=== PATIENT | female | born 1960 | race Caucasian/White ===

== ENCOUNTER 2018-01-24 01:14 | Inpatient (IN) | payer BC, MEDICARE, SELFPAY ==
[2018-01-24] VITALS (16 sets, daily range): BP systolic 89–151; BP diastolic 45–87; PULSE 57–88; RESP 14–20; TEMP 36.4–37.1; O2SAT 88–100; BMI 22.6; BMI 22.7
--- NOTE | 2018-01-24 01:50 | RAD_ITS ---
STUDY: X-RAY CHEST REASON FOR EXAM: Female, 58 years old. Chest pain status post fall TECHNIQUE: Single AP portable view of the chest. COMPARISON: 11/29/2016 FINDINGS: Hyperexpansion of the lungs. Mild prominence of interstitial markings throughout both lungs, unchanged. No confluent airspace opacity. The lungs are clear and expanded. There is no demonstrated pleural abnormality. Normal size heart. Normal mediastinum and jenny. Normal visualized pulmonary arteries. There is atherosclerotic calcification of the aortic arch. Normal visualized thoracic spine. Normal visualized ribs, clavicles, and shoulders. There is no demonstrated abnormality of the visualized soft tissue structures of the upper abdomen. RAD/Chest 1 View (Portable) IMPRESSION: Chronic obstructive and interstitial change with no evidence of acute cardiopulmonary disease. Electronically Signed: Gualberto Rowan MD at 3:49 EDT Tel , Service support ,
--- NOTE | 2018-01-24 01:50 | EKG12_ITS ---
Test Reason : Blood Pressure : / mmHG Vent. Rate : 085 BPM Atrial Rate : 085 BPM P-R Int : 144 ms QRS Dur : 098 ms QT Int : 422 ms P-R-T Axes : 071 084 081 degrees QTc Int : 502 ms Normal sinus rhythm Prolonged QT Abnormal ECG Confirmed by ALBINA DIETRICH, SHARMAINE ([id number]), graphics editor CORINNE VIEIRA ([id number]) on 01/25/2018 2:45:27 PM Referred By: CATIE Confirmed By:SHARMAINE MONTEMAYOR MD
--- NOTE | 2018-01-24 01:52 | RAD_ITS ---
STUDY: X-RAY - PELVIS AND RIGHT HIP REASON FOR EXAM: Female, 58 years old. Posttraumatic right hip pain status post fall TECHNIQUE: Radiological exam, hip, unilateral, with pelvis when performed; 2 or 3 views. COMPARISON: None. FINDINGS: There is a non-specific bowel gas pattern. Normal visualized soft tissue structures. Normal bilateral iliac wings, sacroiliac joints and visualized sacrum. Normal bilateral superior and inferior pubic rami. Normal pubic symphysis. Normal bilateral ischial tuberosities. Bilateral femoral heads are normal alignment with the acetabulum. There is a fracture through the mid right femoral neck. Normal acetabulum. Normal hip joint. RAD/Hip 2-3 Views with Pelvis IMPRESSION: Transcervical right femoral neck fracture. Electronically Signed: Gualberto Rowan MD at 4:37 EDT Tel , Service support ,
[2018-01-24] MEDS: Morphine 4 MG/ML Syringe IV ×4 (01:58→13:56)
[2018-01-24 01:59] LABS: Absolute Lymphocyte Count 2.99 X10^3/ul (0.83-4.51); Absolute Neutrophil Count 12.7 X10^3/uL (2.0-7.7); Basophil# 0.04 X10^3/uL; Basophil% 0.2 % (0-1); Eosinophil# 0.26 X10^3/uL; Eosinophils% 1.5 % (0-5); Hematocrit 38.5 % (37-47); Hemoglobin 12.9 g/dl (12.0-15.0); Lymphocyte # 2.99 X10^3/ul (4.0); Lymphocyte % 17.1 % (19-41); Mean Corp Hgb Conc 33.5 g/gl (32-36); Mean Corpuscular Hgb 32.2 pg (27.0-32.0); Mean Platelet Vol. 9.9 fl (6.2-12.0); Monocyte% 8.6 % (0-10); Neutrophil # 12.68 X10^3/uL (2.7-7.7); Neutrophil % 72.3 % (47-70); POSITIVE COUNT NO; POSITIVE DIFFERENTIAL NO; POSITIVE MORPHOLOGY NO; Platelet Count 270 K/mm3 (150-450); RBC Distribution Width SD 45.3 fl (35.1-43.9); Red Blood Count 4.01 M/mm3 (4.2-5.4); White Blood Count 17.5 K/mm3 (4.4-11.0)
[2018-01-24 02:03] LABS: International Normalized Ratio 0.9; Prothrombin Time (Protime)PT. 12.5 SECONDS (11.7-14.9)
[2018-01-24 02:04] LABS: Partial Thromboplast Time 25.3 Seconds (24.1-36.2)
[2018-01-24 02:06] LABS: Anion Gap 14 (5-15); BUN 7 mg/dL (7-18); BUN/Creat Ratio 17.2 RATIO (10-20); Calcium,Total 8.4 mg/dL (8.5-10.1); Chloride 100 mmol/L (98-107); Creatinine, Serum 0.41 mg/dL (0.55-1.02); EST Glomerular Filtration Rate 171 mL/min (>60); Est Glom Filt Rate - Afr Amer 207 mL/min (>60); Estimated Creatinine Clearance 119.73 ml/min; Glucose 114 mg/dL (74-106); Potassium 3.5 mmol/L (3.5-5.1); Sodium Level 137 mmol/L (136-145)
--- NOTE | 2018-01-24 02:47 | ED.VISSUMM ---
- ER Visit Summary Date of Service: 01/24/18 Chief Complaint: Fall, right hip injury History of Present Illness: The patient is a 58 F mechanical fall at 6 PM this evening. No head injuries or loss of consciousness. Was unable to get up. Significant other came home at 10 PM called EMS. Status post fentanyl from EMS with no provement. She is on chronic prednisone therapy for the past 3 years. Had a right shoulder fracture 4 months [address] followed [address] Dr. Jono Clemente. Abrasions to right forearm, tetanus less than a year ago. No chest pains or shortness of breath. No neck or back pain. No nausea or vomiting. Physical Examination: General: Alert and oriented ?3, no acute distress HEENT: Normocephalic, atraumatic. Moist mucosa membranes Neck: supple, nontender. Cardiovascular: Regular rate and rhythm, no murmurs Respiratory: Normal breath sounds, symmetric, no distress Abdomen: Soft, nontender, nondistended Extremities: Right lower extremity: Shortened and externally rotated. Positive logroll. Right upper extremity: Abrasions distal forearm with no active bleeding. No deformities. Neuro: no focal neurological deficits. Test Results: Right hip and pelvis: Displaced right femoral neck fracture. Chest x-ray: No acute process. WBC 17.5. Hemoglobin 12.9. Creatinine 0.41. EKG sinus rate of [address] or T-wave changes. Emergency Department Course and Treatment: Patient clinically concerns for hip fracture. Clearance labs and images obtained. Hip x-ray confirms fracture. Rodriguez cath placed. Given morphine for pain control. Discussed with Dr. Peace, hospitalist for admission. Dr. Cavazos who was on-call for Dr. Clemente was contacted for update on admission and fracture. Patient declined x-ray of the forearm. Abrasion was cleansed and dressed by nursing. Treatment Plan: [] Disposition: Admission Impression: 1. Closed right hip fracture 2. Right forearm abrasion This note was generated with [employer] dictation software. It may contain incorrect words, spelling, and punctuation that were not noted in review of the chart prior to signing ED Disposition - Plan for ED Patient: Disposition: Acute Care Hospital [facility] Chief Complaint: Fall Diagnosis: Closed right hip fracture, Abrasion of right forearm, initial encounter Referrals: Magen Cavazos MD [Primary Care Provider] -
--- NOTE | 2018-01-24 02:51 | ED.DCSUM_ITS ---
- ER Visit Summary Date of Service: 01/24/18 Chief Complaint: Fall, right hip injury History of Present Illness: The patient is a 58 F mechanical fall at 6 PM this evening. No head injuries or loss of consciousness. Was unable to get up. Significant other came home at 10 PM called EMS. Status post fentanyl from EMS with no provement. She is on chronic prednisone therapy for the past 3 years. Had a right shoulder fracture 4 months [address] followed [address] Dr. Jono Clemente. Abrasions to right forearm, tetanus less than a year ago. No chest pains or shortness of breath. No neck or back pain. No nausea or vomiting. Physical Examination: General: Alert and oriented ?3, no acute distress HEENT: Normocephalic, atraumatic. Moist mucosa membranes Neck: supple, nontender. Cardiovascular: Regular rate and rhythm, no murmurs Respiratory: Normal breath sounds, symmetric, no distress Abdomen: Soft, nontender, nondistended Extremities: Right lower extremity: Shortened and externally rotated. Positive logroll. Right upper extremity: Abrasions distal forearm with no active bleeding. No deformities. Neuro: no focal neurological deficits. Test Results: Right hip and pelvis: Displaced right femoral neck fracture. Chest x-ray: No acute process. WBC 17.5. Hemoglobin 12.9. Creatinine 0.41. EKG sinus rate of [address] or T-wave changes. Emergency Department Course and Treatment: Patient clinically concerns for hip fracture. Clearance labs and images obtained. Hip x-ray confirms fracture. Rodriguez cath placed. Given morphine for pain control. Discussed with Dr. Peace , hospitalist for admission. Dr. Cavaozs who was on-call for Dr. Clemente was contacted for update on admission and fracture. Patient declined x-ray of the forearm. Abrasion was cleansed and dressed by nursing. Treatment Plan: [] Disposition: Admission Impression: 1. Closed right hip fracture 2. Right forearm abrasion This note was generated with [employer] dictation software. It may contain incorrect words, spelling, and punctuation that were not noted in review of the chart prior to signing ED Disposition - Plan for ED Patient: Disposition: Acute Care Hospital [facility] Chief Complaint: Fall Diagnosis: Closed right hip fracture, Abrasion of right forearm, initial encounter Referrals: Magen Cavazos MD [Primary Care Provider] -
--- NOTE | 2018-01-24 02:58 | PCM.HP.STD ---
Problem List (1) COPD (chronic obstructive pulmonary disease) Status: Chronic Qualifiers: COPD type: chronic bronchitis Chronic bronchitis type: unspecified Qualified Code(s): J42 - Unspecified chronic bronchitis (2) Abrasion of right forearm, initial encounter Status: Acute (3) Closed right hip fracture Status: Acute (4) Anxiety, generalized Status: Chronic (5) GERD (gastroesophageal reflux disease) Status: Chronic (6) Panic attacks Status: Chronic (7) Post traumatic stress disorder (PTSD) Status: Chronic History of Present Illness Date of Admission: 01/24/18 Chief Complaint: fall. right hip pain. The patient is a 58 year old F who tripped on a rug in her house and fell landing on her right hip. Patient had immediate hip pain. Patient presented to the emergency room and was found to have of a compacted right hip fracture. Dr. Cavazos, of orthopedics, was calmed by emergency room physician and will be seeing the patient in consultation. Patient did land on her shoulder was having pain x-ray was recommended by the emergency room physician, however the patient declined. Patient is on chronic steroids for her COPD. She is not on oxygen at home. Inquired why she is on chronic steroids patient states that her COPD and will be following up with her denture contour wire specialist in March. [] Past Medical History Past Medical History (Chronic Problems): Chronic Problems COPD (chronic obstructive pulmonary disease) (Chronic) Panic attacks (Chronic) Former heavy tobacco smoker (Chronic) Post traumatic stress disorder (PTSD) (Chronic) Anxiety, generalized (Chronic) Underweight (Chronic) Current smoker (Chronic) GERD (gastroesophageal reflux disease) (Chronic) Allergies No Known Allergies Allergy (Verified 01/24/18 01:14) Home Medications: Ambulatory Orders Medication Instructions Recorded Albuterol Aerosols [Ventolin 2.5 mg INHALATION BID 10/04/14 Aerosols] Fluticasone/Salmeterol [Advair 1 puff INHALATION BID 10/04/14 500/50 Mcg Diskus] Guaifenesin [Mucinex] 1,200 mg PO BID PRN PRN 01/24/15 Tiotropium Melber [Spiriva 18 MCG] 1 puff INHALATION DAILY 01/24/15 Prednisone 10 mg PO DAILY #10 tablet 04/11/16 Azithromycin [Azithromycin] 250 mg PO DAILY 11/29/16 Lisinopril [Zestril] 5 mg PO DAILY 09/16/17 Omeprazole [Prilosec] 20 mg PO DAILY 09/16/17 Oxycodone HCl/Acetaminophen 1 - 2 tablet PO Q4H PRN PRN #12 09/16/17 [Percocet 5/325] tablet Alprazolam [Xanax] 1 mg PO BID 01/24/18 Escitalopram Oxalate [Lexapro] 10 mg PO DAILY 01/24/18 Losartan Potassium [Cozaar] 50 mg PO DAILY 01/24/18 Surgical History: appendectomy, hysterectomy Psychiatric History: Anxiety - with panic attacks, Post traumatic stress Smoking Status: Light Smoker (<10/day) Tobacco Use: Cigarettes Alcohol: Occasional Drugs: None - *Family History Maternal History Items: Unknown, - - No COPD Paternal History Items: Stroke Sibling History Items: Unknown Review of Systems Constitutional: Denies: Anorexia, Chills, Fever Eyes: Denies: Blurred vision, Double vision HEENT: Denies: Head Aches, Sinus Congestion, Sinus Drainage Cardiovascular: Denies: Chest Pain, Palpitations Respiratory: Reports: Shortness of breath upon exertion. Denies: Cough Gastrointestinal: Denies: Abdominal Pain, Nausea, Vomiting Genitourinary: Denies: Dysuria Musculoskeletal: Denies: Joint Pain, Joint Tenderness Skin: Denies: Rash, Wounds Neurological: Denies: Numbness, Tingling, Focal weakness Psychiatric: Denies: Anxiety, Depression Hematologic/ Lymphatic: Denies: Easy Bruising, Easy Bleeding, Hx of blood clot VTE Information - Inpt Only VTE Present on Admission: No VTE Mechan Device Prophylaxis: SCD's Patient Problems: Active and Suspected Problems Closed right hip fracture (Acute) Abrasion of right forearm, initial encounter (Acute) - Physical Exam General: Alert, - - Uncomfortable. Afebrile. HEENT: Atraumatic, Normocephalic Neck: No Nodes, Thyroid Normal Size and Texture Lungs: Clear to auscultation, Normal air movement, No rhonchi, No wheeze Cardiovascular: Regular rate, Regular Rhythm, Normal S1, Normal S2, No murmurs Abdomen: Bowel Sounds Present, Soft, Non Tender, Non-Distended, No Hepato-splenomegaly Extremities: No edema, No Calf Tenderness Skin: - - Superficial abrasions on upper extremities which patient attributes to itching. Right hand and wrist were wrapped in gauze, did not remove. Musculoskeletal: Cachexia, Muscle Wasting Psych/Mental Status: Appropriate, Flat Affect Vital Signs Temp Pulse Resp BP Pulse Ox 37.0 C 62 18 123/75 H 92 01/24/18 01:15 01/24/18 01:15 01/24/18 01:15 01/24/18 01:15 01/24/18 01:18 Oxygen Delivery Method Room Air Weight: 56.3 kg Body Mass Index (BMI) 22.6 Laboratory Tests Past 24 Hrs 01/24/18 01/24/18 01/24/18 01:20 01:20 01:20 WBC 17.5 H RBC 4.01 L Hgb 12.9 Hct 38.5 MCV 96.0 MCH 32.2 H MCHC 33.5 RDW 13.0 RDW Differential 45.3 H Plt Count 270 MPV 9.9 Immature Gran % (Auto) 0.300 Neut % (Auto) 72.3 H Lymph % (Auto) 17.1 L Maverick % (Auto) 8.6 Eos % (Auto) 1.5 Baso % (Auto) 0.2 Absolute Neuts (auto) 12.7 H Absolute Lymphs (auto) 2.99 Total Counted Not Reportable PT 12.5 INR 0.9 APTT 25.3 Sodium 137 Potassium 3.5 Chloride 100 Carbon Dioxide 23.0 Anion Gap 14 BUN 7 Creatinine 0.41 L Estim Creat Clear Calc 119.73 Est GFR (MDRD) Af Amer 207 Est GFR (MDRD) Non-Af 171 BUN/Creatinine Ratio 17.2 Glucose 114 H Calcium 8.4 L Blood Type Antibody Screen 01/24/18 01/24/18 02:05 02:40 WBC RBC Hgb Hct MCV MCH MCHC RDW RDW Differential Plt Count MPV Immature Gran % (Auto) Neut % (Auto) Lymph % (Auto) Maverick % (Auto) Eos % (Auto) Baso % (Auto) Absolute Neuts (auto) Absolute Lymphs (auto) Total Counted PT INR APTT Sodium Potassium Chloride Carbon Dioxide Anion Gap BUN Creatinine Estim Creat Clear Calc Est GFR (MDRD) Af Amer Est GFR (MDRD) Non-Af BUN/Creatinine Ratio Glucose Calcium Blood Type Cancelled Pending Antibody Screen Cancelled Pending Hip x-ray was reviewed and showed an impacted right hip fracture. Chest x-ray was reviewed and showed large airways but no infiltrate nor edema. EKG was reviewed and showed normal sinus rhythm without any acute changes. Assessment/Plan Active and Suspected Problems Closed right hip fracture (Acute) Abrasion of right forearm, initial encounter (Acute) 1. Closed right hip fracture Status post mechanical fall but also complicated by patient's chronic steroid use. Patient has a good performance status prior to this able to engage in greater than 4 mets of activity. Patient is medically cleared to proceed with surgery. Dr. Cavazos has been contacted by the emergency room physician will be seeing patient in consultation today. Patient will be n.p.o. at 6 AM today in anticipation for potential surgery later on today. Pain control 2. COPD Currently stable Continue with her home medications Patient is on long-term prednisone use at 10 mg. I did discuss with the patient about long-term steroids in fact they can potentiate osteoporosis which may have led to her this fracture though not necessarily fall. Patient has an appointment with Dr. Aaron in March. Feeling very essential to discuss long-term steroids the patient is on at that time and seeing about weaning process if it is possible. 3. DVT prophylaxis SCDs for now After surgery, chemical prophylaxis will be directed by orthopedics. Code Visit Inpatient E&M: 96072 Init Hosp L2
--- NOTE | 2018-01-24 03:08 | HP.PCM_ITS ---
Problem List (1) COPD (chronic obstructive pulmonary disease) Status: Chronic Qualifiers: COPD type: chronic bronchitis Chronic bronchitis type: unspecified Qualified Code(s): J42 - Unspecified chronic bronchitis (2) Abrasion of right forearm, initial encounter Status: Acute (3) Closed right hip fracture Status: Acute (4) Anxiety, generalized Status: Chronic (5) GERD (gastroesophageal reflux disease) Status: Chronic (6) Panic attacks Status: Chronic (7) Post traumatic stress disorder (PTSD) Status: Chronic History of Present Illness Date of Admission: 01/24/18 Chief Complaint: fall. right hip pain. The patient is a 58 year old F who tripped on a rug in her house and fell landing on her right hip. Patient had immediate hip pain. Patient presented to the emergency room and was found to have of a compacted right hip fracture. Dr. Cavazos, of orthopedics, was calmed by emergency room physician and will be seeing the patient in consultation. Patient did land on her shoulder was having pain x-ray was recommended by the emergency room physician, however the patient declined. Patient is on chronic steroids for her COPD. She is not on oxygen at home. 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 [] Past Medical History Past Medical History (Chronic Problems): Chronic Problems COPD (chronic obstructive pulmonary disease) (Chronic) Panic attacks (Chronic) Former heavy tobacco smoker (Chronic) Post traumatic stress disorder (PTSD) (Chronic) Anxiety, generalized (Chronic) Underweight (Chronic) Current smoker (Chronic) GERD (gastroesophageal reflux disease) (Chronic) Allergies No Known Allergies Allergy (Verified 01/24/18 01:14) Home Medications: Ambulatory Orders Medication Instructions Recorded Albuterol Aerosols [Ventolin 2.5 mg INHALATION BID 10/04/14 Aerosols] Fluticasone/Salmeterol [Advair 1 puff INHALATION BID 10/04/14 500/50 Mcg Diskus] Guaifenesin [Mucinex] 1,200 mg PO BID PRN PRN 01/24/15 Tiotropium Julian [Spiriva 18 MCG] 1 puff INHALATION DAILY 01/24/15 Prednisone 10 mg PO DAILY #10 tablet 04/11/16 Azithromycin [Azithromycin] 250 mg PO DAILY 11/29/16 Lisinopril [Zestril] 5 mg PO DAILY 09/16/17 Omeprazole [Prilosec] 20 mg PO DAILY 09/16/17 Oxycodone HCl/Acetaminophen 1 - 2 tablet PO Q4H PRN PRN #12 09/16/17 [Percocet 5/325] tablet Alprazolam [Xanax] 1 mg PO BID 01/24/18 Escitalopram Oxalate [Lexapro] 10 mg PO DAILY 01/24/18 Losartan Potassium [Cozaar] 50 mg PO DAILY 01/24/18 Surgical History: appendectomy, hysterectomy Psychiatric History: Anxiety - with panic attacks, Post traumatic stress Smoking Status: Light Smoker (<10/day) Tobacco Use: Cigarettes Alcohol: Occasional Drugs: None - *Family History Maternal History Items: Unknown, - - No COPD Paternal History Items: Stroke Sibling History Items: Unknown Review of Systems Constitutional: Denies: Anorexia, Chills, Fever Eyes: Denies: Blurred vision, Double vision HEENT: Denies: Head Aches, Sinus Congestion, Sinus Drainage Cardiovascular: Denies: Chest Pain, Palpitations Respiratory: Reports: Shortness of breath upon exertion. Denies: Cough Gastrointestinal: Denies: Abdominal Pain, Nausea, Vomiting Genitourinary: Denies: Dysuria Musculoskeletal: Denies: Joint Pain, Joint Tenderness Skin: Denies: Rash, Wounds Neurological: Denies: Numbness, Tingling, Focal weakness Psychiatric: Denies: Anxiety, Depression Hematologic/ Lymphatic: Denies: Easy Bruising, Easy Bleeding, Hx of blood clot VTE Information - Inpt Only VTE Present on Admission: No VTE Mechan Device Prophylaxis: SCD's Patient Problems: Active and Suspected Problems Closed right hip fracture (Acute) Abrasion of right forearm, initial encounter (Acute) - Physical Exam General: Alert, - - Uncomfortable. Afebrile. HEENT: Atraumatic, Normocephalic Neck: No Nodes, Thyroid Normal Size and Texture Lungs: Clear to auscultation, Normal air movement, No rhonchi, No wheeze Cardiovascular: Regular rate, Regular Rhythm, Normal S1, Normal S2, No murmurs Abdomen: Bowel Sounds Present, Soft, Non Tender, Non-Distended, No Hepato- splenomegaly Extremities: No edema, No Calf Tenderness Skin: - - Superficial abrasions on upper extremities which patient attributes to itching. Right hand and wrist were wrapped in gauze, did not remove. Musculoskeletal: Cachexia, Muscle Wasting Psych/Mental Status: Appropriate, Flat Affect Vital Signs Temp Pulse Resp BP Pulse Ox 37.0 C 62 18 123/75 H 92 01/24/18 01:15 01/24/18 01:15 01/24/18 01:15 01/24/18 01:15 01/24/18 01:18 Oxygen Delivery Method Room Air Weight: 56.3 kg Body Mass Index (BMI) 22.6 Laboratory Tests Past 24 Hrs 01/24/18 01/24/18 01/24/18 01:20 01:20 01:20 WBC 17.5 H RBC 4.01 L Hgb 12.9 Hct 38.5 MCV 96.0 MCH 32.2 H MCHC 33.5 RDW 13.0 RDW Differential 45.3 H Plt Count 270 MPV 9.9 Immature Gran % (Auto) 0.300 Neut % (Auto) 72.3 H Lymph % (Auto) 17.1 L Gilmer % (Auto) 8.6 Eos % (Auto) 1.5 Baso % (Auto) 0.2 Absolute Neuts (auto) 12.7 H Absolute Lymphs (auto) 2.99 Total Counted Not Reportable PT 12.5 INR 0.9 APTT 25.3 Sodium 137 Potassium 3.5 Chloride 100 Carbon Dioxide 23.0 Anion Gap 14 BUN 7 Creatinine 0.41 L Estim Creat Clear Calc 119.73 Est GFR (MDRD) Af Amer 207 Est GFR (MDRD) Non-Af 171 BUN/Creatinine Ratio 17.2 Glucose 114 H Calcium 8.4 L Blood Type Antibody Screen 01/24/18 01/24/18 02:05 02:40 WBC RBC Hgb Hct MCV MCH MCHC RDW RDW Differential Plt Count MPV Immature Gran % (Auto) Neut % (Auto) Lymph % (Auto) Gilmer % (Auto) Eos % (Auto) Baso % (Auto) Absolute Neuts (auto) Absolute Lymphs (auto) Total Counted PT INR APTT Sodium Potassium Chloride Carbon Dioxide Anion Gap BUN Creatinine Estim Creat Clear Calc Est GFR (MDRD) Af Amer Est GFR (MDRD) Non-Af BUN/Creatinine Ratio Glucose Calcium Blood Type Cancelled Pending Antibody Screen Cancelled Pending Hip x-ray was reviewed and showed an impacted right hip fracture. Chest x-ray was reviewed and showed large airways but no infiltrate nor edema. EKG was reviewed and showed normal sinus rhythm without any acute changes. Assessment/Plan Active and Suspected Problems Closed right hip fracture (Acute) Abrasion of right forearm, initial encounter (Acute) 1. Closed right hip fracture * Status post mechanical fall but also complicated by patient's chronic steroid use. * Patient has a good performance status prior to this able to engage in greater than 4 mets of activity. * Patient is medically cleared to proceed with surgery. * Dr. Cavazos has been contacted by the emergency room physician will be seeing patient in consultation today. * Patient will be n.p.o. at 6 AM today in anticipation for potential surgery later on today. * Pain control 2. COPD * Currently stable * Continue with her home medications * Patient is on long-term prednisone use at 10 mg. I did discuss with the patient about long-term steroids in fact they can potentiate osteoporosis which may have led to her this fracture though not necessarily fall. * Patient has an appointment with Dr. Aaron in March. Feeling very essential to discuss long-term steroids the patient is on at that time and seeing about weaning process if it is possible. 3. DVT prophylaxis * SCDs for now * After surgery, chemical prophylaxis will be directed by orthopedics. Code Visit Inpatient E&M: 96946 Init Hosp L2
[2018-01-24] MEDS: Morphine 2 MG/ML Syringe IV (03:22)
[2018-01-24] MEDS: oxyCODONE 5 MG Tablet PO (04:30)
[2018-01-24] MEDS: ALPRAZolam 0.5 MG Tablet 1 MG PO (04:30)
[2018-01-24] MEDS: Pantoprazole Sodium 20 MG Tablet PO (08:54)
[2018-01-24] MEDS: Losartan Potassium 50 MG Tablet PO (08:54)
[2018-01-24] MEDS: Lisinopril 5 MG Tablet PO (08:55)
--- NOTE | 2018-01-24 09:15 | HIP_PTH ---
PATIENT: RACQUEL IRVIN LOC: [facility] U#:[id number] AGE/SX: 58/F ROOM: [facility]313 RE01/24/[address]: Dr. Romy Gomez MD : 1960 BED: 1 DIS: 01/27/2018 SPEC #: [id number] RECD: 01/25/18 08:11 STATUS: GEORGE MICHELLE #: [id number] KAUSHIK: 01/24/18 09:[address]: Mayito Ayers DEPT: SURGICAL PATHOLOGY RECD BY: Michelle Briggs ENTERED: 01/25/18 09:07 SP TYPE: TOTAL HIP OTHR DR: MD Dr. Arnie Pizarro DO Dr. Steven Widmer, MD Tissues: Hip, NOS Procedures: Decalcification bone/plaque Surgery Specimen Level IV HEADER OPERATION: Total hip replacement PRE-OP DIAGNOSIS: Fractured right hip TISSUE SUBMITTED: Right hip bone and tissue MICROSCOPIC DIAGNOSIS Bone and soft tissue of right hip, total hip resection: Consistent with organizing fracture callous. Trilineage hematopoiesis. AM:elaine 01/30/18 MICROSCOPIC DESCRIPTION Slides are reviewed. GROSS DESCRIPTION Received is one container labeled with the patient's name and designated right hip bone and tissue. The specimen consists of a femoral head measuring 4 x 4.5 x 4 cm. The articular surface is smooth. Resection margin is irregular and hemorrhagic. Also present in the specimen container are multiple detached pieces of bone including bone reamings measuring in aggregate 6 x 6 x 2 cm. Soft tissue is not identified. Food Service Representative sections are submitted in three cassettes after decalcification as follows: 1 & 2 - detached pieces of bone and bone reamings, 3 - femoral head after decalcification. / SJ:elaine 01/25/18 TC:5 CPT: 92545, 87135
[2018-01-24] MEDS: Ipratropium/Albuterol Sulfate 3 ML AMPUL.NEB INHALATION ×2 (09:17→13:08)
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
--- NOTE | 2018-01-24 14:05 | NURSING ---
Addendum entered by Chandni Wan 01/24/18 14:15: report called to Laura in [facility]. aware that consent has not been signed and that antibiotic is not on unit Original Note: Laurie here to transport pt down to surgery.
--- NOTE | 2018-01-24 15:50 | PCM.CONS.GEN ---
Reason for Consult Date of Consultation: 01/24/18 Reason for Consultation: Right hip pain. Rested by Dr. Neal History of Present Illness: The patient is a 58 year old F history of chronic COPD on prednisone chronically. Patient fell yesterday evening her home. She presented to the hospital with inability to bear weight and pain in her right groin. Patient currently has 10 out of 10 pain worse with motion better with immobilization and pain medications. Pain is constant achy. Patient lives at home with her and ambulates independently. She is a fairly active independent individual her chronic medical issues. She denies home oxygen to me. She does not report significant previous groin pain. She denies associated numbness and tingling. No other painful extremities. Past Medical History Past Medical History (Chronic Problems): Chronic Problems COPD (chronic obstructive pulmonary disease) (Chronic) Panic attacks (Chronic) Former heavy tobacco smoker (Chronic) Post traumatic stress disorder (PTSD) (Chronic) Anxiety, generalized (Chronic) Underweight (Chronic) Current smoker (Chronic) GERD (gastroesophageal reflux disease) (Chronic) Allergies No Known Allergies Allergy (Verified 01/24/18 01:14) Home Medications: Ambulatory Orders Medication Instructions Recorded Albuterol Aerosols [Ventolin 2.5 mg INHALATION BID 10/04/14 Aerosols] Fluticasone/Salmeterol [Advair 1 puff INHALATION BID 10/04/14 500/50 Mcg Diskus] Guaifenesin [Mucinex] 1,200 mg PO BID PRN PRN 01/24/15 Tiotropium [place] [Spiriva 18 MCG] 1 puff INHALATION DAILY 01/24/15 Prednisone 10 mg PO DAILY #10 tablet 04/11/16 Azithromycin [Azithromycin] 250 mg PO DAILY 11/29/16 Lisinopril [Zestril] 5 mg PO DAILY 09/16/17 Omeprazole [Prilosec] 20 mg PO DAILY 09/16/17 Alprazolam [Xanax] 1 mg PO BID 01/24/18 Escitalopram Oxalate [Lexapro] 10 mg PO DAILY 01/24/18 Losartan Potassium [Cozaar] 50 mg PO DAILY 01/24/18 Surgical History: appendectomy, hysterectomy Psychiatric History: Anxiety - with panic attacks, Post traumatic stress Lives: Spouse/ Significant Other Smoking Status: Light Smoker (<10/day) Tobacco Use: Cigarettes Alcohol: Occasional Drugs: None - *Family History Maternal History Items: Unknown, - - No COPD Paternal History Items: Stroke Sibling History Items: Unknown Review of Systems Constitutional: Denies: Chills, Fever, Weight Change HEENT: Denies: Head Aches, Sinus Congestion, Sinus Drainage Cardiovascular: Denies: Chest Pain, Palpitations Respiratory: Reports: Shortness of breath upon exertion - Chronic, on oxygen today. Denies: Cough, Shortness of breath at rest, Sputum production Gastrointestinal: Denies: Abdominal Pain, Nausea, Vomiting Genitourinary: Denies: Dysuria Musculoskeletal: Reports: - - See HPI Skin: Reports: - - Patient has superficial hematomas from her fall and thin skin from chronic steroid use.. Denies: Rash, Wounds Neurological: Denies: Numbness, Tingling, Focal weakness Psychiatric: Denies: Anxiety, Depression, Homicidal Ideations, Suicidal Ideations Hematologic/ Lymphatic: Denies: Easy Bruising, Easy Bleeding Patient Problems: Active and Suspected Problems Closed right hip fracture (Acute) Abrasion of right forearm, initial encounter (Acute) Objective: X-rays show completely displaced capital femoral neck fracture. Hip joint shows joint space narrowing and mild subchondral sclerosis - Physical Exam General: Alert, Oriented x3, Cooperative Extremities: - - Lower extremity: Skin clean, dry, and intact. Limb is shortened and externally rotated Motor is intact dorsiflexion, EHL and plantar flexion. Sensation is intact to light touch saphenous, dylan,l superficial peroneal, deep peroneal and tibial distributions. Calves are soft and supple. Vital Signs Temp Pulse Resp BP Pulse Ox 98.7 F 66 20 H 118/58 L 92 01/24/18 12:19 01/24/18 13:28 01/24/18 13:28 01/24/18 12:19 01/24/18 12:19 Oxygen Flow Rate (L/min) 2 Oxygen Delivery Method Nasal Cannula Weight: 124 lb 1.924 oz Body Mass Index (BMI) 22.6 Intake and Output for Last 24 Hours 01/22/18 01/23/18 01/24/18 23:59 23:59 23:59 Intake Total 1013 / 1013 Output Total 525 / 525 Balance 488 / 488 Assessment/Plan Active and Suspected Problems Closed right hip fracture (Acute) Abrasion of right forearm, initial encounter (Acute) Right hip osteoarthritis Right displaced femoral neck fracture 1. Treatment options for this disease process were discussed the patient including, hemiarthroplasty and total hip replacement. Considering patient's age, activity level and joint space narrowing we elected to proceed with total hip replacement for the patient's osteoarthritis and acute manner secondary to patient's fracture. Risks and benefits of the procedure were discussed the patient including but not limited to blood loss, DVTs, PEs, neurovascular damage, infection and general risk of anesthesia. She demonstrated understanding and medical clearance was obtained from the primary service. 2. Ancef on-call to the operating room 3. Patient is n.p.o. 4. We will proceed to surgery today. [facility] Office:
--- NOTE | 2018-01-24 17:35 | PCM.OPRPT ---
Report of Operation Date of Procedure: 01/24/18 Pre-Operative Diagnosis: 1. Right hip osteoarthritis. 2. Right displaced subcapital femoral neck fracture Post-Operative Diagnosis: 1. Right hip osteoarthritis. 2. Right displaced subcapital femoral neck fracture Surgery/Procedure Performed:: Right total hip replacement Description of Surgical Findings:: Stable hip with equal leg lengths leather products supervisor: Bernard Dalton Type of Anesthesia:: General Anesthesiologist: Ashley Vaughan Special Medications: 2 g Ancef, 2 g TXA in wound at completion of case for 1 minute lavage, 10 mg Decadron, joint cocktail (5 mg Duramorph, 30 mL of 0.5% Ropivicaine, 1000 units of epinephrine, 30 mg of Toradol) Specimen's removed: Femoral head Estimated Blood Loss (mL): 150 Fluids Replaced: 1500 ml crystalloid Description of Procedure: During the course of the procedure the physician workforce development assistant played a vital role. His intimate knowledge of my steps in the procedure aided in safe and expedient completion of the procedure. The PA played a vital rolls in positioning particularly in obtaining the appropriate positioning of the sacral bump. The PA was also vital in the retraction of soft tissues during the exposure and especially the femoral work as this is a vital part of the procedure to prevent complications and fractures. The PA was also vital and protecting soft tissues during times of bony cuts and reaming. He also played a vital role in closure with my direct supervision. The PA was also important during reduction and dislocation of the joint and trials intraoperatively. Findings: Adequate reduction with stability of the hip and equal leg lengths measured intraoperatively. Components used: 1. Violette Accolade C size 4 stem 2. Gunlock trident 50 mm acetabular shell 3. Violette X3 polyethylene liner, MDM 38 mm outer 4. Violette cobalt-chromium 22.2 mm +3 mm femoral neck 5. Gunlock MDM metal liner shell alpha code E Brief history operative indications: 58-year-old female presented to the emergency department with a subcapital femoral neck fracture. X-rays revealed joint space narrowing and patient is relatively active He lives independently. Based on the fracture pattern arthrosis on radiographs we elected to proceed with right total hip replacement. Risks and benefits were discussed with the patient which included but were not limited to blood loss, DVTs, PEs, infection, neurovascular damage, and dislocation. In light of all this patient did agree to proceed with a total hip arthroplasty. Procedure: On the date of procedure the patient's R hip was marked in the preoperative area. Patient was then taken back to the operating room where anesthesia assumed control of the C-spine and airway and administered anesthetic. Patient was transferred to the operating table and placed in the lateral decubitus position with the affected hip up. The patient was secured in the bed with the lateral positioners and leg lengths were checked. The R lower extremity was then prepped out in a sterile fashion using chlorhexidine while the surgeon scrubbed. Upon reentering the room the R lower extremity was draped in the standard orthopedic fashion and the incision was marked. A timeout was called and everyone agreed upon the side, the site, the procedure be performed, antibiotics given, and patient's identity. At this time incision was made through skin, subcutaneous tissue, and fat down to fascia. The fascia was then incised and a Charley retractor was placed. The soft tissue was then cleared from the posterior external rotators and the piriformis was identified. Piriformis was taken down and tagged. The remainder of the short external rotators were taken down. Capsulotomy was made and the posterior capsule was tagged. The retractors were then placed inside the capsule. The femoral neck was identified and a cleanup cut was made. At this time a power corkscrew was used to remove the femoral head. At this time all bony debris was removed from the acetabulum. Attention was then turned to the femur where the proximal femur was appropriately exposed using a lee retractor. The telephone coin box collector was used to remove the lateral bone. Canal finder was used to verify the canal. The proximal femoral femur was then sequentially broached to a size 4 broach which had an appropriate fit. The broach was left in place. Our attention was then directed to the acetabulum and the anterior retractor was placed and a posterior retractor was used to retract the posterior capsule superiorly. All soft tissue debris was removed from the pulvinar and labrum of the joint. The acetabulum was then sequentially reamed to 49 millimeters. At this time a and 50 mm Gunlock trident cup was opened and impacted into place. Once it was securely fastened our attention was again turned towards the femur and the high offset neck was chosen and a 22.2 mm head with 3 mm offset was trialed. The hip was properly reduced using traction and external rotation. Stability was checked with the appropriate amount of shuck, no impingement with external rotation, and stable at 90? flexion and 90? internal rotation. Leg lengths were checked and were found to be equal on the table. Once the hip was determined to be stable the trial components were dislocated and [] bone screws were placed in the safe zone of the acetabular component. Once it was securely fastened down the polyethylene liner was placed and security was verified. The proximal femur was again exposed and the components were removed from the wound. The final components were verified and opened. The wound was copiously irrigated out with normal saline. The acetabulum was checked for any residual debris. It was mixed in the canal was prepared. Canal was then pressurized with cement and final femoral component was put into place. Femoral component was held in place as a cement cured. Final femoral head was opened and impacted into place. Traction and external rotation were again used to reduce the hip. After adequate reduction the hip remained stable with appropriate leg lengths. Wound was then gated out with a 1 minute lavage of gram of TXA. The wound was then copiously irrigated with normal saline once more, and hemostasis was obtained. The posterior capsule and piriformis were repaired through drill holes to the greater trochanter . Closure was then done using #1 Vicryl to close the fascia. A 2-0 Vicryl interrupted sutures were used to close the subcutaneous skin. Skin katlin were used for final skin closure. A sterile dressing was placed. Patient was awakened by anesthesia and transferred to the [facility]. Patient was then transferred to the PACU for recovery. Postoperative plan: Patient will get 24 hours postop antibiotics. Patient will get in-house physical therapy and will be weight-bear as tolerated. Patient will follow up in office in 2 weeks for a wound check and x-rays. Dr. Dalton played a vital role in this case is my workforce development assistant. He was vital in positioning. He was vital during the exposure of the case. He was vital during implant positioning and placement. He was vital during closure all under supervision. He was also vital during reduction of the hip dislocation of the hip during the case. His expertise in this case needed in safe and expedient completion of the procedure. - Complications None - Admit VTE Documentation VTE Present on Admission: No VTE Mechan Device Prophylaxis: SCD's, Thigh High RM Hose VTE Pharm Prophylaxis ordered?: Yes
[2018-01-24] MEDS: Scopolamine 1mg/72hr Patch 1 PATCH TD (18:35)
--- NOTE | 2018-01-24 18:36 | RAD_ITS ---
STUDY: X-RAY - PELVIS AND RIGHT HIP REASON FOR EXAM: Female, 58 years old. Postop TECHNIQUE: Radiological exam, hip, unilateral, with pelvis when performed; 2 or 3 views. COMPARISON: 01/24/2018 FINDINGS: The patient is status post right total hip arthroplasty. The hardware is intact and alignment is satisfactory. The remainder the visualized osseous structures are within normal limits. RAD/Hip Min 2 Views (Portable) IMPRESSION: Status post right hip arthroplasty with intact hardware and satisfactory alignment. Electronically Signed: Taz Chang, at 21:32 EDT Tel , Service support ,
[2018-01-24] MEDS: Lactated Ringers 1,000 ML 125 ML IV (20:08)
[2018-01-25] VITALS (11 sets, daily range): BP systolic 87–117; BP diastolic 45–61; PULSE 73–96; RESP 14–20; TEMP 36.3–37.7; O2SAT 89–100
[2018-01-25] MEDS: Acetaminophen 500 MG Tablet 1000 MG PO ×4 (00:40→21:33)
[2018-01-25] MEDS: Senna/Docusate Sodium 1 Tablet 2 TABLET PO ×2 (00:40→09:37)
[2018-01-25] MEDS: Cefazolin 1 GM/50 ML BAG IV ×2 (00:41→07:34)
[2018-01-25] MEDS: predniSONE 10 MG Tablet PO ×2 (00:41→07:36)
[2018-01-25] MEDS: Escitalopram Oxalate 10 MG Tablet PO ×2 (00:42→09:38)
[2018-01-25] MEDS: Azithromycin 250 MG Tablet PO ×2 (00:42→09:37)
[2018-01-25] MEDS: Lactated Ringers 1,000 ML 125 ML IV (05:05)
[2018-01-25 06:33] LABS: Absolute Lymphocyte Count 0.96 X10^3/ul (0.83-4.51); Absolute Neutrophil Count 12.2 X10^3/uL (2.0-7.7); Basophil# 0.01 X10^3/uL; Basophil% 0.1 % (0-1); Eosinophil# 0.01 X10^3/uL; Eosinophils% 0.1 % (0-5); Hematocrit 32.3 % (37-47); Hemoglobin 10.7 g/dl (12.0-15.0); Lymphocyte # 0.96 X10^3/ul (4.0); Lymphocyte % 6.7 % (19-41); Mean Corp Hgb Conc 33.1 g/gl (32-36); Mean Corpuscular Hgb 32.6 pg (27.0-32.0); Mean Corpuscular Volume 98.5 fL (81-99); Mean Platelet Vol. 10.3 fl (6.2-12.0); Monocyte% 7.7 % (0-10); Neutrophil # 12.23 X10^3/uL (2.7-7.7); Neutrophil % 85.2 % (47-70); Platelet Count 232 K/mm3 (150-450); RBC Distribution Width CV 12.7 % (11.6-14.6); RBC Distribution Width SD 44.1 fl (35.1-43.9); Red Blood Count 3.28 M/mm3 (4.2-5.4); White Blood Count 14.3 K/mm3 (4.4-11.0)
[2018-01-25 06:36] LABS: POSITIVE COUNT NO; POSITIVE DIFFERENTIAL NO; POSITIVE MORPHOLOGY NO
[2018-01-25 06:50] LABS: Anion Gap 9 (5-15); BUN 6 mg/dL (7-18); BUN/Creat Ratio 15.5 RATIO (10-20); Calcium,Total 7.8 mg/dL (8.5-10.1); Chloride 101 mmol/L (98-107); Creatinine, Serum 0.39 mg/dL (0.55-1.02); EST Glomerular Filtration Rate 181 mL/min (>60); Est Glom Filt Rate - Afr Amer 219 mL/min (>60); Estimated Creatinine Clearance 125.87 ml/min; Glucose 111 mg/dL (74-106); Potassium 4.1 mmol/L (3.5-5.1); Sodium Level 134 mmol/L (136-145)
[2018-01-25] MEDS: Ipratropium/Albuterol Sulfate 3 ML AMPUL.NEB INHALATION ×3 (06:53→19:47)
[2018-01-25] MEDS: guaiFENesin 1,200 MG Tablet 1200 MG PO (07:07)
--- NOTE | 2018-01-25 07:27 | PN.ORTHO_ITS ---
Patient Problems: Active and Suspected Problems Closed right hip fracture (Acute) Abrasion of right forearm, initial encounter (Acute) Subjective: The patient was sitting in bed upon examination. Patient denies any chest pain , shortness of breath, dizziness, lightheadedness, nausea or vomiting, or calf pain. Pain is controlled on medications. No adverse overnight events. Patient states the pain is better from prior to surgery. She does however continue to have pain in the right hip region. She did have some nausea overnight. Objective: Vital signs stable and afebrile. Patient is able to plantarflex and dorsiflex actively. Sensation is intact to light touch to saphenous, sural, superficial and deep peroneal, and tibial distribution. Dressing is clean dry and intact. Negative Homans bilaterally, negative signs and symptoms of DVT. - Physical Exam General: Alert, Oriented x3, Cooperative, No apparent distress Vital Signs Temp Pulse Resp BP Pulse Ox 98.2 F 80 20 H 117/60 98 01/25/18 05:07 01/25/18 06:54 01/25/18 06:54 01/25/18 05:07 01/25/18 06:54 Oxygen Flow Rate (L/min) 2 Oxygen Delivery Method Nasal Cannula Weight: 56.3 kg Body Mass Index (BMI) 22.6 Intake and Output for Last 24 Hours 01/23/18 01/24/18 01/25/18 23:59 23:59 23:59 Intake Total 3213 / 3213 878 / 878 Output Total 900 / 900 Balance 2313 / 2313 878 / 878 Laboratory Tests Past 24 Hrs 01/25/18 01/25/18 01/25/18 05:44 05:44 05:44 WBC 14.3 H RBC 3.28 L Hgb 10.7 L Hct 32.3 L MCV 98.5 MCH 32.6 H MCHC 33.1 RDW 12.7 RDW Differential 44.1 H Plt Count 232 MPV 10.3 Immature Gran % (Auto) 0.200 Neut % (Auto) 85.2 H Lymph % (Auto) 6.7 L [place] % (Auto) 7.7 Eos % (Auto) 0.1 Baso % (Auto) 0.1 Absolute Neuts (auto) 12.2 H Absolute Lymphs (auto) 0.96 Total Counted Not Reportable Sodium 134 L Potassium 4.1 Chloride 101 Carbon Dioxide 24.0 Anion Gap 9 BUN 6 L Creatinine 0.39 L Estim Creat Clear Calc 125.87 Est GFR (MDRD) Af Amer 219 Est GFR (MDRD) Non-Af 181 BUN/Creatinine Ratio 15.5 Glucose 111 H Calcium 7.8 L Vitamin D 25-Hydroxy Pending Medical Necessity - Tobacco Use Smoking Status: Light Smoker (<10/day) Tobacco Use: Cigarettes Assessment/Plan Active and Suspected Problems Closed right hip fracture (Acute) Abrasion of right forearm, initial encounter (Acute) 1. S/P right total hip arthroplasty POD #1 2. Continue Pain Medications: Tylenol and OxyIR 3. DVT Prophylaxis: Aspirin 325 mg twice daily 4. PT/OT: Weightbearing as tolerated 5. H & H: 10.7/32.3, asymptomatic 6. Leukocytosis: Currently 14.3, afebrile. Patient did receive Decadron intraoperatively. Patient's white blood cell count was elevated prior to surgery. This has come down on postoperative day #1. Patient is on prednisone for home medication. 7. Encouraged Incentive Spirometry 8. Continue postoperative medical management per medicine 9. Disposition: Patient states she plans on going home when ready for discharge.
[2018-01-25] MEDS: Aspirin 325 MG Tablet PO ×2 (07:36→17:35)
[2018-01-25] MEDS: Famotidine 20 MG Tablet PO (09:38)
[2018-01-25] MEDS: Pantoprazole Sodium 20 MG Tablet PO (09:38)
[2018-01-25 09:45] LABS: Vitamin D,25 Hydroxy 16.1 ng/mL (29.95-100.01)
--- NOTE | 2018-01-25 11:00 | CASEMGMT ---
Social Work Note Face to face with the pt and her spouse to discuss discharge planning. Introduced self and role at [facility]. The pt reports that she intends on returning home. Educate to [facility] and outpatient therapy and she states that she would like [facility] for the entire time her spouse is at work. Inform that insurance does not cover that and they would be out minimally throughout the week and just to provide her therapy. Discuss [facility] as a placement option. Pt states that she is going home, but her spouse requests that she considers [facility]. Inform that an average stay is 3-5 days. Pt states she will consider. Inform that SW will get her placed on the [facility] list and let her think about it until lunch. Will check back in. Inform that we have a script for a walker if she needs it and decides to go home. Pt agreeable to weigh options and discuss with spouse. Placed call to Cathy in the [facility] who will review case and initiate pre-cert if appropriate. SW to continue to follow and assist with discharge planning. Plan: [facility] for rehabilitation vs. Home with [facility]. Radha Parrish, ENGINEERING AND SCIENTIFIC PROGRAMMER, MODELING AGENT
--- NOTE | 2018-01-25 13:14 | CASEMGMT ---
Social Work Note Face to face with the pt to confirm discharge plan. Pt insists on returning home and would like HHC setup. Would like to be established with [facility] for SN, PT/OT. Notified RN Dominic LUGO, to establish HHC and obtain DME. Placed call to Cathy on [facility] to cancel referral. Plan: Home with [facility] for SN, PT, and OT. Radha Parrish, AGRICULTURAL APPRAISER, LINSEED OIL REFINER
--- NOTE | 2018-01-25 15:01 | PCM.PROGNOTE ---
Patient Problems: Active and Suspected Problems Closed right hip fracture (Acute) Abrasion of right forearm, initial encounter (Acute) Subjective: Pt resting in chair this AM. She complains of severe back pain from sitting up in the chair but her hip actually has minimal pain and she ambulated today with much difficulty (with walker). No SOB, cough, fever, chill. Tolerating PO. She has had severe anxiety today and had a panic attack the first time she stood up. She is currently stable, just irritated that the chair is so painful. - Physical Exam General: Alert, Oriented x3, Cooperative HEENT: Atraumatic, PERRLA, EOMI, Normocephalic Neck: Supple, No JVD, Negative Carotid Bruits Lungs: Clear to auscultation, Normal air movement Cardiovascular: Regular rate, No murmurs Abdomen: Bowel Sounds Present, Soft, Non Tender Extremities: No edema, Capillary Refill Less than 3 Seconds Skin: No rashes, No breakdown Musculoskeletal: No Tenderness to Palpation of Joints or Extremities Neurological: Cranial nerves II-XII grossly intact Psych/Mental Status: Normal Affect, Appropriate, Alert and oriented to time, place, person, mood and affect Vital Signs Temp Pulse Resp BP Pulse Ox 99.3 F H 96 20 H 97/45 L 96 01/25/18 12:34 01/25/18 13:24 01/25/18 13:24 01/25/18 12:34 01/25/18 12:34 Oxygen Flow Rate (L/min) 2 Oxygen Delivery Method Room Air Weight: 56.3 kg Body Mass Index (BMI) 22.6 Intake and Output for Last 24 Hours 01/23/18 01/24/18 01/25/18 23:59 23:59 23:59 Intake Total 3213 / 3213 3775 / 3775 Output Total 900 / 900 875 / 875 Balance 2313 / 2313 2900 / 2900 Laboratory Tests Past 24 Hrs 01/25/18 01/25/18 01/25/18 05:44 05:44 05:44 WBC 14.3 H RBC 3.28 L Hgb 10.7 L Hct 32.3 L MCV 98.5 MCH 32.6 H MCHC 33.1 RDW 12.7 RDW Differential 44.1 H Plt Count 232 MPV 10.3 Immature Gran % (Auto) 0.200 Neut % (Auto) 85.2 H Lymph % (Auto) 6.7 L [place] % (Auto) 7.7 Eos % (Auto) 0.1 Baso % (Auto) 0.1 Absolute Neuts (auto) 12.2 H Absolute Lymphs (auto) 0.96 Total Counted Not Reportable Sodium 134 L Potassium 4.1 Chloride 101 Carbon Dioxide 24.0 Anion Gap 9 BUN 6 L Creatinine 0.39 L Estim Creat Clear Calc 125.87 Est GFR (MDRD) Af Amer 219 Est GFR (MDRD) Non-Af 181 BUN/Creatinine Ratio 15.5 Glucose 111 H Calcium 7.8 L Vitamin D 25-Hydroxy 16.1 L Medical Necessity - Tobacco Use Smoking Status: Light Smoker (<10/day) Tobacco Use: Cigarettes Assessment/Plan Active and Suspected Problems Closed right hip fracture (Acute) Abrasion of right forearm, initial encounter (Acute) 1. Acute closed right hip fracture s/p mechanical fall (tripped on rug) - s/p surgery with Dr. Cavazos post op day #1. Pt ambulating and hip pain controlled well 2. COPD - stable. on chronic prednisone - can contribute to osteoporosis 3. Leukocytosis likely 2/2 chronic steroids and acute fracture - improving 4. Normocytic anemia - trend 5. Low calcium and vit D deficiency - Vit D started 6. Anxiety, panic attacks, PTSD - home meds 7. GERD - protonix 8. HTN - home meds DVT ppx: ASA 325 BID , SCDs This patient was seen by Yaakov Garcia PA-C under the supervision of Doctor Ayers.
[2018-01-25] MEDS: Losartan Potassium 50 MG Tablet PO (17:35)
[2018-01-25] MEDS: Lisinopril 5 MG Tablet PO (17:40)
[2018-01-25] MEDS: ALPRAZolam 0.5 MG Tablet 1 MG PO (21:33)
[2018-01-26] VITALS (8 sets, daily range): BP systolic 92–118; BP diastolic 46–72; PULSE 82–92; RESP 16–24; TEMP 36.6–36.8; O2SAT 92–98
[2018-01-26] MEDS: oxyCODONE 5 MG Tablet PO ×3 (02:25→10:59)
[2018-01-26] MEDS: Acetaminophen 500 MG Tablet 1000 MG PO ×3 (06:25→21:39)
[2018-01-26] MEDS: Ipratropium/Albuterol Sulfate 3 ML AMPUL.NEB INHALATION ×3 (07:23→19:22)
[2018-01-26 07:46] LABS: Hematocrit 29.4 % (37-47); Hemoglobin 9.7 g/dl (12.0-15.0); Mean Corpuscular Hgb 32.6 pg (27.0-32.0); Mean Corpuscular Volume 98.7 fL (81-99); Mean Platelet Vol. 9.9 fl (6.2-12.0); Platelet Count 211 K/mm3 (150-450); Red Blood Count 2.98 M/mm3 (4.2-5.4); Scan Indicated on CBC? Y/N NO; White Blood Count 10.2 K/mm3 (4.4-11.0)
[2018-01-26] MEDS: predniSONE 10 MG Tablet PO (08:36)
[2018-01-26] MEDS: Aspirin 325 MG Tablet PO ×2 (08:36→17:26)
--- NOTE | 2018-01-26 09:21 | PCM.PN.ORT ---
Patient Problems: Active and Suspected Problems Closed right hip fracture (Acute) Abrasion of right forearm, initial encounter (Acute) Subjective: The patient was sitting in bed upon examination. Patient denies any chest pain, shortness of breath, dizziness, lightheadedness, nausea or vomiting, or calf pain. Pain is controlled on medications. No adverse overnight events. Patient currently does complain of pain in the right hip. She states she has overdone it yesterday. Plan per case management note is for discharge home with home health care. Objective: Vital signs stable and afebrile. Patient is able to plantarflex and dorsiflex actively. Sensation is intact to light touch to saphenous, sural, superficial and deep peroneal, and tibial distribution. Dressing is clean dry and intact. Negative Homans bilaterally, negative signs and symptoms of DVT. - Physical Exam General: Alert, Oriented x3, Cooperative, No apparent distress Vital Signs Temp Pulse Resp BP Pulse Ox 98.1 F 82 18 92/46 L 95 01/26/18 08:12 01/26/18 08:12 01/26/18 08:12 01/26/18 08:12 01/26/18 08:12 Oxygen Flow Rate (L/min) 2 Oxygen Delivery Method Nasal Cannula Weight: 56.3 kg Body Mass Index (BMI) 22.6 Intake and Output for Last 24 Hours 01/24/18 01/25/18 01/26/18 23:59 23:59 23:59 Intake Total 3213 / 3213 3775 / 3775 1300 / 1300 Output Total 900 / 900 875 / 875 1900 / 1900 Balance 2313 / 2313 2900 / 2900 -600 / -600 Laboratory Tests Past 24 Hrs 01/25/18 01/26/18 05:44 07:32 WBC 10.2 RBC 2.98 L Hgb 9.7 L Hct 29.4 L MCV 98.7 MCH 32.6 H MCHC 33.0 RDW 13.0 RDW Differential 45.0 H Plt Count 211 MPV 9.9 Vitamin D 25-Hydroxy 16.1 L Medical Necessity - Tobacco Use Smoking Status: Light Smoker (<10/day) Tobacco Use: Cigarettes Assessment/Plan Active and Suspected Problems Closed right hip fracture (Acute) Abrasion of right forearm, initial encounter (Acute) 1. S/P right total hip arthroplasty POD #2 2. Continue Pain Medications: Tylenol and OxyIR 3. DVT Prophylaxis: Aspirin 325 mg twice daily 4. PT/OT: Weightbearing as tolerated, posterior hip precautions 5. H & H: 9.7/29.4, asymptomatic 6. Leukocytosis: Resolved and currently 10.2, afebrile. Patient did receive Decadron intraoperatively. Patient's white blood cell count was elevated prior to surgery. This has come down on postoperative day #1. Patient is on prednisone for home medication. 7. Encouraged Incentive Spirometry 8. Continue postoperative medical management per medicine 9. Disposition: Orthopedically stable, plan will be for possible discharge home with home health care when medically stable. Okay for discharge per medicine when they feel appropriate. Patient will need to schedule two-week postoperative follow-up with [facility] for x-rays and incision check. Patient will need to continue with aspirin twice daily for DVT prophylaxis until seen postoperatively. Continue with Tylenol and OxyIR for pain control. Please contact [facility] Dr. Cavazos with any questions or concerns.
--- NOTE | 2018-01-26 09:25 | PCM.DC.THR ---
Discharge Diet: No Restrictions Discharge Activity: May Not Drive - while taking narcotic pain medications. May shower in (days): 1 - Turned dressing away from water Ice area for (Minutes): 20 Weight Bearing Status: Weight bearing as tolerated Additional Activity Instructions:: Wear elastic stockings for 2 weeks. DO NOT use alcohol with narcotic pain medication. DO NOT make important decisions while taking narcotic medication. If you have problems with taking your medication (rash, itching, nausea, etc.) call the office at once. Call your doctor if your incision/area has: Increased Pain/ Swelling, Increased Redness, Foul Smelling Discharge Call your doctor if you observe: Fever of 101 or Higher Additional Instructions: Okay to remove dressing on postoperative day #5: January 29, 2018 Ice right hip and thigh daily for 20 minutes every 1-2 hours. Continue posterior hip dislocation precautions: No flexion past 80?, no crossing the legs. Allergies/Adverse Reactions: Allergies No Known Allergies Allergy (Verified 01/24/18 01:14) Medications to take at Discharge Albuterol Aerosols [Ventolin Aerosols] 2.5 mg INHALATION BID 10/04/14 Fluticasone/Salmeterol [Advair 500/50 Mcg Diskus] 1 puff INHALATION BID 10/04/14 Guaifenesin [Mucinex] 1,200 mg PO BID PRN PRN 01/24/15 Tiotropium [place] [Spiriva 18 MCG] 1 puff INHALATION DAILY 01/24/15 Prednisone 10 mg PO DAILY #10 tablet 04/11/16 Azithromycin [Azithromycin] 250 mg PO DAILY 11/29/16 Lisinopril [Zestril] 5 mg PO DAILY 09/16/17 Omeprazole [Prilosec] 20 mg PO DAILY 09/16/17 Alprazolam [Xanax] 1 mg PO BID 01/24/18 Escitalopram Oxalate [Lexapro] 10 mg PO DAILY 01/24/18 Losartan Potassium [Cozaar] 50 mg PO DAILY 01/24/18 Primary Care Physician: Magen Cavazos MD [Primary Care Provider] - Please Follow Up With: Taz Cavazos MD When: Will need to schedule two-week postoperative follow-up for x-ray
[2018-01-26] MEDS: Azithromycin 250 MG Tablet PO (09:57)
[2018-01-26] MEDS: Pantoprazole Sodium 20 MG Tablet PO (09:57)
[2018-01-26] MEDS: Senna/Docusate Sodium 1 Tablet 2 TABLET PO ×2 (09:57→21:39)
[2018-01-26] MEDS: Famotidine 20 MG Tablet PO (09:58)
[2018-01-26] MEDS: Escitalopram Oxalate 10 MG Tablet PO (09:58)
[2018-01-26] MEDS: guaiFENesin 1,200 MG Tablet 1200 MG PO (09:59)
[2018-01-26] MEDS: Ketorolac 15 MG/ML Vial IV (10:05)
--- NOTE | 2018-01-26 12:12 | PN_ITS ---
<Yaakov Garcia - Last Filed: 01/26/18 12:06> Patient Problems: Active and Suspected Problems Closed right hip fracture (Acute) Abrasion of right forearm, initial encounter (Acute) Subjective: Pts hip pain has increased significantly since yesterday AM. She is also now on O2. She did not feel SOB but she had low O2 sats when respiratory came to check on her. Encouraged IS. She denies wheezing or cough. No fever or chills. Her BP was also running low so her antihypertensives were held. She is on chronic prednisone and azithromycin for her COPD. She does not normally wear O2. - Physical Exam General: Alert, Oriented x3, Cooperative HEENT: Atraumatic, PERRLA, EOMI, Normocephalic Neck: Supple, No JVD, Negative Carotid Bruits Lungs: Clear to auscultation, Normal air movement Cardiovascular: Regular rate, No murmurs Abdomen: Bowel Sounds Present, Soft, Non Tender Extremities: No edema, Capillary Refill Less than 3 Seconds Skin: No rashes, No breakdown Musculoskeletal: No Tenderness to Palpation of Joints or Extremities Neurological: Cranial nerves II-XII grossly intact Psych/Mental Status: Normal Affect, Appropriate Vital Signs Temp Pulse Resp BP Pulse Ox 97.8 F 90 18 108/51 L 94 01/26/18 10:56 01/26/18 10:56 01/26/18 10:56 01/26/18 10:56 01/26/18 10:56 Oxygen Flow Rate (L/min) 1 Oxygen Delivery Method Nasal Cannula Weight: 56.3 kg Body Mass Index (BMI) 22.6 Intake and Output for Last 24 Hours 01/24/18 01/25/18 01/26/18 23:59 23:59 23:59 Intake Total 3213 / 3213 3775 / 3775 1300 / 1300 Output Total 900 / 900 875 / 875 1900 / 1900 Balance 2313 / 2313 2900 / 2900 -600 / -600 Laboratory Tests Past 24 Hrs 01/26/18 07:32 WBC 10.2 RBC 2.98 L Hgb 9.7 L Hct 29.4 L MCV 98.7 MCH 32.6 H MCHC 33.0 RDW 13.0 RDW Differential 45.0 H Plt Count 211 MPV 9.9 Medical Necessity - Tobacco Use Smoking Status: Light Smoker (<10/day) Tobacco Use: Cigarettes Assessment/Plan Active and Suspected Problems Closed right hip fracture (Acute) Abrasion of right forearm, initial encounter (Acute) 1. Acute closed right hip fracture s/p mechanical fall (tripped on rug) - s/p surgery with Dr. Cavazos post op day #2. She has increased O2 demand today but lungs are clear and she does not feel SOB. Encouraged IS, continue duoneb therapy and will attempt to wean prior to DC. 2. COPD - stable. on chronic prednisone and Azithromycin as outpatient. She will need follow up with her Dairy Scientist at the clinic. At this time I do not feel there is an acute exacerbation 3. Leukocytosis likely 2/2 chronic steroids and acute fracture - resolved 4. Normocytic anemia - trend 5. Low calcium and vit D deficiency - Vit D started. She takes calcium as an outpatient. 6. Anxiety, panic attacks, PTSD - home meds 7. GERD - protonix 8. HTN - running on low side - her lisinopril and losartan have been discontinued. I am not sure why she is on both of these at the same time. The patient states her GP/PLANT QUALITY MANAGER did put her on both of these. DVT ppx: ASA 325 BID , SCDs DC planning: would like to see the patient come off O2, BP stabilize prior to DC. She is going home with home PT OT with her . This patient was seen by Yaakov Garcia PA-C under the supervision of Doctor Jason <Romy Gomez - Last Filed: 01/26/18 13:51> - Physical Exam Vital Signs Temp Pulse Resp BP Pulse Ox 97.8 F 85 18 108/51 L 95 01/26/18 10:56 01/26/18 13:21 01/26/18 13:21 01/26/18 10:56 01/26/18 13:21 Oxygen Flow Rate (L/min) 1 Oxygen Delivery Method Room Air Weight: 124 lb 1.924 oz Body Mass Index (BMI) 22.6 Intake and Output for Last 24 Hours 01/24/18 01/25/18 01/26/18 23:59 23:59 23:59 Intake Total 3213 / 3213 3775 / 3775 1880 / 1880 Output Total 900 / 900 875 / 875 1900 / 1900 Balance 2313 / 2313 2900 / 2900 -20 / -20 Laboratory Tests Past 24 Hrs 01/26/18 07:32 WBC 10.2 RBC 2.98 L Hgb 9.7 L Hct 29.4 L MCV 98.7 MCH 32.6 H MCHC 33.0 RDW 13.0 RDW Differential 45.0 H Plt Count 211 MPV 9.9 Assessment/Plan Hospitalist note: I am seeing this patient in conjunction with Yaakov Garcia. I independently seen and examined the patient. Progress note above and laboratory data and I agree with the above treatment plan. Patient was admitted because of fall and right hip pain, found to have acute traumatic transcervical right femoral neck fracture, status post right total hip replacement. This morning, patient complained of right hip pain, controlled. blood pressure and heart rate are stable, pulse ox is 94% on 2 L. - Physical Exam General: Alert, Oriented x3, Cooperative, shortness of breath. HEENT: Atraumatic, PERRLA, EOMI. Neck: Supple, No JVD, Negative Carotid Bruits, Trachea Midline, Thyroid Normal. Lungs: Decreased breath sounds bilateral, otherwise clear. Cardiovascular: Regular rate, Regular Rhythm, Normal S1, Normal S2, PMI Normal. Abdomen: Bowel Sounds Present, Soft, Non Tender, Non-Distended, No Hepato- splenomegaly. Extremities: No clubbing, No cyanosis, No edema Skin: No rashes, No breakdown Neurological: Neuro grossly intact Assessment and plan: #1 acute traumatic transcervical right femoral neck fracture, status post right total hip replacement, postoperative day 2. On pain medication as needed, blood pressure has been borderline. #2 postoperative anemia: Probably due to surgery and hemodilution. Baseline troponin is normal. Yesterday his Imdur was 10.7, came down to 9.7 today, no indication for transfusion. #2 COPD: Chronic, stable. She is on bronchodilators, prednisone and Zithromax currently. Pulse ox is improving, requiring less oxygen. #3 hypertension: Recently, she was started on lisinopril and Cozaar, not sure why. Plan to stop both and monitor blood pressure. #4 other chronic medical problems: Stable, continue current medications as above. This note was generated with [employer] dictation software. It may contain incorrect words, spelling, and punctuation that were not noted in checking the note before signing. Code Visit Inpatient E&M: 28139 Subs Hosp L2
[2018-01-26] MEDS: ALPRAZolam 0.5 MG Tablet 1 MG PO (12:21)
[2018-01-27] MEDS: guaiFENesin 1,200 MG Tablet 1200 MG PO (00:33)
[2018-01-27] MEDS: oxyCODONE 5 MG Tablet PO ×3 (00:36→14:50)
[2018-01-27 03:29] VITALS: BP 130/70; PULSE 90; RESP 16; TEMP 36.8; O2SAT 94
[2018-01-27] MEDS: Acetaminophen 500 MG Tablet 1000 MG PO ×2 (05:18→14:46)
[2018-01-27] MEDS: ALPRAZolam 0.5 MG Tablet 1 MG PO ×2 (05:20→11:30)
[2018-01-27 06:37] LABS: Hematocrit 30.1 % (37-47); Hemoglobin 9.7 g/dl (12.0-15.0); Mean Corp Hgb Conc 32.2 g/gl (32-36); Mean Corpuscular Hgb 32.1 pg (27.0-32.0); Mean Corpuscular Volume 99.7 fL (81-99); Mean Platelet Vol. 10.1 fl (6.2-12.0); Platelet Count 225 K/mm3 (150-450); RBC Distribution Width CV 13.5 % (11.6-14.6); RBC Distribution Width SD 49.1 fl (35.1-43.9); Red Blood Count 3.02 M/mm3 (4.2-5.4)
[2018-01-27 06:48] LABS: Scan Indicated on CBC? Y/N NO
[2018-01-27 07:29] VITALS: PULSE 100; RESP 18; O2SAT 91
[2018-01-27] MEDS: Ipratropium/Albuterol Sulfate 3 ML AMPUL.NEB INHALATION (07:29)
[2018-01-27 07:53] VITALS: BP 94/74; PULSE 92; RESP 18; TEMP 36.9; O2SAT 94
[2018-01-27] MEDS: Famotidine 20 MG Tablet PO (08:11)
[2018-01-27] MEDS: Pantoprazole Sodium 20 MG Tablet PO (08:11)
[2018-01-27] MEDS: Azithromycin 250 MG Tablet PO (08:11)
[2018-01-27] MEDS: predniSONE 10 MG Tablet PO ×2 (08:11)
[2018-01-27] MEDS: Aspirin 325 MG Tablet PO (08:11)
[2018-01-27] MEDS: Senna/Docusate Sodium 1 Tablet 2 TABLET PO (08:11)
[2018-01-27] MEDS: Escitalopram Oxalate 10 MG Tablet PO (08:16)
[2018-01-27 08:23] VITALS: RESP 18; O2SAT 94
--- NOTE | 2018-01-27 12:19 | PCM.DC ---
- Discharge Diagnoses Current Active Problems: Current Active and Chronic Problems Closed right hip fracture (Acute) Abrasion of right forearm, initial encounter (Acute) COPD (chronic obstructive pulmonary disease) (Chronic) You will use the following diet at home:: Cardiac Your food should be the consistency of: Regular Your liquids should be the consistency of: Regular/Thin Discharge Activity: Return to Normal Activity, May Not Drive - while taking narcotic pain medications. May shower in (days): 1 - Turned dressing away from water Ice area for (Minutes): 20 Weight Bearing Status: Weight bearing as tolerated Additional Activity Instructions:: Wear elastic stockings for 2 weeks. DO NOT use alcohol with narcotic pain medication. DO NOT make important decisions while taking narcotic medication. If you have problems with taking your medication (rash, itching, nausea, etc.) call the office at once. Call your doctor if your incision/area has: Increased Pain/ Swelling, Increased Redness, Foul Smelling Discharge Call your doctor if you observe: Fever of 101 or Higher Additional Instructions: Activity as directed by ortho and home PT OT Allergies/Adverse Reactions: Allergies No Known Allergies Allergy (Verified 01/24/18 01:14) Medications to take at Discharge Albuterol Aerosols [Ventolin Aerosols] 2.5 mg INHALATION BID 10/04/14 Fluticasone/Salmeterol [Advair 500/50 Mcg Diskus] 1 puff INHALATION BID 10/04/14 Guaifenesin [Mucinex] 1,200 mg PO BID PRN PRN 01/24/15 Tiotropium [place] [Spiriva 18 MCG] 1 puff INHALATION DAILY 01/24/15 Prednisone 10 mg PO DAILY #10 tablet 04/11/16 Azithromycin 250 mg PO DAILY 11/29/16 Omeprazole [Prilosec] 20 mg PO DAILY 09/16/17 Alprazolam [Xanax] 1 mg PO BID 01/24/18 Escitalopram Oxalate [Lexapro] 10 mg PO DAILY 01/24/18 Oxycodone [Oxyir] 5 mg PO Q6H PRN PRN 3 Days #12 tab 01/27/18 The following prescriptions were given: Oxycodone [Oxyir] 5 mg PO Q6H PRN PRN 3 Days #12 tab PRN Reason: Moderate Pain (pain scale 4-5) Primary Care Physician: Magen Cavazos MD [Primary Care Provider] - Please follow up with your Primary Care Physician in: 1-2 weeks Please Follow Up With: Taz Cavazos MD When: Will need to schedule two-week postoperative follow-up for x-ray Proposed Discharge Date: 01/27/18
--- NOTE | 2018-01-27 12:21 | PCM.DC.SUM ---
<Yaakov Garcia - Last Filed: 01/27/18 12:21> Discharge Date and Diagnosis - Problem List Patient Problems: Active and Suspected Problems Closed right hip fracture (Acute) Abrasion of right forearm, initial encounter (Acute) Date of Admission: 01/24/18 Date of Discharge: 01/27/18 - Primary Discharge Diagnosis Active and Suspected Problems Closed right hip fracture (Acute) s/p mechanical fall s/p surgical repair Abrasion of right forearm, initial encounter (Acute) COPD post op anemia Calcium and vitamin D deficiency Anxiety, panic attacks, PTSD HTN - Secondary Discharge Diagnosis Chronic Problems COPD (chronic obstructive pulmonary disease) (Chronic) Panic attacks (Chronic) Former heavy tobacco smoker (Chronic) Post traumatic stress disorder (PTSD) (Chronic) Anxiety, generalized (Chronic) Underweight (Chronic) Current smoker (Chronic) GERD (gastroesophageal reflux disease) (Chronic) Hospital Course and Treatment Imaging Results: RAD/Chest 1 View (Portable) IMPRESSION: Chronic obstructive and interstitial change with no evidence of acute cardiopulmonary disease. RAD/Hip 2-3 Views with Pelvis IMPRESSION: Transcervical right femoral neck fracture. RAD/Hip Min 2 Views (Portable) IMPRESSION: Status post right hip arthroplasty with intact hardware and satisfactory alignment. Macy - jonah Operations: total hip replacement Procedures: None Summary of Care Provided: Physical exam on day of discharge: General: Resting comfortably NAD Psych: A/Ox3 normal affect HEENT: PEARRLA AT NC Neck: Supple NT CV: RRR no m/t/r/g/h Resp: CTA Abd: [id number] Soft NT no guarding or rigidity Ext: DP2+= no edema Skin: W/D normal turgor Lymph/Heme: No active bleeding or adenopathy Neuro: CN2-12 intact Hospital Course: The patient is a 58 year old F with a hx of COPD with chronic steroid and azithromycin use, who presented to the ER with right hip pain after tripping and falling on a rug at home. She was found to have a right hip fracture. Ortho, Dr. Cavazos, was consulted and she underwent surgical repair of the right hip. She did well. Initially post op she had some low oxygen sats and required supplemental oxygen but this was successfully weaned off. She did well with PTOT and determined to be appropriate for home with home health care. She was found to have low vitamin D and was started on supplementation. Her BP was low post op and her antihypertensives were stopped, after which her BP became stable. Recommend not restarting these at this time. As she has had multiple fractures and low Vit D and chronic prednisone therapy we recommended follow up with her lumite injector (she has an appointment in March already) as she may be having demineralization from the chronic steroids and probably has underlying osteoporosis. She is in stable condition and discharged home with home health. This patient was seen by Yaakov Garcia PA-C under the supervisions of Dr. Gomez [] Discharge Diet: Low fat/ Low Cholesterol, 2000 mg Sodium Diet Discharge Activity: Return to Normal Activity, May Not Drive - while taking narcotic pain medications. May shower in (days): 1 - Turned dressing away from water Ice area for (Minutes): 20 Weight Bearing Status: Weight bearing as tolerated Additional Activity Instructions:: Wear elastic stockings for 2 weeks. DO NOT use alcohol with narcotic pain medication. DO NOT make important decisions while taking narcotic medication. If you have problems with taking your medication (rash, itching, nausea, etc.) call the office at once. Call your doctor if your incision/area has: Increased Pain/ Swelling, Increased Redness, Foul Smelling Discharge Call your doctor if you observe: Fever of 101 or Higher Home Medications: Medications to take at Discharge Albuterol Aerosols [Ventolin Aerosols] 2.5 mg INHALATION BID 10/04/14 Fluticasone/Salmeterol [Advair 500/50 Mcg Diskus] 1 puff INHALATION BID 10/04/14 Guaifenesin [Mucinex] 1,200 mg PO BID PRN PRN 01/24/15 Tiotropium [place] [Spiriva 18 MCG] 1 puff INHALATION DAILY 01/24/15 Prednisone 10 mg PO DAILY #10 tablet 04/11/16 Azithromycin 250 mg PO DAILY 11/29/16 Omeprazole [Prilosec] 20 mg PO DAILY 09/16/17 Alprazolam [Xanax] 1 mg PO BID 01/24/18 Escitalopram Oxalate [Lexapro] 10 mg PO DAILY 01/24/18 Cholecalciferol (VIT D3) [Vitamin D3] 2,000 unit PO DAILY #30 tab 01/27/18 Oxycodone [Oxyir] 5 mg PO Q6H PRN PRN 3 Days #12 tab 01/27/18 Following Prescrptions Were Given to Patient: Oxycodone [Oxyir] 5 mg PO Q6H PRN PRN 3 Days #12 tab PRN Reason: Moderate Pain (pain scale 4-5) Cholecalciferol (VIT D3) [Vitamin D3] 2,000 unit PO DAILY #30 tab Primary Care Physician: Magen Cavazos MD [Primary Care Provider] - Please follow up with your Primary Care Physician in: 1-2 weeks Please Follow Up With: Taz Cavazos MD When: Will need to schedule two-week postoperative follow-up for x-ray Please Follow Up With: Pulmonology When: Keep your current appointment Additional Instructions: Okay to remove dressing on postoperative day #5: January 29, 2018 Ice right hip and thigh daily for 20 minutes every 1-2 hours. Continue posterior hip dislocation precautions: No flexion past 80?, no crossing the legs. Disposition: Home with Home Health Minutes spent on discharge:: 35 Patient Condition:: Stable Medical Necessity - Tobacco Use Smoking Status: Light Smoker (<10/day) Tobacco Use: Cigarettes Meaningful Use Info Meaningful Use Diagnoses (Choose all that apply): None applicable <[email or web address] - Last Filed: 01/27/18 14:04> Discharge Date and Diagnosis - Primary Discharge Diagnosis Active and Suspected Problems Closed right hip fracture (Acute) Abrasion of right forearm, initial encounter (Acute) - Secondary Discharge Diagnosis Chronic Problems COPD (chronic obstructive pulmonary disease) (Chronic) Panic attacks (Chronic) Former heavy tobacco smoker (Chronic) Post traumatic stress disorder (PTSD) (Chronic) Anxiety, generalized (Chronic) Underweight (Chronic) Current smoker (Chronic) GERD (gastroesophageal reflux disease) (Chronic) Hospital Course and Treatment Summary of Care Provided: Hospitalist note: Discharge summary above reviewed as physical examination and I agree with above treatment plan. Patient was admitted for acute traumatic transcervical right femoral neck fracture, underwent right total hip replacement. After surgery, patient required oxygen to maintain her pulse oximeter due to chronic COPD. Recently, she was started on lisinopril and Cozaar for hypertension but during this hospital stay, her blood pressure has been borderline and sometimes low. Both Cozaar and lisinopril discontinued upon discharge. Currently on prednisone for COPD. Patient discharged home in a stable medical condition, discharged and her fixed dose of prednisone, OxyIR as needed for pain as well as her home dose of Zithromax, continued on albuterol and Advair, recommended follow-up with orthopedic surgery according to the recommendation, follow-up with PCP in 1-2 weeks. . Code Visit Inpatient E&M: 70105 Disch Hosp
--- NOTE | 2018-01-27 12:29 | PCA ---
Fax placed to [facility] regarding pt discharge instructions, [id number]; call placed to [facility] nurse stating pt will be discharged. Allie stated she will let office know so they can start scheduling pt.
--- NOTE | 2018-01-27 12:30 | DS.PCM_ITS ---
<Yaakov Garcia - Last Filed: 01/27/18 12:21> Discharge Date and Diagnosis - Problem List Patient Problems: Active and Suspected Problems Closed right hip fracture (Acute) Abrasion of right forearm, initial encounter (Acute) Date of Admission: 01/24/18 Date of Discharge: 01/27/18 - Primary Discharge Diagnosis Active and Suspected Problems Closed right hip fracture (Acute) s/p mechanical fall s/p surgical repair Abrasion of right forearm, initial encounter (Acute) COPD post op anemia Calcium and vitamin D deficiency Anxiety, panic attacks, PTSD HTN - Secondary Discharge Diagnosis Chronic Problems COPD (chronic obstructive pulmonary disease) (Chronic) Panic attacks (Chronic) Former heavy tobacco smoker (Chronic) Post traumatic stress disorder (PTSD) (Chronic) Anxiety, generalized (Chronic) Underweight (Chronic) Current smoker (Chronic) GERD (gastroesophageal reflux disease) (Chronic) Hospital Course and Treatment Imaging Results: RAD/Chest 1 View (Portable) IMPRESSION: Chronic obstructive and interstitial change with no evidence of acute cardiopulmonary disease. RAD/Hip 2-3 Views with Pelvis IMPRESSION: Transcervical right femoral neck fracture. RAD/Hip Min 2 Views (Portable) IMPRESSION: Status post right hip arthroplasty with intact hardware and satisfactory alignment. Macy - jonah Operations: total hip replacement Procedures: None Summary of Care Provided: Physical exam on day of discharge: General: Resting comfortably NAD Psych: A/Ox3 normal affect HEENT: PEARRLA AT NC Neck: Supple NT CV: RRR no m/t/r/g/h Resp: CTA Abd: [id number] Soft NT no guarding or rigidity Ext: DP2+= no edema Skin: W/D normal turgor Lymph/Heme: No active bleeding or adenopathy Neuro: CN2-12 intact Hospital Course: The patient is a 58 year old F with a hx of COPD with chronic steroid and azithromycin use, who presented to the ER with right hip pain after tripping and falling on a rug at home. She was found to have a right hip fracture. Ortho , Dr. Cavazos, was consulted and she underwent surgical repair of the right hip. She did well. Initially post op she had some low oxygen sats and required supplemental oxygen but this was successfully weaned off. She did well with PTOT and determined to be appropriate for home with home health care. She was found to have low vitamin D and was started on supplementation. Her BP was low post op and her antihypertensives were stopped, after which her BP became stable. Recommend not restarting these at this time. 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 She is in stable condition and discharged home with home health. This patient was seen by Yaakov Garcia PA-C under the supervisions of Dr. Gomez [] Discharge Diet: Low fat/ Low Cholesterol, 2000 mg Sodium Diet Discharge Activity: Return to Normal Activity, May Not Drive - while taking narcotic pain medications. May shower in (days): 1 - Turned dressing away from water Ice area for (Minutes): 20 Weight Bearing Status: Weight bearing as tolerated Additional Activity Instructions:: Wear elastic stockings for 2 weeks. DO NOT use alcohol with narcotic pain medication. DO NOT make important decisions while taking narcotic medication. If you have problems with taking your medication (rash, itching, nausea, etc.) call the office at once. Call your doctor if your incision/area has: Increased Pain/ Swelling, Increased Redness, Foul Smelling Discharge Call your doctor if you observe: Fever of 101 or Higher Home Medications: Medications to take at Discharge Albuterol Aerosols [Ventolin Aerosols] 2.5 mg INHALATION BID 10/04/14 Fluticasone/Salmeterol [Advair 500/50 Mcg Diskus] 1 puff INHALATION BID Guaifenesin [Mucinex] 1,200 mg PO BID PRN PRN 01/24/15 Tiotropium [place] [Spiriva 18 MCG] 1 puff INHALATION DAILY 01/24/15 Prednisone 10 mg PO DAILY #10 tablet 04/11/16 Azithromycin 250 mg PO DAILY 11/29/16 Omeprazole [Prilosec] 20 mg PO DAILY 09/16/17 Alprazolam [Xanax] 1 mg PO BID 01/24/18 Escitalopram Oxalate [Lexapro] 10 mg PO DAILY 01/24/18 Cholecalciferol (VIT D3) [Vitamin D3] 2,000 unit PO DAILY #30 tab 01/27/18 Oxycodone [Oxyir] 5 mg PO Q6H PRN PRN 3 Days #12 tab 01/27/18 Following Prescrptions Were Given to Patient: Oxycodone [Oxyir] 5 mg PO Q6H PRN PRN 3 Days #12 tab PRN Reason: Moderate Pain (pain scale 4-5) Cholecalciferol (VIT D3) [Vitamin D3] 2,000 unit PO DAILY #30 tab Primary Care Physician: Magen Cavazos MD [Primary Care Provider] - Please follow up with your Primary Care Physician in: 1-2 weeks Please Follow Up With: Taz Cavazos MD When: Will need to schedule two-week postoperative follow-up for x-ray Please Follow Up With: Pulmonology When: Keep your current appointment Additional Instructions: Okay to remove dressing on postoperative day #5: January 29, 2018 Ice right hip and thigh daily for 20 minutes every 1-2 hours. Continue posterior hip dislocation precautions: No flexion past 80?, no crossing the legs. Disposition: Home with Home Health Minutes spent on discharge:: 35 Patient Condition:: Stable Medical Necessity - Tobacco Use Smoking Status: Light Smoker (<10/day) Tobacco Use: Cigarettes Meaningful Use Info Meaningful Use Diagnoses (Choose all that apply): None applicable <[email or web address] E - Last Filed: 01/27/18 14:04> Discharge Date and Diagnosis - Primary Discharge Diagnosis Active and Suspected Problems Closed right hip fracture (Acute) Abrasion of right forearm, initial encounter (Acute) - Secondary Discharge Diagnosis Chronic Problems COPD (chronic obstructive pulmonary disease) (Chronic) Panic attacks (Chronic) Former heavy tobacco smoker (Chronic) Post traumatic stress disorder (PTSD) (Chronic) Anxiety, generalized (Chronic) Underweight (Chronic) Current smoker (Chronic) GERD (gastroesophageal reflux disease) (Chronic) Hospital Course and Treatment Summary of Care Provided: Hospitalist note: Discharge summary above reviewed as physical examination and I agree with above treatment plan. Patient was admitted for acute traumatic transcervical right femoral neck fracture, underwent right total hip replacement. After surgery, patient required oxygen to maintain her pulse oximeter due to chronic COPD. Recently, she was started on lisinopril and Cozaar for hypertension but during this hospital stay, her blood pressure has been borderline and sometimes low. Both Cozaar and lisinopril discontinued upon discharge. Currently on prednisone for COPD. Patient discharged home in a stable medical condition, discharged and her fixed dose of prednisone, OxyIR as needed for pain as well as her home dose of Zithromax, continued on albuterol and Advair, recommended follow-up with orthopedic surgery according to the recommendation, follow-up with PCP in 1-2 weeks. . Code Visit Inpatient E&M: 44806 Disch Hosp
[2018-01-27 14:41] VITALS: BP 129/61; PULSE 85; RESP 18; TEMP 37; O2SAT 97
== END 2018-01-27 14:55 | disposition home health service (06) | DRG 470 ==
LOC: ED 02:51 → MS3 03:05
PROVIDERS: Specialist; Emergency Provider Emergency Medicine; Family Provider Family Medicine; PCP Family Medicine; Visit Provider Hospitalist
PROC: 0SR90JZ Replacement of Right Hip Joint with Synthetic Substitute, Open Approach (ICD-10-PCS; CPT 27130; principal; 2018-01-24 08:50)
DX: S72.031A Displaced midcervical fracture of right femur, initial encounter for closed fracture (principal); R64 Cachexia; S50.811A Abrasion of right forearm, initial encounter; D64.9 Anemia, unspecified; E55.9 Vitamin D deficiency, unspecified; E58 Dietary calcium deficiency; F17.210 Nicotine dependence, cigarettes, uncomplicated; M16.11 Unilateral primary osteoarthritis, right hip; Y92.019 Unspecified place in single-family (private) house as the place of occurrence of the external cause; Z68.22 Body mass index [BMI] 22.0-22.9, adult; Z79.52 Long term (current) use of systemic steroids; W01.0XXA Fall on same level from slipping, tripping and stumbling without subsequent striking against object, initial encounter; I10 Essential (primary) hypertension; F41.1 Generalized anxiety disorder; K21.9 Gastro-esophageal reflux disease without esophagitis; R63.6 Underweight; F43.10 Post-traumatic stress disorder, unspecified; F41.0 Panic disorder [episodic paroxysmal anxiety]; J44.9 Chronic obstructive pulmonary disease, unspecified; Z79.899 Other long term (current) drug therapy
CPT/HCPCS: 36415; 51702; 71045; 73502; 80048; 82306; 85025; 85027; 85610; 85730; 86850; 86900; 88305; 88311; 93005; 94640; 97116; 97162; 97166; 97535; 99285; 99406; J7120; A4216; J2405

== ENCOUNTER → 2018-05-06 11:50 | Outpatient (CLI) | payer BC, MEDICARE, SELFPAY ==
--- NOTE | 2018-05-06 11:54 | BI_ITS ---
MAMMOGRAPHY - BILATERAL SCREENING REASON FOR EXAM: Female, 58 years old. Routine annual screening examination. PERTINENT HISTORY: Non-contributory. TECHNIQUE: Digital bilateral breast saran (3D mammographic acquisition) in the CC and MLO projections. 2-D mediolateral oblique (MLO) and craniocaudad (CC) views of both breasts were obtained. CAD: Full Field Digital Mammography with Computer Added Detection was performed. COMPARISON: No comparison mammograms available at this time. If any prior films become available, an addendum to this report can be generated. FINDINGS: Breast Composition: The breasts are heterogeneously dense, which may obscure small masses. There are no dominant masses or suspicious calcifications. No other significant abnormalities are identified. BI/SCREENING MAMM (CAD), BILAT IMPRESSION: Negative screening mammogram. Yearly followup mammogram recommended. (A) ASSESSMENT CATEGORY: BIRADS Category 1: Negative. A letter regarding these results will be sent to the patient by the facility within 30 days. Approximately 10% of breast cancers are not detected by mammography. A normal mammogram should not delay biopsy of a clinically suspicious abnormality. [id number] Electronically Signed: Kevin Turpin MD at 7:59 EDT Tel [phone], Service support ,
== END ==
PROVIDERS: Family Provider Family Medicine; PCP Family Medicine
DX: Z12.31 Encounter for screening mammogram for malignant neoplasm of breast (principal)
CPT/HCPCS: 77063; 77067

== ENCOUNTER 2018-11-04 13:03 | Emergency (ER) | payer BC, MEDICARE, SELFPAY ==
[2018-11-04 13:04] VITALS: BP 142/70; PULSE 103; RESP 22; TEMP 36.9; O2SAT 94; BMI 21.7
--- NOTE | 2018-11-04 13:21 | EKG12_ITS ---
Test Reason : Blood Pressure : / mmHG Vent. Rate : 093 BPM Atrial Rate : 093 BPM P-R Int : 164 ms QRS Dur : 086 ms QT Int : 376 ms P-R-T Axes : 079 085 082 degrees QTc Int : 467 ms Normal sinus rhythm Right atrial enlargement Nonspecific ST abnormality Abnormal ECG Confirmed by ROMAN DIETRICH, FRANKLIN ([id number]), editorial manager CORINNE VIEIRA ([id number]) on 11/07/2018 1:31:58 PM Referred By: CAROLINA Confirmed By:FRANKLIN OWENS MD
[2018-11-04 14:03] LABS: Absolute Lymphocyte Count 1.21 X10^3/ul (0.83-4.51); Absolute Neutrophil Count 8.7 X10^3/uL (2.0-7.7); Basophil# 0.05 X10^3/uL; Basophil% 0.5 % (0-1); Eosinophil# 0.08 X10^3/uL; Eosinophils% 0.8 % (0-5); Hematocrit 45.3 % (37-47); Hemoglobin 15.3 g/dl (12.0-15.0); Lymphocyte # 1.21 X10^3/ul (4.0); Lymphocyte % 11.7 % (19-41); Mean Corp Hgb Conc 33.8 g/gl (32-36); Mean Corpuscular Hgb 32.3 pg (27.0-32.0); Mean Corpuscular Volume 95.6 fL (81-99); Mean Platelet Vol. 9.9 fl (6.2-12.0); Monocyte# 0.34 X10^3/uL; Monocyte% 3.3 % (0-10); Neutrophil # 8.68 X10^3/uL (2.7-7.7); Neutrophil % 83.5 % (47-70); Platelet Count 273 K/mm3 (150-450); RBC Distribution Width CV 13.3 % (11.6-14.6); RBC Distribution Width SD 46.5 fl (35.1-43.9); Red Blood Count 4.74 M/mm3 (4.2-5.4); White Blood Count 10.4 K/mm3 (4.4-11.0)
[2018-11-04 14:04] LABS: POSITIVE COUNT NO; POSITIVE DIFFERENTIAL NO; POSITIVE MORPHOLOGY NO
[2018-11-04 14:11] VITALS: PULSE 112; RESP 20
[2018-11-04] MEDS: Ipratropium/Albuterol Sulfate 3 ML AMPUL.NEB INHALATION (14:11)
[2018-11-04] MEDS: Albuterol 2.5 MG/3 ML VIAL.NEB. INHALATION ×3 (14:11)
[2018-11-04] MEDS: 0.9% Normal Saline 1,000 ML 1000 ML IV (14:16)
[2018-11-04] MEDS: MethylPREDNISolone 125 MG/2 ML Vial IV (14:17)
[2018-11-04 14:18] VITALS: BP 104/68; BP 142/70; PULSE 103; PULSE 89; RESP 22; TEMP 36.9; O2SAT 94; O2SAT 97; BMI 21.7
[2018-11-04 14:19] LABS: Anion Gap 10 (5-15); BUN 5 mg/dL (7-18); BUN/Creat Ratio 9.1 RATIO (10-20); Chloride 104 mmol/L (98-107); Creatinine, Serum 0.55 mg/dL (0.55-1.02); EST Glomerular Filtration Rate 120 mL/min (>60); Est Glom Filt Rate - Afr Amer 146 mL/min (>60); Estimated Creatinine Clearance 89.26 ml/min; Glucose 144 mg/dL (74-106); Sodium Level 141 mmol/L (136-145)
--- NOTE | 2018-11-04 15:01 | RAD_ITS ---
STUDY: X-RAY CHEST REASON FOR EXAM: Female, 58 years old. Cough and shortness of breath TECHNIQUE: PA and lateral views of the chest. COMPARISON: 01/24/2018 FINDINGS: EKG leads overlie the chest The lungs are clear and expanded. There is no demonstrated pleural abnormality. Normal size heart. Normal mediastinum and jenny. Normal visualized pulmonary arteries. Normal visualized aortic arch and descending thoracic aorta. Normal visualized thoracic spine. Normal visualized ribs, clavicles, and shoulders. There is no demonstrated abnormality of the visualized soft tissue structures of the upper abdomen. RAD/Chest PA and Lateral IMPRESSION: No acute pulmonary process Electronically Signed: Ras Marrufo MD at 15:49 EST , Service support ,
--- NOTE | 2018-11-04 15:23 | ED.VISSUMM ---
- ER Visit Summary Date of Service: 11/04/18 Chief Complaint: [wheezing] History of Present Illness: The patient is a 58 F [that with 3-4 days of worsening of her COPD symptoms with wheezing. She takes daily chronic steroids and antibiotics at home. She follows with her primary provider and community facilitator. She denies any chest pain. She overall appears well and in no distress. No change in sputum. She does not use oxygen at home. She has no other complaints.] Physical Examination: [General: The patient appears well and in no apparent distress. Patient is resting comfortably on cart. Skin: Warm, dry, no pallor noted. No rash. Head: Normocephalic, atraumatic Neck: Supple, nontender. Eye: PERRLA, EOMI ENT: Moist mucus membranes, pharynx within normal limits. Cardiovascular: Regular Rate and Rhythm, no gallups or rubs Respiratory: Patient is in no distress, no accessory muscle use, wheezing and diminished sounds bilaterally Musculoskeletal: normal ROM, no deformity, no tenderness, no swelling. 2+ radial and DP pulses symmetric. GI: No tenderness to palpation, no masses appreciated. No rebound, guarding, or rigidity noted. Neurological: A&O, normal strength and sensation. Psychiatric: Cooperative] Test Results: [] Emergency Department Course and Treatment: [EKG shows sinus rhythm with a rate of 93, no acute ischemic changes or arrhythmia. Blood work overall unremarkable. Patient given IV steroids and breathing treatments. On reevaluation at 1520 he is resting comfortably and feels improved. Two-view chest x-ray shows findings consistent with COPD but no other acute process on my evaluation. Pulse oximetry remains 95% on room air. She is currently taking daily Zithromax at home per her community facilitator. We will place her on a steroid burst and have her follow-up with her primary provider and community facilitator as soon as possible. She was instructed to return with any new or worsening symptoms. Patient and family understand and are agreeable with this plan of care. Patient was discharged home in stable and improved condition.] Treatment Plan: [see above] Disposition: [discharge home] Impression: [COPD Exacerbation] This note was generated with [employer] software. It may contain incorrect words, spelling, and punctuation that were not noted in review of the chart prior to signing ED Disposition - Plan for ED Patient: Disposition: Home or Assisted Living Chief Complaint: Shortness of Breath Instructions: ED COPD Flare Prescriptions: Prednisone 40 mg PO DAILY 5 Days #10 tab Referrals: Magen Cavazos MD [Primary Care Provider] -
--- NOTE | 2018-11-04 15:26 | ED.DCSUM_ITS ---
- ER Visit Summary Date of Service: 11/04/18 Chief Complaint: [wheezing] History of Present Illness: The patient is a 58 F [that with 3-4 days of worsening of her COPD symptoms with wheezing. She takes daily chronic steroids and antibiotics at home. She follows with her primary provider and selector packer. She denies any chest pain. She overall appears well and in no distress. No change in sputum. She does not use oxygen at home. She has no other complaints.] Physical Examination: [General: The patient appears well and in no apparent distress. Patient is resting comfortably on cart. Skin: Warm, dry, no pallor noted. No rash. Head: Normocephalic, atraumatic Neck: Supple, nontender. Eye: PERRLA, EOMI ENT: Moist mucus membranes, pharynx within normal limits. Cardiovascular: Regular Rate and Rhythm, no gallups or rubs Respiratory: Patient is in no distress, no accessory muscle use, wheezing and diminished sounds bilaterally Musculoskeletal: normal ROM, no deformity, no tenderness, no swelling. 2+ radial and DP pulses symmetric. GI: No tenderness to palpation, no masses appreciated. No rebound, guarding, or rigidity noted. Neurological: A&O, normal strength and sensation. Psychiatric: Cooperative] Test Results: [] Emergency Department Course and Treatment: [EKG shows sinus rhythm with a rate of 93, no acute ischemic changes or arrhythmia. Blood work overall unremarkable. Patient given IV steroids and breathing treatments. On reevaluation at 1520 he is resting comfortably and feels improved. Two-view chest x-ray shows findings consistent with COPD but no other acute process on my evaluation. Pulse oximetry remains 95% on room air. She is currently taking daily Zithromax at home per her selector packer. We will place her on a steroid burst and have her follow-up with her primary provider and selector packer as soon as possible. She was instructed to return with any new or worsening symptoms. Patient and family understand and are agreeable with this plan of care. Patient was discharged home in stable and improved condition.] Treatment Plan: [see above] Disposition: [discharge home] Impression: [COPD Exacerbation] This note was generated with [employer] software. It may contain incorrect words, spelling, and punctuation that were not noted in review of the chart prior to signing ED Disposition - Plan for ED Patient: Disposition: Home or Assisted Living Chief Complaint: Shortness of Breath Instructions: ED COPD Flare Prescriptions: Prednisone 40 mg PO DAILY 5 Days #10 tab Referrals: Magen Cavazos MD [Primary Care Provider] -
[2018-11-04 15:32] VITALS: BP 106/78; PULSE 75; RESP 18; TEMP 36.6; O2SAT 96
== END 2018-11-04 15:32 | disposition home or self-care (01) ==
PROVIDERS: Emergency Provider Emergency Medicine; Family Provider Family Medicine; PCP Family Medicine
DX: J44.1 Chronic obstructive pulmonary disease with (acute) exacerbation (principal); Z79.51 Long term (current) use of inhaled steroids; Z79.52 Long term (current) use of systemic steroids; Z79.2 Long term (current) use of antibiotics; Z72.0 Tobacco use
CPT/HCPCS: 71046; 80048; 84484; 85025; 93005; 94640; 96361; 96374; 99284; J7030; A4216

== ENCOUNTER → 2021-08-03 08:50 | Outpatient (CLI) | payer BC, MEDICARE, SELFPAY ==
--- NOTE | 2021-08-03 08:53 | BI_ITS ---
MAMMOGRAPHY - UNILATERAL DIAGNOSTIC: RIGHT BREAST REASON FOR EXAM: Female, 61 years old. Abnormal screening mammogram. PERTINENT HISTORY: Non-contributory. TECHNIQUE: Digital unilateral breast saran (3D mammographic acquisition) in the CC and MLO projections. 2-D mediolateral oblique (MLO) and craniocaudad (CC) views of the right breast were obtained. 90 degree lateral view of the right breast was obtained as well. CAD: Full Field Digital Mammography with Computer Added Detection was performed. COMPARISON: Comparison is made with prior examination of 05/06/2018. FINDINGS: Breast Composition: The breasts are heterogeneously dense, which may obscure small masses. There are no dominant masses or suspicious calcifications. No other significant abnormalities are identified. There has been no significant change since the prior study. BI/DIAG MAMM W/CAD, UNILAT IMPRESSION: Stable unilateral diagnostic mammogram. One year follow-up mammogram recommended. (A) ASSESSMENT CATEGORY: BIRADS Category 1: Negative. A letter regarding these results will be sent to the patient by the facility within 30 days. Approximately 10% of breast cancers are not detected by mammography. A normal mammogram should not delay biopsy of a clinically suspicious abnormality. Electronically Signed: Kevin Turpin MD at 10:25 EDT , Service support ,
== END ==
PROVIDERS: PCP Family Medicine; Referring Provider Family Medicine; Visit Provider Family Medicine
DX: R92.8 Other abnormal and inconclusive findings on diagnostic imaging of breast (principal)
CPT/HCPCS: 77061; 77065; G0279

== ENCOUNTER 2021-10-24 10:23 | Emergency (ER) | payer BC, MEDICARE, SELFPAY ==
[2021-10-24 10:23] VITALS: BP 145/62; PULSE 92; RESP 18; TEMP 36.6; O2SAT 96; BMI 24.7
--- NOTE | 2021-10-24 10:52 | ED.VIS.BACK ---
HPI History of Present Illness Chief Complaint: Back Narrative Narrative: Patient resenting for evaluation secondary to back pain. Patient reports that she was descending some stairs on Sunday, had a sudden onset of lower thoracic back pain that is bilaterally. There is no radiation. No numbness or weakness. No bowel or bladder incontinence. No fevers chills night sweats unintended weight loss. Patient states the pain has been refractory to home [place] and muscle relaxers. Patient states that she is never really had to back injuries like this in the past. Is causing her some difficulty with ambulating. Review of systems otherwise negative. [facility] Medical History COPD (chronic obstructive pulmonary disease) Hypertension Home Medications albuterol sulfate 2.5 mg INHALATION BID 10/04/14 [History Last Taken 01/23/18 12:30 1 tx] fluticasone propion-salmeterol [Advair Diskus] 1 puff INHALATION BID 10/04/14 [History Last Taken 01/23/18 17:00 1 puff] guaifenesin [Mucus Relief ER] 1,200 mg PO BID PRN PRN 01/24/15 [History Last Taken 01/23/18 08:00 1200 mg] tiotropium bromide [Spiriva with HandiHaler] 1 puff INHALATION DAILY 01/24/15 [History Last Taken 01/23/18 17:00 1 puff] prednisone 10 mg PO DAILY #10 tab 04/11/16 [Rx Last Taken 01/23/18 08:00 10 mg] azithromycin 250 mg PO DAILY 11/29/16 [History Last Taken 01/23/18 06:30 250 mg] omeprazole 20 mg PO DAILY 09/16/17 [History Last Taken 01/22/18 17:00 20 mg] alprazolam [Xanax] 1 mg PO BID 01/24/18 [History Last Taken 01/23/18 09:00 1 mg] albuterol sulfate [Proair Hfa (SP)Vent Pts] 1 - 2 puff INHALATION Q4H PRN PRN 11/04/18 [History Last Taken Unknown] fluticasone propionate 1 spray NASAL DAILY 11/04/18 [History Last Taken Unknown] cyclobenzaprine 10 mg PO TID PRN #20 tablet 10/24/21 [Rx Last Taken Unknown] naproxen 500 mg PO BID PRN #20 tab 10/24/21 [Rx Last Taken Unknown] Allergy/AdvReac Type Severity Reaction Status Date / Time No Known Allergies Allergy Verified 10/24/21 10:26 Social History Smoking Status: Current some day smoker tobacco type: cigarettes ROS ROS ED Constitutional Constitutional ED: Reports other Details: Denies recent surgeries, or injections ; Denies chills, fever(s), sweats or weight loss Cardiovascular Cardiovascular: Denies chest pain Respiratory/Chest Respiratory/Chest: Denies dyspnea Gastrointestinal Gastrointestinal: Reports other Details: Denies Bowel Incontinence ; Denies abdominal pain Genitourinary Genitourinary ED: Reports other Details: Denies Bladder Incontinence Musculoskeletal Musculoskeletal: Reports back pain Integumentary Reports other Details: No Petechiae ; Denies rash Neurologic Neurologic: Reports other Details: Denies Numbness, or Weakness Psychiatric Psychiatric: Reports other Details: Denies history of IV Drug abuse Hematologic/Lymphatic Hematologic/Lymphatic: Denies lymphadenopathy EXAM Physical Exam Const Vital Signs: 10/24/21 10:23 Temperature 98 F Temperature Source Temporal Pulse Rate 92 Respiratory Rate 18 Blood Pressure 145/62 H Blood Pressure Mean 89 Pulse Ox 96 Oxygen Delivery Method Room Air Positive well nourished and well developed General Appearance ED: well developed and NAD HEENT Reports normocephalic and head/scalp atraumatic Eyes EOMs intact bilaterally Neck supple Resp normal respiratory effort and clear to auscultation bilaterally Cardio regular rate, regular rhythm and no murmurs Bruits: other Other Details: 2+ Radial Pulses 2+ DP Pulses 2+ PT Pulses Peripheral Pulses: radial pulses present, posterior tibial pulses present and dorsalis pedis pulses present GI normal to inspection, nondistended, normoactive bowel sounds, soft to palpation and non-tender Palpation: Negative for pulsatile mass Back/Spine normal to inspection Back/Spine Narrative: Patient complains of paraspinal tenderness in the leg lower thoracic spine Thoracic Spine / Upper Back: Negative for thoracic spinal tenderness Lumbar Spine / Lower Back: straight leg raise negative bilaterally; Negative for lumbar spinal tenderness Extremity normal to inspection Neuro oriented x3 and no sensory deficits noted Neuro Narrative: Motor: Hip flexion Knee flexion Knee extension Dorsiflexion Plantar Flexion Extensor Hallicus longus Sensorium / Orientation: alert Sensory Exam: other Motor Exam: strength 5/5 throughout Deep Tendon Reflexes: Rt Patellar (L4): 2+, Lt Patellar (L4): 2+, Rt Ankle (S1): 2+ and Lt Ankle (S1): 2+ Deep Tendon Reflexes Back: Rt Patellar (L4): 2+, Lt Patellar (L4): 2+, Rt Ankle (S1): 2+ and Lt Ankle (S1): 2+ Plantar Reflex: Other: bilateral (No pathologic clonus) Psych mental status grossly normal Skin no rashes or lesions noted Trauma: other No petechiae MDM MDM MDM Narrative Medical decision making narrative: Patient presented for evaluation secondary to back pain. No red flag signs or symptoms, pain seems all paraspinal and is associated with some muscle spasm. Patient was given Toradol and Norflex in the emergency department. Repeat evaluation at 1200 shows the patient to have significant symptomatic improvement, she still does have some pain she was given a dose of oxycodone in the emergency department. Patient be discharged with a course of Naprosyn and Flexeril and instructions for stretching exercises. Patient was discharged improved condition. Discharge Plan Triage Chief Complaint: Back ED Provider: Bernard Bran Dx/Rx/DC Orders Clinical Impression: Acute thoracic myofascial strain Instructions: ED Thoracic Spine Strain Prescriptions: New naproxen 500 mg tablet 500 mg PO BID PRN Qty: 20 RF: 0 cyclobenzaprine 10 mg tablet 10 mg PO TID PRN (Reason: Muscle Spasm) Qty: 20 RF: 0 No Action albuterol sulfate 2.5 MG/3 ML solution for nebulization 2.5 mg inhalation BID RF: 0 fluticasone propion-salmeterol [Advair Diskus] 1 PUFF inhaler 1 puff inhalation BID RF: 0 tiotropium bromide [Spiriva with HandiHaler] 1 PUFF inhaler 1 puff inhalation DAILY RF: 0 guaifenesin [Mucus Relief ER] 1,200 MG tablet 1,200 mg PO BID PRN PRN (Reason: Congestion) RF: 0 prednisone 10 MG tablet 10 mg PO DAILY Qty: 10 RF: 0 azithromycin 250 MG tablet 250 mg PO DAILY RF: 0 omeprazole 20 MG capsule 20 mg PO DAILY RF: 0 alprazolam [Xanax] 1 MG tablet 1 mg PO BID RF: 0 albuterol sulfate [ProAir HFA] 1 PUFF inhaler 1 - 2 puff inhalation Q4H PRN PRN (Reason: Sob &/Or Wheezing) RF: 0 fluticasone propionate 1 SPRAY spray,suspension 1 spray NASAL DAILY RF: 0 Primary Care Provider: Magen Cavazos Referrals: Magen Cavazos MD [Primary Care Provider] - 3-5 Days if not improving Disposition Disposition: Home, Self Care
[2021-10-24] MEDS: Orphenadrine 60 MG/2 ML Ampul IM (11:24)
[2021-10-24] MEDS: Ketorolac 30 MG/ML Syringe IM (11:25)
[2021-10-24] MEDS: oxyCODONE 5 MG Tablet PO (12:42)
[2021-10-24 12:44] VITALS: BP 139/74; PULSE 84; RESP 20; O2SAT 97
--- NOTE | 2021-10-24 12:44 | ED.RN ---
THIS NURSE REVIEWED D/C INSTRUCTIONS WITH PT AND VISITOR. BOTH VERBALIZED UNDERSTANDING OF INSTRUCTIONS. PT DENIES FURTHER NEEDS OR QUESTIONS AT THIS TIME. THIS NURSE OFFERED PT A W/C AT D/C. PT DECLINED
== END 2021-10-24 12:46 | disposition home or self-care (01) ==
PROVIDERS: Emergency Provider Emergency Medicine; PCP Family Medicine
DX: S29.012A Strain of muscle and tendon of back wall of thorax, initial encounter (principal); X58.XXXA Exposure to other specified factors, initial encounter; Y93.9 Activity, unspecified; Y92.9 Unspecified place or not applicable; I10 Essential (primary) hypertension; J44.9 Chronic obstructive pulmonary disease, unspecified; Z79.899 Other long term (current) drug therapy; F17.210 Nicotine dependence, cigarettes, uncomplicated
CPT/HCPCS: 96372; 99283

== ENCOUNTER 2021-11-11 12:12 | Emergency (ER) | payer BC, MEDICARE, SELFPAY ==
[2021-11-11 12:13] VITALS: BP 157/69; PULSE 97; RESP 19; TEMP 36.9; O2SAT 99; BMI 28.0
--- NOTE | 2021-11-11 12:34 | EDS_ITS ---
HPI History of Present Illness Chief Complaint: Back Informant: patient Onset/Context/Timing Onset: Weeks Current Severity: Moderate Maximum Severity: Severe Narrative Narrative: Patient presents secondary to back pain. She was seen here on October 24. At that time after walking down some steps she noted tightening sensation across her lower ribs posteriorly. She was treated with anti- inflammatories and muscle relaxer in the emergency room along with a single dose of oxycodone. She was discharged on Naprosyn and Flexeril. Patient states that in spite of this treatment she is not not improved. She has not followed up with her doctor. There is been no new injury. She states she has COPD and the pain makes it hard for her to breathe. She states she also has a hard time getting up and walking because of the pain. [facility] Medical History (Updated 11/11/21 @ 15:[address] Ruthie Anna MD) Anxiety, generalized COPD (chronic obstructive pulmonary disease) GERD (gastroesophageal reflux disease) Hypertension Panic attacks Post traumatic stress disorder (PTSD) Home Medications albuterol sulfate 2.5 mg INHALATION BID 10/04/14 [History Last Taken 01/23/18 12:30 1 tx] fluticasone propion-salmeterol [Advair Diskus] 1 puff INHALATION BID 10/04/14 [History Last Taken 01/23/18 17:00 1 puff] Mucus Relief ER 1,200 mg PO BID PRN PRN 01/24/15 [History Last Taken 01/23/18 08:00 1200 mg] Spiriva with HandiHaler 1 puff INHALATION DAILY 01/24/15 [History Last Taken 01/23/18 17:00 1 puff] prednisone 10 mg PO DAILY #10 tab 04/11/16 [Rx Last Taken 01/23/18 08:00 10 mg] azithromycin 250 mg PO DAILY 11/29/16 [History Last Taken 01/23/18 06:30 250 mg] omeprazole 20 mg PO DAILY 09/16/17 [History Last Taken 01/22/18 17:00 20 mg] alprazolam [Xanax] 1 mg PO BID 01/24/18 [History Last Taken 01/23/18 09:00 1 mg] albuterol sulfate [Proair Hfa (SP)Vent Pts] 1 - 2 puff INHALATION Q4H PRN PRN 11/04/18 [History Last Taken Unknown] fluticasone propionate 1 spray NASAL DAILY 11/04/18 [History Last Taken Unknown] cyclobenzaprine 10 mg PO TID PRN #20 tablet 10/24/21 [Rx Last Taken Unknown] naproxen 500 mg PO BID PRN #20 tab 10/24/21 [Rx Last Taken Unknown] doxycycline monohydrate 100 mg PO BID #20 cap 11/11/21 [Rx Last Taken Unknown] orphenadrine citrate 100 mg PO BID PRN #10 tab 11/11/21 [Rx Last Taken Unknown] oxycodone-acetaminophen [Percocet] 1 tab PO Q6H PRN 3 Days #10 tab 11/11/21 [Rx Last Taken Unknown] Allergy/AdvReac Type Severity Reaction Status Date / Time No Known Allergies Allergy Verified 11/11/21 12:18 Social History Smoking Status: Current some day smoker tobacco type: cigarettes ROS ROS ED Constitutional Constitutional ED: Denies chills or fever(s) Eyes Eyes: Denies change in vision ENT ENT ED: Denies sore throat Cardiovascular Cardiovascular: Denies chest pain Respiratory/Chest Respiratory/Chest: Reports dyspnea; Denies cough Gastrointestinal Gastrointestinal: Denies abdominal pain, diarrhea, nausea or vomiting Genitourinary Genitourinary ED: Denies dysuria Musculoskeletal Musculoskeletal: Reports back pain Integumentary Denies rash Neurologic Neurologic: Denies headache(s), paresthesias or weakness Allergic/Immunologic Allergic/Immunologic ED: Denies urticaria EXAM Physical Exam Const Vital Signs: 11/11/21 12:13 11/11/21 14:47 Temperature 98.5 F Temperature Source Oral Pulse Rate 97 86 Respiratory Rate 19 H 17 Blood Pressure 157/69 H 134/69 H Blood Pressure Mean 98 90 Pulse Ox 99 97 Oxygen Delivery Method Room Air Nasal Cannula Oxygen Flow Rate (L/min) 2 Positive well nourished and well developed General Appearance ED: well developed HEENT Reports moist mucous membranes Eyes PERRL and EOMs intact bilaterally Neck supple Chest Wall inspection of chest normal and palpation of chest normal Resp normal respiratory effort and clear to auscultation bilaterally Cardio regular rate GI non-tender Palpation: soft Back/Spine Back/Spine Narrative: Reproducible tenderness in the right low thoracic paraspinal muscles. No midline tenderness Neuro oriented x3 Neuro Narrative: No focal neurologic deficits. Sensorium / Orientation: alert Psych Mood & Affect: anxious Skin no rashes or lesions noted MDM MDM MDM Narrative Medical decision making narrative: Patient was initially given morphine and Zofran for pain. Chest x-ray obtained. Radiography Chest X-Ray - ED: 1 View, Read by ED Physician and Chronic Changes Diagnostic Testing: Clinical Impression(s) from Imaging Studies Chest X-Ray 11/11/21 12:45 IMPRESSION: Findings suggestive of right infrahilar infiltrate. Electronically Signed: Kevin Turpin MD at 13:03 EST , Service support , Treatment and Re-Evaluation Comments:: Repeat evaluation patient states the pain medicine helped initially but now is worsening again. She is given a dose of Norflex and p.o. oxycodone. On repeat evaluation she is resting more comfortably. We did discuss the x-ray reading which suggested a right infrahilar infiltrate. Patient does have history of COPD and has chronic cough. She states it might be slightly worsened. She states she actually did tell her earlier this week that she thought she may have pneumonia. She has not had fever. She will be treated with doxycycline as well as oxycodone and Norflex at home. Return instructions provided. Discharge Plan Triage Chief Complaint: Back ED Provider: Ruthie Anna Dx/Rx/DC Orders Clinical Impression: Strain of thoracic paraspinal muscles excluding T1 and T2 levels, Pneumonia Instructions: ED Back Pain (Acute or Chronic), ED Back Spasm, No Trauma, ED Pneumonia (Adult) Prescriptions: New oxycodone-acetaminophen [Percocet] 5-325 mg tablet 1 tab PO Q6H PRN (Reason: pain) 3 Days Qty: 10 RF: 0 orphenadrine citrate 100 mg tablet extended release 100 mg PO BID PRN (Reason: back spasm) Qty: 10 RF: 0 doxycycline monohydrate 100 MG capsule 100 mg PO BID Qty: 20 RF: 0 No Action albuterol sulfate 2.5 MG/3 ML solution for nebulization 2.5 mg inhalation BID RF: 0 fluticasone propion-salmeterol [Advair Diskus] 1 PUFF inhaler 1 puff inhalation BID RF: 0 Spiriva with HandiHaler 1 PUFF inhaler 1 puff inhalation DAILY RF: 0 Mucus Relief ER 1,200 MG tablet 1,200 mg PO BID PRN PRN (Reason: Congestion) RF: 0 prednisone 10 MG tablet 10 mg PO DAILY Qty: 10 RF: 0 azithromycin 250 MG tablet 250 mg PO DAILY RF: 0 omeprazole 20 MG capsule 20 mg PO DAILY RF: 0 alprazolam [Xanax] 1 MG tablet 1 mg PO BID RF: 0 albuterol sulfate [ProAir HFA] 1 PUFF inhaler 1 - 2 puff inhalation Q4H PRN PRN (Reason: Sob &/Or Wheezing) RF: 0 fluticasone propionate 1 SPRAY spray,suspension 1 spray NASAL DAILY RF: 0 naproxen 500 mg tablet 500 mg PO BID PRN Qty: 20 RF: 0 cyclobenzaprine 10 mg tablet 10 mg PO TID PRN (Reason: Muscle Spasm) Qty: 20 RF: 0 Primary Care Provider: Magen Cavazos Referrals: Magen Cavazos MD [Primary Care Provider] - 1 Week Disposition Disposition: Home, Self Care
[2021-11-11] MEDS: Ondansetron 4 MG/2 ML Vial IV (12:39)
[2021-11-11] MEDS: Morphine 4 MG/ML Syringe IV (12:39)
[2021-11-11] MEDS: Lidocaine 5% Patch 1 PATCH TOPICAL (12:44)
--- NOTE | 2021-11-11 12:45 | RAD_ITS ---
STUDY: X-RAY CHEST REASON FOR EXAM: Female, 61 years old. 2 week history of flank pain and back pain. TECHNIQUE: Single AP portable view of the chest. COMPARISON: Comparison is made with prior study dated 11/04/2018. FINDINGS: EKG electrodes are seen. Hyperinflation. Findings suggestive of right infrahilar infiltrate. There is no demonstrated pleural abnormality. Normal size heart. Normal mediastinum and jenny. Normal visualized pulmonary arteries. Normal visualized aortic arch and descending thoracic aorta. There are degenerative changes of the visualized thoracic spine. Normal visualized ribs, clavicles, and shoulders. There is no demonstrated abnormality of the visualized soft tissue structures of the upper abdomen. RAD/Chest 1 View (Portable) IMPRESSION: Findings suggestive of right infrahilar infiltrate. Electronically Signed: Kevin Turpin MD at 13:03 EST , Service support ,
[2021-11-11] MEDS: Orphenadrine 60 MG/2 ML Ampul IM (14:10)
[2021-11-11] MEDS: oxyCODONE 5 MG Tablet PO (14:11)
[2021-11-11 14:47] VITALS: BP 134/69; PULSE 86; RESP 17; O2SAT 97
== END 2021-11-11 15:56 | disposition home or self-care (01) ==
PROVIDERS: Emergency Provider Emergency Medicine; PCP Family Medicine; Visit Provider Emergency Medicine
DX: S29.019A Strain of muscle and tendon of unspecified wall of thorax, initial encounter (principal); J44.9 Chronic obstructive pulmonary disease, unspecified; F17.210 Nicotine dependence, cigarettes, uncomplicated; F41.9 Anxiety disorder, unspecified; F43.10 Post-traumatic stress disorder, unspecified; Z79.899 Other long term (current) drug therapy; X58.XXXA Exposure to other specified factors, initial encounter
CPT/HCPCS: 71045; 96372; 96374; 96375; 99285; J7050; J2405

== ENCOUNTER 2021-12-30 15:26 | Outpatient (CLI) | payer BC, MEDICARE, SELFPAY ==
--- NOTE | 2021-12-30 | BON_PTH ---
PATIENT: RACQUEL IRVIN LOC: [facility]#:[id number] AGE/SX: 61/F ROOM: RE12/30/[address]: Dr. Wallace Barber DO : 1960 BED: DIS: 12/30/2021 SPEC #: [id number] RECD: 12/30/21 14:59 STATUS: GEORGE REQ #: [id number] KAUSHIK: 12/30/21 00:[address]: Wallace Barber DEPT: SURGICAL PATHOLOGY RECD BY: Gualberto López ENTERED: 01/02/22 08:38 SP TYPE: Bone OTHR DR: Dr. Magen Cavazos MD [facility] Tissues: A - Vertebra, NOS B - Vertebra, NOS Procedures: Decalcification bone/plaque Surgery Specimen Level IV HEADER OPERATION: Thoracic 8 & 11 kyphoplasty PRE-OP DIAGNOSIS: Compression fracture TISSUE SUBMITTED: A ? T8 vertebral body, B ? T11 vertebral body MICROSCOPIC DIAGNOSIS A. T8 vertebral body, kyphoplasty: A piece of bone with callus formation and reactive changes, clinically compression fracture. Negative for malignancy. B. T11 vertebral body, biopsy: Fragments of bone with reactive changes and blood clots, clinically compression fracture. Negative for malignancy. DELL:elaine 01/03/2022 COMMENT Clinical correlation and appropriate follow up are necessary. MICROSCOPIC DESCRIPTION Slides are reviewed. GROSS DESCRIPTION A - Received in fixative is one container labeled with the patient's name and designated T8 vertebral body. The specimen consists of an elongated piece of bone measuring 1.5 cm in length and 0.1 cm in diameter. The specimen is totally submitted in one cassette after decalcification. B - Received in fixative is one container labeled with the patient's name and designated T11 vertebral body. The specimen consists of multiple fragments of blood clot mixed with fragments of bone measuring in aggregate 2 x 1 x 0.1 cm. The specimen is totally submitted in one cassette after decalcification. / DELL:elaine 01/02/2022 TC:5 CPT: 63912 x2, 38129 x2
== END 2021-12-30 23:59 | disposition home or self-care (01) ==
LOC: LABSPEC 15:28
PROVIDERS: PCP Family Medicine; Visit Provider Orthopaedic Surgery
DX: S22.089A Unspecified fracture of T11-T12 vertebra, initial encounter for closed fracture (principal); S22.069A Unspecified fracture of T7-T8 vertebra, initial encounter for closed fracture
CPT/HCPCS: 88305; 88311

== ENCOUNTER → 2022-04-11 | Outpatient (CLI) | payer BC, MEDICARE, SELFPAY ==
--- NOTE | 2022-04-11 11:06 | BONBX_PTH ---
PATIENT: RACQUEL IRVIN LOC: [facility] U#:[id number] AGE/SX: 62/F ROOM: RE04/11/[address]: Dr. Wallace Barber DO : 1960 BED: DIS: 04/11/2022 SPEC #: [id number] RECD: 04/11/22 14:51 STATUS: GEORGE REArtemio #: [id number] KAUSHIK: 04/11/22 11:[address]: Wallace Barber DEPT: SURGICAL PATHOLOGY RECD BY: Arabella Gresham ENTERED: 04/12/22 08:27 SP TYPE: Bone OTHR DR: Dr. Magen Cavazos MD [facility] Tissues: Vertebra, NOS Procedures: Decalcification bone/plaque Surgery Specimen Level V HEADER OPERATION: Lumbar 5 kyphoplasty PRE-OP DIAGNOSIS: Wedge compression fracture of fifth lumbar vertebra TISSUE SUBMITTED: Fifth lumbar vertebra MICROSCOPIC DIAGNOSIS Fifth lumbar vertebra, core biopsy: A piece of bone with reactive changes and callous formation, clinically wedge compression fracture. Negative for malignancy. DELL:elaine 04/13/2022 MICROSCOPIC DESCRIPTION Slides are reviewed. GROSS DESCRIPTION Received in fixative is one container labeled with the patient's name and designated fifth lumbar vertebra. The specimen consists of an elongated piece of ambriz bone measuring 0.8 cm in length and 0.1 cm in diameter. The entire specimen is submitted in one cassette after decalcification. / DELL:elaine 04/12/2022 TC:5 CPT: 29307, 32864
== END | disposition home or self-care (01) ==
LOC: LABSPEC 15:21
PROVIDERS: PCP Family Medicine; Referring Provider Orthopaedic Surgery; Visit Provider Orthopaedic Surgery
DX: S32.050A Wedge compression fracture of fifth lumbar vertebra, initial encounter for closed fracture (principal)
CPT/HCPCS: 88307; 88311

== ENCOUNTER 2022-08-31 06:37 | Inpatient (IN) | payer BC, MEDICARE, SELFPAY ==
[2022-08-31] VITALS (11 sets, daily range): BP systolic 100–134; BP diastolic 59–76; PULSE 86–102; RESP 15–24; TEMP 36.4–37.1; O2SAT 94–99; BMI 22.5; BMI 22.0
--- NOTE | 2022-08-31 07:05 | RAD_ITS ---
EXAM: XR CHEST, 1 VIEW CLINICAL INDICATION: shortness of breath TECHNIQUE: Frontal view of the chest. This report was created using [employer] report generation technology. COMPARISON: XR Chest dated 11/11/2021 FINDINGS: LUNGS AND PLEURAL SPACES: Mild thickening of the pulmonary interstitium which may represent acute or chronic inflammatory change. No pneumothorax. No effusion. HEART: Normal heart size. MEDIASTINUM: No mediastinal or hilar mass. BONES/JOINTS: Interval vertebroplasty changes at the T8 and T11 levels. SOFT TISSUES: Normal. RAD/Chest 1 View (Portable) IMPRESSION: Mild interstitial lung disease. Electronically Signed: Raghu Hardin MD at 8:03 EDT ,
--- NOTE | 2022-08-31 07:05 | EKG12_ITS ---
Test Reason : SOB Blood Pressure : / mmHG Vent. Rate : 099 BPM Atrial Rate : 099 BPM P-R Int : 142 ms QRS Dur : 078 ms QT Int : 364 ms P-R-T Axes : 075 081 083 degrees QTc Int : 467 ms Normal sinus rhythm Septal infarct , age undetermined Abnormal ECG Confirmed by NAVI DIETRICH, LILY ([id number]), purchase request editor YUE MAE ([id number]) on 09/01/2022 2:31:19 P M Referred By: QUITA Confirmed By:ROSELINE MCELROY MD
--- NOTE | 2022-08-31 07:07 | EDS_ITS ---
HPI History of Present Illness Chief Complaint: Shortness of Breath Narrative Narrative: 62-year-old female past medical history of COPD, continues to smoke cigarettes presents with increased shortness of breath. She states over the last 2 to 3 days she had upper respiratory infection type symptoms. Yesterday she felt that she could not breathe and thought that she was actually going to stop breathing. She does not wear oxygen at home because she states that while she used to have oxygen when she was initially diagnosed with COPD, her oxygen level stayed up so they took it away from me a few years ago. Additionally, she is supposed to be taking prednisone 10 mg daily, but takes it intermittently because she has osteoporosis and sees pain management for fractures of her back secondary to chronic steroid use and osteopenia. Her main concern is that she has had increasing shortness of breath over the last day. She felt better when she was placed on oxygen by EMS. Additionally, she states that she was administered steroids by EMS which has also helped her breathing. She has had increased cough with occasional sputum production. She also states that she feels feverish at times over the last week. [facility] Medical History Anxiety, generalized COPD (chronic obstructive pulmonary disease) GERD (gastroesophageal reflux disease) Hypertension Panic attacks Post traumatic stress disorder (PTSD) Home Medications albuterol sulfate 2.5 mg/3 mL (0.083 %) solution for nebulization 2.5 mg i nhalation BID breathing 10/04/14 [History Last Taken 01/23/18 12:30 1 tx] guaifenesin 1,200 mg tablet, extended release 12 hr (Mucus Relief ER) 1,200 mg PO BID PRN PRN Congestion 01/24/15 [History Last Taken 01/23/18 08:00 1200 mg] tiotropium bromide 18 mcg capsule with inhalation device (Spiriva with HandiHaler) 1 puff inhalation DAILY breathing 01/24/15 [History Last Taken 01/23/18 17:00 1 puff] prednisone 10 mg tablet 10 mg PO DAILY #10 tabs 04/11/16 [Rx Last Taken 01/23/18 08:00 10 mg] azithromycin 250 mg tablet 250 mg PO DAILY lungs 11/29/16 [History Last Taken 01/23/18 06:30 250 mg] alprazolam 1 mg tablet (Xanax) 1 mg PO BID anxiety 01/24/18 [History Last Taken 01/23/18 09:00 1 mg] albuterol sulfate 90 mcg/actuation aerosol inhaler (ProAir HFA) 1 - 2 puff inhalation Q4H PRN PRN Sob &/Or Wheezing 11/04/18 [History Last Taken Unknown] oxycodone-acetaminophen 5 mg-325 mg tablet (Percocet) 1 tab PO Q6H PRN pain 3 days #10 tabs 11/11/21 [Rx Last Taken Unknown] Allergy/AdvReac Type Severity Reaction Status Date / Time No Known Allergies Allergy Verified 08/31/22 06:45 Social History Smoking Status: Current some day smoker tobacco type: cigarettes ROS ROS ED ROS Narrative Constitutional: Occasional subjective fever, no chills. HEENT: No sore throat. No neck pain. No loss of vision. No rhinorrhea. Cardiovascular: Positive chest tightness/chest pain. No palpitations. No pedal edema. Respiratory: Positive occasionally productive cough, increasing shortness of breath. Abdominal: No abdominal pain. No nausea. No vomiting. Genitourinary: No dysuria. No hematuria. Musculoskeletal: No myalgias. No arthralgias. Neurologic: No headaches. No dizziness. No lightheadedness. Skin: No rash. No change in color. Psychiatric: No depression. No anxiety. EXAM Physical Exam Narrative Exam Narrative: Afebrile. Vital signs noted. HEENT: Normocephalic. Atraumatic. PERRL, EOMI. Neck soft and supple. No point tenderness or step off. Cardiovascular: Regular rate and rhythm. No murmurs, rubs, or gallops appreciated. Respiratory: No tachypnea. Lungs clear to auscultation bilaterally. Diminished breath sounds bilateral bases. No overt stridor or wheezing. Gastrointestinal: Abdomen soft, nontender, with normoactive bowel sounds. No rebound or guarding. Neurological: Awake. Alert. Nonfocal, nonlateralizing. Skin: No rash. Normal color. No pallor. Musculoskeletal: No pedal edema. Full range of motion extremities. Const Vital Signs: 08/31/22 06:37 08/31/22 07:22 08/31/22 07:22 Temperature 98.8 F Temperature Source Oral Pulse Rate 92 95 Respiratory Rate 18 24 H Respiratory Effort Blood Pressure 134/76 H Blood Pressure Mean 95 Pulse Ox 94 97 Oxygen Delivery Method Room Air Nasal Cannula Oxygen Flow Rate (L/min) 4 08/31/22 07:22 08/31/22 07:32 Temperature Temperature Source Pulse Rate Respiratory Rate 24 H Respiratory Effort Short of Breath Labored Accessory Muscle Use Blood Pressure Blood Pressure Mean Pulse Ox 97 Oxygen Delivery Method Nasal Cannula Nasal Cannula Oxygen Flow Rate (L/min) 4 2 MDM MDM MDM Narrative Medical decision making narrative: Comprehensive work-up was pursued. Pulse ox is currently 94% on room air without evidence of hypoxia. She is not tachypneic or hypoxic currently. No tachycardia. I will obtain a chest x-ray, EKG, and laboratory work including CBC, BMP, BNP, and high-sensitivity troponin as she states that she was having chest pain but it was described more as chest tightness. I will also obtain respiratory swabs including COVID, influenza, and RSV. Smoking cessation was discussed. CBC shows slightly elevated white count of 16.8, hemoglobin hemoconcentrated at 15.9 with hematocrit 47.4. Platelet count normal at 315. Electrolyte panel shows chloride elevated at 110 with a glucose of 150, normal anion gap of 8. Initial high-sensitivity troponin 53 which is below the cutoff of 54 for females. She does take chronic pain medication in the form of Percocet. She was given oxycodone 5 mg orally here in the emergency department. Her repeat troponin is pending. Additionally so as her chest x-ray. EKG was obtained and interpreted by myself which demonstrates normal sinus rhythm at 99 bpm without ectopy or acute ST changes, no significant change from an EKG dated November 04, 2018. No STEMI. At this point in time, patient will be signed out to the oncoming physician, Dr. Lozoya, to check the chest x-ray and treat her as a COPD exacerbation. She will most likely require ambulation on room air to look for desaturation. He will make final disposition on this patient. Disposition is pending. Patient is in stable condition. Lab Data Attestation: I reviewed the patient's lab results. Labs: Laboratory Results - last 24 hr 08/31/22 08/31/22 06:55 06:55 WBC 16.8 H RBC 5.19 Hgb 15.9 H Hct 47.4 H MCV 91.3 MCH 30.6 MCHC 33.5 RDW Std Deviation 44.2 H RDW Coeff of Mehul 13.2 Plt Count 315 MPV 10.5 Immature Gran % (Auto) 0.400 Neut % (Auto) 84.1 H Lymph % (Auto) 12.5 L [place] % (Auto) 1.3 Eos % (Auto) 1.0 Baso % (Auto) 0.7 Absolute Neuts (auto) 14.1 H Absolute Lymphs (auto) 2.09 Nucleated RBC % 0 Sodium 142 Potassium 4.0 Chloride 110 H Carbon Dioxide 24.0 Anion Gap 8 BUN 14 Creatinine 0.66 Estim Creat Clear Calc 70.80 Est GFR (MDRD) Af Amer 116 Est GFR (MDRD) Non-Af 96 BUN/Creatinine Ratio 21.1 H Glucose 150 H Calcium 9.3 Troponin I High Sens 53 Discharge Plan Triage Chief Complaint: Shortness of Breath ED Provider: Gene Shelton Dx/Rx/DC Orders Prescriptions: No Action albuterol sulfate 2.5 MG/3 ML solution for nebulization 2.5 mg inhalation BID Label Comments: for shortness of breath Spiriva with HandiHaler 1 PUFF inhaler 1 puff inhalation DAILY Label Comments: SHORTNESS OF BREATH Mucus Relief ER 1,200 MG tablet 1,200 mg PO BID PRN PRN (Reason: Congestion) Label Comments: helps break up mucous prednisone 10 MG tablet 10 mg PO DAILY Qty: 10 0RF Label Comments: steroid to decrease inflammation azithromycin 250 MG tablet 250 mg PO DAILY Label Comments: alprazolam [Xanax] 1 MG tablet 1 mg PO BID albuterol sulfate [ProAir HFA] 1 PUFF inhaler 1 - 2 puff inhalation Q4H PRN PRN (Reason: Sob &/Or Wheezing) oxycodone-acetaminophen [Percocet] 5-325 mg tablet 1 tab PO Q6H PRN (Reason: pain) 3 Days Qty: 10 0RF Primary Care Provider: Magen Cavazos Referrals: Magen Cavazos MD [Primary Care Provider] -
[2022-08-31] MEDS: Ipratropium/Albuterol Sulfate 3 ML AMPUL.NEB INHALATION ×2 (07:22→19:21)
[2022-08-31 07:28] LABS: Absolute Lymphocyte Count 2.09 X10^3/uL (0.83-4.51); Absolute Neutrophil Count 14.1 X10^3/uL (2.0-7.7); Basophil# 0.11 X10^3/uL; Basophil% 0.7 % (0-1); Eosinophil# 0.17 X10^3/uL; Hematocrit 47.4 % (37-47); Hemoglobin 15.9 g/dL (12.0-15.0); Lymphocyte # 2.09 X10^3/ul (0.83-4.51); Lymphocyte % 12.5 % (19-41); Mean Corp Hgb Conc 33.5 g/dL (32-36); Mean Corpuscular Hgb 30.6 pg (27.0-32.0); Mean Corpuscular Volume 91.3 fL (81-99); Mean Platelet Vol. 10.5 fl (6.2-12.0); Monocyte# 0.22 X10^3/uL; Monocyte% 1.3 % (0-10); NRBC Flagged by Analyzer 0 % (0-5); Neutrophil % 84.1 % (47-70); Platelet Count 315 K/mm3 (150-450); RBC Distribution Width CV 13.2 % (11.6-14.6); RBC Distribution Width SD 44.2 fl (35.1-43.9); Red Blood Count 5.19 M/mm3 (4.2-5.4); White Blood Count 16.8 K/mm3 (4.4-11.0)
[2022-08-31 07:33] LABS: Anion Gap 8 (5-15); BUN 14 mg/dL (7-18); BUN/Creat Ratio 21.1 RATIO (10-20); Calcium,Total 9.3 mg/dL (8.5-10.1); Chloride 110 mmol/L (98-107); Creatinine, Serum 0.66 mg/dL (0.55-1.02); EST Glomerular Filtration Rate 96 mL/min (>60); Est Glom Filt Rate - Afr Amer 116 mL/min (>60); Glucose 150 mg/dL (74-106); Sodium Level 142 mmol/L (136-145); Troponin-I HS 53 pg/mL (3.0-54.0)
[2022-08-31 08:15] LABS: BNP,B-Type NATRIURETIC PEPTIDE 19.1 pg/mL (0-100)
[2022-08-31] MEDS: oxyCODONE 5 MG Tablet PO ×2 (08:46→19:58)
[2022-08-31 09:43] LABS: Troponin-I HS 123 pg/mL (3.0-54.0)
[2022-08-31] MEDS: Aspirin 325 MG Tablet PO (10:07)
--- NOTE | 2022-08-31 10:18 | NURSING ---
[address] DR MAGAÑA
--- NOTE | 2022-08-31 10:19 | NURSING ---
PCU TERELETSKY ELEVATED TROP, CHEST PAIN, HYPOXIC RESP FAILURE
[2022-08-31] MEDS: 0.9% Saline Lock 10 ML Syringe IV ×2 (14:12→21:40)
[2022-08-31 14:23] LABS: Troponin-I HS 186 pg/mL (3.0-54.0)
[2022-08-31] MEDS: Albuterol 2.5 MG/3 ML VIAL.NEB. INHALATION (14:23)
[2022-08-31] MEDS: ALPRAZolam 0.5 MG Tablet 1 MG PO (16:53)
--- NOTE | 2022-08-31 17:24 | ECHOD_ITS ---
Reason For Study: CHEST PAIN Procedure This was a 2D Doppler, Color Flow transthoracic echocardiogram. Technically difficult study due to uncooperative patient. Patient scanned in supine position. The study was technically difficult. Exam performed portable in patient room. Left Ventricle Normal LV size. Left ventricular systolic function is hyperdynamic. The estimated ejection fraction is 75 %. No evidence for diastolic dysfunction. No regional wall motion abnormalities noted. Right Ventricle Normal RV size. Normal systolic function. Atria Normal left atrium. Normal right atrium. No doppler evidence for ASD. Mitral Valve There is no mitral annular calcification. Normal mitral valve. Trivial mitral valve insufficiency. Tricuspid Valve Normal tricuspid valve. Trivial tricuspid valve insufficiency. Aortic Valve The aortic valve is not well visualized. Pulmonic Valve The pulmonic valve is not well visualized. Great Vessels The aortic root is not well visualized. Pericardium/Pleural No pericardial effusion. MMode/2D Measurements & Calculations LAV(MOD-bp): 49.0 ml LVAd ap4: 21.0 cm2 SV(MOD-sp4): 35.1 ml LAV(MOD-bp) Indexed: 31.9 ml/m2 LVLd ap4: 7.6 cm LAV(MOD-sp2): 45.7 ml EDV(MOD-sp4): 48.3 ml LAV(MOD-sp4): 47.5 ml EDV(sp4-el): 49.2 ml LVAs ap4: 9.2 cm2 LVLs ap4: 5.9 cm ESV(MOD-sp4): 13.2 ml ESV(sp4-el): 12.2 ml EF(MOD-sp4): 72.7 % EF(sp4-el): 75.3 % SV(sp4-el): 37.1 ml LA A4 area: 18.0 cm2 RA A4 area: 17.9 cm2 Time Measurements MV dec time: 0.14 sec Doppler Measurements & Calculations MV E max saul: 71.3 cm/sec Lat Peak E' Saul: 9.1 cm/sec Med Peak E' Saul: 6.9 cm/sec MV A max saul: 97.1 cm/sec E/E' lat: 7.8 E/E' med: 10.4 MV E/A: 0.73 MV V2 max: 89.0 cm/sec Ao V2 max: 127.5 cm/sec MV max P.2 mmHg MV dec slope: 528.2 cm/sec2 Ao max P.5 mmHg MV V2 mean: 67.4 cm/sec MV mean P.9 mmHg MV V2 VTI: 17.4 cm LV V1 max: 110.6 cm/sec LV V1 max P.9 mmHg ECHO/Echo Complete Interpretation Summary The study was technically difficult. Left ventricular systolic function is hyperdynamic. The estimated ejection fraction is 75 %. Trivial mitral valve insufficiency. Trivial tricuspid valve insufficiency. No evidence for diastolic dysfunction. Ordering Physician: Mayito Ayers Performed By: Jessica Hair RCS
--- NOTE | 2022-08-31 17:26 | PCM.HP.STD ---
HPI - General General Date of Admission: 08/31/22 Date of Service: 08/31/22 Chief Complaint: Shortness of breath, chest pain HPI Narrative RACQUEL IRVIN, is a 62 F who presents to the emergency room at [facility] with a chief complaint of shortness of breath since last night along with some precordial upper chest pain without radiation into her neck or her arms which occurred today and lasted about 2 hours. She described the chest discomfort as pressure-like in nature, she denied any nausea or diaphoresis. Patient has a history of COPD, she is not on any oxygen at home, she still smokes approximately 5 cigarettes/day. Work-up in the emergency room revealed an elevated white blood cell count at 16.8, patient's chest x-ray showed no active infiltrates, patient's first troponin was not elevated, repeat troponin was elevated at 123. Patient has no history of any coronary artery disease. Patient requires supplemental oxygen at 2 L/min, she was given IV corticosteroids in the emergency room and aerosol treatments with improvement of her respiratory status. Patient's EKG showed normal sinus rhythm with poor R wave progression in leads V1 and V2, no acute ischemic changes are noted. Patient was admitted to PCU for hypoxia, exacerbation of COPD, and elevated troponin. Troponins will be cycled, if they continue to elevate, patient will have an echocardiogram performed and may need to see cardiology in consultation. At the time of my examination, patient is not having any chest pain. [facility] Medical History (Updated 08/31/22 @ 11:30 by Dora Chance) Anxiety, generalized COPD (chronic obstructive pulmonary disease) GERD (gastroesophageal reflux disease) Hip replacement planned Hypertension Panic attacks Post traumatic stress disorder (PTSD) Home Medications albuterol sulfate 2.5 mg/3 mL (0.083 %) solution for nebulization 2.5 mg inhalation BID breathing 10/04/14 [History Last Taken 08/30/22] guaifenesin 1,200 mg tablet, extended release 12 hr (Mucus Relief ER) 1,200 mg PO BID PRN PRN Congestion 01/24/15 [History Last Taken 01/23/18 08:00 1200 mg] tiotropium bromide 18 mcg capsule with inhalation device (Spiriva with HandiHaler) 1 puff inhalation DAILY SHORTNESS OF BREATH 01/24/15 [History Last Taken 08/30/22] azithromycin 250 mg tablet 250 mg PO DAILY lungs 11/29/16 [History Last Taken 2 Days Ago ~08/29/22] alprazolam 1 mg tablet (Xanax) 1 mg PO BID anxiety 01/24/18 [History Last Taken 08/30/22] albuterol sulfate 90 mcg/actuation aerosol inhaler (ProAir HFA) 2 puff inhalation Q4H PRN PRN Sob &/Or Wheezing 11/04/18 [History Last Taken 08/30/22] fluticasone 500 mcg-salmeterol 50 mcg/dose blistr powdr for inhalation (Advair Diskus) 1 inh inhalation BID COPD 08/31/22 [History Last Taken 08/30/22] ibandronate 150 mg tablet 150 mg PO Q90D OSTEOPOROSIS 08/31/22 [History Last Taken 08/14/22] losartan 50 mg tablet 50 mg PO DAILY BLOOD PRESSURE 08/31/22 [History Last Taken 2 Days Ago ~08/29/22] montelukast 10 mg tablet 10 mg PO DAILY PRN SEASONAL ALLERGIES 08/31/22 [History Last Taken Unknown] oxycodone-acetaminophen 5 mg-325 mg tablet (Percocet) 1 tab PO TID PRN Pain 08/31/22 [History Last Taken 08/30/22] prednisone 10 mg tablet 10 mg PO DAILY STEROID 08/31/22 [History Last Taken 08/31/22] Allergy/AdvReac Type Severity Reaction Status Date / Time No Known Allergies Allergy Verified 08/31/22 06:45 Social History Smoking Status: Light Smoker (<10/day) ROS Constitutional Constitutional: Denies anorexia, change in weight, chills, fatigue, fever(s), malaise, night sweats or weakness Eyes Eyes: Denies blurry vision, change in vision, discharge from eye(s) or eye pain Cardiovascular Cardiovascular: Reports chest pain and dyspnea on exertion; Denies claudication, edema or palpitations Respiratory/Chest Respiratory/Chest: Reports cough, dyspnea, shortness of breath at rest, shortness of breath with exertion and wheezing; Denies hemoptysis Gastrointestinal Gastrointestinal: Denies abdominal pain, coffee ground emesis, constipation, diarrhea, hematemesis, hematochezia, melena, nausea or vomiting Genitourinary Genitourinary: Denies dysuria, hematuria, urinary frequency, urinary hesitancy, urinary incontinence or urinary urgency Musculoskeletal Musculoskeletal: Denies back pain, joint pain, joint stiffness, joint swelling, myalgias or neck pain Neurologic Neurologic: Denies abnormal gait, abnormal speech, confusion, disequilibrium, dizziness, focal weakness, headache(s), loss of vision, numbness, other visual disturbances, paresthesias, syncope or tingling Psychiatric Psychiatric: Denies anxiety, cognitive impairment, depression, irritability, mood swings or suicidal ideation Endocrine Endocrinology: Denies change in body appearance, cold intolerance, excessive sweating, heat intolerance, polydipsia or polyuria Hematologic/Lymphatic Hematologic/Lymphatic: Denies none, anemia, easy bleeding, easy bruising or lymphadenopathy Allergic/Immunologic Allergic/Immunologic: Denies rhinitis, urticaria, eczemia or asthma Vital Signs Vital Signs Vital Signs: 08/31/22 06:37 08/31/22 07:22 08/31/22 07:22 Temperature 98.8 F Temperature Source Oral Pulse Rate 92 95 Respiratory Rate 18 24 H Respiratory Effort Respiratory Depth Respiratory Pattern Blood Pressure 134/76 H Blood Pressure Mean 95 Blood Pressure Source Blood Pressure Position Blood Pressure Location Pulse Ox 94 97 Oxygen Delivery Method Room Air Nasal Cannula Oxygen Flow Rate (L/min) 4 08/31/22 07:22 08/31/22 07:32 08/31/22 08:48 Temperature Temperature Source Pulse Rate 95 Respiratory Rate 24 H 15 Respiratory Effort Short of Breath Labored Accessory Muscle Use Respiratory Depth Respiratory Pattern Blood Pressure Blood Pressure Mean Blood Pressure Source Blood Pressure Position Blood Pressure Location Pulse Ox 97 95 Oxygen Delivery Method Nasal Cannula Nasal Cannula Nasal Cannula Oxygen Flow Rate (L/min) 4 2 2 08/31/22 10:27 08/31/22 11:20 08/31/22 12:20 Temperature 97.6 F L 98.0 F Temperature Source Temporal Oral Pulse Rate 89 86 Respiratory Rate 22 H 18 Respiratory Effort Short of Breath Respiratory Depth Shallow Respiratory Pattern Normal Blood Pressure 103/65 106/59 L Blood Pressure Mean 77 74 Blood Pressure Source Monitor Blood Pressure Position Semi-Fowlers Blood Pressure Location Right Arm Pulse Ox 96 97 Oxygen Delivery Method Nasal Cannula Nasal Cannula Nasal Cannula Oxygen Flow Rate (L/min) 2 2 2 08/31/22 11:20 08/31/22 13:14 08/31/22 15:00 Temperature 98.0 F Temperature Source Oral Pulse Rate 86 97 102 H Respiratory Rate 18 Respiratory Effort Respiratory Depth Respiratory Pattern Blood Pressure 106/59 L Blood Pressure Mean 74 Blood Pressure Source Blood Pressure Position Blood Pressure Location Pulse Ox 97 Oxygen Delivery Method Nasal Cannula Oxygen Flow Rate (L/min) 2 08/31/22 16:15 Temperature 97.7 F L Temperature Source Temporal Pulse Rate 99 Respiratory Rate 18 Respiratory Effort Respiratory Depth Respiratory Pattern Blood Pressure 124/61 H Blood Pressure Mean 82 Blood Pressure Source Monitor Blood Pressure Position Semi-Fowlers Blood Pressure Location Right Arm Pulse Ox 96 Oxygen Delivery Method Nasal Cannula Oxygen Flow Rate (L/min) 2 Weight Weight: 54.7 kg Body Mass Index (BMI) 22.0 Physical Exam Const alert, oriented x3 and no apparent distress Constitutional Narrative: Patient appears older than her stated age General Appearance: cooperative, well kempt and well developed Orientation / Consciousness: awake, oriented to person, oriented to place and oriented to time HEENT normocephalic, head/scalp atraumatic and moist oral mucous membranes Eyes PERRL, EOMs intact bilaterally and conjunctivae normal Neck supple, no JVD, thyroid normal and no carotid bruits General: trachea midline Resp normal respiratory effort, no retractions, no use of accessory muscles and clear to auscultation bilaterally Auscultation: Negative for rales, rhonchi or wheezes Cardio regular rate, regular rhythm, S1 normal heart sound, S2 normal heart sound, no murmurs, no rub and no gallops GI normal to inspection, nondistended, normoactive bowel sounds, soft to palpation, non-tender and non-distended Extremity no clubbing, cyanosis or edema Skin no rashes or lesions noted General Skin Exam: no breakdown Neuro oriented x3, CN's II-XII intact bilaterally, moves all extremities, no focal motor deficits and no sensory deficits noted Sensorium / Orientation: awake, alert, oriented to person, oriented to place and oriented to time Speech: speech normal Psych affect normal Results Lab / Micro Data Result Diagrams: 08/31/22 06:55 08/31/22 06:55 Labs: Laboratory Results - last 24 hr 08/31/22 06:55: WBC 16.8 H, RBC 5.19, Hgb 15.9 H, Hct 47.4 H, MCV 91.3, MCH 30.6, MCHC 33.5, RDW Std Deviation 44.2 H, RDW Coeff of Mehul 13.2, Plt Count 315, MPV 10.5, Immature Gran % (Auto) 0.400, Neut % (Auto) 84.1 H, Lymph % (Auto) 12.5 L, [place] % (Auto) 1.3, Eos % (Auto) 1.0, Baso % (Auto) 0.7, Absolute Neuts (auto) 14.1 H, Absolute Lymphs (auto) 2.09, Nucleated RBC % 0 08/31/22 06:55: Sodium 142, Potassium 4.0, Chloride 110 H, Carbon Dioxide 24.0, Anion Gap 8, BUN 14, Creatinine 0.66, Estim Creat Clear Calc 70.80, Est GFR (MDRD) Af Amer 116, Est GFR (MDRD) Non-Af 96, BUN/Creatinine Ratio 21.1 H, Glucose 150 H, Calcium 9.3, Troponin I High Sens 53 08/31/22 06:55: B-Natriuretic Peptide 19.1 08/31/22 08:58: Troponin I High Sens 123 H* 08/31/22 13:25: Troponin I High Sens 186 H* Micro: Microbiology 08/31/22 07:27 Interface Orders Rapid RSV (DFA) - Final 08/31/22 07:13 Nasal Secretion SARS-CoV-2 & FLU Antigen (Rapid) - Final Radiology Impression Chest X-Ray 08/31/22 07:05 IMPRESSION: Mild interstitial lung disease. Electronically Signed: Raghu Hardin MD at 8:03 EDT Reading Location ID and State: [facility] / [place] Tel , Service support , Assessment & Plan Assessment/Plan (1) Acute exacerbation of chronic obstructive pulmonary disease: PLAN: Plan 1. Acute exacerbation of COPD-patient will be admitted to PCU, she will be given IV corticosteroids, aerosol treatments, pulse ox will be monitored. #2 hypoxia secondary to #1-patient's pulse ox will be monitored, she is currently on low-flow oxygen #3 elevated troponin-etiology unclear, troponins will be cycled, patient may need further work-up including an echocardiogram or cardiology consultation. #4 osteoporosis with chronic pain-complicates care, management, recovery, and prognosis, patient is on Percocet for pain #5 anxiety-patient is currently on Xanax, this will be continued #6 essential hypertension-patient is on losartan #7 chronic COPD-patient is seen at the [facility] in [place] by pulmonary medicine. Charges/Coding Visit Charges Inpatient E&M: 64008 Init Hosp L3
[2022-08-31 18:36] LABS: Troponin-I HS 170 pg/mL (3.0-54.0)
[2022-08-31] MEDS: guaiFENesin 1,200 MG Tablet 1200 MG PO (21:40)
[2022-08-31] MEDS: Zolpidem Tartrate 5 MG Tablet 2.5 MG PO (21:41)
[2022-09-01] VITALS (10 sets, daily range): BP systolic 98–119; BP diastolic 47–71; PULSE 82–104; RESP 18–20; TEMP 36.4–37.3; O2SAT 92–98
[2022-09-01] MEDS: Ipratropium/Albuterol Sulfate 3 ML AMPUL.NEB INHALATION ×3 (01:03→13:03)
[2022-09-01] MEDS: oxyCODONE 5 MG Tablet PO (03:59)
[2022-09-01] MEDS: 0.9% Saline Lock 10 ML Syringe IV ×2 (05:11→12:58)
[2022-09-01] MEDS: Losartan Potassium 50 MG Tablet PO (09:34)
[2022-09-01] MEDS: guaiFENesin 1,200 MG Tablet 1200 MG PO (09:34)
[2022-09-01] MEDS: ALPRAZolam 0.5 MG Tablet 1 MG PO (09:34)
--- NOTE | 2022-09-01 10:33 | CASEMGMT ---
FOSTER LUGO assessment: Face to Face with patient for initial transition planning/care coordination assessment. FOSTER LUGO introduced self and role at [facility], pt voices understanding and consents to assessment. Pt is sitting up in bed in no distress on room air. Pt is A/Ox4 and answers all questions appropriately. Pt's , Jose Carlos Pond, is at bedside during assessment.? Care providers, pharmacy,?and demographics verified/updated. ? Presentation: Pt c/o increased SOB, 85% on RA Admitting dx: CP PCP: Macy Specialists: GIANCARLO Anthony pulm; Elisabeth, ortho spine; MOUSTAPHA Reddy Preferred Pharmacy: [facility] [place] Insurance: [place]/MCR A/B Prescription Benefit:? [place] Living Will/HPOA: Pt has LW but not HPOA and is aware that they are not on file at [facility]. LNOK: Jose Carlos Pond; Mary Yoon, aunt; Aixa Armstrong, [id number] Living Arrangements: Pt lives with on main level of triplex and states no concerns at home. Pt states assists with ADL's at times. Transportation: Pt states family drives and states no transportation concerns. DME/HHC: Pt has a cane, grab bars, and shower chair. Pt states no need for any further DME. Pt states no hx of SNF but has had HHC in the past. Pt states no concerns with going home at time of discharge. Pt is on disability. Pt states smokes about 4 cigarettes daily and does not drink ETOH. Pt voices no further concerns/needs. CM to follow for any further discharge planning/needs. Advised pt to ask for CM if any further questions/concerns/needs arise, voices understanding. Pt Goal:?Home Plan[place] FOSTER LUGO
--- NOTE | 2022-09-01 13:03 | CASEMGMT ---
Per Dora RN, pt does not qualify for home oxygen. Brody HUTCHISON CM
--- NOTE | 2022-09-01 15:25 | DCINST_ITS ---
Discharge Instructions Diet Discharge Diet: No restrictions Activity Discharge Activity: Return to Normal Activity Weight Bearing Status: Full weight bearing Follow Up Care Test Results: Test results from this visit will be discussed in further detail at your follow- up appointment, if applicable. Discharge Plan Admission Admit Date/Time: 08/31/22 10:53 Primary Reason for Your Visit: exacerbation of COPD Attending Provider: Mayito Ayers Primary Care Provider: Magen Cavazos Instructions Additional Instructions / Restrictions: do not smoke Discharge Orders/Prescriptions Prescriptions: New zolpidem 5 mg Tablet 2.5 mg PO QHS PRN PRN (Reason: sleep) Qty: 15 0RF prednisone 10 mg tablet 10 mg PO UD Qty: 20 0RF Rx Instructions: Four once a day for two days, then three once a day for two days, then two daily for two days, then one daily for two days, then stop Continued albuterol sulfate 2.5 MG/3 ML solution for nebulization 2.5 mg inhalation BID Spiriva with HandiHaler 1 PUFF inhaler 1 puff inhalation DAILY Mucus Relief ER 1,200 MG tablet 1,200 mg PO BID PRN PRN (Reason: Congestion) alprazolam [Xanax] 1 MG tablet 1 mg PO BID albuterol sulfate [ProAir HFA] 1 PUFF inhaler 2 puff inhalation Q4H PRN PRN (Reason: Sob &/Or Wheezing) losartan 50 mg tablet 50 mg PO DAILY fluticasone propion-salmeterol [Advair Diskus] 500-50 mcg/dose blister with device 1 inh INHALATION BID montelukast 10 mg tablet 10 mg PO DAILY PRN (Reason: SEASONAL ALLERGIES) ibandronate 150 mg tablet 150 mg PO Q90D oxycodone-acetaminophen [Percocet] 5-325 mg tablet 1 tab PO TID PRN (Reason: Pain) Discontinued azithromycin 250 MG tablet 250 mg PO DAILY Label Comments: prednisone 10 MG tablet 10 mg PO DAILY Referrals / Follow Up: Magen Cavazos MD [Primary Care Provider] - Within 2 Weeks Disposition Disposition (needs filled in before D/C Order can be placed): Home, Self Care
--- NOTE | 2022-09-01 15:38 | PCM.DC.SUM ---
Providers Date of Admission: 08/31/22 Date of Discharge: 09/01/22 Primary Care Physician: Dr. Magen Cavazos MD Reason For Visit: EXAC OF COPD / HYPOXIA / ELEVATED TROPONIN Diagnosis Discharge Diagnosis (1) Acute exacerbation of chronic obstructive pulmonary disease: Status: Acute Code(s): J44.1 - Chronic obstructive pulmonary disease with (acute) exacerbation Plan 1. Acute exacerbation of COPD-patient will be admitted to PCU, she will be given IV corticosteroids, aerosol treatments, pulse ox will be monitored. #2 hypoxia secondary to #1-patient's pulse ox will be monitored, she is currently on low-flow oxygen #3 elevated troponin-etiology unclear, troponins will be cycled, patient may need further work-up including an echocardiogram or cardiology consultation. #4 osteoporosis with chronic pain-complicates care, management, recovery, and prognosis, patient is on Percocet for pain #5 anxiety-patient is currently on Xanax, this will be continued #6 essential hypertension-patient is on losartan #7 chronic COPD-patient is seen at the [facility] in [place] by pulmonary medicine. Medications at Discharge Home Medications albuterol sulfate 2.5 mg/3 mL (0.083 %) solution for nebulization 2.5 mg inhalation BID breathing 10/04/14 guaifenesin 1,200 mg tablet, extended release 12 hr (Mucus Relief ER) 1,200 mg PO BID PRN PRN Congestion 01/24/15 tiotropium bromide 18 mcg capsule with inhalation device (Spiriva with HandiHaler) 1 puff inhalation DAILY SHORTNESS OF BREATH 01/24/15 alprazolam 1 mg tablet (Xanax) 1 mg PO BID anxiety 01/24/18 albuterol sulfate 90 mcg/actuation aerosol inhaler (ProAir HFA) 2 puff inhalation Q4H PRN PRN Sob &/Or Wheezing 11/04/18 fluticasone 500 mcg-salmeterol 50 mcg/dose blistr powdr for inhalation (Advair Diskus) 1 inh inhalation BID COPD 08/31/22 ibandronate 150 mg tablet 150 mg PO Q90D OSTEOPOROSIS 08/31/22 losartan 50 mg tablet 50 mg PO DAILY BLOOD PRESSURE 08/31/22 montelukast 10 mg tablet 10 mg PO DAILY PRN SEASONAL ALLERGIES 08/31/22 oxycodone-acetaminophen 5 mg-325 mg tablet (Percocet) 1 tab PO TID PRN Pain 08/31/22 prednisone 10 mg tablet 10 mg PO UD #20 tabs 09/01/22 zolpidem 5 mg tablet 2.5 mg PO QHS PRN PRN sleep #15 tabs 09/01/22 Hospital Course Operations None Procedures 2-D Echocardiogram Summary of Care Provided Minutes Spent on Discharge: 31 Hospital Course: This 62-year-old white female was seen in the emergency room at [facility] with a 2-day history of shortness of breath, patient has known COPD. She requires supplemental oxygen in the emergency room via nasal cannula to maintain her pulse ox, on examination she had expiratory wheezes, her troponin was initially normal but a second troponin was elevated at 123. Patient had complained at home of some precordial upper chest pain but it was associated with shortness of breath and she felt it was secondary to her breathing difficulties. Patient is EKG showed no evidence of ischemic changes. Chest x-ray showed no evidence of infiltrate. Patient was admitted to PCU, cardiac enzymes were cycled and they trended upwards [place] was 186, his third 1 was 170. Patient had no complaints of any chest pain-her chest pain that she had experienced had gone away in the emergency room she received aerosol treatments. Patient underwent an echocardiogram which showed a normal EF, this examiner did not think her cardiac enzyme elevations were indicative of a non-STEMI. Patient was treated with IV corticosteroids and aerosol treatments she improved during her hospital stay was able to be weaned off oxygen. On 09/01/2022, patient was seen and examined: On examination she appeared in good health and spirits-she appeared older than her stated age, she does not appear to be in any distress. Vital signs as documented. Skin warm and dry and without overt rashes. Neck without JVD, thyroid appears normal, trachea is midline, neck is supple. Lungs clear, normal air movement was noted. Heart exam notable for regular rhythm, normal sounds and absence of murmurs, rubs or gallops. Abdomen unremarkable and without evidence of organomegaly, masses, or abdominal aortic enlargement, bowel sounds are present in all 4 quadrants, no abdominal tenderness was noted. Extremities nonedematous, no cyanosis was noted, no clubbing was noted. Neuro: Cranial nerves II through XII are grossly intact, no focal motor deficits were noted, sensation to light touch and pinprick is intact, motor exam 5/5 throughout. Psych: Patient is alert and oriented x3, she does not appear anxious or depressed, she does not appear agitated. Patient was discharged home in stable condition on 09/01/2022. Weight / BMI Weight Weight: 54.7 kg Body Mass Index (BMI) 22.0 ABG / Lab / Microbiology Data Result Diagrams: 08/31/22 06:55 08/31/22 06:55 Laboratory: Laboratory Results - last 24 hr 08/31/22 17:48: Troponin I High Sens 170 H* Microbiology: Microbiology 08/31/22 07:27 Interface Orders Rapid RSV (DFA) - Final 08/31/22 07:13 Nasal Secretion SARS-CoV-2 & FLU Antigen (Rapid) - Final Radiography Diagnostic Testing: Radiology Impression Echocardiogram 08/31/22 17:24 Interpretation Summary The study was technically difficult. Left ventricular systolic function is hyperdynamic. The estimated ejection fraction is 75 %. Trivial mitral valve insufficiency. Trivial tricuspid valve insufficiency. No evidence for diastolic dysfunction. Ordering Physician: Mayito Ayers Performed By: Jessica Hair RCS D/C Instructions Discharge Diet: No restrictions Weight Bearing Status: Full weight bearing Meaningful Use Info Meaningful Use Diagnoses (Choose all that apply): None applicable Discharge Plan Admission Admit Date/Time: 08/31/22 10:53 Primary Reason for Your Visit: exacerbation of COPD Attending Provider: Mayito Ayers Primary Care Provider: Magen Cavazos Instructions Additional Instructions / Restrictions: do not smoke Discharge Orders/Prescriptions Prescriptions: New zolpidem 5 mg Tablet 2.5 mg PO QHS PRN PRN (Reason: sleep) Qty: 15 0RF prednisone 10 mg tablet 10 mg PO UD Qty: 20 0RF Rx Instructions: Four once a day for two days, then three once a day for two days, then two daily for two days, then one daily for two days, then stop Continued albuterol sulfate 2.5 MG/3 ML solution for nebulization 2.5 mg inhalation BID Spiriva with HandiHaler 1 PUFF inhaler 1 puff inhalation DAILY Mucus Relief ER 1,200 MG tablet 1,200 mg PO BID PRN PRN (Reason: Congestion) alprazolam [Xanax] 1 MG tablet 1 mg PO BID albuterol sulfate [ProAir HFA] 1 PUFF inhaler 2 puff inhalation Q4H PRN PRN (Reason: Sob &/Or Wheezing) losartan 50 mg tablet 50 mg PO DAILY fluticasone propion-salmeterol [Advair Diskus] 500-50 mcg/dose blister with device 1 inh INHALATION BID montelukast 10 mg tablet 10 mg PO DAILY PRN (Reason: SEASONAL ALLERGIES) ibandronate 150 mg tablet 150 mg PO Q90D oxycodone-acetaminophen [Percocet] 5-325 mg tablet 1 tab PO TID PRN (Reason: Pain) Discontinued azithromycin 250 MG tablet 250 mg PO DAILY Label Comments: prednisone 10 MG tablet 10 mg PO DAILY Referrals / Follow Up: Magen Cavazos MD [Primary Care Provider] - Within 2 Weeks Disposition Disposition (needs filled in before D/C Order can be placed): Home, Self Care Charges/Coding Visit Charges Inpatient E&M: 02358 Disch Hosp
== END 2022-09-01 16:26 | disposition home or self-care (01) | DRG 192 ==
LOC: ED 08:18 → PCU 10:40
PROVIDERS: Emergency Medicine; Admitting Provider Internal Medicine; Emergency Provider Student in an Organized Health Care Education/Training Program; PCP Family Medicine; Visit Provider Internal Medicine
DX: J44.1 Chronic obstructive pulmonary disease with (acute) exacerbation (principal); F17.210 Nicotine dependence, cigarettes, uncomplicated; I10 Essential (primary) hypertension; F41.1 Generalized anxiety disorder; M81.0 Age-related osteoporosis without current pathological fracture; G89.29 Other chronic pain; R09.02 Hypoxemia; R74.8 Abnormal levels of other serum enzymes; Z79.891 Long term (current) use of opiate analgesic; Z79.899 Other long term (current) drug therapy
CPT/HCPCS: 36415; 71045; 80048; 83880; 84484; 85025; 87428; 87633; 87807; 93005; 93306; 94640; 99251; 99285; 99406; A4216; G0463

== ENCOUNTER 2022-12-14 11:03 | Inpatient (IN) | payer BC, MEDICARE, SELFPAY ==
[2022-12-14] VITALS (12 sets, daily range): BP systolic 100–142; BP diastolic 54–91; PULSE 98–131; RESP 8–45; TEMP 36–37.2; O2SAT 93–100; BMI 22.3; BMI 21.7
--- NOTE | 2022-12-14 11:09 | EKG12_ITS ---
Test Reason : SOB Blood Pressure : / mmHG Vent. Rate : 127 BPM Atrial Rate : 127 BPM P-R Int : 140 ms QRS Dur : 076 ms QT Int : 306 ms P-R-T Axes : 069 086 083 degrees QTc Int : 444 ms Sinus tachycardia Possible Left atrial enlargement Septal infarct , age undetermined Abnormal ECG Confirmed by ALBINA DIETRICH, SHARMAINE ([id number]), assignment editor YUE MAE ([id number]) on 12/15/2022 9:50:41 AM Referred By: Confirmed By:SHARMAINE MONTEMAYOR MD
--- NOTE | 2022-12-14 11:15 | EDS_ITS ---
HPI History of Present Illness Chief Complaint: Shortness of Breath Informant: patient Narrative Narrative: Brought in by EMS for home. Worsening dyspnea productive cough of phlegm since yesterday. History of COPD and tobacco. She states currently not on home o xygen or nighttime oxygen. She does not wear a sleep mask at night. She denies fevers or headache or muscle aches. Nonvaccinated for COVID. Status post aerosol treatment by EMS. Also given Solu-Medrol. She has not been intubated in the past. She is brought in on oxygen. [facility] Medical History Anxiety, generalized COPD (chronic obstructive pulmonary disease) Emphysema lung GERD (gastroesophageal reflux disease) Hip replacement planned Hypertension Panic attacks Post traumatic stress disorder (PTSD) Home Medications albuterol sulfate 2.5 mg/3 mL (0.083 %) solution for nebulization 2.5 mg inhalation BID breathing 10/04/14 [History Last Taken 12/13/22] guaifenesin 1,200 mg tablet, extended release 12 hr (Mucus Relief ER) 1,200 mg PO BID PRN PRN Congestion 01/24/15 [History Last Taken 12/13/22] tiotropium bromide 18 mcg capsule with inhalation device (Spiriva with HandiHaler) 1 puff inhalation DAILY SHORTNESS OF BREATH 01/24/15 [History Last Taken 12/13/22] alprazolam 1 mg tablet (Xanax) 1 mg PO BID anxiety 01/24/18 [History Last Taken 12/14/22] albuterol sulfate 90 mcg/actuation aerosol inhaler (ProAir HFA) 2 puff inhalation Q4H PRN PRN Sob &/Or Wheezing 11/04/18 [History Last Taken 12/14/22] fluticasone 500 mcg-salmeterol 50 mcg/dose blistr powdr for inhalation (Advair Diskus) 1 inh inhalation BID COPD 08/31/22 [History Last Taken 12/13/22] ibandronate 150 mg tablet 150 mg PO Q90D OSTEOPOROSIS 08/31/22 [History Last Taken 11/14/22] losartan 50 mg tablet 50 mg PO DAILY BLOOD PRESSURE 08/31/22 [History Last Taken 12/13/22] montelukast 10 mg tablet 10 mg PO DAILY PRN SEASONAL ALLERGIES 08/31/22 [History Last Taken 12/13/22] prednisone 10 mg tablet 10 mg PO DAILY BREATHING' 12/14/22 [History Last Taken 12/14/22] Allergy/AdvReac Type Severity Reaction Status Date / Time No Known Allergies Allergy Verified 12/14/22 11:09 Social History Smoking Status: Light Smoker (<10/day) ROS ROS ED Constitutional Constitutional ED: Denies chills, fever(s) or sweats Eyes Eyes: Denies change in vision ENT ENT ED: Denies dysphagia or sore throat Cardiovascular Cardiovascular: Denies chest pain, leg edema, palpitations or racing heartbeat Respiratory/Chest Respiratory/Chest: Reports cough, dyspnea and dyspnea on exertion Gastrointestinal Gastrointestinal: Denies abdominal pain, diarrhea, nausea or vomiting Genitourinary Genitourinary ED: Denies dysuria, hematuria or urinary frequency Musculoskeletal Musculoskeletal: Denies back pain, extremity pain or neck pain Integumentary Denies rash or wounds Neurologic Neurologic: Denies headache(s), paresthesias or weakness EXAM Physical Exam Const Vital Signs: 12/14/22 11:04 12/14/22 11:09 12/14/22 11:12 Temperature 96.8 F L 96.8 F L Temperature Source Temporal Temporal Pulse Rate 131 H 129 H Respiratory Rate 37 H 37 H Respiratory Effort Short of Breath Labored Respiratory Pattern Tachypnea Blood Pressure 142/68 H 142/68 H Blood Pressure Mean 92 92 Pulse Ox 100 97 Oxygen Delivery Method Nasal Cannula Nasal Cannula Oxygen Flow Rate (L/min) 2 2 Fraction of Inspired Oxygen (FIO2) 12/14/22 11:13 12/14/22 11:15 12/14/22 11:15 Temperature Temperature Source Pulse Rate 126 H 122 H Respiratory Rate 44 H 45 H Respiratory Effort Respiratory Pattern Tachypnea Blood Pressure Blood Pressure Mean Pulse Ox 96 Oxygen Delivery Method Bi-pap Oxygen Flow Rate (L/min) Fraction of Inspired Oxygen (FIO2) 30 12/14/22 12:18 Temperature 97.4 F L Temperature Source Temporal Pulse Rate 117 H Respiratory Rate 22 H Respiratory Effort Respiratory Pattern Blood Pressure 114/91 H Blood Pressure Mean 98 Pulse Ox 93 Oxygen Delivery Method Bi-pap Oxygen Flow Rate (L/min) Fraction of Inspired Oxygen (FIO2) Positive cachectic Constitutional Narrative: On nasal cannula tachypneic using accessory muscles General Appearance ED: cachectic Nutritional Appearance: cachectic HEENT Reports moist mucous membranes normocephalic and atraumatic Eyes PERRL, EOMs intact bilaterally and conjunctivae normal General Eye ED: Yes normal appearance of both eyes Neck no lymphadenopathy and supple General: Negative for tenderness Chest Wall Chest: Negative for tenderness Resp Resp Narrative: [employer]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, there was right lower lobe external wheeze Effort and Inspection: Negative for respiratory distress Cardio regular rhythm and no murmurs Rate: tachycardic Peripheral Pulses: pulses 2+ throughout GI normal to inspection, nondistended, normoactive bowel sounds and non-tender Palpation: Negative for guarding or rebound tenderness present Back/Spine no CVA tenderness and no thoracic nor lumbar tenderness Extremity normal to inspection General Extremety ED: Negative for edema or tenderness General Extremity: Negative for edema Neuro oriented x3, CN's II-XII intact bilaterally and no sensory deficits noted Sensorium / Orientation: awake and alert Skin no rashes or lesions noted and no wounds MDM MDM MDM Narrative Medical decision making narrative: Interventions / MDM: Differential diagnosis: COPD exacerbation, pneumonia Diagnosis considered but do not suspect: Pulmonary embolism, not hypoxic My EKG interpretation: Sinus rate of 127, no ST or T wave changes Imaging independently reviewed and interpreted by myself: 1 view chest x-ray: Left lower lobe infiltrate External documents reviewed: N/A Test considered but not ordered:N/A ED course: Patient using accessory muscles on arrival status posttreatment. She is tachycardic and tachypneic. Sepsis labs were ordered she is placed on a BiPAP for comfort improvement of symptoms. Work-up initiated 1 view chest x-ray concerning for left lower lobe infiltrate. Labs White count returned at 18 edition she reports she is on prednisone 10 mg daily for her COPD. She is followed by [facility] pulmonology. Creatinine 0.48 lactic acid 0.6. Blood cultures are pending. She is on Rocephin and doxycycline for commune acquired pneumonia. She has no urinary symptoms. 1 clinically more stable on the BiPAP at 30% oxygenation. I spoke with hospitalist, Dr. Hernandez for admission to PCU. Re-evaluation: stable and improved Disposition discussed with patient/family/significant other: Patient Case discussed with consulting clinician: Hospitalist Lab Data Attestation: I reviewed the patient's lab results. Labs: Laboratory Results - last 24 hr 12/14/22 12/14/22 12/14/22 11:40 11:40 11:40 WBC 18.6 H RBC 5.45 H Hgb 16.3 H Hct 50.0 H MCV 91.7 MCH 29.9 MCHC 32.6 RDW Std Deviation 44.2 H RDW Coeff of Mehul 13.2 Plt Count 326 MPV 10.2 Immature Gran % (Auto) 0.500 Neut % (Auto) 70.0 Lymph % (Auto) 18.8 L [place] % (Auto) 6.7 Eos % (Auto) 3.2 Baso % (Auto) 0.8 Absolute Neuts (auto) 13.0 H Absolute Lymphs (auto) 3.50 Nucleated RBC % 0 PT 12.9 INR 1.0 APTT 27.4 Sodium 142 Potassium 4.9 Chloride 109 H Carbon Dioxide 24.0 Anion Gap 9 BUN 15 Creatinine 0.48 L Estim Creat Clear Calc 97.34 Est GFR (MDRD) Af Amer 170 Est GFR (MDRD) Non-Af 140 BUN/Creatinine Ratio 31.4 H Glucose 152 H Lactic Acid Calcium 9.2 Total Bilirubin 0.50 AST 24 ALT 23 Alkaline Phosphatase 115 Total Protein 7.1 Albumin 3.5 Globulin 3.6 Albumin/Globulin Ratio 1.0 12/14/22 11:40 WBC RBC Hgb Hct MCV MCH MCHC RDW Std Deviation RDW Coeff of Mehul Plt Count MPV Immature Gran % (Auto) Neut % (Auto) Lymph % (Auto) [place] % (Auto) Eos % (Auto) Baso % (Auto) Absolute Neuts (auto) Absolute Lymphs (auto) Nucleated RBC % PT INR APTT Sodium Potassium Chloride Carbon Dioxide Anion Gap BUN Creatinine Estim Creat Clear Calc Est GFR (MDRD) Af Amer Est GFR (MDRD) Non-Af BUN/Creatinine Ratio Glucose Lactic Acid 0.6 Calcium Total Bilirubin AST ALT Alkaline Phosphatase Total Protein Albumin Globulin Albumin/Globulin Ratio Radiography Diagnostic Testing: Clinical Impression(s) from Imaging Studies Chest X-Ray 12/14/22 11:37 IMPRESSION: Increased markings at the left lung base with blunting of the left costophrenic angle suggestive of early left lower lobe infiltrate. Follow-up is recommended. Electronically Signed: Kevin Turpin MD at 12:12 EST , EKG Initial EKG: Attestation: I personally reviewed and interpreted this EKG as follows: Comments: Sinus rate of 127, no ST changes, T wave inversion in aVL, nonspecific. Similar changes from August 2022. 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
[2022-12-14] MEDS: Ipratropium/Albuterol Sulfate 3 ML AMPUL.NEB INHALATION ×2 (11:22→19:01)
--- NOTE | 2022-12-14 11:37 | RAD_ITS ---
STUDY: X-RAY CHEST REASON FOR EXAM: Female, 62 years old. Cough. TECHNIQUE: Single AP portable view of the chest. COMPARISON: Comparison is made with prior study dated 08/31/2022. FINDINGS: EKG electrodes are seen. Increased markings at the left lung base with blunting of the left costophrenic angle. Early left lower lobe infiltrate should be ruled out. There is no demonstrated pleural abnormality. Normal size heart. Normal mediastinum and jenny. Normal visualized pulmonary arteries. There is atherosclerotic calcification of the aortic arch with tortuosity. Prior vertebroplasty of a mid and lower dorsal vertebrae. Normal visualized ribs, clavicles, and shoulders. There is no demonstrated abnormality of the visualized soft tissue structures of the upper abdomen. RAD/Chest 1 View (Portable) IMPRESSION: Increased markings at the left lung base with blunting of the left costophrenic angle suggestive of early left lower lobe infiltrate. Follow-up is recommended. Electronically Signed: Kevin Turpin MD at 12:12 EST ,
[2022-12-14 11:52] LABS: Basophil# 0.15 X10^3/uL; Basophil% 0.8 % (0-1); Eosinophils% 3.2 % (0-5); Hemoglobin 16.3 g/dL (12.0-15.0); Lymphocyte % 18.8 % (19-41); Mean Corp Hgb Conc 32.6 g/dL (32-36); Mean Corpuscular Hgb 29.9 pg (27.0-32.0); Mean Corpuscular Volume 91.7 fL (81-99); Mean Platelet Vol. 10.2 fl (6.2-12.0); Monocyte# 1.24 X10^3/uL; Monocyte% 6.7 % (0-10); NRBC Flagged by Analyzer 0 % (0-5); Neutrophil # 12.98 X10^3/uL (2.7-7.7); Platelet Count 326 K/mm3 (150-450); RBC Distribution Width CV 13.2 % (11.6-14.6); RBC Distribution Width SD 44.2 fl (35.1-43.9); Red Blood Count 5.45 M/mm3 (4.2-5.4); White Blood Count 18.6 K/mm3 (4.4-11.0)
[2022-12-14 12:06] LABS: Prothrombin Time (Protime)PT. 12.9 SECONDS (11.7-14.9)
[2022-12-14 12:07] LABS: Partial Thromboplast Time 27.4 Seconds (24.1-36.2)
[2022-12-14 12:14] LABS: AST(SGOT) 24 U/L (15-37); Alanine Aminotransfer ALT/SGPT 23 U/L (13-56); Albumin, Serum 3.5 g/dL (3.2-5.0); Alkaline Phosphatase 115 U/L (45-117); Anion Gap 9 (5-15); BUN 15 mg/dL (7-18); BUN/Creat Ratio 31.4 RATIO (10-20); Calcium,Total 9.2 mg/dL (8.5-10.1); Chloride 109 mmol/L (98-107); Creatinine, Serum 0.48 mg/dL (0.55-1.02); EST Glomerular Filtration Rate 140 mL/min (>60); Est Glom Filt Rate - Afr Amer 170 mL/min (>60); Estimated Creatinine Clearance 97.34 ml/min; Globulin 3.6 g/dL (2.2-4.2); Glucose 152 mg/dL (74-106); Potassium 4.9 mmol/L (3.5-5.1); Protein, Total 7.1 g/dL (6.4-8.2); Sodium Level 142 mmol/L (136-145)
[2022-12-14 12:26] LABS: Lactic Acid 0.6 mmol/L (0.4-1.9)
--- NOTE | 2022-12-14 12:31 | HP.PCM.HOS_ITS ---
HPI - General General Date of Admission: 12/14/22 Date of Service: 12/14/22 Chief Complaint: shortness of breath HPI Narrative RACQUEL IRVIN, is a 62 F with a PMH as outlined who presents via the ED on 12/14/2022 with a complaint of worsening shortness of breath. She said her symptoms had been going on for ~ 1 day, and cough was productive of sputum. She is not on home oxygen now. She denied any fever, chest pain, palpitations, dizziness, nausea, vomiting or diarrhea. She was started on BIPAP in the ED due to her tachypnea. Vitals were BP of 114/91, WI of 117, RR of 22 and temp of 97.4F. She was saturating at 93% on BIPAP. CBC showed wbc of 18.6 with Hb of 16.3 and platelets of 326. Chemistry was unremarkable. CXR showed increased markings at the left lung base with blunting of the left costophrenic angle suggestive of early left lower lobe infiltrate. She is being admitted to be managed for acute hypoxic respiratory failure due to community acquired pneumonia. [facility] Medical History Anxiety, generalized COPD (chronic obstructive pulmonary disease) Emphysema lung GERD (gastroesophageal reflux disease) Hip replacement planned Hypertension Panic attacks Post traumatic stress disorder (PTSD) Home Medications albuterol sulfate 2.5 mg/3 mL (0.083 %) solution for nebulization 2.5 mg inhalation BID breathing 10/04/14 [History Last Taken 12/13/22] guaifenesin 1,200 mg tablet, extended release 12 hr (Mucus Relief ER) 1,200 mg PO BID PRN PRN Congestion 01/24/15 [History Last Taken 12/13/22] tiotropium bromide 18 mcg capsule with inhalation device (Spiriva with HandiHaler) 1 puff inhalation DAILY SHORTNESS OF BREATH 01/24/15 [History Last Taken 12/13/22] alprazolam 1 mg tablet (Xanax) 1 mg PO BID anxiety 01/24/18 [History Last Taken 12/14/22] albuterol sulfate 90 mcg/actuation aerosol inhaler (ProAir HFA) 2 puff inhalation Q4H PRN PRN Sob &/Or Wheezing 11/04/18 [History Last Taken 12/14/22] fluticasone 500 mcg-salmeterol 50 mcg/dose blistr powdr for inhalation (Advair Diskus) 1 inh inhalation BID COPD 08/31/22 [History Last Taken 12/13/22] ibandronate 150 mg tablet 150 mg PO Q90D OSTEOPOROSIS 08/31/22 [History Last Taken 11/14/22] losartan 50 mg tablet 50 mg PO DAILY BLOOD PRESSURE 08/31/22 [History Last Taken 12/13/22] montelukast 10 mg tablet 10 mg PO DAILY PRN SEASONAL ALLERGIES 08/31/22 [History Last Taken 12/13/22] prednisone 10 mg tablet 10 mg PO DAILY BREATHING' 12/14/22 [History Last Taken 12/14/22] Allergy/AdvReac Type Severity Reaction Status Date / Time No Known Allergies Allergy Verified 12/14/22 11:09 Social History Smoking Status: Light Smoker (<10/day) ROS Constitutional Constitutional: Reports fatigue, malaise and weakness; Denies anorexia, chills or fever(s) Eyes Eyes: Denies change in vision ENT HEENT: Denies dysphagia, headache(s) or sore throat Cardiovascular Cardiovascular: Reports dyspnea on exertion, palpitations and rapid heart rate; Denies chest pain, edema, lightheadedness, orthopnea, paroxysmal nocturnal dyspnea or syncope Respiratory/Chest Respiratory/Chest: Reports cough, dyspnea, excessive phlegm production, productive cough, shortness of breath at rest and shortness of breath with exertion; Denies hemoptysis or wheezing Gastrointestinal Gastrointestinal: Denies abdominal pain, constipation, diarrhea, dyspepsia, nausea or vomiting Genitourinary Genitourinary: Denies burning urination Neurologic Neurologic: Denies confusion, dizziness, focal weakness, headache(s) or numbness Psychiatric Psychiatric: Denies anxiety or depression Endocrine Endocrinology: Denies change in body appearance Vital Signs Vital Signs Vital Signs: 12/14/22 11:04 12/14/22 11:09 12/14/22 11:12 Temperature 96.8 F L 96.8 F L Temperature Source Temporal Temporal Pulse Rate 131 H 129 H Respiratory Rate 37 H 37 H Respiratory Effort Short of Breath Labored Respiratory Pattern Tachypnea Blood Pressure 142/68 H 142/68 H Blood Pressure Mean 92 92 Pulse Ox 100 97 Oxygen Delivery Method Nasal Cannula Nasal Cannula Oxygen Flow Rate (L/min) 2 2 Fraction of Inspired Oxygen (FIO2) 12/14/22 11:13 12/14/22 11:15 12/14/22 11:15 Temperature Temperature Source Pulse Rate 126 H 122 H Respiratory Rate 44 H 45 H Respiratory Effort Respiratory Pattern Tachypnea Blood Pressure Blood Pressure Mean Pulse Ox 96 Oxygen Delivery Method Bi-pap Oxygen Flow Rate (L/min) Fraction of Inspired Oxygen (FIO2) 30 12/14/22 12:18 Temperature 97.4 F L Temperature Source Temporal Pulse Rate 117 H Respiratory Rate 22 H Respiratory Effort Respiratory Pattern Blood Pressure 114/91 H Blood Pressure Mean 98 Pulse Ox 93 Oxygen Delivery Method Bi-pap Oxygen Flow Rate (L/min) Fraction of Inspired Oxygen (FIO2) Weight Weight: 122 lb Body Mass Index (BMI) 22.3 Physical Exam Const alert and oriented x3 Constitutional Narrative: on BIPAP HEENT normocephalic, head/scalp atraumatic, hearing grossly normal bilaterally and moist oral mucous membranes Mouth: oral and palatal mucosa normal Eyes PERRL and EOMs intact bilaterally Neck no lymphadenopathy and supple Resp Resp Narrative: tachypneic, diminished breath sounds bibasally, few crackles. on BIPAP Cardio regular rhythm, S1 normal heart sound, S2 normal heart sound and no murmurs Cardio Narrative: tachycardic GI normal to inspection, nondistended, normoactive bowel sounds, soft to palpation, non-tender and non-distended Extremity normal to inspection, full ROM and no clubbing, cyanosis or edema Neuro oriented x3, CN's II-XII intact bilaterally and moves all extremities Sensorium / Orientation: awake and alert Motor Exam: strength 5/5 throughout Psych affect normal Results Lab / Micro Data Result Diagrams: 12/15/22 05:35 12/15/22 05:35 Labs: Laboratory Results - last 24 hr 12/14/22 11:40: WBC 18.6 H, RBC 5.45 H, Hgb 16.3 H, Hct 50.0 H, MCV 91.7, MCH 29.9, MCHC 32.6, RDW Std Deviation 44.2 H, RDW Coeff of Mehul 13.2, Plt Count 326, MPV 10.2, Immature Gran % (Auto) 0.500, Neut % (Auto) 70.0, Lymph % (Auto) 18.8 L, [place] % (Auto) 6.7, Eos % (Auto) 3.2, Baso % (Auto) 0.8, Absolute Neuts (auto) 13.0 H, Absolute Lymphs (auto) 3.50, Nucleated RBC % 0 12/14/22 11:40: PT 12.9, INR 1.0, APTT 27.4 12/14/22 11:40: Sodium 142, Potassium 4.9, Chloride 109 H, Carbon Dioxide 24.0, Anion Gap 9, BUN 15, Creatinine 0.48 L, Estim Creat Clear Calc 97.34, Est GFR (MDRD) Af Amer 170, Est GFR (MDRD) Non-Af 140, BUN/Creatinine Ratio 31.4 H, Glucose 152 H, Calcium 9.2, Total Bilirubin 0.50, AST 24, ALT 23, Alkaline Phosphatase 115, Total Protein 7.1, Albumin 3.5, Globulin 3.6, Albumin/Globulin Ratio 1.0 12/14/22 11:40: Lactic Acid 0.6 Micro: Microbiology 12/14/22 11:26 Nasal Secretion SARS-CoV-2 & FLU Antigen (Rapid) - Final Radiology Impression Chest X-Ray 12/14/22 11:37 IMPRESSION: Increased markings at the left lung base with blunting of the left costophrenic angle suggestive of early left lower lobe infiltrate. Follow-up is recommended. Electronically Signed: Kevin Turpin MD at 12:12 EST Reading Location ID and State: [address] [place] [address] , Service support , Assessment & Plan Assessment/Plan (1) Acute respiratory failure with hypoxia: (2) Pneumonia: PLAN: Plan #Acute hypoxic respiratory failure due to community acquired pneumonia and acute COPD exacerbatioin * admit to PCU * patient currently on BIPAP * get urine for strep and legionella. * sputum cultures * IV ceftriaxone and doxycycline * breathing treatment with bronchodilators * titrate oxygen to maintain sats >90% * start on IV solumedrol * #COmmunity acquired pneumonia: as above #Nonstemi * initial troponin was elevated. * will cycle troponin * EKG showed no acute ST changes * PO aspirin 81mg daily. Given a dose of therapeutic lovenox * cardiology consulted * will order 2D echo * #COPD: appears she is on steroids chronically. Will place on IV solumedrol as COPD exacerbation may also be contributing #Hypertension; on losartan. DVT prophylaxis: lovenox Code status: full code * Patient counseled extensively about different types of CODE STATUS including full code, DNR CCA and DNR CCA. Patient elects to be full code. Total [id number] time 17 minutes. Charges/Coding Visit Charges Inpatient E&M: 08900 Init Hosp L3 Procedures Hospitalists Procedures: 00727 Advncd Care Plan 30 Min
--- NOTE | 2022-12-14 12:56 | ED.RN ---
Patient refusing to get into a gown at this time. called and message left per patient request to notify him that the patient is here in the ER.
--- NOTE | 2022-12-14 12:58 | NURSING ---
103 koram pneumonia, acute resp failure
[2022-12-14 15:17] LABS: Troponin-I HS 787 pg/mL (3.0-54.0)
[2022-12-14] MEDS: 0.9% Normal Saline 1,000 ML 125 ML IV ×2 (15:17→22:03)
--- NOTE | 2022-12-14 15:57 | EKG12_ITS ---
Test Reason : POST PCI Blood Pressure : / mmHG Vent. Rate : 089 BPM Atrial Rate : 089 BPM P-R Int : 136 ms QRS Dur : 090 ms QT Int : 444 ms P-R-T Axes : 068 081 086 degrees QTc Int : 540 ms Normal sinus rhythm Nonspecific T wave abnormality Prolonged QT Abnormal ECG When compared with ECG of 18-DEC-2022 05:23, MANUAL COMPARISON REQUIRED, DATA IS UNCONFIRMED Confirmed by ALBINA DIETRICH, SHARMAINE ([id number]), editor greeting card YUE MAE ([id number]) on 12/19/2022 9:32:35 AM Referred By: DEMETRIUS Confirmed By:SHARMAINE MONTEMAYOR MD
[2022-12-14] MEDS: Enoxaparin 60 MG/0.6 ML Syringe 50 MG SC (16:39)
[2022-12-14] MEDS: Aspirin 325 MG Tablet PO (16:39)
[2022-12-14 18:05] LABS: Troponin-I HS 672 pg/mL (3.0-54.0)
[2022-12-14] MEDS: Budesonide Respules 0.5 MG/2 ML AMPUL.NEB. INHALATION (19:01)
[2022-12-14 21:28] LABS: Troponin-I HS 468 pg/mL (3.0-54.0)
[2022-12-14] MEDS: oxyCODONE 5 MG Tablet PO (21:57)
[2022-12-14] MEDS: ALPRAZolam 0.5 MG Tablet 1 MG PO (21:57)
[2022-12-14] MEDS: Senna/Docusate Sodium 1 Tablet 2 TABLET PO (22:11)
--- NOTE | 2022-12-14 22:35 | CPS ---
pt did not want to wear bipap
[2022-12-15] VITALS (15 sets, daily range): BP systolic 93–112; BP diastolic 35–61; PULSE 72–102; RESP 8–18; TEMP 36.4–36.9; O2SAT 94–100
[2022-12-15] MEDS: guaiFENesin 1,200 MG Tablet 1200 MG PO (02:06)
[2022-12-15] MEDS: Ipratropium/Albuterol Sulfate 3 ML AMPUL.NEB INHALATION ×5 (02:21→19:12)
[2022-12-15] MEDS: Acetaminophen 325 MG Tablet 650 MG PO (06:00)
[2022-12-15 06:28] LABS: Absolute Lymphocyte Count 1.98 X10^3/uL (0.83-4.51); Absolute Neutrophil Count 9.2 X10^3/uL (2.0-7.7); Basophil# 0.03 X10^3/uL; Basophil% 0.2 % (0-1); Eosinophil# 0.02 X10^3/uL; Eosinophils% 0.2 % (0-5); Hematocrit 42.9 % (37-47); Hemoglobin 13.6 g/dL (12.0-15.0); Lymphocyte # 1.98 X10^3/ul (0.83-4.51); Lymphocyte % 16.2 % (19-41); Mean Corp Hgb Conc 31.7 g/dL (32-36); Mean Corpuscular Hgb 30.4 pg (27.0-32.0); Mean Corpuscular Volume 95.8 fL (81-99); Mean Platelet Vol. 10.8 fl (6.2-12.0); Monocyte# 0.96 X10^3/uL; Monocyte% 7.8 % (0-10); NRBC Flagged by Analyzer 0 % (0-5); Neutrophil # 9.19 X10^3/uL (2.7-7.7); Neutrophil % 75.1 % (47-70); Platelet Count 271 K/mm3 (150-450); RBC Distribution Width CV 13.1 % (11.6-14.6); RBC Distribution Width SD 46.6 fl (35.1-43.9); Red Blood Count 4.48 M/mm3 (4.2-5.4); White Blood Count 12.2 K/mm3 (4.4-11.0)
[2022-12-15 06:52] LABS: Anion Gap 4 (5-15); BUN 12 mg/dL (7-18); BUN/Creat Ratio 21.5 RATIO (10-20); Calcium,Total 8.1 mg/dL (8.5-10.1); Chloride 108 mmol/L (98-107); Creatinine, Serum 0.56 mg/dL (0.55-1.02); EST Glomerular Filtration Rate 117 mL/min (>60); Est Glom Filt Rate - Afr Amer 142 mL/min (>60); Estimated Creatinine Clearance 83.44 ml/min; Glucose 144 mg/dL (74-106); Potassium 4.2 mmol/L (3.5-5.1); Sodium Level 140 mmol/L (136-145)
[2022-12-15] MEDS: Budesonide Respules 0.5 MG/2 ML AMPUL.NEB. INHALATION ×2 (06:52→19:12)
--- NOTE | 2022-12-15 07:13 | ECHOD_ITS ---
Reason For Study: CHEST PAIN Procedure This was a 2D Doppler, Color Flow transthoracic echocardiogram. Patient scanned supine due to broken back. Exam performed portable in patient room. Left Ventricle Normal LV size. The estimated ejection fraction is 65 %. No evidence for diastolic dysfunction. Possible mild anteroseptal hypokinesis. Right Ventricle Normal RV size. Normal systolic function. Atria Normal left atrium. Normal right atrium. No doppler evidence for ASD. Mitral Valve There is no mitral valve stenosis. No mitral valve insufficiency. Tricuspid Valve There is no tricuspid stenosis. No tricuspid valve insufficiency. Unable to estimate RV systolic pressure due to inadequate jet, pulmonary artery pressure probably normal. Aortic Valve There is no aortic stenosis. No aortic valve insufficiency. Pulmonic Valve There is no pulmonic valvular stenosis. No pulmonic valve insufficiency. Great Vessels Normal aortic root. Pericardium/Pleural No pericardial effusion. MMode/2D Measurements & Calculations LAV(MOD-bp): 38.3 ml LVAd ap4: 21.6 cm2 SV(MOD-sp4): 25.2 ml LAV(MOD-bp) Indexed: 25.2 ml/m2 LVLd ap4: 7.5 cm LAV(MOD-sp2): 42.9 ml EDV(MOD-sp4): 50.9 ml LAV(MOD-sp4): 33.2 ml EDV(sp4-el): 52.6 ml LVAs ap4: 13.6 cm2 LVLs ap4: 6.2 cm ESV(MOD-sp4): 25.7 ml ESV(sp4-el): 25.3 ml EF(MOD-sp4): 49.5 % EF(sp4-el): 51.9 % SV(sp4-el): 27.3 ml LA A4 area: 13.9 cm2 RA A4 area: 9.0 cm2 Time Measurements MV dec time: 0.15 sec Doppler Measurements & Calculations MV E max saul: 56.2 cm/sec Lat Peak E' Saul: 6.8 cm/sec Med Peak E' Saul: 5.1 cm/sec MV A max saul: 79.7 cm/sec E/E' lat: 8.3 E/E' med: 11.0 MV E/A: 0.70 MV V2 max: 82.6 cm/sec Ao V2 max: 103.2 cm/sec MV max P.7 mmHg MV dec slope: 367.5 cm/sec2 Ao max P.3 mmHg MV V2 mean: 55.9 cm/sec Ao V2 mean: 77.5 cm/sec MV mean P.4 mmHg Ao mean P.7 mmHg MV V2 VTI: 18.0 cm Ao V2 VTI: 20.6 cm AV (velocity ratio): 0.97 LV V1 max: 97.0 cm/sec PA V2 max: 82.9 cm/sec LV V1 max P.8 mmHg PA V2 mean: 56.9 cm/sec LV V1 mean P.9 mmHg LV V1 mean: 64.7 cm/sec LV V1 VTI: 20.1 cm ECHO/Echo Complete Interpretation Summary The estimated ejection fraction is 65 %. No evidence for diastolic dysfunction. Ordering Physician: Nataliia Hernandez Referring Physician: CELENA IZQUIERDO Performed By: Jessica Hair RCS
[2022-12-15] MEDS: Ceftriaxone 1 GM/50 ML BAG IV (09:44)
[2022-12-15] MEDS: ALPRAZolam 0.5 MG Tablet 1 MG PO ×2 (09:47→22:08)
[2022-12-15] MEDS: oxyCODONE 5 MG Tablet PO ×2 (09:48→23:41)
--- NOTE | 2022-12-15 11:12 | CON.PCM.CA_ITS ---
Assessment & Plan Assessment/Plan (1) Elevated troponin: PLAN: This appears to be secondary to type II non-STEMI related to her COPD exac erbation. Patient continues to have wheezing. Her 2D echo and telemetry were reviewed. Patient could have underlying CAD as she certainly has risk factors for it including active smoking. However at this time I would recommend managing her COPD exacerbation and pneumonia and coronary angiography could be considered as an outpatient unless her clinical situation changes. I agree with starting the patient on aspirin as has been done by Dr. Hernandez. If patient continues to do well she can be discharged home from a cardiac standpoint and can follow-up with cardiology service as an outpatient. (2) Acute respiratory failure with hypoxia: HPI Consult Data Date of Consult: 12/15/22 HPI Narrative Reason for Consultation: Elevated troponin HPI Narrative: RACQUEL IRVIN, is a 62 F who presents with shortness of breath and cough with expectoration. About 1 week back patient apparently had retrosternal chest pain radiating to her neck. She has not had similar chest pain since then. This time when she coughed she had some chest discomfort but no chest discomfort when she was not coughing. Patient was also found to have elevated white count, left-sided infiltrate suspicious for pneumonia. She is being treated for COPD exacerbation due to her pneumonia. Her troponin at presentation was 787, which was the peak troponin value and has come down to 468. [facility] Medical History Anxiety, generalized COPD (chronic obstructive pulmonary disease) Emphysema lung GERD (gastroesophageal reflux disease) Hip replacement planned Hypertension Panic attacks Post traumatic stress disorder (PTSD) Home Medications albuterol sulfate 2.5 mg/3 mL (0.083 %) solution for nebulization 2.5 mg inhalation BID breathing 10/04/14 [History Last Taken 12/13/22] guaifenesin 1,200 mg tablet, extended release 12 hr (Mucus Relief ER) 1,200 mg PO BID PRN PRN Congestion 01/24/15 [History Last Taken 12/13/22] tiotropium bromide 18 mcg capsule with inhalation device (Spiriva with HandiHal er) 1 puff inhalation DAILY SHORTNESS OF BREATH 01/24/15 [History Last Taken 12/13/22] alprazolam 1 mg tablet (Xanax) 1 mg PO BID anxiety 01/24/18 [History Last Taken 12/14/22] albuterol sulfate 90 mcg/actuation aerosol inhaler (ProAir HFA) 2 puff inhalation Q4H PRN PRN Sob &/Or Wheezing 11/04/18 [History Last Taken 12/14/22] fluticasone 500 mcg-salmeterol 50 mcg/dose blistr powdr for inhalation (Advair Diskus) 1 inh inhalation BID COPD 08/31/22 [History Last Taken 12/13/22] ibandronate 150 mg tablet 150 mg PO Q90D OSTEOPOROSIS 08/31/22 [History Last Taken 11/14/22] losartan 50 mg tablet 50 mg PO DAILY BLOOD PRESSURE 08/31/22 [History Last Taken 12/13/22] montelukast 10 mg tablet 10 mg PO DAILY PRN SEASONAL ALLERGIES 08/31/22 [History Last Taken 12/13/22] prednisone 10 mg tablet 10 mg PO DAILY BREATHING' 12/14/22 [History Last Taken 12/14/22] Allergy/AdvReac Type Severity Reaction Status Date / Time No Known Allergies Allergy Verified 12/14/22 11:09 Social History Smoking Status: Light Smoker (<10/day) Physical Exam Const alert and oriented x3 HEENT normocephalic Eyes no scleral icterus Resp normal respiratory effort Resp Narrative: Bilateral wheeze Cardio regular rate Extremity no pedal edema Psych mental status grossly normal Risk Stratification Risk Stratification Applicable: No Charges/Coding Visit Charges Inpatient E&M: 02623 Init Hosp L2 Objective Data Vital Signs: Vital Signs Temp Pulse Resp BP Pulse Ox O2 Del Method O2 Flow Rate 97.6 F L 72 15 93/51 L 98 Nasal Cannula 3 12/15/22 07:54 12/15/22 07:54 12/15/22 07:54 12/15/22 07:54 12/15/22 07:54 12/15/22 07:54 12/15/22 07:54 FiO2 30 12/14/22 15:50 Oxygen Flow Rate (L/min) 3 Oxygen Delivery Method Nasal Cannula Weight: 119 lb 0.794 oz Body Mass Index (BMI) 21.7 Intake & Output: Intake and Output for Last 24 Hours 12/13/22 12/14/22 12/15/22 23:59 23:59 23:59 Intake Total 1635.83 / 1635.83 1310 / 1310 Output Total 300 / 300 Balance 1635.83 / 1335.83 1010 / 1010 Lab / Micro Data Result Diagrams: 12/15/22 05:35 12/15/22 05:35 Labs: Laboratory Results - last 24 hr 12/14/22 11:40: WBC 18.6 H, RBC 5.45 H, Hgb 16.3 H, Hct 50.0 H, MCV 91.7, MCH 29.9, MCHC 32.6, RDW Std Deviation 44.2 H, RDW Coeff of Mehul 13.2, Plt Count 326, MPV 10.2, Immature Gran % (Auto) 0.500, Neut % (Auto) 70.0, Lymph % (Auto) 18.8 L, [place] % (Auto) 6.7, Eos % (Auto) 3.2, Baso % (Auto) 0.8, Absolute Neuts (auto) 13.0 H, Absolute Lymphs (auto) 3.50, Nucleated RBC % 0 12/14/22 11:40: PT 12.9, INR 1.0, APTT 27.4 12/14/22 11:40: Sodium 142, Potassium 4.9, Chloride 109 H, Carbon Dioxide 24.0, Anion Gap 9, BUN 15, Creatinine 0.48 L, Estim Creat Clear Calc 97.34, Est GFR (MDRD) Af Amer 170, Est GFR (MDRD) Non-Af 140, BUN/Creatinine Ratio 31.4 H, Glucose 152 H, Calcium 9.2, Total Bilirubin 0.50, AST 24, ALT 23, Alkaline Phosphatase 115, Total Protein 7.1, Albumin 3.5, Globulin 3.6, Albumin/Globulin Ratio 1.0 12/14/22 11:40: Lactic Acid 0.6 12/14/22 14:45: Troponin I High Sens 787 H* 12/14/22 16:45: Troponin I High Sens 672 H* 12/14/22 20:30: Troponin I High Sens 468 H* 12/15/22 05:35: WBC 12.2 H, RBC 4.48, Hgb 13.6, Hct 42.9, MCV 95.8, MCH 30.4, MCHC 31.7 L, RDW Std Deviation 46.6 H, RDW Coeff of Mehul 13.1, Plt Count 271, MPV 10.8, Immature Gran % (Auto) 0.500, Neut % (Auto) 75.1 H, Lymph % (Auto) 16.2 L, Evans % (Auto) 7.8, Eos % (Auto) 0.2, Baso % (Auto) 0.2, Absolute Neuts (auto) 9.2 H, Absolute Lymphs (auto) 1.98, Nucleated RBC % 0 12/15/22 05:35: Sodium 140, Potassium 4.2, Chloride 108 H, Carbon Dioxide 28.0, Anion Gap 4 L, BUN 12, Creatinine 0.56, Estim Creat Clear Calc 83.44, Est GFR (MDRD) Af Amer 142, Est GFR (MDRD) Non-Af 117, BUN/Creatinine Ratio 21.5 H, Glucose 144 H, Calcium 8.1 L Micro: Microbiology 12/14/22 21:58 Urine, Clean Catch Legionella Antigen - Final 12/14/22 21:58 Urine, Clean Catch Streptococcus pneumoniae Antigen (M - Final 12/14/22 11:26 Nasal Secretion SARS-CoV-2 & FLU Antigen (Rapid) - Final Cardiology Labs/Tests 12/14/22 11:40: WBC 18.6 H, RBC 5.45 H, Hgb 16.3 H, Hct 50.0 H, MCV 91.7, MCH 29.9, MCHC 32.6, Plt Count 326, MPV 10.2, Immature Gran % (Auto) 0.500, Neut % (Auto) 70.0, Lymph % (Auto) 18.8 L, Evans % (Auto) 6.7, Eos % (Auto) 3.2, Baso % (Auto) 0.8, Absolute Neuts (auto) 13.0 H, Nucleated RBC % 0 12/14/22 11:40: PT 12.9, INR 1.0, APTT 27.4 12/14/22 11:40: Sodium 142, Potassium 4.9, Chloride 109 H, Carbon Dioxide 24.0, Anion Gap 9, BUN 15, Creatinine 0.48 L, Est GFR (MDRD) Af Amer 170, Est GFR (MDRD) Non-Af 140, BUN/Creatinine Ratio 31.4 H, Glucose 152 H, Calcium 9.2, Total Bilirubin 0.50 12/14/22 11:40: Lactic Acid 0.6 12/15/22 05:35: WBC 12.2 H, RBC 4.48, Hgb 13.6, Hct 42.9, MCV 95.8, MCH 30.4, MCHC 31.7 L, Plt Count 271, MPV 10.8, Immature Gran % (Auto) 0.500, Neut % (Auto) 75.1 H, Lymph % (Auto) 16.2 L, Evans % (Auto) 7.8, Eos % (Auto) 0.2, Baso % (Auto) 0.2, Absolute Neuts (auto) 9.2 H, Nucleated RBC % 0 12/15/22 05:35: Sodium 140, Potassium 4.2, Chloride 108 H, Carbon Dioxide 28.0, Anion Gap 4 L, BUN 12, Creatinine 0.56, Est GFR (MDRD) Af Amer 142, Est GFR (MDRD) Non-Af 117, BUN/Creatinine Ratio 21.5 H, Glucose 144 H, Calcium 8.1 L Rhythm: EKG: ECHO: Stress Test: Cardiac Cath: PCI: CT Surgery: Holter monitor: EPS: PPM: CXR: Chest CT Scan: Radiography Diagnostic Testing: Radiology Impression Chest X-Ray 12/14/22 11:37 IMPRESSION: Increased markings at the left lung base with blunting of the left costophrenic angle suggestive of early left lower lobe infiltrate. Follow-up is recommended. Electronically Signed: Kevin Turpin MD at 12:12 EST ,
[2022-12-15] MEDS: 0.9% Saline Lock 10 ML Syringe IV (11:18)
--- NOTE | 2022-12-15 11:40 | CASEMGMT ---
FOSTER LUGO Face to Face with patient for initial transition planning/care coordination assessment. FOSTER LUGO introduced self and role at [facility]. Patient lying in bed, alert and oriented, at bedside. Patient willing to participate in assessment and is able to answer all questions appropriately. Care providers, pharmacy, and demographics verified. Patient wishes to discharge home, denies need for home health at this time. Patient states she has no further needs or concerns at this time. CM to follow for discharge planning needs that may arise. PCP: Macy Specialists: Ruthie Anthony, press manager; jonah Barber; Jeovanny Newell Preferred Pharmacy: [facility], [place] Insurance: [employer] Prescription Benefit: yes Living Will/HPOA: Living will only LNOK: Living Arrangements: Patient lives with in a 2 story home. Patient is independent and able to ambulate stairs. Transportation: self, DME/HHC: Patient states she has shower chair, cane, walker, and nebulizer at home. Patient is currently on oxygen will monitor for home oxygen. Patient states she prefers [employer] for DME. FOSTER LUGO discussed Patient Link program with patient and is interested. Referral made to Patient Link Disposition Plan: Patient to discharge home with family support and follow-up plans in place. Mckenzie ISIDRO, RN, CM
--- NOTE | 2022-12-15 11:43 | PN.HOSP_ITS ---
Reason for Visit Reason for Visit: Diagnoses Acute respiratory failure with hypoxia (12/14/22) Other specified abnormalities of plasma proteins (12/14/22) Subjective Subjective Patient seen and examined. She complained of coughing today. Her shortness of breath had improved markedly. She was noted to have elevated troponins yesterday. EKG showed no evidence of acute ST changes. She was given a dose of therapeutic lovenox, and also placed on aspirin and statin. She is now off BIPAP and on 2L of oxygen. Review of systems is otherwise negative. Objective Data Objective Data Vital Signs: Vital Signs Temp Pulse Resp BP Pulse Ox O2 Del Method O2 Flow Rate 97.6 F L 85 18 93/51 L 98 Nasal Cannula 2 12/15/22 07:54 12/15/22 10:55 12/15/22 10:55 12/15/22 07:54 12/15/22 11:05 12/15/22 11:05 12/15/22 11:05 FiO2 30 12/14/22 15:50 Oxygen Flow Rate (L/min) 2 Oxygen Delivery Method Nasal Cannula Weight: 119 lb 0.794 oz Body Mass Index (BMI) 21.7 Intake & Output: Intake and Output for Last 24 Hours 12/13/22 12/14/22 12/15/22 23:59 23:59 23:59 Intake Total 1635.83 / 1635.83 1422.5 / 1422.5 Output Total 300 / 300 Balance 1635.83 / 1335.83 1122.5 / 1122.5 Lab / Micro Data Result Diagrams: 12/15/22 05:35 12/15/22 05:35 Labs: Laboratory Results - last 24 hr 12/14/22 11:40: WBC 18.6 H, RBC 5.45 H, Hgb 16.3 H, Hct 50.0 H, MCV 91.7, MCH 29.9, MCHC 32.6, RDW Std Deviation 44.2 H, RDW Coeff of Mehul 13.2, Plt Count 326, MPV 10.2, Immature Gran % (Auto) 0.500, Neut % (Auto) 70.0, Lymph % (Auto) 18.8 L, [place] % (Auto) 6.7, Eos % (Auto) 3.2, Baso % (Auto) 0.8, Absolute Neuts (auto) 13.0 H, Absolute Lymphs (auto) 3.50, Nucleated RBC % 0 12/14/22 11:40: PT 12.9, INR 1.0, APTT 27.4 12/14/22 11:40: Sodium 142, Potassium 4.9, Chloride 109 H, Carbon Dioxide 24.0, Anion Gap 9, BUN 15, Creatinine 0.48 L, Estim Creat Clear Calc 97.34, Est GFR (MDRD) Af Amer 170, Est GFR (MDRD) Non-Af 140, BUN/Creatinine Ratio 31.4 H, Glucose 152 H, Calcium 9.2, Total Bilirubin 0.50, AST 24, ALT 23, Alkaline Phosphatase 115, Total Protein 7.1, Albumin 3.5, Globulin 3.6, Albumin/Globulin Ratio 1.0 12/14/22 11:40: Lactic Acid 0.6 12/14/22 14:45: Troponin I High Sens 787 H* 12/14/22 16:45: Troponin I High Sens 672 H* 12/14/22 20:30: Troponin I High Sens 468 H* 12/15/22 05:35: WBC 12.2 H, RBC 4.48, Hgb 13.6, Hct 42.9, MCV 95.8, MCH 30.4, MCHC 31.7 L, RDW Std Deviation 46.6 H, RDW Coeff of Mehul 13.1, Plt Count 271, MPV 10.8, Immature Gran % (Auto) 0.500, Neut % (Auto) 75.1 H, Lymph % (Auto) 16.2 L, [place] % (Auto) 7.8, Eos % (Auto) 0.2, Baso % (Auto) 0.2, Absolute Neuts (auto) 9.2 H, Absolute Lymphs (auto) 1.98, Nucleated RBC % 0 12/15/22 05:35: Sodium 140, Potassium 4.2, Chloride 108 H, Carbon Dioxide 28.0, Anion Gap 4 L, BUN 12, Creatinine 0.56, Estim Creat Clear Calc 83.44, Est GFR (MDRD) Af Amer 142, Est GFR (MDRD) Non-Af 117, BUN/Creatinine Ratio 21.5 H, Glucose 144 H, Calcium 8.1 L Micro: Microbiology 12/14/22 21:58 Urine, Clean Catch Legionella Antigen - Final 12/14/22 21:58 Urine, Clean Catch Streptococcus pneumoniae Antigen (M - Final 12/14/22 11:26 Nasal Secretion SARS-CoV-2 & FLU Antigen (Rapid) - Final Radiography Diagnostic Testing: Radiology Impression Chest X-Ray 12/14/22 11:37 IMPRESSION: Increased markings at the left lung base with blunting of the left costophrenic angle suggestive of early left lower lobe infiltrate. Follow-up is recommended. Electronically Signed: Kevin Turpin MD at 12:12 EST , Echocardiogram 12/15/22 07:13 Interpretation Summary The estimated ejection fraction is 65 %. No evidence for diastolic dysfunction. Ordering Physician: Nataliia Hernandez Referring Physician: CELENA IZQUIERDO Performed By: Jessica Hair RCS Physical Exam Const alert, oriented x3 and no apparent distress Constitutional Narrative: looks much better HEENT normocephalic, head/scalp atraumatic, hearing grossly normal bilaterally and moist oral mucous membranes Head and Scalp: normocephalic Mouth: oral and palatal mucosa normal Eyes PERRL and EOMs intact bilaterally Neck no lymphadenopathy and supple Resp Resp Narrative: mildly diminished breath sounds bibasally. Few crackles. On 4L of oxygen by nasal canula. Cardio regular rate, regular rhythm, S1 normal heart sound, S2 normal heart sound and no murmurs GI normal to inspection, nondistended, normoactive bowel sounds, soft to palpation, non-tender and non-distended Extremity normal to inspection, full ROM and no clubbing, cyanosis or edema Neuro oriented x3, CN's II-XII intact bilaterally and moves all extremities Sensorium / Orientation: awake and alert Motor Exam: strength 5/5 throughout Psych affect normal Assessment & Plan Assessment/Plan (1) Acute respiratory failure with hypoxia: (2) Pneumonia: PLAN: Plan #Acute hypoxic respiratory failure due to community acquired pneumonia and cOPD exacerbation * breathing has improved. * on 4L of oxygen. * urine for strep and legionella negative * continue IV ceftriaxone and doxycycline. * breathing treatment with bronchodilators * titrate oxygen to maintain sats >90% #Nonstemi * troponins were elevaed at >700 * trended downwards * given a dose of therapeutic lovenox, as well as aspirin and statin * cardiology consulted and evaluated patient today; per cardio, patient can follow up on outpatient basis to be scheduled for cardiac cath. * continue aspirina nd statin * 2D echo: EF of 65%, with no evidence of diastolic dysfunction and possible mild anteroseptal hypokinesis. * #COmmunity acquired pneumonia: as above #Acute COPD exacerbation: as above. #Hypertension; on losartan. DVT prophylaxis: lovenox Code status: full code * Charges/Coding Visit Charges Inpatient E&M: 02180 Subs Hosp L2
[2022-12-15] MEDS: 0.9% Normal Saline 1,000 ML 125 ML IV (15:17)
--- NOTE | 2022-12-15 15:43 | EKG12_ITS ---
Test Reason : AM EKG Blood Pressure : / mmHG Vent. Rate : 092 BPM Atrial Rate : 092 BPM P-R Int : 142 ms QRS Dur : 088 ms QT Int : 376 ms P-R-T Axes : 060 078 089 degrees QTc Int : 464 ms Normal sinus rhythm Nonspecific ST abnormality Abnormal ECG When compared with ECG of 17-DEC-2022 14:29, MANUAL COMPARISON REQUIRED, DATA IS UNCONFIRMED Confirmed by ALBINA DIETRICH, SHARMAINE ([id number]), editor index YUE MAE ([id number]) on 12/19/2022 9:34:13 AM Referred By: Confirmed By:SHARMAINE MONTEMAYOR MD
--- NOTE | 2022-12-15 15:44 | CPS ---
Patient complained of epigastric/chest pain, RN aware. EKG done, changes noted and handed to nurse discharge.
[2022-12-15] MEDS: Senna/Docusate Sodium 1 Tablet 2 TABLET PO (22:09)
[2022-12-16] VITALS (9 sets, daily range): BP systolic 118–136; BP diastolic 55–77; PULSE 91–97; RESP 16–20; TEMP 36.4–36.6; O2SAT 88–98
[2022-12-16 01:10] LABS: Troponin-I HS 111 pg/mL (3.0-54.0)
[2022-12-16 03:16] LABS: Troponin-I HS 93 pg/mL (3.0-54.0)
[2022-12-16] MEDS: Ipratropium/Albuterol Sulfate 3 ML AMPUL.NEB INHALATION ×4 (04:16→18:48)
[2022-12-16 05:52] LABS: Absolute Lymphocyte Count 3.42 X10^3/uL (0.83-4.51); Absolute Neutrophil Count 6.7 X10^3/uL (2.0-7.7); Basophil# 0.08 X10^3/uL; Basophil% 0.7 % (0-1); Eosinophil# 0.44 X10^3/uL; Eosinophils% 3.8 % (0-5); Hematocrit 40.1 % (37-47); Hemoglobin 12.4 g/dL (12.0-15.0); Lymphocyte # 3.42 X10^3/ul (0.83-4.51); Lymphocyte % 29.6 % (19-41); Mean Corp Hgb Conc 30.9 g/dL (32-36); Mean Corpuscular Hgb 29.7 pg (27.0-32.0); Mean Corpuscular Volume 96.2 fL (81-99); Mean Platelet Vol. 10.1 fl (6.2-12.0); Monocyte# 0.88 X10^3/uL; Monocyte% 7.6 % (0-10); NRBC Flagged by Analyzer 0 % (0-5); Neutrophil # 6.69 X10^3/uL (2.7-7.7); Platelet Count 263 K/mm3 (150-450); RBC Distribution Width CV 13.2 % (11.6-14.6); RBC Distribution Width SD 47.4 fl (35.1-43.9); Red Blood Count 4.17 M/mm3 (4.2-5.4); White Blood Count 11.5 K/mm3 (4.4-11.0)
[2022-12-16 06:14] LABS: Anion Gap 3 (5-15); BUN 8 mg/dL (7-18); BUN/Creat Ratio 15.7 RATIO (10-20); Calcium,Total 8.1 mg/dL (8.5-10.1); Chloride 113 mmol/L (98-107); Creatinine, Serum 0.51 mg/dL (0.55-1.02); EST Glomerular Filtration Rate 130 mL/min (>60); Est Glom Filt Rate - Afr Amer 158 mL/min (>60); Estimated Creatinine Clearance 91.62 ml/min; Glucose 105 mg/dL (74-106); Potassium 3.8 mmol/L (3.5-5.1); Sodium Level 143 mmol/L (136-145); Troponin-I HS 88 pg/mL (3.0-54.0)
[2022-12-16] MEDS: Budesonide Respules 0.5 MG/2 ML AMPUL.NEB. INHALATION ×2 (07:44→18:48)
[2022-12-16] MEDS: guaiFENesin 1,200 MG Tablet 1200 MG PO (07:52)
[2022-12-16] MEDS: oxyCODONE 5 MG Tablet PO ×2 (07:52→15:24)
[2022-12-16] MEDS: Aspirin 81 MG TAB.CHEW PO (07:54)
[2022-12-16] MEDS: Polyethylene Glycol 3350 17 GM PACKET PO (09:57)
[2022-12-16] MEDS: Ceftriaxone 1 GM/50 ML BAG IV (09:57)
[2022-12-16] MEDS: ALPRAZolam 0.5 MG Tablet 1 MG PO ×2 (09:58→20:59)
[2022-12-16] MEDS: Senna/Docusate Sodium 1 Tablet 2 TABLET PO ×2 (09:58→20:59)
--- NOTE | 2022-12-16 11:09 | PN.CARD_ITS ---
Subjective Subjective Patient seen and evaluated. Appears to be stable at this time. Did develop some chest pain overnight. Objective Data Vital Signs: Vital Signs Temp Pulse Resp BP Pulse Ox O2 Del Method O2 Flow Rate 98 F 97 16 118/55 L 96 Nasal Cannula 2 12/16/22 09:52 12/16/22 09:52 12/16/22 09:52 12/16/22 09:52 12/16/22 09:52 12/16/22 09:52 12/16/22 09:52 FiO2 30 12/15/22 15:38 Oxygen Flow Rate (L/min) 2 Oxygen Delivery Method Nasal Cannula Weight: 119 lb 0.794 oz Body Mass Index (BMI) 21.7 Intake & Output: Intake and Output for Last 24 Hours 12/14/22 12/15/22 12/16/22 23:59 23:59 23:59 Intake Total 1635.83 / 1635.83 3466.25 / 3466.25 313.75 / 313.75 Output Total 300 / 300 Balance 1635.83 / 1335.83 3166.25 / 3166.25 313.75 / 313.75 Lab / Micro Data Result Diagrams: 12/16/22 05:35 12/16/22 05:35 Labs: Laboratory Results - last 24 hr 12/16/22 00:35: Troponin I High Sens 111 H 12/16/22 02:24: Troponin I High Sens 93 H 12/16/22 05:35: WBC 11.5 H, RBC 4.17 L, Hgb 12.4, Hct 40.1, MCV 96.2, MCH 29.7, MCHC 30.9 L, RDW Std Deviation 47.4 H, RDW Coeff of Mehul 13.2, Plt Count 263, MPV 10.1, Immature Gran % (Auto) 0.300, Neut % (Auto) 58.0, Lymph % (Auto) 29.6, Will % (Auto) 7.6, Eos % (Auto) 3.8, Baso % (Auto) 0.7, Absolute Neuts (auto) 6.7, Absolute Lymphs (auto) 3.42, Nucleated RBC % 0 12/16/22 05:35: Sodium 143, Potassium 3.8, Chloride 113 H, Carbon Dioxide 27.0, Anion Gap 3 L, BUN 8, Creatinine 0.51 L, Estim Creat Clear Calc 91.62, Est GFR (MDRD) Af Amer 158, Est GFR (MDRD) Non-Af 130, BUN/Creatinine Ratio 15.7, Glucose 105, Calcium 8.1 L, Troponin I High Sens 88 H Micro: Microbiology 12/14/22 22:05 Sputum, Expectorated/Coughed Gram Stain - Final 12/14/22 22:05 Sputum, Expectorated/Coughed Respiratory Culture - 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 12/14/22 11:40 Blood Culture (Wb) - Right Hand Blood Culture - Preliminary No growth in 48 hours. Cardiology Labs/Tests 12/16/22 05:35: WBC 11.5 H, RBC 4.17 L, Hgb 12.4, Hct 40.1, MCV 96.2, MCH 29.7, MCHC 30.9 L, Plt Count 263, MPV 10.1, Immature Gran % (Auto) 0.300, Neut % (Auto) 58.0, Lymph % (Auto) 29.6, Will % (Auto) 7.6, Eos % (Auto) 3.8, Baso % (Auto) 0.7, Absolute Neuts (auto) 6.7, Nucleated RBC % 0 12/16/22 05:35: Sodium 143, Potassium 3.8, Chloride 113 H, Carbon Dioxide 27.0, Anion Gap 3 L, BUN 8, Creatinine 0.51 L, Est GFR (MDRD) Af Amer 158, Est GFR (MDRD) Non-Af 130, BUN/Creatinine Ratio 15.7, Glucose 105, Calcium 8.1 L Rhythm: EKG: ECHO: Stress Test: Cardiac Cath: PCI: CT Surgery: Holter monitor: EPS: PPM: CXR: Chest CT Scan: Radiography Diagnostic Testing: Radiology Impression Echocardiogram 12/15/22 07:13 Interpretation Summary The estimated ejection fraction is 65 %. No evidence for diastolic dysfunction. Ordering Physician: Nataliia Hernandez Referring Physician: CELENA IZQUIERDO Performed By: Jessica Hair RCS Physical Exam Const alert, oriented x3 and no apparent distress General Appearance: cooperative HEENT hearing grossly normal bilaterally Head and Scalp: atraumatic Eyes EOMs intact bilaterally Neck General: normal visual inspection Chest inspection of chest normal and palpation of chest normal Resp normal respiratory effort Auscultation: clear to auscultation bilaterally Cardio regular rate, regular rhythm, S1 normal heart sound and S2 normal heart sound Jugular Venous Distention: JVD GI normal to inspection, nondistended, normoactive bowel sounds Extremity normal capillary refill and no pedal edema Peripheral Pulses: Yes pulses 2+ throughout and femoral pulses present Skin no rashes or lesions noted Neuro oriented x3 and CN's II-XII intact bilaterally Psych Appearance: grossly normal and appropriate Assessment & Plan Assessment/Plan (1) NSTEMI (non-ST elevated myocardial infarction): PLAN: Her troponins were elevated at >700 * trended downwards * given a dose of therapeutic lovenox, as well as aspirin and statin * cardiology evaluation had initially demonstrated stability for outpatient cardiac catheterization however due to her recurrent chest discomfort as well as the anteroseptal hypokinesis and the T wave inversions noted on her EKG I will recommend that the patient stay for an inpatient cardiac catheterization on Sunday. This has been discussed with the patient and her and they understand and agree to proceed. Depending on the findings further recommendations will be made. * Will recommend isosorbide 30 mg a day * High intensity statin * Above also discussed with hospitalist
--- NOTE | 2022-12-16 14:05 | PN.HOSP_ITS ---
Reason for Visit Reason for Visit: Diagnoses Non-ST elevation (NSTEMI) myocardial infarction (12/14/22) Pneumonia, unspecified organism (12/14/22) Acute respiratory failure with hypoxia (12/14/22) Other specified abnormalities of plasma proteins (12/14/22) Subjective Subjective Patient seen and examined. She complained of episodic chest pain. She also complained of constipation. She denied any fever, chills, cough, chest pain, palpitations, dizziness, nausea, vomiting or diarrhea. Review of systems otherwise negative. Objective Data Objective Data Vital Signs: Vital Signs Temp Pulse Resp BP Pulse Ox O2 Del Method O2 Flow Rate 98 F 95 20 H 118/55 L 96 Room Air 2 12/16/22 09:52 12/16/22 11:32 12/16/22 11:32 12/16/22 09:52 12/16/22 09:52 12/16/22 13:22 12/16/22 09:52 FiO2 30 12/15/22 15:38 Oxygen Flow Rate (L/min) 2 Oxygen Delivery Method Room Air Weight: 119 lb 0.794 oz Body Mass Index (BMI) 21.7 Intake & Output: Intake and Output for Last 24 Hours 12/14/22 12/15/22 12/16/22 23:59 23:59 23:59 Intake Total 1635.83 / 1635.83 3466.25 / 3466.25 973.75 / 973.75 Output Total 300 / 300 Balance 1635.83 / 1335.83 3166.25 / 3166.25 973.75 / 973.75 Lab / Micro Data Result Diagrams: 12/16/22 05:35 12/16/22 05:35 Labs: Laboratory Results - last 24 hr 12/16/22 00:35: Troponin I High Sens 111 H 12/16/22 02:24: Troponin I High Sens 93 H 12/16/22 05:35: WBC 11.5 H, RBC 4.17 L, Hgb 12.4, Hct 40.1, MCV 96.2, MCH 29.7, MCHC 30.9 L, RDW Std Deviation 47.4 H, RDW Coeff of Mehul 13.2, Plt Count 263, MPV 10.1, Immature Gran % (Auto) 0.300, Neut % (Auto) 58.0, Lymph % (Auto) 29.6, [place] % (Auto) 7.6, Eos % (Auto) 3.8, Baso % (Auto) 0.7, Absolute Neuts (auto) 6.7, Absolute Lymphs (auto) 3.42, Nucleated RBC % 0 12/16/22 05:35: Sodium 143, Potassium 3.8, Chloride 113 H, Carbon Dioxide 27.0, Anion Gap 3 L, BUN 8, Creatinine 0.51 L, Estim Creat Clear Calc 91.62, Est GFR (MDRD) Af Amer 158, Est GFR (MDRD) Non-Af 130, BUN/Creatinine Ratio 15.7, Glucose 105, Calcium 8.1 L, Troponin I High Sens 88 H Micro: Microbiology 12/14/22 22:05 Sputum, Expectorated/Coughed Gram Stain - Final 12/14/22 22:05 Sputum, Expectorated/Coughed Respiratory Culture - Preliminary GNR lactose tip inserter 12/14/22 12:12 Blood Culture (Wb) - Anticubital Left Blood Culture - Preliminary No growth in 48 hours. 12/14/22 11:40 Blood Culture (Wb) - Right Hand Blood Culture - Preliminary No growth in 48 hours. 12/14/22 21:58 Urine, Clean Catch Legionella Antigen - Final 12/14/22 21:58 Urine, Clean Catch Streptococcus pneumoniae Antigen (M - Final 12/14/22 11:26 Nasal Secretion SARS-CoV-2 & FLU Antigen (Rapid) - Final Physical Exam Const alert, oriented x3 and no apparent distress HEENT normocephalic, head/scalp atraumatic, hearing grossly normal bilaterally and moist oral mucous membranes Head and Scalp: normocephalic Mouth: oral and palatal mucosa normal Eyes PERRL and EOMs intact bilaterally Neck no lymphadenopathy and supple Resp Resp Narrative: mildly diminished breath sounds bibasally. Few crackles. On room air. Cardio regular rate, regular rhythm, S1 normal heart sound, S2 normal heart sound and no murmurs GI normal to inspection, nondistended, normoactive bowel sounds, soft to palpation, non-tender and non-distended Extremity normal to inspection, full ROM and no clubbing, cyanosis or edema Neuro oriented x3, CN's II-XII intact bilaterally and moves all extremities Sensorium / Orientation: awake and alert Motor Exam: strength 5/5 throughout Psych affect normal Assessment & Plan Assessment/Plan (1) Acute respiratory failure with hypoxia: (2) Pneumonia: PLAN: Plan #Acute hypoxic respiratory failure due to community acquired pneumonia and acute COPD exacerbatioin * resolved. NOw on room air * urine for strep and legionella negative. * on IV ceftriaxone and doxycyclein. * breathing treatment with bronchodilators * Switch to PO prednisone * * #COmmunity acquired pneumonia: as above #Nonstemi * initial troponin was elevated. * troponins did trend downwards * cardiology reviewed patient and determined she could have cardiac cath on outpatient basis * patient still however having chest pain. * 2D echo showed anteroseptal hypokinesis and normal EF * discussed with cardiology today; to have cardiac cath Sunday * PO aspirin 81mg daily, high intensity statin. * #Acute COPD exacerbation: resolved. Will switch to PO prednisone. On room air now. #Hypertension; on losartan. DVT prophylaxis: lovenox Code status: full code * Charges/Coding Visit Charges Inpatient E&M: 77636 Subs Hosp L2
[2022-12-16] MEDS: Atorvastatin Calcium 20 MG Tablet PO (20:59)
[2022-12-17] VITALS (17 sets, daily range): BP systolic 105–147; BP diastolic 60–84; PULSE 86–103; RESP 16–22; TEMP 36.1–36.7; O2SAT 92–97
[2022-12-17] MEDS: oxyCODONE 5 MG Tablet PO ×3 (01:04→13:04)
[2022-12-17] MEDS: Acetaminophen 325 MG Tablet 650 MG PO (05:07)
[2022-12-17 06:26] LABS: Absolute Lymphocyte Count 3.84 X10^3/uL (0.83-4.51); Absolute Neutrophil Count 6.1 X10^3/uL (2.0-7.7); Basophil% 0.8 % (0-1); Eosinophil# 0.67 X10^3/uL; Eosinophils% 5.7 % (0-5); Hemoglobin 14.8 g/dL (12.0-15.0); Lymphocyte # 3.84 X10^3/ul (0.83-4.51); Lymphocyte % 32.4 % (19-41); Mean Corp Hgb Conc 31.5 g/dL (32-36); Mean Corpuscular Hgb 29.8 pg (27.0-32.0); Mean Corpuscular Volume 94.6 fL (81-99); Mean Platelet Vol. 10.8 fl (6.2-12.0); Monocyte# 1.05 X10^3/uL; Monocyte% 8.9 % (0-10); NRBC Flagged by Analyzer 0 % (0-5); Neutrophil # 6.13 X10^3/uL (2.7-7.7); Neutrophil % 51.7 % (47-70); Platelet Count 306 K/mm3 (150-450); RBC Distribution Width CV 13.2 % (11.6-14.6); RBC Distribution Width SD 46.4 fl (35.1-43.9); Red Blood Count 4.97 M/mm3 (4.2-5.4); White Blood Count 11.9 K/mm3 (4.4-11.0)
[2022-12-17 06:44] LABS: Anion Gap 5 (5-15); BUN 4 mg/dL (7-18); BUN/Creat Ratio 8.2 RATIO (10-20); Chloride 107 mmol/L (98-107); Creatinine, Serum 0.49 mg/dL (0.55-1.02); EST Glomerular Filtration Rate 137 mL/min (>60); Est Glom Filt Rate - Afr Amer 166 mL/min (>60); Estimated Creatinine Clearance 95.36 ml/min; Glucose 105 mg/dL (74-106); Potassium 3.8 mmol/L (3.5-5.1); Sodium Level 142 mmol/L (136-145)
[2022-12-17] MEDS: Ipratropium/Albuterol Sulfate 3 ML AMPUL.NEB INHALATION ×4 (06:56→19:24)
[2022-12-17] MEDS: Budesonide Respules 0.5 MG/2 ML AMPUL.NEB. INHALATION ×2 (06:56→19:24)
[2022-12-17] MEDS: Ondansetron 4 MG/2 ML Vial IV (07:02)
[2022-12-17] MEDS: Aspirin 81 MG TAB.CHEW PO (09:20)
[2022-12-17] MEDS: ALPRAZolam 0.5 MG Tablet 1 MG PO ×2 (09:20→20:59)
[2022-12-17] MEDS: Isosorbide Mononitrate 30 MG Tablet PO (09:20)
[2022-12-17] MEDS: Ceftriaxone 1 GM/50 ML BAG IV (09:21)
[2022-12-17] MEDS: Senna/Docusate Sodium 1 Tablet 2 TABLET PO ×2 (09:22→20:59)
--- NOTE | 2022-12-17 09:24 | PN.CARD_ITS ---
Subjective Subjective Patient seen and evaluated. Appears to be doing well. Objective Data Vital Signs: Vital Signs Temp Pulse Resp BP Pulse Ox O2 Del Method O2 Flow Rate 97.5 F L 96 18 117/60 94 Nasal Cannula 2 12/17/22 09:14 12/17/22 09:14 12/17/22 09:14 12/17/22 09:14 12/17/22 09:14 12/17/22 09:14 12/17/22 09:14 FiO2 30 12/15/22 15:38 Oxygen Flow Rate (L/min) 2 Oxygen Delivery Method Nasal Cannula Weight: 119 lb 0.794 oz Body Mass Index (BMI) 21.7 Intake & Output: Intake and Output for Last 24 Hours 12/15/22 12/16/22 12/17/22 23:59 23:59 23:59 Intake Total 3466.25 / 3466.25 1633.75 / 1873.75 440 / 440 Output Total 300 / 300 Balance 3166.25 / 3166.25 1633.75 / 1873.75 440 / 440 Lab / Micro Data Result Diagrams: 12/17/22 05:17 12/17/22 05:17 Labs: Laboratory Results - last 24 hr 12/17/22 05:17: WBC 11.9 H, RBC 4.97, Hgb 14.8, Hct 47.0, MCV 94.6, MCH 29.8, MCHC 31.5 L, RDW Std Deviation 46.4 H, RDW Coeff of Mehul 13.2, Plt Count 306, MPV 10.8, Immature Gran % (Auto) 0.500, Neut % (Auto) 51.7, Lymph % (Auto) 32.4, [place] % (Auto) 8.9, Eos % (Auto) 5.7 H, Baso % (Auto) 0.8, Absolute Neuts (auto) 6.1, Absolute Lymphs (auto) 3.84, Nucleated RBC % 0 12/17/22 05:17: Sodium 142, Potassium 3.8, Chloride 107, Carbon Dioxide 30.0, Anion Gap 5, BUN 4 L, Creatinine 0.49 L, Estim Creat Clear Calc 95.36, Est GFR (MDRD) Af Amer 166, Est GFR (MDRD) Non-Af 137, BUN/Creatinine Ratio 8.2 L, Glucose 105, Calcium 9.0 Micro: Microbiology 02/09/23 22:05 Sputum, Expectorated/Coughed Gram Stain - Final 12/14/22 22:05 Sputum, Expectorated/Coughed Respiratory Culture - Preliminary Klebsiella pneumoniae sp pneum Streptococcus pneumoniae 12/14/22 12:12 Blood Culture (Wb) - Anticubital Left Blood Culture - Preliminary No growth in 48 hours. 12/14/22 11:40 Blood Culture (Wb) - Right Hand Blood Culture - Preliminary No growth in 48 hours. Cardiology Labs/Tests 12/17/22 05:17: WBC 11.9 H, RBC 4.97, Hgb 14.8, Hct 47.0, MCV 94.6, MCH 29.8, MCHC 31.5 L, Plt Count 306, MPV 10.8, Immature Gran % (Auto) 0.500, Neut % ( Auto) 51.7, Lymph % (Auto) 32.4, [place] % (Auto) 8.9, Eos % (Auto) 5.7 H, Baso % (Auto) 0.8, Absolute Neuts (auto) 6.1, Nucleated RBC % 0 12/17/22 05:17: Sodium 142, Potassium 3.8, Chloride 107, Carbon Dioxide 30.0, Anion Gap 5, BUN 4 L, Creatinine 0.49 L, Est GFR (MDRD) Af Amer 166, Est GFR (MDRD) Non-Af 137, BUN/Creatinine Ratio 8.2 L, Glucose 105, Calcium 9.0 Rhythm: EKG: ECHO: Stress Test: Cardiac Cath: PCI: CT Surgery: Holter monitor: EPS: PPM: CXR: Chest CT Scan: Physical Exam Const alert, oriented x3 and no apparent distress HEENT normocephalic, head/scalp atraumatic, hearing grossly normal bilaterally and moist oral mucous membranes Head and Scalp: normocephalic Mouth: oral and palatal mucosa normal Eyes PERRL and EOMs intact bilaterally Neck no lymphadenopathy and supple Resp Resp Narrative: mildly diminished breath sounds bibasally. Few crackles. On room air. Cardio regular rate, regular rhythm, S1 normal heart sound, S2 normal heart sound and no murmurs GI normal to inspection, nondistended, normoactive bowel sounds, soft to palpation, non-tender and non-distended Extremity normal to inspection, full ROM and no clubbing, cyanosis or edema Neuro oriented x3, CN's II-XII intact bilaterally and moves all extremities Sensorium / Orientation: awake and alert Motor Exam: strength 5/5 throughout Psych affect normal Assessment & Plan Assessment/Plan (1) NSTEMI (non-ST elevated myocardial infarction): PLAN: Her troponins were elevated at >700 * No chest pain noted * given a dose of therapeutic lovenox, as well as aspirin and statin * cardiology evaluation had initially demonstrated stability for outpatient cardiac catheterization however due to her recurrent chest discomfort as well as the anteroseptal hypokinesis and the T wave inversions noted on her EKG I will recommend that the patient stay for an inpatient cardiac catheterization on Sunday. This has been discussed with the patient and her and they understand and agree to proceed. Depending on the findings further recommendations will be made. * Will recommend isosorbide 30 mg a day * High intensity statin * Above also discussed with hospitalist
--- NOTE | 2022-12-17 11:57 | EKG12_ITS ---
Test Reason : cp Blood Pressure : / mmHG Vent. Rate : 106 BPM Atrial Rate : 106 BPM P-R Int : 130 ms QRS Dur : 090 ms QT Int : 386 ms P-R-T Axes : 071 084 086 degrees QTc Int : 512 ms Sinus tachycardia Possible Left atrial enlargement Borderline ECG When compared with ECG of 14-DEC-2022 11:15, MANUAL COMPARISON REQUIRED, DATA IS UNCONFIRMED Confirmed by ALBINA DIETRICH, SHARMAINE ([id number]), map editor YUE MAE ([id number]) on 12/18/2022 12:46:08 PM Referred By: Confirmed By:SHARMAINE MONTEMAYOR MD
[2022-12-17] MEDS: Nitroglycerin (INPATIENT USE) 0.4 MG TAB.SUBL SL ×3 (12:03→12:14)
[2022-12-17] MEDS: Nitroglycerin Oint 1 INCH PACKET TD ×2 (12:44→17:30)
--- NOTE | 2022-12-17 13:26 | PN.HOSP_ITS ---
Reason for Visit Reason for Visit: Diagnoses Non-ST elevation (NSTEMI) myocardial infarction (12/14/22) Pneumonia, unspecified organism (12/14/22) Acute respiratory failure with hypoxia (12/14/22) Other specified abnormalities of plasma proteins (12/14/22) Subjective Subjective Patient seen and examined. She complained of headache. She denied any fever, chills, chest pain, palpitations, dizziness, nausea, vomiting or diarrhea. Review of systems is otherewise negative. Objective Data Objective Data Vital Signs: Vital Signs Temp Pulse Resp BP Pulse Ox O2 Del Method O2 Flow Rate 97.2 F L 96 18 105/61 97 Nasal Cannula 2 12/17/22 13:01 12/17/22 13:01 12/17/22 13:01 12/17/22 13:01 12/17/22 13:01 12/17/22 13:01 12/17/22 13:01 FiO2 30 12/15/22 15:38 Oxygen Flow Rate (L/min) 2 Oxygen Delivery Method Nasal Cannula Weight: 119 lb 0.794 oz Body Mass Index (BMI) 21.7 Intake & Output: Intake and Output for Last 24 Hours 12/15/22 12/16/22 12/17/22 23:59 23:59 23:59 Intake Total 3466.25 / 3466.25 1633.75 / 1873.75 1150 / 1150 Output Total 300 / 300 Balance 3166.25 / 3166.25 1633.75 / 1873.75 1150 / 1150 Lab / Micro Data Result Diagrams: 12/17/22 05:17 12/17/22 05:17 Labs: Laboratory Results - last 24 hr 12/17/22 05:17: WBC 11.9 H, RBC 4.97, Hgb 14.8, Hct 47.0, MCV 94.6, MCH 29.8, MCHC 31.5 L, RDW Std Deviation 46.4 H, RDW Coeff of Mehul 13.2, Plt Count 306, MPV 10.8, Immature Gran % (Auto) 0.500, Neut % (Auto) 51.7, Lymph % (Auto) 32.4, [place] % (Auto) 8.9, Eos % (Auto) 5.7 H, Baso % (Auto) 0.8, Absolute Neuts (auto) 6.1, Absolute Lymphs (auto) 3.84, Nucleated RBC % 0 12/17/22 05:17: Sodium 142, Potassium 3.8, Chloride 107, Carbon Dioxide 30.0, Anion Gap 5, BUN 4 L, Creatinine 0.49 L, Estim Creat Clear Calc 95.36, Est GFR (MDRD) Af Amer 166, Est GFR (MDRD) Non-Af 137, BUN/Creatinine Ratio 8.2 L, Gluco se 105, Calcium 9.0 Micro: Microbiology 12/14/22 22:05 Sputum, Expectorated/Coughed Gram Stain - Final 12/14/22 22:05 Sputum, Expectorated/Coughed Respiratory Culture - Preliminary Klebsiella pneumoniae sp pneum Streptococcus pneumoniae 12/14/22 12:12 Blood Culture (Wb) - Anticubital Left Blood Culture - Preliminary No growth in 48 hours. 12/14/22 11:40 Blood Culture (Wb) - Right Hand Blood Culture - Preliminary No growth in 48 hours. 12/14/22 21:58 Urine, Clean Catch Legionella Antigen - Final 12/14/22 21:58 Urine, Clean Catch Streptococcus pneumoniae Antigen (M - Final 12/14/22 11:26 Nasal Secretion SARS-CoV-2 & FLU Antigen (Rapid) - Final Physical Exam Const alert, oriented x3 and no apparent distress HEENT normocephalic, head/scalp atraumatic, hearing grossly normal bilaterally and moist oral mucous membranes Head and Scalp: normocephalic Mouth: oral and palatal mucosa normal Eyes PERRL and EOMs intact bilaterally Neck no lymphadenopathy and supple Resp Resp Narrative: mildly diminished breath sounds bibasally. Few crackles. On room air. Cardio regular rate, regular rhythm, S1 normal heart sound, S2 normal heart sound and no murmurs Cardio Narrative: tachycardic GI normal to inspection, nondistended, normoactive bowel sounds, soft to palpation, non-tender and non-distended Extremity normal to inspection, full ROM and no clubbing, cyanosis or edema Neuro oriented x3, CN's II-XII intact bilaterally and moves all extremities Sensorium / Orientation: awake and alert Motor Exam: strength 5/5 throughout Psych affect normal Assessment & Plan Assessment/Plan (1) Acute respiratory failure with hypoxia: (2) Pneumonia: PLAN: Plan #Acute hypoxic respiratory failure due to community acquired pneumonia and acute COPD exacerbation * resolved. Now on room air * urine for strep and legionella negative. * on IV ceftriaxone and doxycycline; will dc antibiotics tomorrow after day 5. * breathing treatment with bronchodilators * Switch to PO prednisone * * #COmmunity acquired pneumonia: as above #Acute COPD exacerbation: as above. #Nonstemi * initial troponin was elevated. * troponins did trend downwards * cardiology reviewed patient and determined she could have cardiac cath on outpatient basis * patient still however having chest pain. * 2D echo showed anteroseptal hypokinesis and normal EF * PO aspirin 81mg daily, high intensity statin. * for cardiac cath tomorrow. Keep NPO past midnight * #Hypertension; on losartan. DVT prophylaxis: lovenox Code status: full code * Charges/Coding Visit Charges Inpatient E&M: 78055 Subs Hosp L2
--- NOTE | 2022-12-17 14:21 | EKG12_ITS ---
Test Reason : CP Blood Pressure : / mmHG Vent. Rate : 101 BPM Atrial Rate : 101 BPM P-R Int : 130 ms QRS Dur : 086 ms QT Int : 418 ms P-R-T Axes : 064 082 089 degrees QTc Int : [address] & T wave abnormality, consider anterior ischemia Prolonged QT Abnormal ECG When compared with ECG of 15-DEC-2022 23:26, MANUAL COMPARISON REQUIRED, DATA IS UNCONFIRMED Confirmed by ALBINA DIETRICH, SHARMAINE ([id number]), health editor YUE AME ([id number]) on 12/19/2022 9:36:30 AM Referred By: DEMETRIUS Confirmed By:SHARMAINE MONTEMAYOR MD
[2022-12-17] MEDS: Morphine 2 MG/ML Syringe IV ×2 (14:25→18:57)
[2022-12-17] MEDS: 0.9% Saline Lock 10 ML Syringe IV ×3 (14:26→20:59)
[2022-12-17] MEDS: Atorvastatin Calcium 20 MG Tablet PO (20:59)
[2022-12-18] VITALS (21 sets, daily range): BP systolic 106–144; BP diastolic 62–84; PULSE 82–98; RESP 15–30; TEMP 36.2–36.7; O2SAT 93–100
[2022-12-18] MEDS: Acetaminophen 325 MG Tablet 650 MG PO ×2 (00:56→13:19)
[2022-12-18] MEDS: Nitroglycerin Oint 1 INCH PACKET TD ×4 (00:56→18:30)
[2022-12-18] MEDS: oxyCODONE 5 MG Tablet PO ×3 (00:56→16:02)
[2022-12-18 04:50] LABS: Absolute Lymphocyte Count 2.82 X10^3/uL (0.83-4.51); Absolute Neutrophil Count 7.6 X10^3/uL (2.0-7.7); Basophil# 0.08 X10^3/uL; Basophil% 0.7 % (0-1); Eosinophil# 0.59 X10^3/uL; Eosinophils% 4.8 % (0-5); Hematocrit 42.3 % (37-47); Hemoglobin 13.6 g/dL (12.0-15.0); Lymphocyte # 2.82 X10^3/ul (0.83-4.51); Lymphocyte % 22.9 % (19-41); Mean Corp Hgb Conc 32.2 g/dL (32-36); Mean Corpuscular Hgb 29.9 pg (27.0-32.0); Mean Platelet Vol. 10.7 fl (6.2-12.0); Monocyte% 9.8 % (0-10); NRBC Flagged by Analyzer 0 % (0-5); Neutrophil # 7.57 X10^3/uL (2.7-7.7); Neutrophil % 61.5 % (47-70); Platelet Count 291 K/mm3 (150-450); RBC Distribution Width CV 12.7 % (11.6-14.6); Red Blood Count 4.55 M/mm3 (4.2-5.4); White Blood Count 12.3 K/mm3 (4.4-11.0)
[2022-12-18 05:11] LABS: Anion Gap 6 (5-15); BUN 8 mg/dL (7-18); BUN/Creat Ratio 19.4 RATIO (10-20); Calcium,Total 8.9 mg/dL (8.5-10.1); Chloride 104 mmol/L (98-107); Creatinine, Serum 0.41 mg/dL (0.55-1.02); EST Glomerular Filtration Rate 166 mL/min (>60); Est Glom Filt Rate - Afr Amer 201 mL/min (>60); Estimated Creatinine Clearance 113.96 ml/min; Glucose 112 mg/dL (74-106); Potassium 3.8 mmol/L (3.5-5.1); Sodium Level 140 mmol/L (136-145)
--- NOTE | 2022-12-18 05:55 | EKG12_ITS ---
Test Reason : CP Blood Pressure : / mmHG Vent. Rate : 095 BPM Atrial Rate : 095 BPM P-R Int : 132 ms QRS Dur : 090 ms QT Int : 424 ms P-R-T Axes : 061 080 090 degrees QTc Int : 532 ms Normal sinus rhythm Nonspecific ST and T wave abnormality Prolonged QT Abnormal ECG When compared with ECG of 17-DEC-2022 12:05, MANUAL COMPARISON REQUIRED, DATA IS UNCONFIRMED Confirmed by ALBINA DIETRICH, SHARMAINE ([id number]), story editor YUE MAE ([id number]) on 12/19/2022 9:36:18 AM Referred By: DEMETRIUS Confirmed By:SHARMAINE MONTEMAYOR MD
[2022-12-18] MEDS: Aspirin 81 MG TAB.CHEW PO (05:58)
[2022-12-18] MEDS: Isosorbide Mononitrate 30 MG Tablet PO (05:58)
[2022-12-18] MEDS: 0.9% Normal Saline 1,000 ML 15 ML IV (06:06)
[2022-12-18] MEDS: Budesonide Respules 0.5 MG/2 ML AMPUL.NEB. INHALATION ×2 (06:55→19:10)
[2022-12-18] MEDS: Ipratropium/Albuterol Sulfate 3 ML AMPUL.NEB INHALATION ×4 (06:55→19:10)
--- NOTE | 2022-12-18 08:04 | PCM.PN.CARD ---
Subjective Subjective Patient seen and evaluated. Underwent cardiac catheterization today Objective Data Vital Signs: Vital Signs Temp Pulse Resp BP Pulse Ox O2 Del Method O2 Flow Rate 97.2 F L 87 18 132/70 H 97 Nasal Cannula 2 12/18/22 05:40 12/18/22 05:40 12/18/22 05:40 12/18/22 05:40 12/18/22 05:40 12/18/22 05:56 12/18/22 05:56 FiO2 30 12/15/22 15:38 Oxygen Flow Rate (L/min) 2 Oxygen Delivery Method Nasal Cannula Weight: 119 lb 0.794 oz Body Mass Index (BMI) 21.7 Intake & Output: Intake and Output for Last 24 Hours 12/16/22 12/17/22 12/18/22 23:59 23:59 23:59 Intake Total 1633.75 / 1873.75 1909 200 / 200 Output Total 450 / 450 Balance 1633.75 / 1873.75 1909 -250 / -250 Lab / Micro Data Result Diagrams: 12/18/22 04:04 12/18/22 04:04 Labs: Laboratory Results - last 24 hr 12/18/22 04:04: WBC 12.3 H, RBC 4.55, Hgb 13.6, Hct 42.3, MCV 93.0, MCH 29.9, MCHC 32.2, RDW Std Deviation 44.0 H, RDW Coeff of Mehul 12.7, Plt Count 291, MPV 10.7, Immature Gran % (Auto) 0.300, Neut % (Auto) 61.5, Lymph % (Auto) 22.9, [place] % (Auto) 9.8, Eos % (Auto) 4.8, Baso % (Auto) 0.7, Absolute Neuts (auto) 7.6, Absolute Lymphs (auto) 2.82, Nucleated RBC % 0 12/18/22 04:04: Sodium 140, Potassium 3.8, Chloride 104, Carbon Dioxide 30.0, Anion Gap 6, BUN 8, Creatinine 0.41 L, Estim Creat Clear Calc 113.96, Est GFR (MDRD) Af Amer 201, Est GFR (MDRD) Non-Af 166, BUN/Creatinine Ratio 19.4, Glucose 112 H, Calcium 8.9 Micro: Microbiology 12/14/22 22:05 Sputum, Expectorated/Coughed Gram Stain - Final 12/14/22 22:05 Sputum, Expectorated/Coughed Respiratory Culture - Preliminary Klebsiella pneumoniae sp pneum Streptococcus pneumoniae Cardiology Labs/Tests 12/18/22 04:04: WBC 12.3 H, RBC 4.55, Hgb 13.6, Hct 42.3, MCV 93.0, MCH 29.9, MCHC 32.2, Plt Count 291, MPV 10.7, Immature Gran % (Auto) 0.300, Neut % (Auto) 61.5, Lymph % (Auto) 22.9, [place] % (Auto) 9.8, Eos % (Auto) 4.8, Baso % (Auto) 0.7, Absolute Neuts (auto) 7.6, Nucleated RBC % 0 12/18/22 04:04: Sodium 140, Potassium 3.8, Chloride 104, Carbon Dioxide 30.0, Anion Gap 6, BUN 8, Creatinine 0.41 L, Est GFR (MDRD) Af Amer 201, Est GFR (MDRD) Non-Af 166, BUN/Creatinine Ratio 19.4, Glucose 112 H, Calcium 8.9 Rhythm: EKG: ECHO: Stress Test: Cardiac Cath: PCI: CT Surgery: Holter monitor: EPS: PPM: CXR: Chest CT Scan: Physical Exam Const alert, oriented x3 and no apparent distress HEENT normocephalic, head/scalp atraumatic, hearing grossly normal bilaterally and moist oral mucous membranes Head and Scalp: normocephalic Mouth: oral and palatal mucosa normal Eyes PERRL and EOMs intact bilaterally Neck no lymphadenopathy and supple Resp Resp Narrative: mildly diminished breath sounds bibasally. Few crackles. On room air. Cardio regular rate, regular rhythm, S1 normal heart sound, S2 normal heart sound and no murmurs Cardio Narrative: tachycardic GI normal to inspection, nondistended, normoactive bowel sounds, soft to palpation, non-tender and non-distended Extremity normal to inspection, full ROM and no clubbing, cyanosis or edema Neuro oriented x3, CN's II-XII intact bilaterally and moves all extremities Sensorium / Orientation: awake and alert Motor Exam: strength 5/5 throughout Psych affect normal Assessment & Plan Assessment/Plan (1) NSTEMI (non-ST elevated myocardial infarction): PLAN: Her troponins were elevated at >700 She underwent cardiac catheterization which demonstrated the following: Normal left main coronary artery. Left anterior descending artery with mid segment mildly calcified 75% stenotic lesion. Left circumflex artery with mild disease. Dominant right coronary artery with no significant disease. Preserved left ventricular systolic function. Based on the above angiographic findings I would recommend PCI to the LAD. Plan #2 continue with the current medical therapy.
--- NOTE | 2022-12-18 08:19 | CL.D_ITS ---
Patient Name: RACQUEL IRVIN Study Date: 12/18/2022 Performing: Denilson Bethea MD Ht: 62 inches 157.48 cm : 1960 Wt: 119.05 lbs 54 kg Age: 62 Gender: female BSA: 1.53 PROCEDURE(S) PERFORMED [id number])LHC/COR/LV CLINICAL PROFILE AND INDICATIONS Indications: Suspected CAD Heart Failure: None Stress/Imaging Stress/Image Study Performed: No CONCLUSIONS Single-vessel disease involving a calcified mid left anterior descending artery RECOMMENDATIONS Referred for immediate PCI DESCRIPTION OF PROCEDURE The patient arrived to the procedure lab. The risks and benefits of the procedure as well as a full description of our services here and current unavailability of surgical backup were fully explained to the patient and/or their significant other prior to the catheterization. The Timeout was completed, verifying the correct patient and procedure. The patient's procedural site was prepped and draped in the usual fashion. Local anesthetic was given subcutaneously to right radial region with Lidocaine 2%. Using a modified Seldinger technique, arterial access was obtained via the right radial artery, a 6Fr sheath was inserted. Left Coronary Artery selective angiography was performed in multiple views using a 5 Fr. 4.0 [place] catheter. Right Coronary Artery selective angiography was then performed in multiple views using a 5 Fr. 4.0 [place] catheter. Left Ventriculography was performed in RIVERS projection using a 5 Fr. Pigtail catheter. LV to AO pullback pressures were then recorded. CORONARY ANGIOGRAPHY DOMINANCE: Right Dominant LEFT HEART ASSESSMENT Left Ventricular Ejection Fraction: by LV Gram 65 % Normal LV wall motion Normal Left Ventricular systolic function LEFT MAIN: Angiographically normal LEFT ANTERIOR DESCENDING ARTERY: MID LAD: Mild calcification, 75 % Stenosis CIRCUMFLEX ARTERY: Mild luminal irregularities RIGHT CORONARY ARTERY: Mild luminal irregularities COMPLICATIONS PROCEDURE MEDICATIONS Versed 0.5 mg IV Fentanyl 25 mcg IV Versed 0.5 mg IV Fentanyl 25 mcg IV Oxygen: 2 L/min via nasal cannula Brilinta 180 mg PO @ 12/18/2022 08:01:44 Heparin given IA 12/18/2022 07:52:44 Heparin 5000 unit(s) IV 12/18/2022 08:16:29 Verapamil 2.5mg, Ntg 100mcgs, 3000 units of Heparin given IA 12/18/2022 07:52:44 SUMMARY OF HEMODYNAMIC DATA Time AIR REST ECG 07:40:24 AO 129/78 (103) SA 07:53:54 LV 116/6, 16 08:00:22 LV 127/10, 17 08:00:30 LV 115/6, 18 08:00:56 LV 112/8, 18 08:01:05 LVp 118/8, 20 08:01:12 AOp 124/65 (91) 08:01:19 Signed By Denilson Bethea MD On 12/18/2022 08:18:14 Denilson Bethea MD
--- NOTE | 2022-12-18 08:58 | CL.I_ITS ---
Patient Name: RACQUEL IRVIN Study Date: 12/18/2022 Performing: Valentino Sarkar MD Ht: 62 inches 157.48 cm : 1960 Wt: 119.2 lbs 54 kg Age: 62 Gender: female BSA: 1.53 PROCEDURE(S) PERFORMED IC12-(62101/C9600)LLOYD W/WO PTCA, SINGLE CORONARY ARTERY CLINICAL PROFILE AND CO-MORBIDITIES Indications: Suspected CAD Heart Failure: None Stress/Imaging Stress/Image Study Performed: No CONCLUSIONS Successful LLOYD Mid LAD using Resolute [place] 3.0x12 mm, optimized proximally using 3.5 mm balloon RECOMMENDATIONS ASA Indefinitley Plavix for at least 12 months DESCRIPTION OF PROCEDURE The patient arrived to the procedure lab. The risks and benefits of the procedure as well as a full description of our services here and current unavailability of surgical backup were fully explained to the patient and/or their significant other prior to the catheterization. The Timeout was completed, verifying the correct patient and procedure. The patient's procedural site was prepped and draped in the usual fashion. Local anesthetic was given subcutaneously to right radial region with Lidocaine 2% Using a modified Seldinger technique,arterial access was obtained via the right radial artery, a 6Fr sheath was inserted. Left Coronary Artery selective angiography was performed in multiple views using a 5 Fr. 4.0 [place] catheter. Right Coronary Artery selective angiography was then performed in multiple views using a 5 Fr. 4.0 [place] catheter. Left Ventriculography was performed in RIVERS projection using a 5 Fr. Pigtail catheter. LV to AO pullback pressures were then recorded.The images were reviewed and options discussed. A decision was then made to proceed with an Intervention, IVUS or other adjunct procedure. XB 3.0 Guide catheter was inserted and engaged into the LCA. Runthrough Guide wire was advanced to the LAD. Resolute [place] 3.0x12 Drug Eluting stent was inserted. Angiogram performed post stent deployment. NC Euphora 3.0x8 Balloon catheter was inserted. Angiogram performed post balloon dilatation. NC Euphora 3.5x6 Balloon catheter was inserted. Angiogram performed post balloon dilatation. The arterial sheath was pulled and a TR Band was applied for hemostasis w/ 10ml air INTERVENTION INFORMATION LESION SITE: LAD (Mid) Lesion Complexity: Non-High/Non-C, lesion length: 11 mm, culprit lesion: Yes Pre Stenosis: 75 % Pre intervention DONNELL flow: 3 PROCEDURE: Drug Eluting Stent with post dilatation Post Stenosis: 5 % Post intervention DONNELL flow: 3 Lesion Devices: Terumo .014 180cm Runthrough Extra Floppy straight Medtronic Resolute [place] RX LLOYD 3.0x12 Medtronic NC EUPHORA RX 3.0x08 BALLOON Medtronic NC EUPHORA RX 3.5x06 BALLOON COMPLICATIONS No Complications PROCEDURE MEDICATIONS Versed 0.5 mg IV Fentanyl 25 mcg IV Versed 0.5 mg IV Fentanyl 25 mcg IV Fentanyl 25 mcg IV Oxygen: 2 L/min via nasal cannula Brilinta 180 mg PO @ 12/18/2022 08:01:44 Heparin given IA 12/18/2022 07:52:44 Heparin 5000 unit(s) IV 12/18/2022 08:16:29 Verapamil 2.5mg, Ntg 100mcgs, 3000 units of Heparin given IA 12/18/2022 07:52:44 SUMMARY OF HEMODYNAMIC DATA Time AIR REST ECG 07:40:24 AO 129/78 (103) SA 07:53:54 LV 116/6, 16 08:00:22 LV 127/10, 17 08:00:30 LV 115/6, 18 08:00:56 LV 112/8, 18 08:01:05 LVp 118/8, 20 08:01:12 AOp 124/65 (91) 08:01:19 AO 138/76 (93) 08:24:44 Signed By Valentino Sarkar MD On 12/18/2022 08:56:48 Valentino Sarkar MD
--- NOTE | 2022-12-18 09:00 | EKG12_ITS ---
Test Reason : LEFT ARM RADIATING TO BACK PAIN Blood Pressure : / mmHG Vent. Rate : 097 BPM Atrial Rate : 097 BPM P-R Int : 138 ms QRS Dur : 102 ms QT Int : 416 ms P-R-T Axes : 069 085 104 degrees QTc Int : 528 ms Normal sinus rhythm ST & T wave abnormality, consider anterior ischemia Prolonged QT Abnormal ECG When compared with ECG of 15-DEC-2022 15:44, MANUAL COMPARISON REQUIRED, DATA IS UNCONFIRMED Confirmed by ALBINA DIETRICH, SHARMAINE ([id number]), acquisition editor YUE MAE ([id number]) on 12/19/2022 9:37:39 AM Referred By: DENIZ Confirmed By:SHARMAINE MONTEMAYOR MD
[2022-12-18] MEDS: 0.9% Normal Saline 1,000 ML 150 ML IV (09:22)
[2022-12-18] MEDS: Ceftriaxone 1 GM/50 ML BAG IV (09:26)
[2022-12-18] MEDS: Senna/Docusate Sodium 1 Tablet 2 TABLET PO ×2 (09:27→21:01)
[2022-12-18] MEDS: ALPRAZolam 0.5 MG Tablet 1 MG PO ×2 (09:30→21:01)
[2022-12-18] MEDS: Metoprolol(XL)Succ 25 MG Tablet PO (09:30)
--- NOTE | 2022-12-18 10:57 | PN.HOSP_ITS ---
Reason for Visit Reason for Visit: Diagnoses Non-ST elevation (NSTEMI) myocardial infarction (12/14/22) Pneumonia, unspecified organism (12/14/22) Acute respiratory failure with hypoxia (12/14/22) Other specified abnormalities of plasma proteins (12/14/22) Subjective Subjective Doing well, no issues overnight. Continues to have some left-sided chest discomfort Objective Data Objective Data Vital Signs: Vital Signs Temp Pulse Resp BP Pulse Ox O2 Del Method O2 Flow Rate 97.2 F L 91 15 128/74 H 94 Nasal Cannula 2 12/18/22 05:40 12/18/22 09:30 12/18/22 09:05 12/18/22 09:30 12/18/22 09:05 12/18/22 09:05 12/18/22 09:05 FiO2 30 12/15/22 15:38 Oxygen Flow Rate (L/min) 2 Oxygen Delivery Method Nasal Cannula Weight: 119 lb 0.794 oz Body Mass Index (BMI) 21.7 Intake & Output: Intake and Output for Last 24 Hours 12/17/22 12/18/22 12/19/22 03:59 03:59 03:59 Intake Total 1730 / 1730 1870 / 1870 99.25 / 99.25 Output Total 250 / 250 200 / 200 Balance 1730 / 1730 1620 / 1620 -100.75 / -100.75 Lab / Micro Data Result Diagrams: 12/18/22 04:04 12/18/22 04:04 Labs: Laboratory Results - last 24 hr 12/18/22 04:04: WBC 12.3 H, RBC 4.55, Hgb 13.6, Hct 42.3, MCV 93.0, MCH 29.9, MCHC 32.2, RDW Std Deviation 44.0 H, RDW Coeff of Mehul 12.7, Plt Count 291, MPV 10.7, Immature Gran % (Auto) 0.300, Neut % (Auto) 61.5, Lymph % (Auto) 22.9, [place] % (Auto) 9.8, Eos % (Auto) 4.8, Baso % (Auto) 0.7, Absolute Neuts (auto) 7.6, Absolute Lymphs (auto) 2.82, Nucleated RBC % 0 12/18/22 04:04: Sodium 140, Potassium 3.8, Chloride 104, Carbon Dioxide 30.0, Anion Gap 6, BUN 8, Creatinine 0.41 L, Estim Creat Clear Calc 113.96, Est GFR (MDRD) Af Amer 201, Est GFR (MDRD) Non-Af 166, BUN/Creatinine Ratio 19.4, Glucose 112 H, Calcium 8.9 Micro: Microbiology 12/14/22 22:05 Sputum, Expectorated/Coughed Gram Stain - Final 12/14/22 22:05 Sputum, Expectorated/Coughed Respiratory Culture - Preliminary Klebsiella pneumoniae sp pneum Streptococcus pneumoniae 12/14/22 12:12 Blood Culture (Wb) - Anticubital Left Blood Culture - Preliminary No growth in 48 hours. 12/14/22 11:40 Blood Culture (Wb) - Right Hand Blood Culture - Preliminary No growth in 48 hours. 12/14/22 21:58 Urine, Clean Catch Legionella Antigen - Final 12/14/22 21:58 Urine, Clean Catch Streptococcus pneumoniae Antigen (M - Final 12/14/22 11:26 Nasal Secretion SARS-CoV-2 & FLU Antigen (Rapid) - Final Physical Exam Narrative General: Alert, Oriented x3, Cooperative, No apparent distress HEENT: Atraumatic, PERRLA, EOMI, Normocephalic Oral: Moist Mucosa Neck: Supple, No JVD Lungs: Diminished, Normal air movement, No rhonchi, No wheeze, No rales Cardiovascular: Regular rate, Regular Rhythm, Normal S1, Normal S2, No murmurs Abdomen: Soft, Non Tender, Non-Distended, No Hepato-splenomegaly Extremities: No edema, Capillary Refill Less than 3 Seconds Skin: No rashes, No breakdown, areas of ecchymosis on her upper extremities Musculoskeletal: No Tenderness to Palpation of Joints or Extremities Neurological: Cranial nerves II-XII grossly intact, Motor Exam 5/5 strength throughout, Sensory exam intact to light touch and pain Psych/Mental Status: Flat affect, Appropriate Assessment & Plan Assessment/Plan (1) Acute respiratory failure with hypoxia: (2) Pneumonia: PLAN: Plan #Acute hypoxic respiratory failure due to community acquired pneumonia due to strep pneumonia and Klebsiella and acute COPD exacerbation * She is currently on oxygen after her cardiac cath this morning * urine for strep and legionella negative. * She has received 5 days of Rocephin which covers both her strep pneumonia as well as her Klebsiella which was sensitive * breathing treatment with bronchodilators * Switch to PO prednisone #Nonstemi/HTN * initial troponin was elevated. * 2D echo showed anteroseptal hypokinesis and normal EF * PO aspirin 81mg daily, high intensity statin. * Had placed to the mid LAD for 75% stenosis continue with Plavix as well as her aspirin * Continue with losartan as well as metoprolol and isosorbide mononitrate DVT: Lovenox Charges/Coding Visit Charges Inpatient E&M: 49641 Subs Hosp L2
[2022-12-18 13:51] LABS: ACT Activated Clotting Time 287 sec (74-137)
[2022-12-18 13:54] LABS: ACT Activated Clotting Time 257 sec (74-137)
--- NOTE | 2022-12-18 14:00 | CRPHASE1_ITS ---
Patient Communication PHII Cardiac Rehab Discussed with Patient:: Yes Guide to Cardiac Rehab Given to Patient:: Yes Cardiac Rehab Facility Choice List Given to Patient:: Yes Choice Program [facility] PHII:: Communication Given to CR, Refer to [facility] Refer Phase II Cardiac Rehab:: Yes Sessions:: 36 sessions - 3 days/wk, 12 weeks Cardiac Rehabilitation Info Cardiac Rehabilitation Program Information: Cardiac Rehab The cardiac rehab team at [facility] consists of highly skilled exercise physiologists, nurses, respiratory therapists and physicians working together with you. Our purpose is to help you have a full recovery and achieve the goals you set for yourself. Over the years many of our patients have returned to activities they assumed they would never do again! We can help restore your confidence and motivation to make lifestyle changes that can have a significant impact on your health and quality of life! We can help answer questions and concerns you may have about exercise, lifestyle, medications, diet, stress and anxiety which are common following a hospitalization. WE monitor ECG and vital signs during exercise and discuss your progress with you and report to your physician(s). Cardiac Rehab is proven to help reduce readmissions, improve functional capacity and lower recurrence of problems with your heart. Our Cardiac Rehab program is Certified by the [place] [employer] Pulmonary [employer] (AACVPR) and Accredited by the [place] [employer] through our [facility]. You can contact us at . We invite you to call us with your questions or to get started in our program. If you have other questions or concerns be sure to ask your physician/provider during your follow-up visit. WE look forward to seeing you!
--- NOTE | 2022-12-18 14:00 | CRPH1.INSTRU ---
General Education CAD and cardiac anatomy and function:: Patient communicates acknowledgment Explanation of diagnoses and procedures:: Patient communicates acknowledgment Sign/Symptoms of MA:: Patient communicates acknowledgment Antiplatelet therapy: Patient communicates acknowledgment Proper use of NTG-SL: Patient communicates acknowledgment Emergency procedures and activation of EMS: Patient communicates acknowledgment Compliance of all prescribed medications: Patient communicates acknowledgment
[2022-12-18] MEDS: Clopidogrel Bisulfate 300 MG Tablet PO (16:02)
[2022-12-18] MEDS: Atorvastatin Calcium 20 MG Tablet 40 MG PO (21:01)
[2022-12-19] VITALS (12 sets, daily range): BP systolic 103–139; BP diastolic 56–85; PULSE 89–105; RESP 15–24; TEMP 36.5–36.9; O2SAT 91–96
[2022-12-19] MEDS: Nitroglycerin Oint 1 INCH PACKET TD ×2 (00:29→05:30)
[2022-12-19] MEDS: Ipratropium/Albuterol Sulfate 3 ML AMPUL.NEB INHALATION ×4 (03:13→14:31)
--- NOTE | 2022-12-19 05:16 | EKG12_ITS ---
Test Reason : AM EKG Blood Pressure : / mmHG Vent. Rate : 099 BPM Atrial Rate : 099 BPM P-R Int : 136 ms QRS Dur : 092 ms QT Int : 388 ms P-R-T Axes : 071 081 090 degrees QTc Int : 497 ms Normal sinus rhythm ST & T wave abnormality, consider anterior ischemia Prolonged QT Abnormal ECG Confirmed by ROMAN DIETRICH, FRANKLIN ([id number]), scientific editor YUE MAE ([id number]) on 12/20/2022 8:55:55 AM Referred By: Confirmed By:FRANKLIN OWENS MD
[2022-12-19 05:56] LABS: Absolute Lymphocyte Count 2.27 X10^3/uL (0.83-4.51); Absolute Neutrophil Count 8.3 X10^3/uL (2.0-7.7); Basophil# 0.08 X10^3/uL; Basophil% 0.7 % (0-1); Eosinophil# 0.56 X10^3/uL; Eosinophils% 4.6 % (0-5); Hematocrit 45.4 % (37-47); Hemoglobin 14.9 g/dL (12.0-15.0); Lymphocyte # 2.27 X10^3/ul (0.83-4.51); Lymphocyte % 18.5 % (19-41); Mean Corp Hgb Conc 32.8 g/dL (32-36); Mean Corpuscular Hgb 29.8 pg (27.0-32.0); Mean Corpuscular Volume 90.8 fL (81-99); Mean Platelet Vol. 10.4 fl (6.2-12.0); Monocyte# 1.07 X10^3/uL; Monocyte% 8.7 % (0-10); NRBC Flagged by Analyzer 0 % (0-5); Neutrophil # 8.26 X10^3/uL (2.7-7.7); Neutrophil % 67.1 % (47-70); Platelet Count 293 K/mm3 (150-450); RBC Distribution Width CV 12.9 % (11.6-14.6); RBC Distribution Width SD 42.4 fl (35.1-43.9); White Blood Count 12.3 K/mm3 (4.4-11.0)
[2022-12-19 06:38] LABS: ALB/GLOB Ratio 0.9 RATIO (0.9-2.4); AST(SGOT) 21 U/L (15-37); Alanine Aminotransfer ALT/SGPT 21 U/L (13-56); Albumin, Serum 3.1 g/dL (3.2-5.0); Alkaline Phosphatase 105 U/L (45-117); Anion Gap 10 (5-15); BUN 6 mg/dL (7-18); BUN/Creat Ratio 15.2 RATIO (10-20); Calcium,Total 8.9 mg/dL (8.5-10.1); Chloride 108 mmol/L (98-107); EST Glomerular Filtration Rate 174 mL/min (>60); Est Glom Filt Rate - Afr Amer 211 mL/min (>60); Estimated Creatinine Clearance 116.81 ml/min; Globulin 3.4 g/dL (2.2-4.2); Glucose 105 mg/dL (74-106); Potassium 3.7 mmol/L (3.5-5.1); Protein, Total 6.5 g/dL (6.4-8.2); Sodium Level 143 mmol/L (136-145)
--- NOTE | 2022-12-19 07:30 | PN.CARD_ITS ---
Subjective Subjective The patient was seen and evaluated and is doing well other than breathing issues. No further chest pain. Objective Data Vital Signs: Vital Signs Temp Pulse Resp BP Pulse Ox O2 Del Method O2 Flow Rate 97.7 F L 99 18 139/85 H 94 Nasal Cannula 3 12/19/22 05:26 12/19/22 05:26 12/19/22 05:26 12/19/22 05:26 12/19/22 05:26 12/19/22 06:48 12/19/22 06:48 FiO2 30 12/15/22 15:38 Oxygen Flow Rate (L/min) 3 Oxygen Delivery Method Nasal Cannula Weight: 119 lb 0.794 oz Body Mass Index (BMI) 21.7 Intake & Output: Intake and Output for Last 24 Hours 12/17/22 12/18/22 12/19/22 23:59 23:59 23:59 Intake Total 1909 1779.25 / 1899.25 320 / 320 Output Total 1250 / 1450 800 / 800 Balance 1909 529.25 / 449.25 -480 / -480 Lab / Micro Data Result Diagrams: 12/19/22 05:38 12/19/22 05:38 Labs: Laboratory Results - last 24 hr 12/18/22 08:25: Activated Clotting Time 287 H 12/18/22 08:43: Activated Clotting Time 257 H 12/19/22 05:38: Sodium 143, Potassium 3.7, Chloride 108 H, Carbon Dioxide 25.0, Anion Gap 10, BUN 6 L, Creatinine 0.40 L, Estim Creat Clear Calc 116.81, Est GFR (MDRD) Af Amer 211, Est GFR (MDRD) Non-Af 174, BUN/Creatinine Ratio 15.2, Glucose 105, Calcium 8.9, Total Bilirubin 0.90, AST 21, ALT 21, Alkaline Phosphatase 105, Total Protein 6.5, Albumin 3.1 L, Globulin 3.4, Albumin/Globulin Ratio 0.9 12/19/22 05:38: WBC 12.3 H, RBC 5.00, Hgb 14.9, Hct 45.4, MCV 90.8, MCH 29.8, MCHC 32.8, RDW Std Deviation 42.4, RDW Coeff of Mehul 12.9, Plt Count 293, MPV 10.4, Immature Gran % (Auto) 0.400, Neut % (Auto) 67.1, Lymph % (Auto) 18.5 L, [place] % (Auto) 8.7, Eos % (Auto) 4.6, Baso % (Auto) 0.7, Absolute Neuts (auto) 8 .3 H, Absolute Lymphs (auto) 2.27, Nucleated RBC % 0 Cardiology Labs/Tests 12/19/22 05:38: Sodium 143, Potassium 3.7, Chloride 108 H, Carbon Dioxide 25.0, Anion Gap 10, BUN 6 L, Creatinine 0.40 L, Est GFR (MDRD) Af Amer 211, Est GFR (MDRD) Non-Af 174, BUN/Creatinine Ratio 15.2, Glucose 105, Calcium 8.9, Total Bilirubin 0.90 12/19/22 05:38: WBC 12.3 H, RBC 5.00, Hgb 14.9, Hct 45.4, MCV 90.8, MCH 29.8, MCHC 32.8, Plt Count 293, MPV 10.4, Immature Gran % (Auto) 0.400, Neut % (Auto) 67.1, Lymph % (Auto) 18.5 L, [place] % (Auto) 8.7, Eos % (Auto) 4.6, Baso % (Auto) 0.7, Absolute Neuts (auto) 8.3 H, Nucleated RBC % 0 Rhythm: EKG: ECHO: Stress Test: Cardiac Cath: PCI: CT Surgery: Holter monitor: EPS: PPM: CXR: Chest CT Scan: Physical Exam Const alert, oriented x3 and no apparent distress HEENT normocephalic, head/scalp atraumatic, hearing grossly normal bilaterally and moist oral mucous membranes Head and Scalp: normocephalic Mouth: oral and palatal mucosa normal Eyes PERRL and EOMs intact bilaterally Neck no lymphadenopathy and supple Resp Resp Narrative: mildly diminished breath sounds bibasally. Few crackles. On room air. Cardio regular rate, regular rhythm, S1 normal heart sound, S2 normal heart sound and no murmurs Cardio Narrative: tachycardic GI normal to inspection, nondistended, normoactive bowel sounds, soft to palpation, non-tender and non-distended Extremity normal to inspection, full ROM and no clubbing, cyanosis or edema Neuro oriented x3, CN's II-XII intact bilaterally and moves all extremities Sensorium / Orientation: awake and alert Motor Exam: strength 5/5 throughout Psych affect normal Assessment & Plan Assessment/Plan (1) NSTEMI (non-ST elevated myocardial infarction): PLAN: She underwent cardiac catheterization which demonstrated the following: Normal left main coronary artery. Left anterior descending artery with mid segment mildly calcified 75% stenotic lesion. Left circumflex artery with mild disease. Dominant right coronary artery with no significant disease. Preserved left ventricular systolic function. Based on the above angiographic findings she underwent successful PCI to the LAD. No further chest pain is noted. We will recommend continuing aspirin and clopidogrel Continue beta-juan francisco Continue high intensity statin. (2) Hypertension: PLAN: She does have a history of hypertension her blood pressure is under better control at this time. She is mildly short of breath. We will give 1 dose of Lasix and continue beta-juan francisco and losartan. We will sign off for now and follow-up as outpatient.
[2022-12-19] MEDS: Budesonide Respules 0.5 MG/2 ML AMPUL.NEB. INHALATION (07:55)
[2022-12-19] MEDS: predniSONE 20 MG Tablet 40 MG PO (08:15)
[2022-12-19] MEDS: Acetaminophen 325 MG Tablet 650 MG PO ×2 (08:15→14:25)
[2022-12-19] MEDS: Furosemide 40 MG/4 ML Vial IV (08:15)
[2022-12-19] MEDS: 0.9% Saline Lock 10 ML Syringe IV (08:15)
[2022-12-19] MEDS: ALPRAZolam 0.5 MG Tablet 1 MG PO (08:17)
[2022-12-19] MEDS: Senna/Docusate Sodium 1 Tablet 2 TABLET PO (08:18)
[2022-12-19] MEDS: Clopidogrel Bisulfate 75 MG Tablet PO (08:18)
[2022-12-19] MEDS: Aspirin 81 MG TAB.CHEW PO (08:18)
[2022-12-19] MEDS: Metoprolol(XL)Succ 25 MG Tablet PO (08:19)
--- NOTE | 2022-12-19 10:00 | EKG12_ITS ---
Test Reason : CP Blood Pressure : / mmHG Vent. Rate : 096 BPM Atrial Rate : 096 BPM P-R Int : 120 ms QRS Dur : 096 ms QT Int : 440 ms P-R-T Axes : 057 082 103 degrees QTc Int : 555 ms Normal sinus rhythm T wave abnormality, consider anterior ischemia Prolonged QT Abnormal ECG When compared with ECG of 14-DEC-2022 16:03, MANUAL COMPARISON REQUIRED, DATA IS UNCONFIRMED Confirmed by ALBINA DIETRICH, SHARMAINE ([id number]), videotape editor YUE MAE ([id number]) on 12/19/2022 9:37:59 AM Referred By: David Confirmed By:SHARMAINE MONTEMAYOR MD
--- NOTE | 2022-12-19 11:11 | PCM.DC ---
Discharge Instructions Diet Discharge Diet: Low fat / Low cholesterol Activity Discharge Activity: Return to Normal Activity Dressing / Incision Call your doctor if you observe: Fever of 101 or Higher, Shortness of breath, Dizziness, Fainting spells, Swelling in the ankles, Chest pain and Increased palpitations (irregular heartbeat) Follow Up Care Test Results: Test results from this visit will be discussed in further detail at your follow-up appointment, if applicable. Discharge Plan Admission Admit Date/Time: 12/14/22 12:46 Attending Provider: Nick Fontanez Primary Care Provider: Magen Cavazos Consulting Providers: Latasha Kincaid ; Nataliia Hernandez Discharge Orders/Prescriptions Prescriptions: New aspirin 81 mg Tablet,Chewable 81 mg PO BREAKFAST Qty: 30 0RF atorvastatin 20 mg Tablet 40 mg PO QHS Qty: 30 0RF clopidogrel 75 mg Tablet 75 mg PO DAILY Qty: 30 0RF metoprolol succinate 25 mg Tablet Extended Release 24 Hr 25 mg PO DAILY Qty: 30 0RF Continued albuterol sulfate 2.5 MG/3 ML solution for nebulization 2.5 mg inhalation BID Spiriva with HandiHaler 1 PUFF inhaler 1 puff inhalation DAILY Mucus Relief ER 1,200 MG tablet 1,200 mg PO BID PRN PRN (Reason: Congestion) alprazolam [Xanax] 1 MG tablet 1 mg PO BID albuterol sulfate [ProAir HFA] 1 PUFF inhaler 2 puff inhalation Q4H PRN PRN (Reason: Sob &/Or Wheezing) losartan 50 mg tablet 50 mg PO DAILY fluticasone propion-salmeterol [Advair Diskus] 500-50 mcg/dose blister with device 1 inh INHALATION BID montelukast 10 mg tablet 10 mg PO DAILY PRN (Reason: SEASONAL ALLERGIES) ibandronate 150 mg tablet 150 mg PO Q90D prednisone 10 mg tablet 10 mg PO DAILY Rx Instructions: Four once a day for two days, then three once a day for two days, then two daily for two days, then one daily for two days, then stop Referrals / Follow Up: Magen Cavazos MD [Primary Care Provider] - Within 1 Week Ramona Tinajero PA [Med Staff - [facility]] - 01/23/23 9:30 am Disposition Disposition (needs filled in before D/C Order can be placed): Home, Self Care
--- NOTE | 2022-12-19 12:07 | PHA.DC.MR ---
Pharmacy Service has performed discharge medication reconciliation for this patient. The patient's discharge medication list was reviewed for discrepancies and discrepancies were resolved. Home Medications albuterol sulfate 2.5 mg/3 mL (0.083 %) solution for nebulization 2.5 mg inhalation BID breathing 10/04/14 guaifenesin 1,200 mg tablet, extended release 12 hr (Mucus Relief ER) 1,200 mg PO BID PRN PRN Congestion 01/24/15 tiotropium bromide 18 mcg capsule with inhalation device (Spiriva with HandiHaler) 1 puff inhalation DAILY SHORTNESS OF BREATH 01/24/15 alprazolam 1 mg tablet (Xanax) 1 mg PO BID anxiety 01/24/18 albuterol sulfate 90 mcg/actuation aerosol inhaler (ProAir HFA) 2 puff inhalation Q4H PRN PRN Sob &/Or Wheezing 11/04/18 fluticasone 500 mcg-salmeterol 50 mcg/dose blistr powdr for inhalation (Advair Diskus) 1 inh inhalation BID COPD 08/31/22 ibandronate 150 mg tablet 150 mg PO Q90D OSTEOPOROSIS 08/31/22 losartan 50 mg tablet 50 mg PO DAILY BLOOD PRESSURE 08/31/22 montelukast 10 mg tablet 10 mg PO DAILY PRN SEASONAL ALLERGIES 08/31/22 prednisone 10 mg tablet 10 mg PO DAILY BREATHING' 12/14/22 aspirin 81 mg chewable tablet 81 mg PO BREAKFAST #30 tabs 12/19/22 atorvastatin 20 mg tablet 40 mg PO QHS #30 tabs 12/19/22 clopidogrel 75 mg tablet 75 mg PO DAILY #30 tabs 12/19/22 metoprolol succinate 25 mg tablet,extended release 24 hr 25 mg PO DAILY #30 tabs 12/19/22
--- NOTE | 2022-12-19 14:46 | DS.PCM_ITS ---
Providers Date of Admission: 12/14/22 Primary Care Physician: Dr. Magen Cavazos MD Consultations 12/14/22 15:57 Consult: Cardiology Routine Consulting Provider: Latasha Kincaid Reason for Consult: elevated troponin EMERGENT Consult: No MD Notified: Yes Date Notified: 12/14/22 Time Notified: 15:58 Method of Notification: Verbal Comments:: Dr. Hernandez states she called him Reason For Visit: ACUTE RESPIRATORY FAILURE / PNEUMONIA Diagnosis Discharge Diagnosis (1) NSTEMI (non-ST elevated myocardial infarction): Status: Acute Code(s): I21.4 - Non-ST elevation (NSTEMI) myocardial infarction (2) Hypertension: Status: Chronic Code(s): I10 - Essential (primary) hypertension Plan #Acute hypoxic respiratory failure due to community acquired pneumonia due to strep pneumonia and Klebsiella and acute COPD exacerbation * She is currently on oxygen after her cardiac cath this morning * urine for strep and legionella negative. * She has received 5 days of Rocephin which covers both her strep pneumonia as well as her Klebsiella which was sensitive * breathing treatment with bronchodilators * Switch to PO prednisone #Nonstemi/HTN * initial troponin was elevated. * 2D echo showed anteroseptal hypokinesis and normal EF * PO aspirin 81mg daily, high intensity statin. * Had placed to the mid LAD for 75% stenosis continue with Plavix as well as her aspirin * Continue with losartan as well as metoprolol and isosorbide mononitrate DVT: Lovenox Medications at Discharge Home Medications albuterol sulfate 2.5 mg/3 mL (0.083 %) solution for nebulization 2.5 mg inhalation BID breathing 10/04/14 guaifenesin 1,200 mg tablet, extended release 12 hr (Mucus Relief ER) 1,200 mg PO BID PRN PRN Congestion 01/24/15 tiotropium bromide 18 mcg capsule with inhalation device (Spiriva with HandiHaler) 1 puff inhalation DAILY SHORTNESS OF BREATH 01/24/15 alprazolam 1 mg tablet (Xanax) 1 mg PO BID anxiety 01/24/18 albuterol sulfate 90 mcg/actuation aerosol inhaler (ProAir HFA) 2 puff inhalation Q4H PRN PRN Sob &/Or Wheezing 11/04/18 fluticasone 500 mcg-salmeterol 50 mcg/dose blistr powdr for inhalation (Advair Diskus) 1 inh inhalation BID COPD 08/31/22 ibandronate 150 mg tablet 150 mg PO Q90D OSTEOPOROSIS 08/31/22 losartan 50 mg tablet 50 mg PO DAILY BLOOD PRESSURE 08/31/22 montelukast 10 mg tablet 10 mg PO DAILY PRN SEASONAL ALLERGIES 08/31/22 prednisone 10 mg tablet 10 mg PO DAILY BREATHING' 12/14/22 aspirin 81 mg chewable tablet 81 mg PO BREAKFAST #30 tabs 12/19/22 atorvastatin 20 mg tablet 40 mg PO QHS #30 tabs 12/19/22 clopidogrel 75 mg tablet 75 mg PO DAILY #30 tabs 12/19/22 metoprolol succinate 25 mg tablet,extended release 24 hr 25 mg PO DAILY #30 tabs 12/19/22 Hospital Course Operations None Procedures 2-D Echocardiogram and Cardiac catheterization Summary of Care Provided Minutes Spent on Discharge: 45 Hospital Course: Per HPI: RACQUEL IRVIN, is a 62 F with a PMH as outlined who presents via the ED on 12/14/2022 with a complaint of worsening shortness of breath. She said her symptoms had been going on for ~ 1 day, and cough was productive of sputum. She is not on home oxygen now. She denied any fever, chest pain, palpitations, dizziness, nausea, vomiting or diarrhea. She was started on BIPAP in the ED due to her tachypnea. Vitals were BP of 114/91, MS of 117, RR of 22 and temp of 97.4F. She was saturating at 93% on BIPAP. CBC showed wbc of 18.6 with Hb of 16.3 and platelets of 326. Chemistry was unremarkable. CXR showed increased markings at the left lung base with blunting of the left costophrenic angle suggestive of early left lower lobe infiltrate. She is being admitted to be managed for acute hypoxic respiratory failure due to community acquired pneumonia. Hospital Course: 1. Acute hypoxic respiratory failure due to community acquired pneumonia due to strep pneumonia and Klebsiella and acute COPD exacerbation?62-year-old female presented to the hospital with shortness of breath consistent with pneumonia and possible COPD exacerbation. She was started on IV steroids and states that she takes chronic IV steroids at home at 10 mg every day. She was also found to have a strep and Klebsiella pneumonia so she was transitioned to Rocephin and she completed 5 days of IV Rocephin. This morning she had an ambulatory pulse ox which did not demonstrate a need for any oxygen on discharge. I discussed with her and her the possibility of going home today and they both expressed understanding of the risk benefits of going home and are okay with going home today. She was given a dose of Lasix this morning by cardiology. I do recommend that she follow-up with her PCP in 3 to 5 days and I discussed with them specific reasons why to come back to the hospital. 2. Nonstemi/HTN?during her hospitalization she did develop non-STEMI with an elevated troponin. She did have a heart cath which demonstrated 75% stenosis of her LAD and she was stented. Echo demonstrated anterior septal hypokinesis and a normal EF. She will need to follow-up with cardiology as an outpatient, will continue with her losartan as well as her metoprolol on discharge and she will be on dual antiplatelets with aspirin and Plavix. Physical Exam Narrative General: Alert, Oriented x3, Cooperative, No apparent distress HEENT: Atraumatic, PERRLA, EOMI, Normocephalic Oral: Moist Mucosa Neck: Supple, No JVD Lungs: Diminished, Normal air movement, No rhonchi, No wheeze, No rales Cardiovascular: Regular rate, Regular Rhythm, Normal S1, Normal S2, No murmurs Abdomen: Soft, Non Tender, Non-Distended, No Hepato-splenomegaly Extremities: No edema, Capillary Refill Less than 3 Seconds Skin: No rashes, No breakdown, areas of ecchymosis on her upper extremities Musculoskeletal: No Tenderness to Palpation of Joints or Extremities Neurological: Cranial nerves II-XII grossly intact, Motor Exam 5/5 strength throughout, Sensory exam intact to light touch and pain Psych/Mental Status: Flat affect, Appropriate Weight / BMI Weight Weight: 119 lb 0.794 oz Body Mass Index (BMI) 21.7 ABG / Lab / Microbiology Data Result Diagrams: 12/19/22 05:38 12/19/22 05:38 Laboratory: Laboratory Results - last 24 hr 12/19/22 05:38: Sodium 143, Potassium 3.7, Chloride 108 H, Carbon Dioxide 25.0, Anion Gap 10, BUN 6 L, Creatinine 0.40 L, Estim Creat Clear Calc 116.81, Est GFR (MDRD) Af Amer 211, Est GFR (MDRD) Non-Af 174, BUN/Creatinine Ratio 15.2, Glucose 105, Calcium 8.9, Total Bilirubin 0.90, AST 21, ALT 21, Alkaline Phosphatase 105, Total Protein 6.5, Albumin 3.1 L, Globulin 3.4, Albumin/G lobulin Ratio 0.9 12/19/22 05:38: WBC 12.3 H, RBC 5.00, Hgb 14.9, Hct 45.4, MCV 90.8, MCH 29.8, MCHC 32.8, RDW Std Deviation 42.4, RDW Coeff of Mehul 12.9, Plt Count 293, MPV 10.4, Immature Gran % (Auto) 0.400, Neut % (Auto) 67.1, Lymph % (Auto) 18.5 L, [place] % (Auto) 8.7, Eos % (Auto) 4.6, Baso % (Auto) 0.7, Absolute Neuts (auto) 8.3 H, Absolute Lymphs (auto) 2.27, Nucleated RBC % 0 Microbiology: Microbiology 12/14/22 22:05 Sputum, Expectorated/Coughed Gram Stain - Final 12/14/22 22:05 Sputum, Expectorated/Coughed Respiratory Culture - Final Klebsiella pneumoniae sp pneum Streptococcus pneumoniae 12/14/22 12:12 Blood Culture (Wb) - Anticubital Left Blood Culture - Final No growth in 5 days. 12/14/22 11:40 Blood Culture (Wb) - Right Hand Blood Culture - Final No growth in 5 days. 12/14/22 21:58 Urine, Clean Catch Legionella Antigen - Final 12/14/22 21:58 Urine, Clean Catch Streptococcus pneumoniae Antigen (M - Final 12/14/22 11:26 Nasal Secretion SARS-CoV-2 & FLU Antigen (Rapid) - Final D/C Instructions Discharge Diet: Low fat / Low cholesterol Call your doctor if you observe: Fever of 101 or Higher, Shortness of breath, Dizziness, Fainting spells, Swelling in the ankles, Chest pain and Increased p alpitations (irregular heartbeat) Meaningful Use Info Meaningful Use Diagnoses (Choose all that apply): None applicable Discharge Plan Admission Admit Date/Time: 12/14/22 12:46 Attending Provider: Nick Fontanez Primary Care Provider: Magen Cavazos Consulting Providers: Latasha iKncaid ; Nataliia Hernandez Discharge Orders/Prescriptions Prescriptions: New aspirin 81 mg Tablet,Chewable 81 mg PO BREAKFAST Qty: 30 0RF atorvastatin 20 mg Tablet 40 mg PO QHS Qty: 30 0RF clopidogrel 75 mg Tablet 75 mg PO DAILY Qty: 30 0RF metoprolol succinate 25 mg Tablet Extended Release 24 Hr 25 mg PO DAILY Qty: 30 0RF Continued albuterol sulfate 2.5 MG/3 ML solution for nebulization 2.5 mg inhalation BID Spiriva with HandiHaler 1 PUFF inhaler 1 puff inhalation DAILY Mucus Relief ER 1,200 MG tablet 1,200 mg PO BID PRN PRN (Reason: Congestion) alprazolam [Xanax] 1 MG tablet 1 mg PO BID albuterol sulfate [ProAir HFA] 1 PUFF inhaler 2 puff inhalation Q4H PRN PRN (Reason: Sob &/Or Wheezing) losartan 50 mg tablet 50 mg PO DAILY fluticasone propion-salmeterol [Advair Diskus] 500-50 mcg/dose blister with device 1 inh INHALATION BID montelukast 10 mg tablet 10 mg PO DAILY PRN (Reason: SEASONAL ALLERGIES) ibandronate 150 mg tablet 150 mg PO Q90D prednisone 10 mg tablet 10 mg PO DAILY Rx Instructions: Four once a day for two days, then three once a day for two days, then two daily for two days, then one daily for two days, then stop Referrals / Follow Up: Magen Cavazos MD [Primary Care Provider] - 12/21/22 10:00 am Ramona Tinajero PA [Med Staff - [facility]] - 01/23/23 9:30 am Disposition Disposition (needs filled in before D/C Order can be placed): Home, Self Care Charges/Coding Visit Charges Inpatient E&M: 10338 Disch Hosp >30min
== END 2022-12-19 15:51 | disposition home or self-care (01) | DRG 981 ==
LOC: ED 12:11 → PCU 13:24
PROVIDERS: Hospitalist; Admitting Provider Student in an Organized Health Care Education/Training Program; Emergency Provider Emergency Medicine; PCP Family Medicine; Visit Provider Family Medicine
DX: J15.4 Pneumonia due to other streptococci (principal); J96.01 Acute respiratory failure with hypoxia; I21.4 Non-ST elevation (NSTEMI) myocardial infarction; J44.0 Chronic obstructive pulmonary disease with (acute) lower respiratory infection; J44.1 Chronic obstructive pulmonary disease with (acute) exacerbation; F17.200 Nicotine dependence, unspecified, uncomplicated; I10 Essential (primary) hypertension; I25.10 Atherosclerotic heart disease of native coronary artery without angina pectoris; K21.9 Gastro-esophageal reflux disease without esophagitis; F43.10 Post-traumatic stress disorder, unspecified; F41.1 Generalized anxiety disorder; F41.0 Panic disorder [episodic paroxysmal anxiety]; Z79.899 Other long term (current) drug therapy; Z79.52 Long term (current) use of systemic steroids
CPT/HCPCS: 36415; 71045; 80048; 80053; 83605; 84484; 85025; 85347; 85610; 85730; 87040; 87070; 87077; 87186; 87205; 87428; 87449; 92928; 93005; 93306; 93458; 94002; 94003; 94640; 94668; 94762; 97110; 97116; 97162; 97166; 97530; 97535; 99152; 99153; 99252; 99285; 99406; C1725; J7030; Q9967; A4216; C1769; C1874; C1887; C1894; C9600; G0463; J0696; J1940; J2405

== ENCOUNTER → 2023-01-23 | Outpatient (CLI) | payer BC, MEDICARE, SELFPAY ==
[2023-01-23 11:10] LABS: AST(SGOT) 18 U/L (15-37); Alanine Aminotransfer ALT/SGPT 31 U/L (13-56); Albumin, Serum 3.7 g/dL (3.2-5.0); Alkaline Phosphatase 146 U/L (45-117); Bilirubin, Direct 0.09 mg/dL (0.00-0.30); Cholesterol 147 mg/dL (200); Globulin 3.5 g/dL (2.2-4.2); High Density Lipoprotein 70 mg/dL; Protein, Total 7.2 g/dL (6.4-8.2); Triglycerides 98 mg/dL; Very Low Density Lipoprotein 20 mg/dL (5-40)
== END | disposition home or self-care (01) ==
LOC: LAB 10:12
PROVIDERS: PCP Family Medicine; Referring Provider Physician Assistant Medical; Visit Provider Physician Assistant Medical
DX: I25.10 Atherosclerotic heart disease of native coronary artery without angina pectoris (principal); Z95.5 Presence of coronary angioplasty implant and graft
CPT/HCPCS: 36415; 80061; 80076

== ENCOUNTER 2023-03-29 05:18 | Inpatient (IN) | payer BC, MEDICARE, SELFPAY ==
[2023-03-29] VITALS (13 sets, daily range): BP systolic 77–153; BP diastolic 39–83; PULSE 64–108; RESP 16–32; TEMP 36.6–36.8; O2SAT 91–99; BMI 22.6
--- NOTE | 2023-03-29 05:24 | EKG12_ITS ---
Test Reason : DYSRHYTHMIA Blood Pressure : / mmHG Vent. Rate : 105 BPM Atrial Rate : 105 BPM P-R Int : 134 ms QRS Dur : 086 ms QT Int : 342 ms P-R-T Axes : 073 083 064 degrees QTc Int : 452 ms Sinus tachycardia Nonspecific ST abnormality Abnormal ECG Confirmed by ALBINA DIETRICH, SHARMAINE ([id number]), editor dictionary YUE MAE ([id number]) on 03/30/2023 1:23:30 PM Referred By: DEXTER Confirmed By:SHARMAINE MONTEMAYOR MD
--- NOTE | 2023-03-29 05:27 | ED.VIS.DYS ---
HPI History of Present Illness Chief Complaint: Shortness of Breath Informant: patient and EMS Narrative Narrative: Presents by EMS from home worsening dyspnea this evening. Symptoms started last 3 days. States pesticides were sprayed in the field next to her house. History of COPD states currently will occasionally smoke. She was previously on home oxygen years ago was able to get off. She states she had an TN this past December on aspirin and Plavix and states she is taking her medications. Denies chest pains. She is status post DuoNeb treatment by EMS. She denies diabetes history. History of similar flares in the past, denies any emergent intubations. Prior similar symptoms: Yes PFSH PFSH Medical History Anxiety Anxiety, generalized Asthma Atherosclerosis of coronary artery of [place] heart without angina pectoris Broken back COPD (chronic obstructive pulmonary disease) Current smoker Emphysema lung GERD (gastroesophageal reflux disease) Hip replacement planned Hypertension Osteoporosis Panic attacks Post traumatic stress disorder (PTSD) Smoker Home Medications albuterol sulfate 2.5 mg/3 mL (0.083 %) solution for nebulization 2.5 mg inhalation BID breathing 10/04/14 [History Last Taken 12/13/22] guaifenesin 1,200 mg tablet, extended release 12 hr (Mucus Relief ER) 1,200 mg PO BID PRN PRN Congestion 01/24/15 [History Last Taken 12/13/22] tiotropium bromide 18 mcg capsule with inhalation device (Spiriva with HandiHaler) 1 puff inhalation DAILY SHORTNESS OF BREATH 01/24/15 [History Last Taken 12/13/22] alprazolam 1 mg tablet (Xanax) 1 mg PO BID anxiety 01/24/18 [History Last Taken 12/14/22] albuterol sulfate 90 mcg/actuation aerosol inhaler (ProAir HFA) 2 puff inhalation Q4H PRN PRN Sob &/Or Wheezing 11/04/18 [History Last Taken 12/14/22] fluticasone 500 mcg-salmeterol 50 mcg/dose blistr powdr for inhalation (Advair Diskus) 1 inh inhalation BID COPD 08/31/22 [History Last Taken 12/13/22] ibandronate 150 mg tablet 150 mg PO Q90D OSTEOPOROSIS 08/31/22 [History Last Taken 11/14/22] losartan 50 mg tablet 50 mg PO DAILY BLOOD PRESSURE 08/31/22 [History Last Taken 12/13/22] aspirin 81 mg chewable tablet 81 mg PO BREAKFAST #90 tabs 01/18/23 [Rx Last Taken Unknown] atorvastatin 40 mg tablet (Lipitor) 40 mg PO QHS #90 tabs 01/18/23 [Rx Last Taken Unknown] clopidogrel 75 mg tablet 75 mg PO DAILY #90 tabs 01/18/23 [Rx Last Taken Unknown] metoprolol succinate 25 mg tablet,extended release 24 hr 25 mg PO DAILY #90 tabs 01/18/23 [Rx Last Taken Unknown] omeprazole magnesium 20 mg tablet,delayed release (Prilosec OTC) 20 mg PO DAILY 01/23/23 [History Last Taken Unknown] Allergy/AdvReac Type Severity Reaction Status Date / Time No Known Allergies Allergy Verified 01/23/23 09:17 Surgical History (Updated 03/29/23 @ 05:35 by Brittney Levine) History of appendectomy History of coronary artery stent placement (~12/18/22) History of partial hysterectomy Social History Smoking Status: Light Smoker (<10/day) ROS ROS ED Constitutional Constitutional ED: Denies chills, fever(s) or sweats Eyes Eyes: Denies change in vision ENT ENT ED: Denies dysphagia or sore throat Cardiovascular Cardiovascular: Denies chest pain, leg edema, palpitations or racing heartbeat Respiratory/Chest Respiratory/Chest: Reports cough and dyspnea; Denies dyspnea on exertion Gastrointestinal Gastrointestinal: Denies abdominal pain, diarrhea, nausea or vomiting Genitourinary Genitourinary ED: Denies dysuria, hematuria or urinary frequency Musculoskeletal Musculoskeletal: Denies back pain, extremity pain or neck pain Integumentary Denies rash or wounds Neurologic Neurologic: Denies headache(s), paresthesias or weakness EXAM Physical Exam Const Vital Signs: 03/29/23 05:19 03/29/23 05:29 03/29/23 05:39 Temperature 97.9 F Temperature Source Temporal Pulse Rate 105 H 106 H Respiratory Rate 24 H 27 H Respiratory Effort Respiratory Pattern Blood Pressure 153/77 H 140/83 H Blood Pressure Mean 102 102 Pulse Ox 98 97 Oxygen Delivery Method Nasal Cannula Room Air Nasal Cannula Oxygen Flow Rate (L/min) 3 3 2 03/29/23 06:54 03/29/23 05:45 03/29/23 07:24 Temperature 98.2 F Temperature Source Temporal Pulse Rate 108 H 93 Respiratory Rate 32 H 20 H Respiratory Effort Short of Breath Labored Respiratory Pattern Tachypnea Tachypnea Blood Pressure 102/55 L Blood Pressure Mean 70 Pulse Ox 94 Oxygen Delivery Method Nasal Cannula Oxygen Flow Rate (L/min) 2 Positive well nourished and well developed Constitutional Narrative: 3 L nasal cannula speaking in short sentences. General Appearance ED: well developed and NAD HEENT Reports moist mucous membranes normocephalic and atraumatic Eyes PERRL, EOMs intact bilaterally and conjunctivae normal General Eye ED: Yes normal appearance of both eyes Neck no lymphadenopathy and supple General: Negative for tenderness Chest Wall Chest: Negative for tenderness Resp normal respiratory effort and normal air movement Resp Narrative: Lower lobe expiratory wheezing, slight tachypnea. Cardio regular rate, regular rhythm and no murmurs Peripheral Pulses: pulses 2+ throughout GI normal to inspection, nondistended, normoactive bowel sounds and non-tender Palpation: Negative for guarding or rebound tenderness present Back/Spine no CVA tenderness and no thoracic nor lumbar tenderness Extremity normal to inspection General Extremety ED: Negative for edema or tenderness General Extremity: Negative for edema Neuro oriented x3 and no sensory deficits noted Sensorium / Orientation: awake and alert Skin no rashes or lesions noted and no wounds MDM MDM MDM Narrative Medical decision making narrative: Interventions / MDM: Differential diagnosis: Diagnosis considered but do not suspect: N/A My EKG interpretation: Sinus rate of 105, no ST or T wave changes. Imaging independently reviewed and interpreted by myself: 1 view chest x-ray: COPD lungs no infiltrates. External documents reviewed: N/A Test considered but not ordered:N/A ED course: Patient wheezing speaking short sentences currently on 3 L of oxygen. Aerosol treatments provided Solu-Medrol for wheezing and COPD history. Chest x-ray labs were ordered. COVID testing ordered. Re-evaluation: 0630: We examined her clinically looks much better. Chest x-ray negative for pneumonia. COVID-negative. She had a white count of 16. Creatinine 0.54. Oxygen turned off from 2 L. We will ambulate with a pulse ox for disposition plans. 0700: Patient ambulated off oxygen she dropped down to 86%. She was brought back to the room, was placed back on nasal cannula. States started coughing with phlegm, she has a white count of 16. She is ordered for IV doxycycline. I discussed with hospitalist service for admission. Spoke with Dr. Hilliard for admission. Disposition discussed with patient/family/significant other: Patient and significant other Case discussed with consulting clinician: Hospitalist Lab Data Attestation: I reviewed the patient's lab results. Labs: Laboratory Results - last 24 hr 03/29/23 03/29/23 03/29/23 05:26 05:26 05:35 WBC 16.6 H RBC 4.46 Hgb 13.4 Hct 40.4 MCV 90.6 MCH 30.0 MCHC 33.2 RDW Std Deviation 43.2 RDW Coeff of Mehul 13.1 Plt Count 332 MPV 10.2 Immature Gran % (Auto) 0.300 Neut % (Auto) 65.6 Lymph % (Auto) 21.6 [place] % (Auto) 7.4 Eos % (Auto) 4.4 Baso % (Auto) 0.7 Absolute Neuts (auto) 10.9 H Absolute Lymphs (auto) 3.59 Nucleated RBC % 0 Sodium Cancelled 140 Potassium Cancelled 3.9 Chloride Cancelled 111 H Carbon Dioxide Cancelled 24.0 Anion Gap Cancelled 5 BUN Cancelled 10 Creatinine Cancelled 0.54 L Estim Creat Clear Calc Cancelled 85.43 Est GFR (MDRD) Af Amer Cancelled 148 Est GFR (MDRD) Non-Af Cancelled 123 BUN/Creatinine Ratio Cancelled 18.7 Glucose Cancelled 120 H Calcium Cancelled 9.1 Radiography Diagnostic Testing: Clinical Impression(s) from Imaging Studies Chest X-Ray 03/29/23 05:50 IMPRESSION: COPD and atherosclerotic disease Electronically Signed: Mayito Cervantes MD at 6:28 EDT , Discharge Plan Dx/Rx/DC Orders Clinical Impression: Acute exacerbation of chronic obstructive pulmonary disease, Hypoxia, Dyspnea Disposition Disposition: Acute Care [facility]
[2023-03-29 05:36] LABS: Absolute Lymphocyte Count 3.59 X10^3/uL (0.83-4.51); Absolute Neutrophil Count 10.9 X10^3/uL (2.0-7.7); Basophil# 0.11 X10^3/uL; Basophil% 0.7 % (0-1); Eosinophil# 0.74 X10^3/uL; Eosinophils% 4.4 % (0-5); Hematocrit 40.4 % (37-47); Hemoglobin 13.4 g/dL (12.0-15.0); Lymphocyte # 3.59 X10^3/ul (0.83-4.51); Lymphocyte % 21.6 % (19-41); Mean Corp Hgb Conc 33.2 g/dL (32-36); Mean Corpuscular Volume 90.6 fL (81-99); Mean Platelet Vol. 10.2 fl (6.2-12.0); Monocyte# 1.23 X10^3/uL; Monocyte% 7.4 % (0-10); NRBC Flagged by Analyzer 0 % (0-5); Neutrophil # 10.92 X10^3/uL (2.7-7.7); Neutrophil % 65.6 % (47-70); Platelet Count 332 K/mm3 (150-450); RBC Distribution Width CV 13.1 % (11.6-14.6); RBC Distribution Width SD 43.2 fl (35.1-43.9); Red Blood Count 4.46 M/mm3 (4.2-5.4); White Blood Count 16.6 K/mm3 (4.4-11.0)
[2023-03-29] MEDS: Ipratropium/Albuterol Sulfate 3 ML AMPUL.NEB INHALATION ×3 (05:45→23:36)
[2023-03-29] MEDS: MethylPREDNISolone 125 MG/2 ML Vial IV (05:45)
--- NOTE | 2023-03-29 05:50 | RAD_ITS ---
INDICATION: Shortness of breath EXAMINATION/TECHNIQUE: X-RAY - AP view of chest COMPARISON: Chest x-ray from 12/14/2022 FINDINGS: LINES/DEVICES: None. LUNGS: Hyperexpanded lungs and mild biapical scarring again noted. No pulmonary edema or focal airspace consolidation. No sizable pleural effusion. No detectable pneumothorax. MEDIASTINUM AND CARDIOVASCULAR STRUCTURES: Heart normal size. Atherosclerotic calcifications along aorta. BONES AND SOFT TISSUES: Skeletal degenerative changes. Vertebroplasty cement within thoracic spine. RAD/Chest 1 View (Portable) IMPRESSION: COPD and atherosclerotic disease Electronically Signed: Mayito Cervantes MD at 6:28 EDT ,
[2023-03-29 06:19] LABS: Anion Gap 5 (5-15); BUN 10 mg/dL (7-18); BUN/Creat Ratio 18.7 RATIO (10-20); Calcium,Total 9.1 mg/dL (8.5-10.1); Chloride 111 mmol/L (98-107); Creatinine, Serum 0.54 mg/dL (0.55-1.02); EST Glomerular Filtration Rate 123 mL/min (>60); Est Glom Filt Rate - Afr Amer 148 mL/min (>60); Estimated Creatinine Clearance 85.43 ml/min; Glucose 120 mg/dL (74-106); Potassium 3.9 mmol/L (3.5-5.1); Sodium Level 140 mmol/L (136-145)
[2023-03-29] MEDS: Acetaminophen 500 MG Tablet 1000 MG PO (06:59)
--- NOTE | 2023-03-29 07:22 | NURSING ---
DR IZZY HADDAD
--- NOTE | 2023-03-29 07:32 | NURSING ---
MED SURG TERELETSKY COPD EXAC, HYPOXIA
--- NOTE | 2023-03-29 09:41 | PCM.HP.STD ---
HPI - General General Date of Admission: 03/29/23 Date of Service: 03/29/23 Chief Complaint: Shortness of breath HPI Narrative RACQUEL IRVIN, is a 63 F who presents to the emergency room at [facility] with complaints of increasing shortness of breath over the last 48 hours. Patient has a history of chronic obstructive pulmonary disease, she is not on any oxygen at home. Patient denies any recent sick contacts, she has a cough but she is bringing up clear phlegm. Patient denies any chills or fever. Patient still smokes intermittently, she states she does not use very many cigarettes daily. Work-up in the emergency room included a white blood cell count which is elevated at 16.6, patient's CHEM panel was remarkable for chloride of of 111, glucose was 120. Chest x-ray was performed which showed COPD and atherosclerotic disease. Patient required oxygen at 2 L/min to maintain a pulse ox above 90%. Patient was given aerosol treatments in the emergency room, she remained hypoxic however and she will be admitted to PCU for exacerbation of COPD. PFSH Medical History Anxiety Anxiety, generalized Asthma Atherosclerosis of coronary artery of robinson heart without angina pectoris Broken back COPD (chronic obstructive pulmonary disease) Current smoker Emphysema lung GERD (gastroesophageal reflux disease) Hip replacement planned Hypertension Osteoporosis Panic attacks Post traumatic stress disorder (PTSD) Smoker Home Medications albuterol sulfate 2.5 mg/3 mL (0.083 %) solution for nebulization 2.5 mg inhalation BID breathing 10/04/14 [History Last Taken 12/13/22] guaifenesin 1,200 mg tablet, extended release 12 hr (Mucus Relief ER) 1,200 mg PO BID PRN PRN Congestion 01/24/15 [History Last Taken 12/13/22] tiotropium bromide 18 mcg capsule with inhalation device (Spiriva with HandiHaler) 1 puff inhalation DAILY SHORTNESS OF BREATH 01/24/15 [History Last Taken 12/13/22] alprazolam 1 mg tablet (Xanax) 1 mg PO BID anxiety 01/24/18 [History Last Taken 12/14/22] albuterol sulfate 90 mcg/actuation aerosol inhaler (ProAir HFA) 2 puff inhalation Q4H PRN PRN Sob &/Or Wheezing 11/04/18 [History Last Taken 12/14/22] fluticasone 500 mcg-salmeterol 50 mcg/dose blistr powdr for inhalation (Advair Diskus) 1 inh inhalation BID COPD 08/31/22 [History Last Taken 12/13/22] ibandronate 150 mg tablet 150 mg PO Q90D OSTEOPOROSIS 08/31/22 [History Last Taken 11/14/22] losartan 50 mg tablet 50 mg PO DAILY BLOOD PRESSURE 08/31/22 [History Last Taken 12/13/22] aspirin 81 mg chewable tablet 81 mg PO BREAKFAST #90 tabs 01/18/23 [Rx Last Taken Unknown] atorvastatin 40 mg tablet (Lipitor) 40 mg PO QHS #90 tabs 01/18/23 [Rx Last Taken Unknown] clopidogrel 75 mg tablet 75 mg PO DAILY #90 tabs 01/18/23 [Rx Last Taken Unknown] metoprolol succinate 25 mg tablet,extended release 24 hr 25 mg PO DAILY #90 tabs 01/18/23 [Rx Last Taken Unknown] omeprazole magnesium 20 mg tablet,delayed release (Prilosec OTC) 20 mg PO DAILY 01/23/23 [History Last Taken Unknown] Allergy/AdvReac Type Severity Reaction Status Date / Time No Known Allergies Allergy Verified 01/23/23 09:17 Surgical History (Updated 03/29/23 @ 05:35 by Brittney Levine) History of appendectomy History of coronary artery stent placement (~12/18/22) History of partial hysterectomy Social History Smoking Status: Light Smoker (<10/day) ROS Constitutional Constitutional: Denies anorexia, change in weight, chills, fatigue, fever(s), night sweats or weakness Eyes Eyes: Denies blurry vision, change in eye color, change in vision, discharge from eye(s) or eye pain ENT HEENT: Denies dysphagia Cardiovascular Cardiovascular: Reports dyspnea on exertion; Denies chest pain, claudication, edema or palpitations Respiratory/Chest Respiratory/Chest: Reports cough, dyspnea, shortness of breath at rest, shortness of breath with exertion and wheezing; Denies hemoptysis Gastrointestinal Gastrointestinal: Denies abdominal pain, constipation, diarrhea, hematemesis, hematochezia, melena, nausea or vomiting Genitourinary Genitourinary: Denies dysuria, hematuria, urinary frequency, urinary hesitancy, urinary incontinence or urinary urgency Musculoskeletal Musculoskeletal: Denies back pain, joint pain, joint stiffness, joint swelling, myalgias or neck pain Neurologic Neurologic: Denies abnormal gait, abnormal speech, confusion, dizziness, focal weakness, headache(s), loss of vision, numbness, other visual disturbances, paresthesias, syncope or tingling Psychiatric Psychiatric: Denies anxiety, cognitive impairment, depression, irritability, mood swings or suicidal ideation Endocrine Endocrinology: Denies change in body appearance, cold intolerance, excessive sweating, heat intolerance, polydipsia or polyuria Hematologic/Lymphatic Hematologic/Lymphatic: Denies none, anemia, easy bleeding, easy bruising or lymphadenopathy Allergic/Immunologic Allergic/Immunologic: Denies rhinitis, urticaria, eczemia or asthma Vital Signs Vital Signs Vital Signs: 03/29/23 05:19 03/29/23 05:29 03/29/23 05:39 Temperature 97.9 F Temperature Source Temporal Pulse Rate 105 H 106 H Respiratory Rate 24 H 27 H Respiratory Effort Respiratory Pattern Blood Pressure 153/77 H 140/83 H Blood Pressure [BP] Blood Pressure Mean 102 102 Blood Pressure Mean [BP] Blood Pressure Source [BP] Blood Pressure Position [BP] Blood Pressure Location [BP] Pulse Ox 98 97 Oxygen Delivery Method Nasal Cannula Room Air Nasal Cannula Oxygen Flow Rate (L/min) 3 3 2 03/29/23 06:54 03/29/23 05:45 03/29/23 07:24 Temperature 98.2 F Temperature Source Temporal Pulse Rate 108 H 93 Respiratory Rate 32 H 20 H Respiratory Effort Short of Breath Labored Respiratory Pattern Tachypnea Tachypnea Blood Pressure 102/55 L Blood Pressure [BP] Blood Pressure Mean 70 Blood Pressure Mean [BP] Blood Pressure Source [BP] Blood Pressure Position [BP] Blood Pressure Location [BP] Pulse Ox 94 Oxygen Delivery Method Nasal Cannula Oxygen Flow Rate (L/min) 2 03/29/23 08:11 Temperature Temperature Source Pulse Rate 93 Respiratory Rate 18 Respiratory Effort Respiratory Pattern Blood Pressure Blood Pressure [BP] 107/75 Blood Pressure Mean Blood Pressure Mean [BP] 85 Blood Pressure Source [BP] Monitor Blood Pressure Position [BP] Semi-Fowlers Blood Pressure Location [BP] Right Arm Pulse Ox 99 Oxygen Delivery Method Nasal Cannula Oxygen Flow Rate (L/min) 2 Weight Weight: 56 kg Body Mass Index (BMI) 22.6 Physical Exam Const alert, oriented x3, no apparent distress and average body habitus General Appearance: cooperative, well kempt and well developed Orientation / Consciousness: awake, oriented to person, oriented to place and oriented to time HEENT normocephalic, head/scalp atraumatic, hearing grossly normal bilaterally and moist oral mucous membranes Eyes PERRL, EOMs intact bilaterally and conjunctivae normal Neck supple, no JVD, thyroid normal and no carotid bruits General: trachea midline Resp normal respiratory effort, no retractions and no use of accessory muscles Resp Narrative: There are inspiratory rales noted at the left lung base, breath sounds are diminished bilaterally Auscultation: rales left base; Negative for rhonchi or wheezes Cardio regular rate, regular rhythm, S1 normal heart sound, S2 normal heart sound, no murmurs, no rub and no gallops GI normal to inspection, nondistended, normoactive bowel sounds, soft to palpation, non-tender and non-distended Extremity no clubbing, cyanosis or edema Skin no rashes or lesions noted General Skin Exam: no breakdown Neuro oriented x3, CN's II-XII intact bilaterally, moves all extremities, no focal motor deficits and no sensory deficits noted Sensorium / Orientation: awake, alert, oriented to person, oriented to place and oriented to time Speech: speech normal Psych affect normal Results Lab / Micro Data Result Diagrams: 03/29/23 05:26 03/29/23 05:35 Labs: Laboratory Results - last 24 hr 03/29/23 05:26: WBC 16.6 H, RBC 4.46, Hgb 13.4, Hct 40.4, MCV 90.6, MCH 30.0, MCHC 33.2, RDW Std Deviation 43.2, RDW Coeff of Mehul 13.1, Plt Count 332, MPV 10.2, Immature Gran % (Auto) 0.300, Neut % (Auto) 65.6, Lymph % (Auto) 21.6, [place] % (Auto) 7.4, Eos % (Auto) 4.4, Baso % (Auto) 0.7, Absolute Neuts (auto) 10.9 H, Absolute Lymphs (auto) 3.59, Nucleated RBC % 0 03/29/23 05:26: Sodium Cancelled, Potassium Cancelled, Chloride Cancelled, Carbon Dioxide Cancelled, Anion Gap Cancelled, BUN Cancelled, Creatinine Cancelled, Estim Creat Clear Calc Cancelled, Est GFR (MDRD) Af Amer Cancelled, Est GFR (MDRD) Non-Af Cancelled, BUN/Creatinine Ratio Cancelled, Glucose Cancelled, Calcium Cancelled 03/29/23 05:35: Sodium 140, Potassium 3.9, Chloride 111 H, Carbon Dioxide 24.0, Anion Gap 5, BUN 10, Creatinine 0.54 L, Estim Creat Clear Calc 85.43, Est GFR (MDRD) Af Amer 148, Est GFR (MDRD) Non-Af 123, BUN/Creatinine Ratio 18.7, Glucose 120 H, Calcium 9.1 Micro: Microbiology 03/29/23 05:30 Nasal Secretion SARS-CoV-2 Antigen (Rapid) - Final Radiology Impression Chest X-Ray 03/29/23 05:50 IMPRESSION: COPD and atherosclerotic disease Electronically Signed: Mayito Cervantes MD at 6:28 EDT , Assessment & Plan Assessment/Plan (1) COPD (chronic obstructive pulmonary disease): QUALIFIERS: COPD type: chronic bronchitis Chronic bronchitis type: unspecified Qualified Code(s): J42 - Unspecified chronic bronchitis PLAN: Plan 1. Exacerbation of COPD-patient will be admitted to PCU, she will receive aerosol treatments and IV corticosteroids, I have decided to place her on IV Zithromax, she got 1 IV dose of doxycycline in the emergency room today. #2 hypoxia secondary to #1-pulse ox will be monitored, oxygen will be weaned if possible #3 coronary artery disease-this appears to be stable at this time, she will remain on her present medications #4 essential hypertension-patient will remain on her present medications #5 chronic anxiety-patient is currently taking Xanax, this will be continued #6 hyperlipidemia-patient is on atorvastatin Total clinical time spent by myself addressing the patient's medical issues, reviewing all of her data, and collaborating with patient's care team: 55 minutes Charges/Coding Visit Charges Inpatient E&M: 79657 Init Hosp L2
[2023-03-29] MEDS: Metoprolol(XL)Succ 25 MG Tablet PO (11:57)
[2023-03-29] MEDS: ALPRAZolam 0.5 MG Tablet 1 MG PO ×2 (11:57→21:00)
[2023-03-29] MEDS: Pantoprazole Sodium 20 MG Tablet PO (11:57)
[2023-03-29] MEDS: Losartan Potassium 50 MG Tablet PO (12:00)
[2023-03-29] MEDS: Clopidogrel Bisulfate 75 MG Tablet PO (12:00)
[2023-03-29] MEDS: Heparin Injection (Vial) 5,000 UNIT/ML VIAL 5000 UNIT SC ×2 (12:06→20:55)
[2023-03-29] MEDS: Acetaminophen 325 MG Tablet 650 MG PO (13:57)
[2023-03-29] MEDS: Methylprednisolone Sod Succ 40 MG/ML VIAL IV ×2 (13:59→20:55)
[2023-03-29] MEDS: 0.9% Saline Lock 10 ML Syringe IV ×2 (14:00→21:15)
[2023-03-29] MEDS: Atorvastatin Calcium 40 MG Tablet PO (20:55)
[2023-03-29] MEDS: guaiFENesin 1,200 MG Tablet 1200 MG PO (22:05)
[2023-03-30] VITALS (7 sets, daily range): BP systolic 98–136; BP diastolic 66–81; PULSE 86–97; RESP 16–20; TEMP 36.3–36.6; O2SAT 95–98
[2023-03-30] MEDS: Methylprednisolone Sod Succ 40 MG/ML VIAL IV ×2 (05:04→14:11)
[2023-03-30] MEDS: 0.9% Saline Lock 10 ML Syringe IV ×2 (05:04→22:32)
[2023-03-30 05:55] LABS: Basophil# 0.01 X10^3/uL; Basophil% 0.1 % (0-1); Eosinophil# 0.01 X10^3/uL; Eosinophils% 0.1 % (0-5); Hematocrit 40.9 % (37-47); Hemoglobin 12.7 g/dL (12.0-15.0); Lymphocyte % 15.2 % (19-41); Mean Corp Hgb Conc 31.1 g/dL (32-36); Mean Corpuscular Hgb 28.9 pg (27.0-32.0); Mean Corpuscular Volume 93.2 fL (81-99); Mean Platelet Vol. 10.7 fl (6.2-12.0); Monocyte# 0.57 X10^3/uL; Monocyte% 4.6 % (0-10); NRBC Flagged by Analyzer 0 % (0-5); Neutrophil # 9.96 X10^3/uL (2.7-7.7); Neutrophil % 79.5 % (47-70); Platelet Count 288 K/mm3 (150-450); RBC Distribution Width SD 44.8 fl (35.1-43.9); Red Blood Count 4.39 M/mm3 (4.2-5.4); White Blood Count 12.5 K/mm3 (4.4-11.0)
[2023-03-30] MEDS: Clopidogrel Bisulfate 75 MG Tablet PO (09:33)
[2023-03-30] MEDS: Pantoprazole Sodium 20 MG Tablet PO (09:33)
[2023-03-30] MEDS: Aspirin 81 MG TAB.CHEW PO (09:34)
[2023-03-30] MEDS: guaiFENesin 1,200 MG Tablet 1200 MG PO ×2 (09:34→22:31)
[2023-03-30] MEDS: Heparin Injection (Vial) 5,000 UNIT/ML VIAL 5000 UNIT SC ×2 (09:34→22:34)
[2023-03-30] MEDS: ALPRAZolam 0.5 MG Tablet 1 MG PO ×2 (09:41→22:36)
[2023-03-30] MEDS: Acetaminophen/Butalbital/Caffe 1 Tablet 2 TABLET PO (09:52)
--- NOTE | 2023-03-30 09:54 | CASEMGMT ---
Sw met with patient at bedside, introduced self and explained sw role during admission. Sw completed PHQ-9 with patient. Patient received score of 9, which is indicative of mild depression. Sw reviewed score with patient and assessed for need of additional resources. Patient reports she has a lot of family supports, her granddaughter is a nurse and lives next door to patient. Patient reports that she was connected to counseling services in the past, but has not been for several years. Patient states that she is open to getting reconnected. Sw encouraged patient to utilize family supports and get re-connected to mental health resources to help with appropriate coping skills with new diagnoses. Myah Ayala, RESOURCE TEACHER, SHOOK MACHINE OPERATOR
[2023-03-30] MEDS: Lactulose 20 GM/30 ML UDC 30 GM PO ×2 (10:31→12:40)
--- NOTE | 2023-03-30 11:10 | CASEMGMT ---
RN?CM?IDENTITY MANAGEMENT CONSULTANT?CM?to room to meet with patient for initial transition planning/care coordination?assessment.?RN?CM?introduced self and role at [facility].? Pt voices understanding and consents to?assessment?at this time.? Pt resting in bed in no distress at this time.? Pt is A/O at this time and answers all questions appropriately.?? Care providers, pharmacy, and demographics verified/updated at this time. PCP: Dr Magen Cavazos Specialists: Ruthie Anthony and Dr Socorro Muller--mill set up. [facility]erred [facility]acy: [facility] Insurance: BENY Angel Prescription Benefit: yes Living Will/HPOA: Has Living will only. Pt would like to complete HCPOA. NANDO, Ana M, made aware. LNOK: Living Arrangements: Patient lives with in a triplex home. She states they are moving this weekend to the following address: [address] [place] [address]. Patient states she is independent @ home and able to ambulate the stairs. Transportation: self, DME: Patient states she has shower chair and nebulizer at home. She also has a cane and walker available, but does not use. Patient is currently on oxygen will monitor for home oxygen. Patient states she prefers [employer] for DME. She does not have a pulse ox and states it is affordable to purchase one. HHC/SNF: No hx of SNF. Has had HHC in the past and has had [facility] in the past. She declines wanting HHC or [facility] at this time. Pt wishes to return home and states has no concerns with going home at time of discharge.? ?CM?to follow for home oxygen needs and any further discharge planning/needs.? Pt voices no further concerns/needs at this time.? Advised pt to ask for?CM?if any further questions/concerns/needs arise.? Voices understanding. PLAN:??Home. Follow for possible need of Home O2 @ d/c. Gabriela HOWELLN?RN?CM
--- NOTE | 2023-03-30 11:23 | PN.HOSP_ITS ---
Reason for Visit Reason for Visit: Diagnoses Unspecified chronic bronchitis (03/29/23) Subjective Subjective Patient was seen and examined today, she still requires supplemental oxygen at this time at 2 L. She is complaining of some abdominal bloating, her abdomen is tympanic but nontender. I think part of this is from oxygen administration but she has not had a bowel movement in several days so I have elected to give her some lactulose today. Patient also complains of a headache, I wrote for some Fioricet for her. Objective Data Objective Data Vital Signs: Vital Signs Temp Pulse Resp BP Pulse Ox O2 Del Method O2 Flow Rate 97.9 F 89 18 98/67 98 Nasal Cannula 2 03/30/23 09:00 03/30/23 09:39 03/30/23 09:00 03/30/23 09:39 03/30/23 09:00 03/30/23 09:21 03/30/23 09:21 Oxygen Flow Rate (L/min) 2 Oxygen Delivery Method Nasal Cannula Weight: 56 kg Body Mass Index (BMI) 22.6 Intake & Output: Intake and Output for Last 24 Hours 03/28/23 03/29/23 03/30/23 23:59 23:59 23:59 Intake Total 1914 240 / 240 Balance 1914 240 / 240 Lab / Micro Data Result Diagrams: 03/30/23 05:30 03/29/23 05:35 Labs: Laboratory Results - last 24 hr 03/30/23 05:30: WBC 12.5 H, RBC 4.39, Hgb 12.7, Hct 40.9, MCV 93.2, MCH 28.9, MCHC 31.1 L D, RDW Std Deviation 44.8 H, RDW Coeff of Mehul 13.0, Plt Count 288, MPV 10.7, Immature Gran % (Auto) 0.500, Neut % (Auto) 79.5 H, Lymph % (Auto) 15.2 L, [place] % (Auto) 4.6, Eos % (Auto) 0.1, Baso % (Auto) 0.1, Absolute Neuts (auto) 10.0 H, Absolute Lymphs (auto) 1.90, Nucleated RBC % 0 Micro: Microbiology 03/29/23 11:15 Mucosa - Nasopharyngeal Respiratory Panel (PCR) - Final 03/29/23 05:30 Nasal Secretion SARS-CoV-2 Antigen (Rapid) - Final Physical Exam Narrative alert, oriented x3, no apparent distress and average body habitus General Appearance: cooperative, well kempt and well developed Orientation / Consciousness: awake, oriented to person, oriented to place and oriented to time HEENT normocephalic, head/scalp atraumatic, hearing grossly normal bilaterally and moist oral mucous membranes Eyes PERRL, EOMs intact bilaterally and conjunctivae normal Neck supple, no JVD, thyroid normal and no carotid bruits General: trachea midline Resp normal respiratory effort, no retractions and no use of accessory muscles Resp Narrative: Breath sounds are distant bilaterally, occasional expiratory rhonchi are noted, no wheezing is noted today Cardio regular rate, regular rhythm, S1 normal heart sound, S2 normal heart sound, no murmurs, no rub and no gallops GI normal to inspection, nondistended, normoactive bowel sounds, soft to palpation, non-tender and non-distended Extremity no clubbing, cyanosis or edema Skin no rashes or lesions noted General Skin Exam: no breakdown Neuro oriented x3, CN's II-XII intact bilaterally, moves all extremities, no focal motor deficits and no sensory deficits noted Sensorium / Orientation: awake, alert, oriented to person, oriented to place and oriented to time Speech: speech normal Psych affect normal Assessment & Plan Assessment/Plan (1) COPD (chronic obstructive pulmonary disease): QUALIFIERS: COPD type: chronic bronchitis Chronic bronchitis type: unspecified Qualified Code(s): J42 - Unspecified chronic bronchitis PLAN: Plan 1. Exacerbation of COPD-continue present medications at this time #2 hypoxia secondary to #1-pulse ox will be monitored, oxygen will be weaned if possible #3 coronary artery disease-this appears to be stable at this time, she will elsa in on her present medications #4 essential hypertension-patient will remain on her present medications #5 chronic anxiety-patient is currently taking Xanax, this will be continued #6 hyperlipidemia-patient is on atorvastatin Total clinical time spent by myself addressing the patient's medical issues, reviewing all of her data, and collaborating with patient's care team: 35 minutes Charges/Coding Visit Charges Inpatient E&M: 32754 Subs Hosp L2
[2023-03-30] MEDS: 0.9% Normal Saline 1,000 ML 500 ML IV (11:34)
--- NOTE | 2023-03-30 13:15 | CASEMGMT ---
Sw met with patient at bedside, introduced self and explained sw role during current admission. Sw completed POA documentation with patient per requested by patient. Sw provided patient with original and provided her with copy. Sw placed copy of POA documents in chart. JAZMYNE Pablo, JIGMAN
[2023-03-30] MEDS: Benzonatate 100 MG Capsule 200 MG PO ×2 (14:10→18:57)
[2023-03-30] MEDS: Ipratropium/Albuterol Sulfate 3 ML AMPUL.NEB INHALATION (18:40)
[2023-03-30] MEDS: Atorvastatin Calcium 40 MG Tablet PO (22:29)
[2023-03-31] VITALS (9 sets, daily range): BP systolic 126–135; BP diastolic 61–80; PULSE 88–110; RESP 16–20; TEMP 36.1–36.4; O2SAT 93–95
[2023-03-31] MEDS: Ipratropium/Albuterol Sulfate 3 ML AMPUL.NEB INHALATION ×2 (02:29→07:16)
[2023-03-31] MEDS: Benzonatate 100 MG Capsule 200 MG PO ×2 (07:36→12:23)
[2023-03-31] MEDS: Heparin Injection (Vial) 5,000 UNIT/ML VIAL 5000 UNIT SC (09:30)
[2023-03-31] MEDS: Losartan Potassium 50 MG Tablet PO (09:30)
[2023-03-31] MEDS: Clopidogrel Bisulfate 75 MG Tablet PO (09:30)
[2023-03-31] MEDS: Aspirin 81 MG TAB.CHEW PO (09:30)
[2023-03-31] MEDS: Pantoprazole Sodium 20 MG Tablet PO (09:30)
[2023-03-31] MEDS: guaiFENesin 1,200 MG Tablet 1200 MG PO (09:31)
[2023-03-31] MEDS: Metoprolol(XL)Succ 25 MG Tablet PO (09:31)
[2023-03-31] MEDS: ALPRAZolam 0.5 MG Tablet 1 MG PO (09:42)
[2023-03-31] MEDS: 0.9% Saline Lock 10 ML Syringe IV (09:44)
--- NOTE | 2023-03-31 10:22 | DCINST_ITS ---
Discharge Instructions Diet Discharge Diet: No restrictions Activity Discharge Activity: Return to Normal Activity Weight Bearing Status: Full weight bearing Follow Up Care Test Results: Test results from this visit will be discussed in further detail at your follow- up appointment, if applicable. Discharge Plan Admission Admit Date/Time: 03/29/23 09:12 Primary Reason for Your Visit: Exac of copd Attending Provider: Mayito Ayers Primary Care Provider: Magen Cavazos Discharge Orders/Prescriptions Prescriptions: New benzonatate 100 mg Capsule 200 mg PO TID PRN PRN (Reason: Cough) Qty: 40 0RF prednisone 10 mg tablet 20 mg PO BID Qty: 20 0RF Rx Instructions: two twice a day for two days, then three daily for two days, then two daily for two days, then one daily for two days, then stop azithromycin [Zithromax] 250 mg tablet 250 mg PO DAILY 7 Days Qty: 7 0RF Continued omeprazole magnesium [Prilosec OTC] 20 mg tablet,delayed release (DR/EC) 20 mg PO DAILY albuterol sulfate 2.5 MG/3 ML solution for nebulization 2.5 mg inhalation BID Spiriva with HandiHaler 1 PUFF inhaler 1 puff inhalation DAILY Mucus Relief ER 1,200 MG tablet 1,200 mg PO BID PRN PRN (Reason: Congestion) alprazolam [Xanax] 1 MG tablet 1 mg PO BID albuterol sulfate [ProAir HFA] 1 PUFF inhaler 2 puff inhalation Q4H PRN PRN (Reason: Sob &/Or Wheezing) losartan 50 mg tablet 50 mg PO DAILY fluticasone propion-salmeterol [Advair Diskus] 500-50 mcg/dose blister with device 1 inh INHALATION BID ibandronate 150 mg tablet 150 mg PO Q90D clopidogrel 75 mg tablet 75 mg PO DAILY Qty: 90 3RF metoprolol succinate 25 mg tablet extended release 24 hr 25 mg PO DAILY Qty: 90 3RF atorvastatin [Lipitor] 40 mg tablet 40 mg PO QHS Qty: 90 3RF aspirin 81 mg tablet,chewable 81 mg PO BREAKFAST Qty: 90 3RF Referrals / Follow Up: Magen Cavazos MD [Primary Care Provider] - Within 2 Weeks Disposition Disposition (needs filled in before D/C Order can be placed): Home, Self Care
--- NOTE | 2023-03-31 10:36 | DS.PCM_ITS ---
Providers Date of Admission: 03/29/23 Date of Discharge: 03/31/23 Primary Care Physician: Dr. Magen Cavazos MD Reason For Visit: HYPOXIA Diagnosis Discharge Diagnosis (1) COPD (chronic obstructive pulmonary disease): Status: Chronic Code(s): J44.9 - Chronic obstructive pulmonary disease, unspecified Qualifiers: COPD type: chronic bronchitis Chronic bronchitis type: unspecified Qualified Code(s): J42 - Unspecified chronic bronchitis Plan 1. Exacerbation of COPD-continue present medications at this time #2 hypoxia secondary to #1-pulse ox will be monitored, oxygen will be weaned if possible #3 coronary artery disease-this appears to be stable at this time, she will remain on her present medications #4 essential hypertension-patient will remain on her present medications #5 chronic anxiety-patient is currently taking Xanax, this will be continued #6 hyperlipidemia-patient is on atorvastatin Total clinical time spent by myself addressing the patient's medical issues, reviewing all of her data, and collaborating with patient's care team: 35 min utes Medications at Discharge Home Medications albuterol sulfate 2.5 mg/3 mL (0.083 %) solution for nebulization 2.5 mg inhalation BID breathing 10/04/14 guaifenesin 1,200 mg tablet, extended release 12 hr (Mucus Relief ER) 1,200 mg PO BID PRN PRN Congestion 01/24/15 tiotropium bromide 18 mcg capsule with inhalation device (Spiriva with HandiHaler) 1 puff inhalation DAILY SHORTNESS OF BREATH 01/24/15 alprazolam 1 mg tablet (Xanax) 1 mg PO BID anxiety 01/24/18 albuterol sulfate 90 mcg/actuation aerosol inhaler (ProAir HFA) 2 puff inhalation Q4H PRN PRN Sob &/Or Wheezing 11/04/18 fluticasone 500 mcg-salmeterol 50 mcg/dose blistr powdr for inhalation (Advair Diskus) 1 inh inhalation BID COPD 08/31/22 ibandronate 150 mg tablet 150 mg PO Q90D OSTEOPOROSIS 08/31/22 losartan 50 mg tablet 50 mg PO DAILY BLOOD PRESSURE 08/31/22 aspirin 81 mg chewable tablet 81 mg PO BREAKFAST #90 tabs 01/18/23 atorvastatin 40 mg tablet (Lipitor) 40 mg PO QHS #90 tabs 01/18/23 clopidogrel 75 mg tablet 75 mg PO DAILY #90 tabs 01/18/23 metoprolol succinate 25 mg tablet,extended release 24 hr 25 mg PO DAILY #90 tabs 01/18/23 omeprazole magnesium 20 mg tablet,delayed release (Prilosec OTC) 20 mg PO DAILY 01/23/23 azithromycin 250 mg tablet (Zithromax) 250 mg PO DAILY 7 days #7 tabs 03/31/23 benzonatate 100 mg capsule 200 mg PO TID PRN PRN Cough #40 caps 03/31/23 prednisone 10 mg tablet 20 mg PO BID #20 tabs 03/31/23 Hospital Course Operations None Procedures None Summary of Care Provided Minutes Spent on Discharge: 31 Hospital Course: This 63-year-old white female was seen in the emergency room at [facility] with complaints of shortness of breath x48 hours, patient has a history of chronic obstructive pulmonary disease, she was on no home oxygen. Work-up in the emergency room included a white blood cell count which was elevated at 16.6, patient's chemistry panel was largely unremarkable. Chest x- ray was performed which showed COPD and atherosclerotic disease, patient required oxygen at 2 L/min to maintain a pulse ox above 90%. Patient was given aerosol treatments in the emergency room, she remained however hypoxic and was admitted to PCU for exacerbation of COPD. She was kept on IV corticosteroids and given aerosol treatments, over the next few days she was able to be weaned off oxygen completely. On 03/31/2023, patient was seen and examined: On examination she appeared in good health and spirits, she does not appear to be in any distress. Vital signs as documented. Skin warm and dry and without overt rashes. Neck without JVD, thyroid appears normal, trachea is midline, neck is supple. Lungs clear, normal air movement was noted. Heart exam notable for regular rhythm, normal sounds and absence of murmurs, rubs or gallops. Abdomen unremarkable and without evidence of organomegaly, masses, or abdominal aortic enlargement, bowel sounds are present in all 4 quadrants, no abdominal tenderness was noted. Extremities none dematous, no cyanosis was noted, no clubbing was noted. Neuro: Cranial nerves II through XII are grossly intact, no focal motor deficits were noted, sensation to light touch and pinprick is intact, motor exam 5/5 throughout. Psych: Patient is alert and oriented x3, she does not appear anxious or depressed, she does not appear agitated. Patient appears stable for discharge home on 03/31/2023. Weight / BMI Weight Weight: 56 kg Body Mass Index (BMI) 22.6 ABG / Lab / Microbiology Data Result Diagrams: 03/30/23 05:30 03/29/23 05:35 Microbiology: Microbiology 03/29/23 11:15 Mucosa - Nasopharyngeal Respiratory Panel (PCR) - Final 03/29/23 05:30 Nasal Secretion SARS-CoV-2 Antigen (Rapid) - Final D/C Instructions Discharge Diet: No restrictions Weight Bearing Status: Full weight bearing Meaningful Use Info Meaningful Use Diagnoses (Choose all that apply): None applicable Discharge Plan Admission Admit Date/Time: 03/29/23 09:12 Primary Reason for Your Visit: Exac of copd Attending Provider: Mayito Ayers Primary Care Provider: Magen Cavazos Discharge Orders/Prescriptions Prescriptions: New benzonatate 100 mg Capsule 200 mg PO TID PRN PRN (Reason: Cough) Qty: 40 0RF prednisone 10 mg tablet 20 mg PO BID Qty: 20 0RF Rx Instructions: two twice a day for two days, then three daily for two days, then two daily for two days, then one daily for two days, then stop azithromycin [Zithromax] 250 mg tablet 250 mg PO DAILY 7 Days Qty: 7 0RF Continued omeprazole magnesium [Prilosec OTC] 20 mg tablet,delayed release (DR/EC) 20 mg PO DAILY albuterol sulfate 2.5 MG/3 ML solution for nebulization 2.5 mg inhalation BID Spiriva with HandiHaler 1 PUFF inhaler 1 puff inhalation DAILY Mucus Relief ER 1,200 MG tablet 1,200 mg PO BID PRN PRN (Reason: Congestion) alprazolam [Xanax] 1 MG tablet 1 mg PO BID albuterol sulfate [ProAir HFA] 1 PUFF inhaler 2 puff inhalation Q4H PRN PRN (Reason: Sob &/Or Wheezing) losartan 50 mg tablet 50 mg PO DAILY fluticasone propion-salmeterol [Advair Diskus] 500-50 mcg/dose blister with device 1 inh INHALATION BID ibandronate 150 mg tablet 150 mg PO Q90D clopidogrel 75 mg tablet 75 mg PO DAILY Qty: 90 3RF metoprolol succinate 25 mg tablet extended release 24 hr 25 mg PO DAILY Qty: 90 3RF atorvastatin [Lipitor] 40 mg tablet 40 mg PO QHS Qty: 90 3RF aspirin 81 mg tablet,chewable 81 mg PO BREAKFAST Qty: 90 3RF Referrals / Follow Up: Magen Cavazos MD [Primary Care Provider] - Within 2 Weeks Disposition Disposition (needs filled in before D/C Order can be placed): Home, Self Care Charges/Coding Visit Charges Inpatient E&M: 21495 Disch Hosp >30min
== END 2023-03-31 12:29 | disposition home or self-care (01) | DRG 192 ==
LOC: ED 07:25 → PCU 07:56
PROVIDERS: Admitting Provider Internal Medicine; Emergency Provider Emergency Medicine; PCP Family Medicine; Visit Provider Internal Medicine
DX: J44.1 Chronic obstructive pulmonary disease with (acute) exacerbation (principal); E78.5 Hyperlipidemia, unspecified; I10 Essential (primary) hypertension; I25.10 Atherosclerotic heart disease of native coronary artery without angina pectoris; F17.200 Nicotine dependence, unspecified, uncomplicated; F41.0 Panic disorder [episodic paroxysmal anxiety]; F43.10 Post-traumatic stress disorder, unspecified; F41.1 Generalized anxiety disorder; Z79.82 Long term (current) use of aspirin; Z95.5 Presence of coronary angioplasty implant and graft; R09.02 Hypoxemia; Z79.83 Long term (current) use of bisphosphonates
CPT/HCPCS: 36415; 71045; 80048; 85025; 87633; 87811; 93005; 94640; 99252; 99285; 99406; J7030; J7040; A4216; G0463

== ENCOUNTER 2023-12-09 13:43 | Inpatient (IN) | payer MEDICARE, SELFPAY ==
[2023-12-09] VITALS (11 sets, daily range): BP systolic 109–130; BP diastolic 46–62; PULSE 86–95; RESP 16–22; TEMP 36.2–36.4; O2SAT 92–98; BMI 25.1; BMI 20.1
--- NOTE | 2023-12-09 14:01 | EDS_ITS ---
HPI History of Present Illness Chief Complaint: Shortness of Breath Detail of Chief Complaint: Shortness of breath Informant: patient Narrative Narrative: Patient presents with shortness of breath x 4 to 5 days. Patient states that her COPD is flared up. She states that she has significant exertional dyspnea with just walking to the bathroom. Cough is mostly nonproductive. She had subjective fever at home. Patient chronically takes azithromycin and she has been using her nebulizer. Patient does describe some chest discomfort related to cough. She does have a history of a cardiac stent placed 1 year ago. Denies recent travel or surgery. PFSH PFSH Medical History Anxiety Anxiety, generalized Asthma Atherosclerosis of coronary artery of [place] heart without angina pectoris Broken back COPD (chronic obstructive pulmonary disease) Current smoker Emphysema lung GERD (gastroesophageal reflux disease) Hip replacement planned Hypertension Osteoporosis Panic attacks Post traumatic stress disorder (PTSD) Smoker Home Medications albuterol sulfate 2.5 mg/3 mL (0.083 %) solution for nebulization 2.5 mg inhalat ion BID breathing 10/04/14 [History Last Taken 12/13/22] guaifenesin 1,200 mg tablet, extended release 12 hr (Mucus Relief ER) 1,200 mg PO BID PRN PRN Congestion 01/24/15 [History Last Taken 12/13/22] tiotropium bromide 18 mcg capsule with inhalation device (Spiriva with HandiHaler) 1 puff inhalation DAILY SHORTNESS OF BREATH 01/24/15 [History Last Taken 12/13/22] alprazolam 1 mg tablet (Xanax) 1 mg PO BID anxiety 01/24/18 [History Last Taken 12/14/22] albuterol sulfate 90 mcg/actuation aerosol inhaler (ProAir HFA) 2 puff inhalation Q4H PRN PRN Sob &/Or Wheezing 11/04/18 [History Last Taken 12/14/22] fluticasone 500 mcg-salmeterol 50 mcg/dose blistr powdr for inhalation (Advair Diskus) 1 inh inhalation BID COPD 08/31/22 [History Last Taken 12/13/22] ibandronate 150 mg tablet 150 mg PO Q90D OSTEOPOROSIS 08/31/22 [History Last Taken 11/14/22] losartan 50 mg tablet 50 mg PO DAILY BLOOD PRESSURE 08/31/22 [History Last Taken 12/13/22] aspirin 81 mg chewable tablet 81 mg PO BREAKFAST #90 tabs 01/18/23 [Rx Last Taken Unknown] atorvastatin 40 mg tablet (Lipitor) 40 mg PO QHS #90 tabs 01/18/23 [Rx Last Taken Unknown] clopidogrel 75 mg tablet 75 mg PO DAILY #90 tabs 01/18/23 [Rx Last Taken U nknown] metoprolol succinate 25 mg tablet,extended release 24 hr 25 mg PO DAILY #90 tabs 01/18/23 [Rx Last Taken Unknown] omeprazole magnesium 20 mg tablet,delayed release (Prilosec OTC) 20 mg PO DAILY 01/23/23 [History Last Taken Unknown] azithromycin 250 mg tablet (Zithromax) 250 mg PO DAILY 7 days #7 tabs 03/31/23 [Rx Last Taken Unknown] benzonatate 100 mg capsule 200 mg (2 x 100 mg) PO TID PRN PRN Cough #40 caps 03/31/23 [Rx Last Taken Unknown] prednisone 10 mg tablet 20 mg (2 x 10 mg) PO BID #20 tabs 03/31/23 [Rx Last Taken Unknown] nitroglycerin 0.4 mg sublingual tablet (Nitrostat) 0.4 mg sublingual Q5-15M PRN chest pain #25 tabs 05/09/23 [Rx Last Taken Unknown] Allergy/AdvReac Type Severity Reaction Status Date / Time No Known Allergies Allergy Verified 12/09/23 13:45 Surgical History History of appendectomy History of coronary artery stent placement (~12/18/22) History of partial hysterectomy Social History Smoking Status: Light Smoker (<10/day) ROS ROS ED Review of Systems ROS Unobtainable: other Constitutional Constitutional ED: Reports lethargy; Denies chills, fever(s), sweats or weight loss Eyes Eyes: Denies blurry vision, change in vision or diplopia ENT ENT ED: Denies rhinorrhea or sore throat Cardiovascular Cardiovascular: Reports chest pain; Denies orthopnea or racing heartbeat Respiratory/Chest Respiratory/Chest: Reports cough, dyspnea and dyspnea on exertion; Denies orthopnea or sputum Gastrointestinal Gastrointestinal: Denies abdominal pain, diarrhea, nausea or vomiting Genitourinary Genitourinary ED: Denies dysuria, hematuria or urinary frequency Musculoskeletal Musculoskeletal: Denies arthralgias, back pain, myalgias or neck pain Integumentary Denies abscess, Abrasions or rash Neurologic Neurologic: Denies headache(s) or weakness Psychiatric Psychiatric: Denies anxiety, depression or suicidal thoughts Endocrine Endocrinology: Denies polydipsia, polyphagia or polyuria Hematologic/Lymphatic Hematologic/Lymphatic: Denies easy bleeding, easy bruising or lymphadenopathy Allergic/Immunologic Allergic/Immunologic ED: Denies mouth swelling, tongue swelling or urticaria EXAM Physical Exam Const Vital Signs: 12/09/23 13:44 12/09/23 14:14 12/09/23 14:00 Temperature 97.2 F L Temperature Source Temporal Pulse Rate 95 91 90 Respiratory Rate 20 H 16 21 H Respiratory Effort Respiratory Depth Respiratory Pattern Normal Blood Pressure 128/59 H 130/46 H Blood Pressure Mean 82 74 Pulse Ox 95 98 Oxygen Delivery Method Room Air Room Air 12/09/23 14:00 12/09/23 14:32 Temperature Temperature Source Pulse Rate Respiratory Rate Respiratory Effort Short of Breath Respiratory Depth Normal Respiratory Pattern Tachypnea Blood Pressure Blood Pressure Mean Pulse Ox Oxygen Delivery Method Room Air Room Air Positive well nourished and well developed General Appearance ED: well developed and NAD HEENT Reports TM's clear and moist mucous membranes normocephalic and atraumatic; Negative for trauma or tenderness Tympanic Membrane ED: Yes TM's clear Eyes PERRL and EOMs intact bilaterally General Eye ED: Negative for pale conjunctiva or scleral icterus Neck no lymphadenopathy, supple and no JVD General: Negative for tenderness Chest Wall inspection of chest normal and palpation of chest normal Chest: Negative for tenderness Resp No normal respiratory effort and No clear to auscultation bilaterally Resp Narrative: Patient with mild tachypnea. No accessory muscle use or retractions. She had diminished breath sounds bilaterally with expiratory wheezes throughout. Effort and Inspection: Negative for respiratory distress or pain with movement Auscultation: Negative for rhonchi, wheezes or diminished lung sounds Cardio regular rate, regular rhythm, S1 normal heart sound, S2 normal heart sound and no murmurs Peripheral Pulses: pulses 2+ throughout GI normal to inspection, nondistended, normoactive bowel sounds, soft to palpation, non-tender, non-distended and no masses Back/Spine no CVA tenderness and no thoracic nor lumbar tenderness Extremity normal to inspection General Extremety ED: Negative for edema General Extremity: Negative for edema Neuro oriented x3, CN's II-XII intact bilaterally, no sensory deficits noted and gait normal Sensorium / Orientation: awake, alert, oriented to person, oriented to place and oriented to time Motor Exam: strength 5/5 throughout and strength abnormal Psych mental status grossly normal Skin no rashes or lesions noted and no wounds MDM MDM MDM Narrative Medical decision making narrative: Patient presents with exertional dyspnea with activity. Diffuse wheezing. IV line established. CBC with differential showed a white count of 8.1 with hemoglobin 9.9 and platelet count 371. Chemistries was well as troponin lactate pending. She was ordered DuoNeb aerosol and Solu-Medrol 125 mg IV. Patient was a difficult IV stick and lab work was delayed. Care of patient will be turned over to evening physician awaiting reevaluation of patient and ambulation with pulse ox and final disposition. Lab Data Attestation: I reviewed the patient's lab results. Labs: Laboratory Results - last 24 hr 12/09/23 15:32 WBC 8.1 RBC 4.78 Hgb 9.9 L Hct 33.5 L MCV 70.1 L MCH 20.7 L MCHC 29.6 L RDW Std Deviation 49.7 H RDW Coeff of Mehul 19.9 H Plt Count 371 MPV 9.8 Immature Gran % (Auto) 0.100 Neut % (Auto) 44.9 L Lymph % (Auto) 32.6 [place] % (Auto) 11.2 H Eos % (Auto) 9.7 H Baso % (Auto) 1.5 H Absolute Neuts (auto) 3.6 Absolute Lymphs (auto) 2.64 Nucleated RBC % 0 Radiography Diagnostic Testing: Clinical Impression(s) from Imaging Studies Chest X-Ray 12/09/23 14:30 IMPRESSION: There are no acute findings. Electronically Signed: Torres Amos MD at 14:48 EST , 1 view chest x-ray obtained interpreted by myself as hyperinflation with no evidence of infiltrate or pneumothorax. Radiology in agreement. EKG Initial EKG: Attestation: I personally reviewed and interpreted this EKG as follows: Comments: Sinus rhythm with ventricular rate of [address] changes Discharge Plan Triage Chief Complaint: Shortness of Breath ED Provider: Manuel Valadez Dx/Rx/DC Orders Clinical Impression: COPD exacerbation Prescriptions: No Action omeprazole magnesium [Prilosec OTC] 20 mg tablet,delayed release (DR/EC) 20 mg PO DAILY nitroglycerin [Nitrostat] 0.4 mg tablet, sublingual 0.4 mg sublingual Q5-15M PRN (Reason: chest pain) Qty: 25 3RF Rx Instructions: do not exceed 3 doses per episode albuterol sulfate 2.5 MG/3 ML solution for nebulization 2.5 mg inhalation BID Spiriva with HandiHaler 1 PUFF inhaler 1 puff inhalation DAILY Mucus Relief ER 1,200 MG tablet 1,200 mg PO BID PRN PRN (Reason: Congestion) alprazolam [Xanax] 1 MG tablet 1 mg PO BID albuterol sulfate [ProAir HFA] 1 PUFF inhaler 2 puff inhalation Q4H PRN PRN (Reason: Sob &/Or Wheezing) losartan 50 mg tablet 50 mg PO DAILY fluticasone propion-salmeterol [Advair Diskus] 500-50 mcg/dose blister with device 1 inh INHALATION BID ibandronate 150 mg tablet 150 mg PO Q90D benzonatate 100 mg Capsule 200 mg PO TID PRN PRN (Reason: Cough) Qty: 40 0RF prednisone 10 mg tablet 20 mg PO BID Qty: 20 0RF Rx Instructions: two twice a day for two days, then three daily for two days, then two daily for two days, then one daily for two days, then stop azithromycin [Zithromax] 250 mg tablet 250 mg PO DAILY 7 Days Qty: 7 0RF clopidogrel 75 mg tablet 75 mg PO DAILY Qty: 90 3RF metoprolol succinate 25 mg tablet extended release 24 hr 25 mg PO DAILY Qty: 90 3RF atorvastatin [Lipitor] 40 mg tablet 40 mg PO QHS Qty: 90 3RF aspirin 81 mg tablet,chewable 81 mg PO BREAKFAST Qty: 90 3RF Primary Care Provider: Magen Cavazos Referrals: Magen Cavazos MD [Primary Care Provider] -
[2023-12-09] MEDS: Ipratropium/Albuterol Sulfate 3 ML AMPUL.NEB INHALATION ×3 (14:13→23:48)
--- NOTE | 2023-12-09 14:30 | RAD_ITS ---
STUDY: XR Chest 1 View 12/09/2023 2:23 PM REASON FOR EXAM: Female, 63 years old. dyspnea COMPARISON: 03/29/2023 TECHNIQUE: XR Chest 1 View FINDINGS: There is no demonstrated pleural abnormality. Kyphoplasty changes. Normal heart size. Normal mediastinum. Normal jenny. Prominent appearing increased interstitial lung markings. Normal visualized pulmonary arteries. There is atherosclerotic calcification of the aortic arch with tortuosity. There are diffuse degenerative changes of the visualized thoracic spine. There is degenerative osteoarthritis of the bilateral shoulders. There are no acute findings of the upper abdomen. RAD/Chest 1 View (Portable) IMPRESSION: There are no acute findings. Electronically Signed: Torres Amos MD at 14:48 EST ,
--- OUTSIDE RECORDS SUMMARY | 2023-12-09 14:47 | XMS RPT_ITS | CCD ---
Author Name Unknown Address [address] [place] [address] Organization [facility] Care Team Providers Care Customer Support Engineer Name Role Phone Celena Izquierdo Primary Care Provider CELENA IZQUIERDO Attending Unavailable ALIYAH HERNANDEZ Attending Unavailable CELENA IZQUIERDO Primary Care Unavailable CELENA IZQUIERDO Attending Unavailable CELENA IZQUIERDO Primary Care Unavailable Celena Izquierdo Primary Care Provider RUTHIE DOAN Attending Unavailable CELENA IZQUIERDO Primary Care Unavailabl e SELF Referring Unavailable SOCORRO MULLER Attending Unavailable SOCORRO MULLER Referring Unavailable CELENA IZQUIERDO Primary Care Unavailabl e Allergies Allergy Classification Reported Allergen(s) Allergy Type Date of Onset Reaction(s) Facility (16 sources) buPROPion; 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: [BUPROPION HCL] Drug Allergy 9 Shortness of Breath [facility] Work Phone: (16 sources) Lisinopril; 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: [LISINOPRIL] Drug Allergy 8 Cough [facility] Work Phone: (16 sources) Roflumilast; 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: [ROFLUMILAST] Drug Allergy 7 Mental Status Change [facility] Work Phone: (16 sources) Seasonal allergy; 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: [SEASONAL ALLERGIES] Allergy to substance 5 Shortness of Breath [facility] (2 sources) beta Sitosterol / ZINC CITRATE Drug Allergy 5 Shortness of breath [facility] (2 sources) buPROPion Drug Allergy 9 Shortness of breath [facility] (2 sources) Lisinopril Allergy to substance 8 Cough [facility] (2 sources) Roflumilast Drug Allergy 7 Anxiety [facility] (2 sources) Other Propensity to adverse reactions 5 Shortness of breath [facility] Medications Current Medications Medication Drug Class(es) Dates Sig (Normalized) Sig (Original) acetaminophen 325 mg / oxyCODONE hydrochloride 5 mg oral tablet (1 source) Opioid Agonist Start: 04-25-2023 End: 04-28-2023 take 1 tablet by mouth every six hours as needed for pain oxyCODONE-acetami nophen (Percocet) 5-325 MG tablet Indications: Acute midline low back pain without sciatica Take 1 tablet by mouth every 6 hours as needed for severe pain (7-10) for up to 3 days. 12 tablet 0 04/25/2023 04/28/2023 Active ALPRAZolam 1 mg oral tablet (17 sources) Benzodiazepine Start: 10-19-2022 take 1 tablet by mouth at bedtime ALPRAZolam (Xanax) 1 MG tablet Indications: Anxiety TAKE 1 TABLET BY MOUTH IN THE MORNING AND AT BEDTIME FOR 30 DAYS. 60 tablet 0 10/19/2022 Active Completed/Discontinued Medications Medication Drug Class(es) Dates Sig (Normalized) Sig (Original) [id number] 200 actuat albuterol 0.09 mg/actuat metered dose inhaler (20 sources) beta2-Adrenergic Agonist Start: 05-14-2023 End: 07-12-2023 take 2 puff(s) by inhalation every four hours as needed for wheezing albuterol HFA (PROVENTIL HFA, VENTOLIN HFA) 90 mcg/actuation inhaler Inhale 2 Puffs as instructed every 4 hours as needed for wheezing/shortnes s of breath. 3 Each 3 07/12/2023 Active Problems Active Problems Problem Classification Problem Date Documented Date Episodic/Chronic Anxiety disorders (20 sources) Posttraumatic stress disorder; 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: [Post-traumatic stress disorder, unspecified] Onset: 04-02-2015 04-02-2015 Chronic Chronic obstructive pulmonary disease and bronchiectasis (20 sources) Chronic obstructive lung disease; 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: [Chronic obstructive pulmonary disease, unspecified] Onset: 04-02-2015 Resolved: 09-21-2022 10-31-2021 Chronic Disorders of lipid metabolism (2 sources) Hyperlipidemia; 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: [Hyperlipidemia, unspecified] Onset: 08-14-2018 08-20-2022 Chronic Essential hypertension (5 sources) Essential hypertension; 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: [Essential (primary) hypertension] Onset: 05-30-2017 04-25-2023 Chronic Mood disorders (17 sources) Depressive disorder; 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: [Depression] Onset: 04-02-2015 04-02-2015 Chronic Osteoporosis (2 sources) Osteoporosis; 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: [Age-related osteoporosis without current pathological fracture] Onset: 02-03-2022 08-20-2022 Chronic Other lower respiratory disease (1 source) Chronic cough; 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: [Chronic cough] 07-04-2023 Episodic Other upper respiratory disease (4 sources) Allergic rhinitis; 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: [Allergic rhinitis, unspecified] Chronic Other upper respiratory disease (2 sources) Allergic rhinitis due to pollen; 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: [Allergic rhinitis due to pollen] Onset: 05-03-2016 08-20-2022 Chronic Spondylosis; intervertebral disc disorders; other back problems (3 sources) Acute low back pain; 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: [Acute midline low back pain without sciatica] Onset: 04-25-2023 04-25-2023 Episodic Substance-related disorders (20 sources) Tobacco dependence, continuous; 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: [Nicotine dependence, unspecified, with unspecified nicotine-induced disorders] Onset: 04-02-2015 04-02-2015 Chronic Unclassified (1 source) Low back pain, unspecified; 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: [Low back pain, unspecified] Onset: 04-25-2023 Unclassified (2 sources) Hospital Follow-up; 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: [Hospital Follow-up] Onset: 09-21-2022 Past or Other Problems Problem Classification Problem Date Documented Da te Episodic/Chronic Diabetes mellitus without complication (2 sources) Hyperglycemia; 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: [Hyperglycemia, unspecified] Onset: 08-14-2018 08-20-2022 Episodic Other aftercare (7 sources) Long-term current use of systemic steroid; 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: [intermediate accountant (current) use of systemic steroids] Onset: 05-14-2023 05-14-2023 Episodic Other fractures (2 sources) Compression fracture of vertebral column; 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: [Collapsed vertebra, not elsewhere classified, site unspecified, initial encounter for fracture] Onset: 02-03-2022 08-20-2022 Episodic Other fractures (2 sources) Closed fracture thoracic vertebra; 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: [Unspecified fracture of T7-T8 vertebra, initial encounter for closed fracture] Onset: 01-07-2022 09-21-2022 Episodic Pneumonia (except that caused by tuberculosis or sexually transmitted disease) (4 sources) Infective pneumonia; 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: [Pneumonia, unspecified organism] Onset: 12-29-2022 Resolved: 04-25-2023 04-25-2023 Episodic Unclassified (1 source) Low back pain, unspecified; 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: [Low back pain, unspecified] Onset: 04-25-2023 Results Test Name Value Interpretation Reference Range Facil ity Vital Signs Date Time Vital Sign Value Performing Clinician Faci lity 05-14-2023 15:22-0400 Body height 157.5 cm Socorro Muller MD Work Phone: [facility] 05-14-2023 15:22-0400 Body weight 54.34 kg Socorro Muller MD Work Phone: [facility] 05-14-2023 15:22-0400 Diastolic blood pressure 72 mm[Hg] Socorro Muller MD Work Phone: [facility] 05-14-2023 15:22-0400 Heart rate 71 /min Socorro Muller MD Work Phone: [facility] 05-14-2023 15:22-0400 Respiratory rate 14 /min Socorro Muller MD Work Phone: [facility] 05-14-2023 15:22-0400 SaO2% (BldA) [Mass fraction] 95 % Socorro Muller MD Work Phone: [facility] 05-14-2023 15:22-0400 Systolic blood pressure 104 mm[Hg] Socorro Muller MD Work Phone: [facility] 04-25-2023 11:05-0400 Body mass index (BMI) [Ratio] 21.66 kg/m2 Aliyah Hernandez RELOCATION MANAGER - GRE TUTOR Work Phone: [facility] 04-25-2023 11:05-0400 Body weight 53.71 kg Aliyah Bridenthal RELOCATION MANAGER - GRE TUTOR Work Phone: [facility] 04-25-2023 11:05-0400 Diastolic blood pressure 65 mm[Hg] Aliyah Rajenthal RELOCATION MANAGER - GRE TUTOR Work Phone: [facility] 04-25-2023 11:05-0400 Heart rate 97 /min Aliyah Bridenthal RELOCATION MANAGER - GRE TUTOR Work Phone: [facility] 04-25-2023 11:05-0400 Respiratory rate 20 /min Aliyah Bridenthal RELOCATION MANAGER - GRE TUTOR Work Phone: [facility] 04-25-2023 11:05-0400 SaO2% (BldA) [Mass fraction] 92 % Aliyah Rajenthal RELOCATION MANAGER - GRE TUTOR Work Phone: [facility] 04-25-2023 11:05-0400 Systolic blood pressure 115 mm[Hg] Aliyah Rajenthal RELOCATION MANAGER - GRE TUTOR Work Phone: [facility] Encounters Encounter Date Encounter Type Care Provider Facility Start: 08-14-2023 Refill Ruthie GarrettC Work Phone: Pulmonary Medicine Procedures Date Procedure Procedure Detail Performing Clinician Start: 02-03-2022 Lipid 1996 panel - Serum or Plasma Aliyah Edithal RELOCATION MANAGER - GRE TUTOR Work Phone: Start: 07-17-2021 Mammography Ruthie KNAPPC Work Phone: Start: 05-23-2021 Mammography Aliyah Rajenthal RELOCATION MANAGER - GRE TUTOR Work Phone: Start: 07-01-2018 H/O: hysterectomy History of hysterectomy Aliyah Rajenth al RELOCATION MANAGER - GRE TUTOR Work Phone: Plan of Treatment Date Care Activity Detail Author Start: 05-30-2027 DTaP/Tdap/Td Vaccines (2 - Td or Tdap) DTaP/Tdap/Td Vaccines (2 - Td or Tdap) [facility] Start: 05-30-2027 Urine microalbumin profile [facility] Start: 02-03-2027 Lipid panel Lipid Panel [facility] Start: 07-06-2023 Influenza vaccination [facility] Start: 02-03-2023 Diabetes mellitus screening Diabetes Screening [facility] Start: 07-17-2022 Mammography [facility] Start: 07-06-2022 Influenza vaccination [facility] Start: 05-23-2022 Screening for malignant neoplasm of breast Mammogram [facility] Start: 03-31-2022 Zoster Vaccines (2 of 2) Zoster Vaccines (2 of 2) [facility] Start: 07-06-2021 Influenza vaccination INFLUENZA (#1) [facility] Start: 02-18-2020 PNEUMOCOCCAL (2 - PCV) PNEUMOCOCCAL (2 - PCV) [facility] Start: 02-18-2020 Pneumococcal vaccination Pneumococcal Vaccine (2 - PCV) [facility] Start: 02-18-2020 Pneumococcal Vaccine: Pediatrics (0 to 5 Years) and At-Risk Patients (6 to 64 Years) (2 - PCV) Pneumococcal Vaccine: Pediatrics (0 to 5 Years) and At-Risk Patients (6 to 64 Years) (2 - PCV) [facility] Start: 2011 SHINGRIX VACCINE (1 of 2) SHINGRIX VACCINE (1 of 2) [facility] Start: 2006 COLOGUARD (FIT-DNA) COLOGUARD (FIT-DNA) [facility] Start: 2006 Colonoscopy COLONOSCOPY [facility] Start: 2006 COLORECTAL CANCER SCREENING COLORECTAL CANCER SCREENING [facility] Start: [address] COLONOGRAPHY [facility] Start: 2006 DIABETES SCREEN DIABETES SCREEN [facility] Start: 2006 Diabetes Screening Diabetes Screening [facility] Start: 2006 FECAL OCCULT BLOOD FECAL OCCULT BLOOD [facility] Start: 2006 Lipid 1996 panel - Serum or Plasma Lipid Screening [facility] Start: 2006 LIPID SCREEN LIPID SCREEN [facility] Start: 2006 SIGMOIDOSCOPY SIGMOIDOSCOPY [facility] Start: 1991 HPV TESTING HPV TESTING [facility] Start: 1982 PAP TESTING PAP TESTING [facility] Start: 01-04-1980 Hepatitis A Vaccines (1 of 2 - Risk 2-dose series) Hepatitis A Vaccines (1 of 2 - Risk 2-dose series) [facility] Start: 1979 ANNUAL PCP TEAM CHRONIC DISEASE VISIT ANNUAL PCP TEAM CHRONIC DISEASE VISIT [facility] Start: 1979 HEPATITIS C SCREENING HEPATITIS C SCREENING [facility] Start: 1979 Hepatitis C screening Hepatitis C Screening [facility] Start: 1979 HIV SCREENING HIV SCREENING [facility] Start: 1973 Depresssion Monitoring Depresssion Monitoring [facility] Start: 1966 COVID-19 VACCINE (#1) COVID-19 VACCINE (#1) [facility] Start: 1966 COVID-19 VACCINE (1) COVID-19 VACCINE (1) [facility] Start: 1962 MMR Vaccines (1 of 1 - Standard series) MMR Vaccines (1 of 1 - Standard series) [facility] Start: 1961 COVID-19 VACCINE (#1) COVID-19 VACCINE (#1) [facility] Start: 1961 HIV screening HIV Screening [facility] Start: 1961 Screening for malignant neoplasm of colon [facility] Start: 1961 Screening for osteoporosis Bone Density Scan [facility] OXIMETRY - NOCTURNAL OXIMETRY - NOCTURNAL Procedures Routine Stage 4 very severe COPD by GOLD classification (HCC) Ordered: 07/04/2023 [facility] Work Phone: Immunizations Immunization Date Immunization Notes Care Provider Kyle buchanan 02-03-2022 zoster vaccine recombinant Aliyah Hernandez RELOCATION MANAGER - GRE TUTOR Work Phone: [facility] 02-17-2019 pneumococcal polysaccharide vaccine, 23 valent Ruthie Doan PA-C Work Phone: [facility] Work Phone: 05-30-2017 tetanus toxoid, redu jovany diphtheria toxoid, and acellular pertussis vaccine, adsorbed Ruthie Doan PA-C Work Phone: [facility] Work Phone: 03-10-2014 pneumococcal polysaccharide vaccine, 23 valent Ruthie Doan PA-C Work Phone: [facility] Work Phone: 03-07-2014 pneumococcal polysaccharide vaccine, 23 valent Aliyah Hernandez RELOCATION MANAGER - GRE TUTOR Work Phone: [facility] 08-05-2013 influenza virus vacc ine, unspecified formulation Aliyah Hernandez RELOCATION MANAGER - GRE TUTOR Work Phone: [facility] Payers Date Payer Category Payer Medicare MEDICARE MEDICAR E A AND B [id number] 2016-Present [phone] [address] [address] [place] [address] Medicare [id number] 2016 Medicare [id number] 2016 Medicare [id number] 2015 Unknown [employer] BLUE CARD PPO OOS [id number] 2015-Present [phone] [address] [address] PPO [id number] 2015 Unknown [id number] 2015 Unknown [id number] Social History Date Type Detail Facility Start: 1977 End: 05-14-2023 Tobacco smoking status WIIS Smokes tobacco daily [facility] Start: 1977 History of tobacco use Cigarette Smo ker [facility] Start: 05-02-2018 End: 07-04-2023 Cigarettes smoked current (pack per day) - Reported 0.5 [facility] Start: 05-02-2018 End: 05-14-2023 Tobacco use and exposure Smokeless tobacco non-user [facility] Start: 08-11-2021 End: 04-25-2023 Alcohol intake Current drinker of alcohol (finding) [facility] Start: 08-11-2021 History SDOH Alcohol Comment couple times a week [facility] Start: 08-11-2021 Tobacco Comment every 3-4 days [facility] Start: 1960 Sex Assigned At Not on file C [facility] Start: 09-25-1989 Tobacco smoking stat us NHIS Occasional tobacco smoker [facility] Start: 04-25-2023 End: 07-04-2023 Tobacco use panel [facility] How hard is it for y ou to pay for the very basics like food, housing, medical care, and heating Not hard at all [facility] (I/We) worried wheth er (my/our) food would run out before (I/we) got money to buy more. Never true [facility] Start: 09-08-2022 Alcohol Comment occasional [facility] Start: 04-15-2023 End: 04-25-2023 Exposure to SARS-CoV-2 (event) Not sure [facility] Start: 05-14-2023 End: 07-04-2023 Alcohol intake Ex-drinker (finding) [facility] Start: 05-14-2023 Tobacco Comment About 5 cigare ttes per dayLess one pack per day [facility] Clinical Notes 02-23-2022 to 08-14-2023 Telephone Encounter - Tammy Landry - 08/14/2023 3:26 PM EDTTelephone Encounter - Carmela Sheehan LPN - 07/12/2023 3:44 PM EDTTelephone Encounter - Ruthie Munson - 07/12/2023 3:29 PM EDT Note Date & Type Note Facility 08-14-2023 Miscellaneous Notes Formattin g of this note might be different from the original. Pt calling to report that she is unable to keep appt tomorrow due to transportation. Not able to reschedule until she can talk to her equipment driver. She has been taking the Prednisone 5mg daily. She has been unable to wean off any lower than that. [facility]ing [facility]. Please review and advise. Tammy Landry MA documented in this encounter [facility] 07-12-2023 Miscellaneous Notes Formattin g of this note is different from the original. RENARD 07/04/23 Patient phones requesting refills as follows: Requested Prescriptions Pending Prescriptions Disp Refills albuterol HFA (PROVENTIL HFA, VENTOLIN HFA) 90 mcg/actuation inhaler 3 Each 3 Sig: Inhale 2 Puffs as instructed every 4 hours as needed for wheezing/shortness of breath. Please review and advise. Carmela Sheehan LPN [facility]. Patient has been identified by name and date of : Yes Last office visit in this department: 07/04/2023 RX INSTRUCTIONS: Patient aware RX will be sent to pharmacy. No need to notify patient. Patient phones requesting refills as follows: Requested Prescriptions Pending Prescriptions Disp Refills albuterol HFA (PROVENTIL HFA, VENTOLIN HFA) 90 mcg/actuation inhaler 3 Each 3 Sig: Inhale 2 Puffs as instructed every 4 hours as needed for wheezing/shortness of breath. Please review and advise. Ruthie Munson documented in this encounter [facility] 07-04-2023 Note HNO ID: [id number] Author: Ruthie Doan PA-C Service: ? Author Type: Physician Talent Assistant Type: Progress Notes Filed: 07/04/2023 2:41 PM Note Text: Patient: Katlin Pond PCP: Celena Izquierdo MD CC: follow up HPI: Katlin Pond 63 year old female smoker with PMH significant for very severe COPD (FEV1 29%), HTN, and PTSD. Complications related to her chronic steroid use consist of osteoporosis with compression fractures requiring kyphoplasty. She was hospitalized at [facility] in December with bronchitis and had a AK, requiring a stent. Current therapy consists of Advair, Spiriva, Azithromycin 250 mg daily, and chronic low dose prednisone. Patient states she has been without her Azithromcyin for about a month. She has tried to decrease prednisone, but reports increased shortness of breath and states I need it . Increased cough over the past couple of weeks, however, she states it is improving. Productive of clear phlegm. No hemoptysis. No wheezing. Exertional dyspnea with minimal effort. No lower extremity edema. Currently smoking a couple cigarettes most days. Using smoking to control her anxiety. PAST MEDICAL HISTORY Diagnosis Date Chronic airway obstruction, not elsewhere classified 04/02/15 FEV1: 1.34 L, 54%. Collar bone fracture 2016 Depression Heart attack (HCC) 12/2022 s/p stent HTN (hypertension) Humerus fracture 09/2017 Multiple allergies Previously tested by Arnie Parsons M.D., [facility] Osteoporosis PTSD (post-traumatic stress disorder) S/P right hip fracture 01/23/2018 Tobacco use disorder, continuous Stress, anxiety primary triggers. Allergies: Lisinopril Cough Comment:Cough Seasonal Allergies Shortness of Breath Wellbutrin [Bupropi* Shortness of Breath Roflumilast Mental Status Change azithromycin (ZITHROMAX) 250 mg tablet TAKE 1 TABLET BY MOUTH EVERY DAY montelukast (SINGULAIR) 10 mg tablet TAKE 1 TABLET BY MOUTH EVERYDAY AT BEDTIME nitroglycerin sublingual (NITROQUICK) 0.4 mg SL tablet 0.4 MG SUBLINGUALLY EVERY 5 TO 15 MINUTES NEEDED FOR CHEST PAIN DO NOT EXCEED 3 DOSES PER EPISODE CALCIUM ORAL Take by mouth. cholecalciferol, vitamin D3, (VITAMIN D3 ORAL) Take by mouth. aspirin 81 mg chewable tablet CHEW 1 TABLET BY MOUTH ONCE DAILY WITH BREAKFAST Omeprazole 20 mg TbEC Take by mouth. ibandronate sodium (IBANDRONATE ORAL) Take 150 mg by mouth once every month. benzonatate (TESSALON PERLE) 100 mg capsule Take 200 mg by mouth three times daily. atorvastatin (LIPITOR) 40 mg tablet Take 40 mg by mouth daily at bedtime. metoprolol succinate ER (TOPROL XL) 25 mg 24 hr tablet Take 25 mg by mouth once daily. Nebulizer Accessories kit Face mask for nebulizer Dasco albuterol (PROVENTIL) 2.5 mg /3 mL (0.083 %) nebulizer solution Use 3 mL via nebulizer every 4 hours as needed for wheezing/shortness of breath. OVER 5-15 MINUTES. FOR WHEEZING AND SHORTNESS OF BREATH. tiotropium bromide (SPIRIVA RESPIMAT) 2.5 mcg/actuation inhaler Inhale 2 Puffs as instructed once daily. predniSONE (DELTASONE) 5 mg tablet Take 1 tablet by mouth once daily. albuterol HFA (PROVENTIL HFA, VENTOLIN HFA) 90 mcg/actuation inhaler Inhale 2 Puffs as instructed every 4 hours as needed for wheezing/shortness of breath. albuterol HFA (PROVENTIL HFA, VENTOLIN HFA) 90 mcg/actuation inhaler INHALE 2 PUFFS BY MOUTH EVERY 4 HOURS NEEDED fluticasone-salmeterol (ADVAIR DISKUS) 500-50 mcg/dose dsdv Inhale 1 Puff as instructed twice daily. tiotropium (SPIRIVA WITH HANDIHALER) 18 mcg inhalation capsule INHALE 1 PUFF BY MOUTH EVERY DAY predniSONE (DELTASONE) 10 mg tablet TAKE 4 TABS DAILY FOR 3 DAYS, 30 MG DAILY FOR 3 DAYS, 20 MG DAILY FOR 3 DAYS, THEN CONTINUE 10 MG DAILY. cyanocobalamin (VITAMIN B-12) 1,000 mcg tab Take 1,000 mcg by mouth once daily. (Patient not taking: Reported on 05/14/2023) MULTI-VITAMIN ORAL Take by mouth. (Patient not taking: Reported on 05/14/2023) losartan (COZAAR) 50 mg tablet Take 50 mg by mouth once daily. ALPRAZOLAM (XANAX ORAL) Take by mouth. Social History Tobacco Use Smoking status: Every Day Packs/day: 0.25 Years: 30.00 Additional pack years: 0.00 Total pack years: 7.50 Types: Cigarettes Start date: 1976 Smokeless tobacco: Never Tobacco comments: About 5 cigarettes per day Less one pack per day Vaping Use Vaping Use: Never used Substance Use Topics Alcohol use: Not Currently Drug use: No Family History Problem Relation Age of Onset Hypertension Mother Arthritis Mother Blood Disease Mother Cancer Mother uterine other (dementia) Mother Hypertension Father Diabetes Father COPD Father Eczema Son Asthma Son PAST SURGICAL HISTORY Procedure Laterality Date BREAST LUMPECTOMY HX Benign EXT HYSTERECTOMY,W/PARTIAL VAGINECTO Benign KYPHOPLASTY 1 VERT LUMBAR 2020 lumbo-thoracic PT [facility] 12/2022 Stent placement after heart attack (more content not included)... [facility] 07-04-2023 History of Presen t illness Narrative Images from the original note were not included. Patient: Katlin Pond PCP: Celena Izquierdo MD CC: follow up HPI: Katlin Pond 63 year old female smoker with PMH significant for very severe COPD (FEV1 29%), HTN, and PTSD. Complications related to her chronic steroid use consist of osteoporosis with compression fractures requiring kyphoplasty. She was hospitalized at [facility] in December with bronchitis and had a AK, requiring a stent. Current therapy consists of Advair, Spiriva, Azithromycin 250 mg daily, and chronic low dose prednisone. Patient states she has been without her Azithromcyin for about a month. She has tried to decrease prednisone, but reports increased shortness of breath and states I need it . Increased cough over the past couple of weeks, however, she states it is improving. Productive of clear phlegm. No hemoptysis. No wheezing. Exertional dyspnea with minimal effort. No lower extremity edema. Currently smoking a couple cigarettes most days. Using smoking to control her anxiety. PAST MEDICAL HISTORY Diagnosis Date Chronic airway obstruction, not elsewhere classified 04/02/15 FEV1: 1.34 L, 54%. Collar bone fracture 2016 Depression Heart attack (HCC) 12/2022 s/p stent HTN (hypertension) Humerus fracture 09/2017 Multiple allergies Previously tested by Arnie Parsons M.D., Suzanne Osteoporosis PTSD (post-traumatic stress disorder) S/P right hip fracture 01/23/2018 Tobacco use disorder, continuous Stress, anxiety primary triggers. Allergies: Lisinopril Cough Comment:Cough Seasonal Allergies Shortness of Breath Wellbutrin [Bupropi* Shortness of Breath Roflumilast Mental Status Change azithromycin (ZITHROMAX) 250 mg tablet TAKE 1 TABLET BY MOUTH EVERY DAY montelukast (SINGULAIR) 10 mg tablet TAKE 1 TABLET BY MOUTH EVERYDAY AT BEDTIME nitroglycerin sublingual (NITROQUICK) 0.4 mg SL tablet 0.4 MG SUBLINGUALLY EVERY 5 TO 15 MINUTES NEEDED FOR CHEST PAIN DO NOT EXCEED 3 DOSES PER EPISODE CALCIUM ORAL Take by mouth. cholecalciferol, vitamin D3, (VITAMIN D3 ORAL) Take by mouth. aspirin 81 mg chewable tablet CHEW 1 TABLET BY MOUTH ONCE DAILY WITH BREAKFAST Omeprazole 20 mg TbEC Take by mouth. ibandronate sodium (IBANDRONATE ORAL) Take 150 mg by mouth once every month. benzonatate (TESSALON PERLE) 100 mg capsule Take 200 mg by mouth three times daily. atorvastatin (LIPITOR) 40 mg tablet Take 40 mg by mouth daily at bedtime. metoprolol succinate ER (TOPROL XL) 25 mg 24 hr tablet Take 25 mg by mouth once daily. Nebulizer Accessories kit Face mask for nebulizer Dasco albuterol (PROVENTIL) 2.5 mg /3 mL (0.083 %) nebulizer solution Use 3 mL via nebulizer every 4 hours as needed for wheezing/shortness of breath. OVER 5-15 MINUTES. FOR WHEEZING AND SHORTNESS OF BREATH. tiotropium bromide (SPIRIVA RESPIMAT) 2.5 mcg/actuation inhaler Inhale 2 Puffs as instructed once daily. predniSONE (DELTASONE) 5 mg tablet Take 1 tablet by mouth once daily. albuterol HFA (PROVENTIL HFA, VENTOLIN HFA) 90 mcg/actuation inhaler Inhale 2 Puffs as instructed every 4 hours as needed for wheezing/shortness of breath. albuterol HFA (PROVENTIL HFA, VENTOLIN HFA) 90 mcg/actuation inhaler INHALE 2 PUFFS BY MOUTH EVERY 4 HOURS NEEDED fluticasone-salmeterol (ADVAIR DISKUS) 500-50 mcg/dose dsdv Inhale 1 Puff as instructed twice daily. tiotropium (SPIRIVA WITH HANDIHALER) 18 mcg inhalation capsule INHALE 1 PUFF BY MOUTH EVERY DAY predniSONE (DELTASONE) 10 mg tablet TAKE 4 TABS DAILY FOR 3 DAYS, 30 MG DAILY FOR 3 DAYS, 20 MG DAILY FOR 3 DAYS, THEN CONTINUE 10 MG DAILY. cyanocobalamin (VITAMIN B-12) 1,000 mcg tab Take 1,000 mcg by mouth once daily. (Patient not taking: Reported on 05/14/2023) MULTI-VITAMIN ORAL Take by mouth. (Patient not taking: Reported on 05/14/2023) losartan (COZAAR) 50 mg tablet Take 50 mg by mouth once daily. ALPRAZOLAM (XANAX ORAL) Take by mouth. Social History Tobacco Use Smoking status: Every Day Packs/day: 0.25 Years: 30.00 Additional pack years: 0.00 Total pack years: 7.50 Types: Cigarettes Start date: 1977 Smokeless tobacco: Never Tobacco comments: About 5 cigarettes per day Less one pack per day Vaping Use Vaping Use: Never used Substance Use Topics Alcohol use: Not Currently Drug use: No Family History Problem Relation Age of Onset Hypertension Mother Arthritis Mother Blood Disease Mother Cancer Mother uterine other (dementia) Mother Hypertension Father Diabetes Father COPD Father Eczema Son Asthma Son PAST SURGICAL HISTORY Procedure Laterality Date BREAST LUMPECTOMY HX Benign EXT HYSTERECTOMY,W/PARTIAL VAGINECTO Benign KYPHOPLASTY 1 VERT LUMBAR 2020 lumbo-thoracic PT ED HEART AND VASCULAR 12/2022 Stent placement after heart attack TOTAL HIP REPLACEMENT Right 01/24/2018 Dr. Izquierdo I reviewed the past medical history, family history, social history and surgical history with changes noted above and updated in EMR. IMMUNIZATIONS Prevnar - xx Pneumovax - 02/17/2019, 03/10/2014 Influenza - xx COVID-19 - xx ROS: CONSTITUTIONAL: No fevers, chills, nightsweats, unintended weight loss HEENT: Denies nasal congestion/sinus symptoms, problematic allergy problems. CARDIOVASCULAR: No chest pain, palpitations, orthopnea, PND, edema. PULM: See HPI GI: No dysphagia/odynophagia, problematic reflux. NEURO: No new balance problems, peripheral weakness/paresthesias or numbness of concern. MUSC-SKEL: Weakness, chronic back pain PSY: Anxiety INTEGUMENTARY: Ecchymoses PHYSICAL EXAMINATION: BP (P) 122/78 Pulse (P) 83 Resp (P) 15 Wt (P) 54 kg (119 lb) SpO2 (P) 97% BMI (P) 21.77 kg/m Gen: No acute distress. Cooperative with examination. HEENT: Normocephalic. Sclera, conjunctiva clear. Oral hygeine and dentition good. No thrush. Resp: No stridor, accessory respiratory muscle use, supra-sternal or intercostal retractions. No wheezes, crackles. Diminished breath sounds. CV: Regular rythm. Heart tones normal. Radial pulses normal. Abd: Non distended. Ext: Warm and well perfused. No clubbing, cyanosis, edema. Skin: No rash. Ecchymoses bilateral arms. Neuro: Mental status normal. Affect normal. No tremor. DATA: PFT 2018: Review of PFTs shows very severe obstruction Labs: Component Ref Range & Units 8 yr ago Alpha 1 Antitrypsin 100 - 220 mg/dL 161 ASSESSMENT/PLAN: 1. Stage 4 very severe COPD by GOLD classification (HCC) - ICD9: 496, ICD10: J44.9 (primary diagnosis) Patient is willing to try triple therapy Trelegy once she completes her current supply of Advair and Spiriva. Albuterol HFA inhaler, 2 inhalations 10-15 minutes prior to activities associated with shortness of breath, and as needed for rescue relief of shortness of breath or wheezing, up to 4 times daily. Smoking cessation is critical. Discussed pulmonary rehab and patient declined. - TRELEGY ELLIPTA 100 MCG-62.5 MCG-25 MCG POWDER FOR INHALATION - OXIMETRY - NOCTURNAL - PREDNISONE 5 MG TABLET 2. Chronic cough - ICD9: 786.2, ICD10: R05.3 Tessalon lu as directed. - BENZONATATE 100 MG CAPSULE 3. Cigarette smoker - ICD9: 305.1, ICD10: F17.210 Cessation encouraged. Physiologic and physical aspects of tobacco addiction as well as strategies for quitting were discussed. Counseling was given focusing on the harmful effects of this addiction especially given the patient's medical condition(s) which will be worsened because of the chemicals in tobacco. Declines referral to lung cancer screening for LDCT. 4. Current chronic use of systemic steroids - ICD9: V58.65, ICD10: Z79.52 Patient needs to wean off of steroids. Provided Prednisone 5 mg to take every other day. Portions of this documentation were copied and pasted from previous office visit notes in order to provide a cohesive continuity of the history. The note has been reviewed and edited and updated as necessary. Ruthie Doan PA-C documented in this encounter [facility] 06-07-2023 Miscellaneous Notes Formattin g of this note is different from the original. Patient phones requesting refills as follows: RENARD: 05/14/23 Requested Prescriptions Pending Prescriptions Disp Refills montelukast (SINGULAIR) 10 mg tablet [Pharmacy Med Name: MONTELUKAST SOD 10 MG TABLET] 90 tablet 1 Sig: TAKE 1 TABLET BY MOUTH EVERYDAY AT BEDTIME Please review and advise. Carmela Sheehan LPN documented in this encounter [facility] 05-14-2023 Note HNO ID: [id number] Author: Socorro Muller MD Service: ? Author Type: Physician Type: Progress Notes Filed: 05/14/2023 5:04 PM Note Text: . [facility] [place] Note Patient name: Katlin Pond PCP: Celena Izquierdo MD CC: Follow-up COPD HPI: Katlin Pond 63 year old female smoker with PMH significant for very severe COPD (FEV1 29%), HTN, PTSD, former patient of Dr. Aaron, new to me. Has not been seen in pulmonary clinic since 2020. Current therapy consists of Advair, Spiriva, azithromycin 250 mg daily, and chronic low dose prednisone. She has complications from her chronic steroid use including osteoporosis with compression fractures requiring kyphoplasty. She was hospitalized at [facility] in December with bronchitis and AK, requiring a stent. From a respiratory standpoint she is very limited in her ADLs due to SOB. She denies chronic cough and sputum production. No current wheezing. She does not think her Spiriva capsules are all fully loaded with medication. She was previously on Trelegy Elllipta but was having issues with hypertension, but this was at the time she was just diagnosed with hypertension. Unfortunately she continues to smoke and has not true desire to quit, citing anxiety as an excuse to continue smoking. She was supposed to have updated PFTs but machine in not operable. Questioning need for oxygen. Ismay better on oxygen when she was in the hospital but did not appear to qualify for home oxygen at discharge. DATA: PFT 2018: Review of PFTs shows very severe obstruction Labs: Component Ref Range AND Units 8 yr ago Alpha 1 Antitrypsin 100 - 220 mg/dL 161 Imaging / Diagnostic Studies: CXR 03/2023 at [facility] reviewed which shows hyperinflation and changes consistent with COPD PAST MEDICAL HISTORY Diagnosis Date Chronic airway obstruction, not elsewhere classified 04/02/15 FEV1: 1.34 L, 54%. Collar bone fracture 2017 Depression Heart attack (HCC) 12/2022 s/p stent HTN (hypertension) Humerus fracture 09/2017 Multiple allergies Previously tested by Arnie Parsons M.D., Suzanne Osteoporosis PTSD (post-traumatic stress disorder) S/P right hip fracture 01/23/2018 Tobacco use disorder, continuous Stress, anxiety primary triggers. ALLERGIES Allergen Reactions Lisinopril Cough Cough Seasonal Allergies Shortness of Breath Wellbutrin [Bupropi* Shortness of Breath Roflumilast Mental Status Change nitroglycerin sublingual (NITROQUICK) 0.4 mg SL tablet 0.4 MG SUBLINGUALLY EVERY 5 TO 15 MINUTES NEEDED FOR CHEST PAIN DO NOT EXCEED 3 DOSES PER EPISODE CALCIUM ORAL Take by mouth. cholecalciferol, vitamin D3, (VITAMIN D3 ORAL) Take by mouth. aspirin 81 mg chewable tablet CHEW 1 TABLET BY MOUTH ONCE DAILY WITH BREAKFAST Omeprazole 20 mg TbEC Take by mouth. ibandronate sodium (IBANDRONATE ORAL) Take 150 mg by mouth once every month. benzonatate (TESSALON PERLE) 100 mg capsule Take 200 mg by mouth three times daily. atorvastatin (LIPITOR) 40 mg tablet Take 40 mg by mouth daily at bedtime. albuterol HFA (PROVENTIL HFA, VENTOLIN HFA) 90 mcg/actuation inhaler INHALE 2 PUFFS BY MOUTH EVERY 4 HOURS NEEDED montelukast (SINGULAIR) 10 mg tablet Take 1 tablet by mouth daily at bedtime. fluticasone-salmeterol (ADVAIR DISKUS) 500-50 mcg/dose dsdv Inhale 1 Puff as instructed twice daily. tiotropium (SPIRIVA WITH HANDIHALER) 18 mcg inhalation capsule INHALE 1 PUFF BY MOUTH EVERY DAY azithromycin (ZITHROMAX) 250 mg tablet Take 1 tablet by mouth once daily. predniSONE (DELTASONE) 10 mg tablet TAKE 4 TABS DAILY FOR 3 DAYS, 30 MG DAILY FOR 3 DAYS, 20 MG DAILY FOR 3 DAYS, THEN CONTINUE 10 MG DAILY. losartan (COZAAR) 50 mg tablet Take 50 mg by mouth once daily. ALPRAZOLAM (XANAX ORAL) Take by mouth. metoprolol succinate ER (TOPROL XL) 25 mg 24 hr tablet Take 25 mg by mouth once daily. Nebulizer Accessories kit Face mask for nebulizer Dasco albuterol (PROVENTIL) 2.5 mg /3 mL (0.083 %) nebulizer solution Use 3 mL via nebulizer every 4 hours as needed for wheezing/shortness of breath. OVER 5-15 MINUTES. FOR WHEEZING AND SHORTNESS OF BREATH. tiotropium bromide (SPIRIVA RESPIMAT) 2.5 mcg/actuation inhaler Inhale 2 Puffs as instructed once daily. predniSONE (DELTASONE) 5 mg tablet Take 1 tablet by mouth once daily. albuterol HFA (PROVENTIL HFA, VENTOLIN HFA) 90 mcg/actuation inhaler Inhale 2 Puffs as instructed every 4 hours as needed for wheezing/shortness of breath. cyanocobalamin (VITAMIN B-12) 1,000 mcg tab Take 1,000 mcg by mouth once daily. (Patient not taking: Reported on 05/14/2023) MULTI-VITAMIN ORAL Take by mouth. (Patient not taking: Reported on 05/14/2023) Social History Tobacco Use Smoking status: Every Day Packs/day: 0.25 Years: 30.00 Total pack years: 7.50 Types: Cigarettes Start date: 1977 Smokeless tobacco: Never Tobacco comments: About 5 cigarettes per day Less one pack (more content not included)... [facility] 05-14-2023 Instructions Socorro Muller MD - 05/14/2023 3:58 PM EDT Prednisone Taper: 7.5 mg daily (1 and 1/2 tablets) for two weeks then 7.5 mg one day then 5 mg the next day alternating for two weeks then 5 mg daily for two weeks then 5 mg one day and 2.5 (one half tablet) mg the next alternating for two weeks Then 2.5 mg every other day for two weeks then stop documented in this encounter [facility] 05-14-2023 Nurse Note Patient presents with: COPD Pt states she has not been able to use her albuterol nebulizer d/t dry irritation that increases the patient's cough. Pt believes using the mask would be better for her. Pt has continued to use her inhaler without issue. documented in this encounter [facility] 05-14-2023 History of Presen t illness Narrative Images from the original note were not included. . [facility] [place] Note Patient name: Katlin Pond PCP: Celena Izquierdo MD CC: Follow-up COPD HPI: Katlin Pond 63 year old female smoker with PMH significant for very severe COPD (FEV1 29%), HTN, PTSD, former patient of Dr. Aaron, new to me. Has not been seen in pulmonary clinic since 2020. Current therapy consists of Advair, Spiriva, azithromycin 250 mg daily, and chronic low dose prednisone. She has complications from her chronic steroid use including osteoporosis with compression fractures requiring kyphoplasty. She was hospitalized at [facility] in December with bronchitis and AK, requiring a stent. From a respiratory standpoint she is very limited in her ADLs due to SOB. She denies chronic cough and sputum production. No current wheezing. She does not think her Spiriva capsules are all fully loaded with medication. She was previously on Trelegy Elllipta but was having issues with hypertension, but this was at the time she was just diagnosed with hypertension. Unfortunately she continues to smoke and has not true desire to quit, citing anxiety as an excuse to continue smoking. She was supposed to have updated PFTs but machine in not operable. Questioning need for oxygen. Ismay better on oxygen when she was in the hospital but did not appear to qualify for home oxygen at discharge. DATA: PFT 2018: Review of PFTs shows very severe obstruction Labs: Component Ref Range & Units 8 yr ago Alpha 1 Antitrypsin 100 - 220 mg/dL 161 Imaging / Diagnostic Studies: CXR 03/2023 at [facility] reviewed which shows hyperinflation and changes consistent with COPD PAST MEDICAL HISTORY Diagnosis Date Chronic airway obstruction, not elsewhere classified 04/02/15 FEV1: 1.34 L, 54%. Collar bone fracture 2016 Depression Heart attack (HCC) 12/2022 s/p stent HTN (hypertension) Humerus fracture 09/2017 Multiple allergies Previously tested by Arnie Parsons M.D., Suzanne Osteoporosis PTSD (post-traumatic stress disorder) S/P right hip fracture 01/23/2018 Tobacco use disorder, continuous Stress, anxiety primary triggers. ALLERGIES Allergen Reactions Lisinopril Cough Cough Seasonal Allergies Shortness of Breath Wellbutrin [Bupropi* Shortness of Breath Roflumilast Mental Status Change nitroglycerin sublingual (NITROQUICK) 0.4 mg SL tablet 0.4 MG SUBLINGUALLY EVERY 5 TO 15 MINUTES NEEDED FOR CHEST PAIN DO NOT EXCEED 3 DOSES PER EPISODE CALCIUM ORAL Take by mouth. cholecalciferol, vitamin D3, (VITAMIN D3 ORAL) Take by mouth. aspirin 81 mg chewable tablet CHEW 1 TABLET BY MOUTH ONCE DAILY WITH BREAKFAST Omeprazole 20 mg TbEC Take by mouth. ibandronate sodium (IBANDRONATE ORAL) Take 150 mg by mouth once every month. benzonatate (TESSALON PERLE) 100 mg capsule Take 200 mg by mouth three times daily. atorvastatin (LIPITOR) 40 mg tablet Take 40 mg by mouth daily at bedtime. albuterol HFA (PROVENTIL HFA, VENTOLIN HFA) 90 mcg/actuation inhaler INHALE 2 PUFFS BY MOUTH EVERY 4 HOURS NEEDED montelukast (SINGULAIR) 10 mg tablet Take 1 tablet by mouth daily at bedtime. fluticasone-salmeterol (ADVAIR DISKUS) 500-50 mcg/dose dsdv Inhale 1 Puff as instructed twice daily. tiotropium (SPIRIVA WITH HANDIHALER) 18 mcg inhalation capsule INHALE 1 PUFF BY MOUTH EVERY DAY azithromycin (ZITHROMAX) 250 mg tablet Take 1 tablet by mouth once daily. predniSONE (DELTASONE) 10 mg tablet TAKE 4 TABS DAILY FOR 3 DAYS, 30 MG DAILY FOR 3 DAYS, 20 MG DAILY FOR 3 DAYS, THEN CONTINUE 10 MG DAILY. losartan (COZAAR) 50 mg tablet Take 50 mg by mouth once daily. ALPRAZOLAM (XANAX ORAL) Take by mouth. metoprolol succinate ER (TOPROL XL) 25 mg 24 hr tablet Take 25 mg by mouth once daily. Nebulizer Accessories kit Face mask for nebulizer Dasco albuterol (PROVENTIL) 2.5 mg /3 mL (0.083 %) nebulizer solution Use 3 mL via nebulizer every 4 hours as needed for wheezing/shortness of breath. OVER 5-15 MINUTES. FOR WHEEZING AND SHORTNESS OF BREATH. tiotropium bromide (SPIRIVA RESPIMAT) 2.5 mcg/actuation inhaler Inhale 2 Puffs as instructed once daily. predniSONE (DELTASONE) 5 mg tablet Take 1 tablet by mouth once daily. albuterol HFA (PROVENTIL HFA, VENTOLIN HFA) 90 mcg/actuation inhaler Inhale 2 Puffs as instructed every 4 hours as needed for wheezing/shortness of breath. cyanocobalamin (VITAMIN B-12) 1,000 mcg tab Take 1,000 mcg by mouth once daily. (Patient not taking: Reported on 05/14/2023) MULTI-VITAMIN ORAL Take by mouth. (Patient not taking: Reported on 05/14/2023) Social History Tobacco Use Smoking status: Every Day Packs/day: 0.25 Years: 30.00 Total pack years: 7.50 Types: Cigarettes Start date: 1977 Smokeless tobacco: Never Tobacco comments: About 5 cigarettes per day Less one pack per day Vaping Use Vaping Use: Never used Substance Use Topics Alcohol use: Not Currently Drug use: No FAMILY HISTORY Problem Relation Age of Onset Hypertension Mother Arthritis Mother Blood Disease Mother Cancer Mother uterine other (dementia) Mother Hypertension Father Diabetes Father COPD Father Eczema Son Asthma Son PAST SURGICAL HISTORY Procedure Laterality Date BREAST LUMPECTOMY HX Benign EXT HYSTERECTOMY,W/PARTIAL VAGINECTO Benign KYPHOPLASTY 1 VERT LUMBAR 2020 lumbo-thoracic PT ED HEART AND VASCULAR 12/2022 Stent placement after heart attack TOTAL HIP REPLACEMENT Right 01/24/2018 Dr. Izquierdo PM, Social history, family history and surgical history reviewed and updated in EMR REVIEW OF SYSTEMS: CONSTITUTIONAL: No fevers, chills, nightsweats, unintended weight loss HEENT: Denies nasal congestion/sinus symptoms, problematic allergy problems. CARDIOVASCULAR: No chest pain, palpitations, orthopnea, PND, edema. PULM: See HPI GI: No dysphagia/odynophagia, problematic reflux. NEURO: No new balance problems, peripheral weakness/paresthesias or numbness of concern. MUSC-SKEL: Weakness PSY: Anxiety INTEGUMENTARY: Ecchymoses PHYSICAL EXAMINATION: BP 104/72 Pulse 71 Resp 14 Ht 5' 2 (1.58m) Wt 119 lb 12.8 oz (54.3kg) SpO2 95% BMI 21.91 kg/(m^2). General Appearance: Chronically ill appearing, NAD. Skin: Thin skin with ecchymoses. Head: Normocephalic, no masses, lesions, tenderness or abnormalities. Cushingoid Eyes: Sclera, conjunctiva normal Oropharynx: No oral lesions or thrush. Neck: No JVD, no masses. Lungs: Hyperresonant to percussion, very diminished breath sounds. Heart: RRR, no murmur. Extremities: Minimal edema, no clubbing. Assessment/Plan: Very severe COPD, GOLD stage 4 -Smoking cessation is paramount -Continue triple inhaler therapy. Changed to Spiriva Respimat. Consider retrial of Rola Berry once she uses up her supply of Advair -Patient declining low-dose chest CT for cancer screening -Ambulatory oxygen assessment Cigarette smoker -Current smoker with sequelae of severe COPD -Smoking cessation strongly encouraged -See #1 Chronic use of systemic steroids -Patient has been on 10 mg of prednisone for prolonged period with complications related to chronic steroid usage -Very slow taper to off. See patient instructions. Patient educated on symptoms of adrenal insufficiency Socorro Muller MD [facility] [place] documented in this encounter [facility] 05-04-2023 Telephone encount er Note Reviewed chart. Refill appropriate. RX sent. [facility] 05-04-2023 Miscellaneous Notes Formattin g of this note might be different from the original. Reviewed chart. Refill appropriate. RX sent. Prescription Request: Last medication check: 04/25/23 Last physical exam: 02/03/22 Next scheduled appointment: none Last date of refill on this medication 10/18/22 90 day 1 refill documented in this encounter [facility] 05-04-2023 Telephone encount er Note Prescription Request: Last medication check: 04/25/23 Last physical exam: 02/03/22 Next scheduled appointment: none Last date of refill on this medication 10/18/22 90 day 1 refill [facility] 04-25-2023 Evaluation + Plan note Associated Problem(s): Acute midline low back pain without sciatica Acute on chronic midline back pain. Patient history of compression fracture. Patient will be reestablishing with pain management OAR[facility] reviewed and consistent with treatment plan. We will provide short prescription for opioid pain medication for her acute on chronic pain. Patient is aware that no further pain medication will be prescribed, she needs to follow-up with pain regarding her chronic pain. [facility] 04-25-2023 Evaluation + Plan note Associated Problem(s): Essential hypertension Controlled. Continue losartan 50 mg metoprolol 25 mg [facility] 04-25-2023 Miscellaneous Notes Associate d Problem(s): Acute midline low back pain without sciatica Acute on chronic midline back pain. Patient history of compression fracture. Patient will be reestablishing with pain management OARRS reviewed and consistent with treatment plan. We will provide short prescription for opioid pain medication for her acute on chronic pain. Patient is aware that no further pain medication will be prescribed, she needs to follow-up with pain regarding her chronic pain. Associated Problem(s): Essential hypertension Controlled. Continue losartan 50 mg metoprolol 25 mg Associated Problem(s): Chronic obstructive pulmonary disease with (acute) exacerbation (HCC) Continue prednisone 10 mg daily azithromycin 250 mg daily, albuterol as needed, Advair and Spiriva. Follow-up with pulmonology as scheduled documented in this encounter [facility] 04-25-2023 Evaluation + Plan note Associated Problem(s): Chronic obstructive pulmonary disease with (acute) exacerbation (HCC) Continue prednisone 10 mg daily azithromycin 250 mg daily, albuterol as needed, Advair and Spiriva. Follow-up with pulmonology as scheduled [facility] 04-25-2023 History of Presen t illness Narrative Images from the original note were not included. 04/25/2023 Katlin Pond (: 1960) is a 63 y.o. female , Established patient, here for evaluation of the following chief complaint(s): Cough, Shortness of Breath, and COPD ASSESSMENT/PLAN: 1. Chronic obstructive pulmonary disease with (acute) exacerbation (HCC) Assessment & Plan: Continue prednisone 10 mg daily azithromycin 250 mg daily, albuterol as needed, Advair and Spiriva. Follow-up with pulmonology as scheduled Orders: - predniSONE (Deltasone) 10 MG tablet; Take 1 tablet (10 mg) by mouth daily., Starting 04/25/2023, Normal 2. Acute midline low back pain without sciatica Assessment & Plan: Acute on chronic midline back pain. Patient history of compression fracture. Patient will be reestablishing with pain management OAR[facility] reviewed and consistent with treatment plan. We will provide short prescription for opioid pain medication for her acute on chronic pain. Patient is aware that no further pain medication will be prescribed, she needs to follow-up with pain regarding her chronic pain. Orders: - oxyCODONE-acetaminophen (Percocet) 5-325 MG tablet; Take 1 tablet by mouth every 6 hours as needed for severe pain (7-10) for up to 3 days., Starting 04/25/2023, Until 04/28/2023 at 2359, Normal 3. Essential hypertension Assessment & Plan: Controlled. Continue losartan 50 mg metoprolol 25 mg Follow up for with specialist. SUBJECTIVE/OBJECTIVE: HPI - Katlin Pond (: 1960) is a 63 y.o. female , Established patient, here for the evaluation of the following chief complaint(s): Cough, Shortness of Breath, and COPD Patient was hospitalized in March for COPD exacerbation at [facility]. Was discharged home on azithromycin 250 mg daily and prednisone 10 mg daily. She has pulmonology appointment on May 14 however does not have enough prednisone daily to get to her appointment. Reports overall improvement in her symptoms, and has been chronically on prednisone 10 mg daily. Continues to have increased shortness of breath when walking. Patient reports acute on chronic back pain last few days history of spinal compression fracture previously with pain management and WILL BE SEEING [facility] IN HOMESTE[facility]-PAIN MANAGEMENT DOCTOR. -Within the next month or so, is requesting pain medication for her acute on chronic pain. Denies any increased weakness or numbness or tingling in her legs no loss of bowel or bladder Prior to Admission medications Medication Sig Start Date End Date Taking? Authorizing Provider albuterol (2.5 MG/3ML) 0.083% nebulizer solution USE BY NEBULIZATION EVERY 6 HOURS NEEDED FOR WHEEZING OR SHORTNESS OF BREATH 11/24/20 Historical Provider, albuterol 108 (90 Base) MCG/ACT inhaler Inhale 2 puffs every 4 hours as needed. 04/05/22 Historical Provider, ALPRAZolam (Xanax) 1 MG tablet TAKE 1 TABLET BY MOUTH IN THE MORNING AND AT BEDTIME FOR 30 DAYS. 10/19/22 Celena Izquierdo MD Aspirin Low Dose 81 MG chewable tablet CHEW 1 TABLET BY MOUTH ONCE DAILY WITH BREAKFAST 12/19/22 Historical Provider, atorvastatin (Lipitor) 40 MG tablet 40 MG ORALLY AT BEDTIME 12/19/22 Historical Provider, calcium 500 MG tablet Take 1,000 mg by mouth in the morning. Historical Provider, clopidogrel (Plavix) 75 MG tablet Take 75 mg by mouth daily. 12/19/22 Historical Provider, Fluticasone-Salmeterol 500-50 MCG/ACT aerosol powder INHALE 1 PUFF INSTRUCTED TWICE DAILY. 09/25/19 Historical Provider, guaiFENesin (MUCUS-ER PO) Take by mouth. Historical Provider, ibandronate (Boniva) 150 MG tablet Take 1 tablet (150 mg) by mouth every 30 (thirty) days. Take in morning with full glass of water on an empty stomach. No food, drink, meds, or lying down for 60 minutes after. 03/26/23 03/25/24 Celena Izquierdo MD losartan (Cozaar) 50 MG tablet TAKE 1 TABLET BY MOUTH EVERY DAY 10/18/22 Celena Izquierdo MD metoprolol succinate XL (Toprol-XL) 25 MG 24 hr tablet Take 25 mg by mouth daily. 12/19/22 Historical Provider, montelukast (Singulair) 10 MG tablet Take 1 tablet by mouth Nightly. 05/21/20 Historical Provider, omeprazole (PriLOSEC) [address] capsule Take 1 capsule by mouth in the morning. 05/10/18 Historical Provider, predniSONE (Deltasone) 10 MG tablet Take 1 tablet (10 mg) by mouth daily. 04/13/23 Celena Izquierdo MD tiotropium (Spiriva) 18 MCG inhalation capsule INHALE 1 PUFF EVERY DAY 09/25/19 Historical Provider, Health Maintenance Due Topic Date Due HIV Screening Never done Bone Density Scan Never done Colorectal Cancer Screening Never done COVID-19 Vaccine (1) Never done MMR Vaccines (1 of 1 - Standard series) Never done Depresssion Monitoring Never done Hepatitis C Screening Never done Hepatitis A Vaccines (1 of 2 - Risk 2-dose series) Never done Cervical Cancer Screening Never done Pneumococcal Vaccine: Pediatrics (0 to 5 Years) and At-Risk Patients (6 to 64 Years) (2 - PCV) 02/18/2020 Zoster Vaccines (2 of 2) 03/31/2022 Mammogram 05/23/2022 Diabetes Screening 02/03/2023 Influenza Vaccine (Season Ended) 2023 Review of Systems Constitutional: Positive for activity change and fatigue. Negative for chills and fever. Respiratory: Positive for cough, chest tightness, shortness of breath and wheezing. Cardiovascular: Negative for chest pain and palpitations. Gastrointestinal: Negative. Genitourinary: Negative for difficulty urinating. Musculoskeletal: Positive for arthralgias and back pain. Neurological: Negative for weakness and numbness. Vitals: 04/25/23 1105 BP: 115/65 Pulse: 97 Resp: 20 SpO2: 92% Weight: 118 lb 6.4 oz (53.7 kg) Physical Exam Constitutional: General: She is not in acute distress. Appearance: Normal appearance. She is ill-appearing. HENT: Head: Normocephalic and atraumatic. Nose: Congestion and rhinorrhea present. Mouth/Throat: Mouth: Mucous membranes are moist. Pharynx: Oropharynx is clear. Eyes: Conjunctiva/sclera: Conjunctivae normal. Pulmonary: Effort: Pulmonary effort is normal. No respiratory distress. Breath sounds: Wheezing and rhonchi present. Musculoskeletal: General: Tenderness present. Lumbar back: Tenderness and bony tenderness present. Decreased range of motion. Comments: Required assistance getting up from chair and getting onto the exam table. Skin: General: Skin is warm and dry. Neurological: Mental Status: She is alert and oriented to person, place, and time. An electronic signature was used to authenticate this note. JUAN Harry CNP 04/24/2023 7:21 PM Senior Radiation Therapist for Intimate and Non Intimate Exam Senior Radiation Therapist was declined Senior Radiation Therapist: accompanied Aunt documented in this encounter [facility] 03-16-2023 Miscellaneous Notes Formattin g of this note might be different from the original. Called patient to offer a appt with Pulm per provider, in order to get a medication refill, patient refuse appt. Gisel Reddy [facility] 03/16/2023 Verified name and date of . Patient phones requesting refills as follows: Requested Prescriptions Pending Prescriptions Disp Refills predniSONE (DELTASONE) 10 mg tablet 90 tablet 3 Please review and advise. Lorrie Goetz LPN documented in this encounter [facility] 03-09-2023 Miscellaneous Notes Formattin g of this note might be different from the original. I will provide enough refills to get her to her May appointment. beto Patient is scheduled for her testing and with Dr. Muller on May 14. Patient had concerns about running out of her medication before then. Is she able to get refills from the office? Please review and advise. KARTHIK Bowser March 09, 2023 11:30 AM Needs to establish with Dr. Muller. Patient last saw Beto in 2020. Last shirin 06/2018. [address] orders for updated testing if needed. Carmela Sheehan LPN Patient called to reschedule no shows from September and October shirin and office visit. Patient hasn't been seen since June 2020.Please advise if still wiling to see and place orders for breathing tests. documented in this encounter [facility] 05-09-2022 Miscellaneous Notes Patient phones requesting refills as follows: Pending Prescriptions Disp Refills AZITHROMYCIN 250 MG TABLET 30 tablet 11 Sig: Take 1 tablet by mouth once daily. NAEEM: No Please review and advise. Carmela Sheehan LPN documented in this encounter [facility] 04-05-2022 Miscellaneous Notes The following prescriptions have been called to [facility] pharmacy 04/05/2022 at 3:29 PM by Carmela Sheehan LPN. Signed Prescriptions Disp Refills PROAIR HFA 90 mcg/actuation inhaler 1 Inhaler 5 Sig: Inhale 2 Puffs as instructed every 4 hours as needed for wheezing/shortness of breath. NAEEM: Yes Authorizing Provider: SOCORRO MULLER They will pay for ProAir HFA or Ventolin HFA Carmela Sheehan LPN Patient phones requesting refills as follows: Pending Prescriptions Disp Refills PROAIR HFA 90 MCG/ACTUATION AEROSOL INHALER 1 Inhaler 5 Sig: Inhale 2 Puffs as instructed every 4 hours as needed for wheezing/shortness of breath. NAEEM: Yes Please review and advise. Carmela Sheehan LPN Left message to call. Carmela Sheehan LPN Images from the original note were not included. Socorro uMller MD You 6 minutes ago (8:10 AM) Does her insurance cover the breath activated forms Message text Patient called to update you as a follow up in February. Patient reports asking for substitution of Ventolin or ProAir because my insurance covers it but the HFA is not covered. Please review and advise. Lorrie Goetz LPN documented in this encounter [facility] 02-23-2022 Miscellaneous Notes I have reviewed her medication list and it looks like albuterol is covered by her insurance. Does she have a deductible that she has not met yet? She should call her insurance and/or pharmacy to see why it has increased. Beto Pt called in states the guillen of her Rx for Albuterol HFA has gone up significantly for her and requesting something else that may be less expensive. Verified pharmacy as [facility] on file. Pt would like a call back to notify Rx was sent. documented in this encounter [facility] documented in this encounter [facility] note* Diagnosis COPD, severe (HCC) Chronic airway obstruction, not elsewhere classified documented in this encounter [facility] note* Diagnosis Allergic rhinitis, unspecified seasonality, unspecified trigger documented in this encounter [facility] note* Diagnosis Chronic obstructive pulmonary disease, unspecified COPD type (HCC)- Primary documented in this encounter [facility] note* Diagnosis COPD, severe (HCC) Chronic airway obstruction, not elsewhere classified Allergic rhinitis, unspecified seasonality, unspecified trigger documented in this encounter [facility] note* Diagnosis COPD with exacerbation (HCC) Obstructive chronic bronchitis with exacerbation documented in this encounter [facility] note* Diagnosis Chronic obstructive pulmonary disease with (acute) exacerbation (HCC)- Primary Acute midline low back pain without sciatica Essential hypertension Unspecified essential hypertension documented in this encounter [facility] note* Diagnosis Stage 4 very severe COPD by GOLD classification ([facility])- Primary Cigarette smoker Tobacco use disorder Current chronic use of systemic steroids documented in this encounter [facility] note* Diagnosis Allergic rhinitis, unspecified seasonality, unspecified trigger documented in this encounter [facility] note* Diagnosis Stage 4 very severe COPD by GOLD classification (HCC)- Primary Chronic cough Cough Cigarette smoker Tobacco use disorder Current chronic use of systemic steroids documented in this encounter [facility] note* Diagnosis Stage 4 very severe COPD by GOLD classification (HCC) documented in this encounter [facility] for referral (narrative)* Outpatient Procedure (Routine) - Pending Review Specialty Diagnoses / Procedures Referred By Molly mcginnis Referred To [facility] Diagnoses Chronic obstructive pulmonary disease, unspecified COPD type (HCC) Procedures SPIROMETRY WITH DILATOR IF OBSTRUCTED BRNCDILAT RSPSE SPMTRY PRE&POST-BRNCDILAT Socorro Mckeon MD [address] [address] [place] [address] [facility] [place] [address] [place] [id number] Referral ID Status Reason Start Date Expiration Date Visits Requested Visits Authorized [id number] Pending Review Auto-Generat ed Referral 03/06/2023 04/04/2024 [facility] Procedure (Routine) - Pending Review Specialty Diagnoses / Procedures Referred By Contac t Referred To Contact [facility] Diagnoses Stage 4 very severe COPD by GOLD classification (HCC) Procedures OXIMETRY WITH AMBULATION NONINVASIVE EAR/PULSE OXIMETRY MULTIPLE DETER Socorro Muller MD [address] [place] [address] [facility] [place] [address] [place] [address] Referral ID Status Reason Start Date Expiration Date Visits Requested Visits Authorized [id number] Pending Review Auto-Generat ed Referral 05/14/2023 06/12/2024 1 1 T [facility] Reason for Referral Specialty Diagnoses / Procedures Referred By Contac t Referred To Contact Socorro Muller MD [address] [facility] [facility] [place] [address] Referral ID Status Reason Start Date Expiration Date V isits Requested Visits Authorized [id number] Pending Review 1 1 Summary Purpose Family History No Family History Records FoundNo Family History Records Found Advance Directives No Advanced Directives Records FoundNo Advanced Directives Records Found Additional Source Comments Source Comments (unrecognize d section and content) In the event this informatio n is protected by the Federal Confidentiality of Alcohol and Drug Abuse Patient Records regulations: The Federal rules restrict any use of the information to criminally investigate or prosecute any alcohol or drug abuse patient.[facility] the event this information is protected by the Federal Confidentiality of Alcohol and Drug Abuse Patient Records regulations: The Federal rules restrict any use of the information to criminally investigate or prosecute any alcohol or drug abuse patient.[facility] the event this information is protected by the Federal Confidentiality of Alcohol and Drug Abuse Patient Records regulations: The Federal rules restrict any use of the information to criminally investigate or prosecute any alcohol or drug abuse patient.[facility] the event this information is protected by the Federal Confidentiality of Alcohol and Drug Abuse Patient Records regulations: The Federal rules restrict any use of the information to criminally investigate or prosecute any alcohol or drug abuse patient.[facility] the event this information is protected by the Federal Confidentiality of Alcohol and Drug Abuse Patient Records regulations: The Federal rules restrict any use of the information to criminally investigate or prosecute any alcohol or drug abuse patient.[facility] the event this information is protected by the Federal Confidentiality of Alcohol and Drug Abuse Patient Records regulations: The Federal rules restrict any use of the information to criminally investigate or prosecute any alcohol or drug abuse patient.[facility] the event this information is protected by the Federal Confidentiality of Alcohol and Drug Abuse Patient Records regulations: The Federal rules restrict any use of the information to criminally investigate or prosecute any alcohol or drug abuse patient.[facility] the event this information is protected by the Federal Confidentiality of Alcohol and Drug Abuse Patient Records regulations: The Federal rules restrict any use of the information to criminally investigate or prosecute any alcohol or drug abuse patient.[facility] the event this information is protected by the Federal Confidentiality of Alcohol and Drug Abuse Patient Records regulations: The Federal rules restrict any use of the information to criminally investigate or prosecute any alcohol or drug abuse patient.[facility] the event this information is protected by the Federal Confidentiality of Alcohol and Drug Abuse Patient Records regulations: The Federal rules restrict any use of the information to criminally investigate or prosecute any alcohol or drug abuse patient.[facility] the event this information is protected by the Federal Confidentiality of Alcohol and Drug Abuse Patient Records regulations: The Federal rules restrict any use of the information to criminally investigate or prosecute any alcohol or drug abuse patient.[facility] Rehabilitation[facility] the event this information is protected by the Federal Confidentiality of Alcohol and Drug Abuse Patient Records regulations: The Federal rules restrict any use of the information to criminally investigate or prosecute any alcohol or drug abuse patient.[facility] Rehabilitation[facility] the event this information is protected by the Federal Confidentiality of Alcohol and Drug Abuse Patient Records regulations: The Federal rules restrict any use of the information to criminally investigate or prosecute any alcohol or drug abuse patient.[facility] Rehabilitation[facility] the event this information is protected by the Federal Confidentiality of Alcohol and Drug Abuse Patient Records regulations: The Federal rules restrict any use of the information to criminally investigate or prosecute any alcohol or drug abuse patient.[facility] Rehabilitation[facility] the event this information is protected by the Federal Confidentiality of Alcohol and Drug Abuse Patient Records regulations: The Federal rules restrict any use of the information to criminally investigate or prosecute any alcohol or drug abuse patient.[facility] Reason for Visit (unrecogniz ed section and content) Reason Comments Medication Problem Reason Comments Medication Problem Reason Onset Date Comments Refill Request 05/09/2022 Reason Comments Orders Appointment Reason Onset Date Comments Refill Request 03/15/2023 Reason Comments Cough Shortness of Breath COPD Reason Comments Med Refill Reason Comments COPD Reason Comments Established Patient COPD Reason Onset Date Comments Refill Request 08/14/2023 Care Teams (unrecognized sec tion and content) Customer Support Engineer Relationship Specialty Start Date End Date Celena Izquierdo [address] [place] [address] PCP - General Family Practice 11/01/16 Customer Support Engineer Relationship Specialty Start Date End Date Celena Izquierdo [address] [place] [address] PCP - General Family Practice 11/01/16 Customer Support Engineer Relationship Specialty Start Date End Date Celena Izquierdo [address] [place] [address] PCP - General Family Practice 11/01/16 Customer Support Engineer Relationship Specialty Start Date End Date Celena Izquierdo [address] [place] [address] PCP - General Family Medicine 11/01/16 Customer Support Engineer Relationship Specialty Start Date End Date Celena Izquierdo [address] [place] [address] PCP - General Family Medicine 11/01/16 Customer Support Engineer Relationship Specialty Start Date End Date Celena Izquierdo [address] [place] [facility] [place] [address] PCP - General Family Medicine 11/01/16 Customer Support Engineer Relationship Specialty Start Date End Date Celena Izquierdo MD [address] [place] [address] PCP - General 04/05/19 Customer Support Engineer Relationship Specialty Start Date End Date Celena Izquierdo MD [address] [place] [address] PCP - General 04/05/19 Customer Support Engineer Relationship Specialty Start Date End Date Celena Izquierdo [address] [place] [facility] [place] [address] PCP - General Family Medicine 11/01/16 Customer Support Engineer Relationship Specialty Start Date End Date Celena Izquierdo [address] [place] [address] PCP - General Family Medicine 11/01/16 Customer Support Engineer Relationship Specialty Start Date End Date Celena Izquierdo [address] [place] [facility] [place] [address] PCP - General Family Medicine 11/01/16 Customer Support Engineer Relationship Specialty Start Date End Date Celena Izquierdo [address] [facility] [place] [place] [address] PCP - General Family Medicine 11/01/16 Customer Support Engineer Relationship Specialty Start Date End Date Celena Izquierdo [address] [facility] [place] [address] PCP - General Family Medicine 11/01/16 INFORMATION SOURCE (unrecogn ized section and content) DATE CREATED AUTHOR AUTHOR'S RICHIE ATION 11/12/2023 [facility] FOR RECORDS PERTAINING TO PATIENTS WHO ARE OR HAVE BEEN ENROLLED IN A CHEMICAL DEPENDENCY/SUBSTANCEABUSE PROGRAM, SOME INFORMATION MAY BE OMITTED. This clinical summary was aggregated from multiple sources. Caution should be exercised in using it in the provision of clinical care. This summary normalizes information from multiple sources, and as a consequence, information in this document may materially change the coding, format and clinical context of patient data. In addition, data may be omitted in some cases. CLINICAL DECISIONS SHOULD BE BASED ON THE PRIMARY CLINICAL RECORDS. [employer] [facility]. provides no warranty or guarantee of the accuracy or completeness of information in this document.
[2023-12-09] MEDS: 0.9% Normal Saline (1000mL) 1,000 ML 150 ML IV (15:37)
[2023-12-09] MEDS: MethylPREDNISolone 125 MG/2 ML Vial IV (15:37)
[2023-12-09 15:43] LABS: Absolute Lymphocyte Count 2.64 X10^3/uL (0.83-4.51); Absolute Neutrophil Count 3.6 X10^3/uL (2.0-7.7); Basophil# 0.12 X10^3/uL; Basophil% 1.5 % (0-1); Eosinophil# 0.79 X10^3/uL; Eosinophils% 9.7 % (0-5); Hematocrit 33.5 % (37-47); Hemoglobin 9.9 g/dL (12.0-15.0); Lymphocyte # 2.64 X10^3/ul (0.83-4.51); Lymphocyte % 32.6 % (19-41); Mean Corp Hgb Conc 29.6 g/dL (32-36); Mean Corpuscular Hgb 20.7 pg (27.0-32.0); Mean Corpuscular Volume 70.1 fL (81-99); Mean Platelet Vol. 9.8 fl (6.2-12.0); Monocyte# 0.91 X10^3/uL; Monocyte% 11.2 % (0-10); NRBC Flagged by Analyzer 0 % (0-5); Neutrophil # 3.64 X10^3/uL (2.7-7.7); Neutrophil % 44.9 % (47-70); Platelet Count 371 K/mm3 (150-450); RBC Distribution Width CV 19.9 % (11.6-14.6); RBC Distribution Width SD 49.7 fl (35.1-43.9); Red Blood Count 4.78 M/mm3 (4.2-5.4); White Blood Count 8.1 K/mm3 (4.4-11.0)
[2023-12-09 16:06] LABS: Anion Gap 4 (5-15); BUN 4 mg/dL (7-18); BUN/Creat Ratio 8.4 RATIO (10-20); Calcium,Total 9.5 mg/dL (8.5-10.1); Chloride 111 mmol/L (98-107); Creatinine, Serum 0.48 mg/dL (0.55-1.02); EST Glomerular Filtration Rate 141 mL/min (>60); Est Glom Filt Rate - Afr Amer 170 mL/min (>60); Estimated Creatinine Clearance 87.29 ml/min; Glucose 110 mg/dL (74-106); Potassium 3.9 mmol/L (3.5-5.1); Sodium Level 141 mmol/L (136-145); Troponin-I HS 4 pg/mL (3.0-54.0)
[2023-12-09 16:16] LABS: Lactic Acid 1.8 mmol/L (0.4-1.9)
[2023-12-09] MEDS: Albuterol 2.5 MG/3 ML VIAL.NEB. INHALATION ×2 (16:21)
[2023-12-09 16:46] LABS: BNP,B-Type NATRIURETIC PEPTIDE 13.6 pg/mL (0-100)
--- NOTE | 2023-12-09 16:49 | ED.RN ---
pt taken rest of way to br and spo2 dropped to 81 on ra with mod dyspnea obs. o2 applied at 3l and pt went up to 91%. back to room and dr. arshad at bedside o2 left on at 2l at this time
--- OUTSIDE RECORDS SUMMARY | 2023-12-09 17:32 | XMS RPT_ITS | CCD ---
Author Name Unknown Address [address] [place] [address] Organization [facility] Care Team Providers Care Mechanical Test Technician Name Role Phone Celena Izquierdo Primary Care Provider [phone] CELENA IZQUIERDO Attending Unavailable ALIYAH HERNANDEZ Attending Unavailable CELENA IZQUIERDO Primary Care Unavailable CELENA IZQUIERDO Attending Unavailable CELENA IZQUIERDO Primary Care Unavailable Celena Izquierdo Primary Care Provider [phone] RUTHIE DOAN Attending Unavailable CELENA IZQUIERDO Primary Care Unavailabl e SELF Referring Unavailable SOCORRO MULLER Attending Unavailable SOCORRO MULLER Referring Unavailable CELENA IZQUIERDO Primary Care Unavailabl e Allergies Allergy Classification Reported Allergen(s) Allergy Type Date of Onset Reaction(s) Facility (16 sources) buPROPion; 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: [BUPROPION HCL] Drug Allergy 9 Shortness of Breath [facility] Work Phone: (16 sources) Lisinopril; 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: [LISINOPRIL] Drug Allergy 8 Cough [facility] Work Phone: (16 sources) Roflumilast; 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: [ROFLUMILAST] Drug Allergy 7 Mental Status Change [facility] Work Phone: (16 sources) Seasonal allergy; 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: [SEASONAL ALLERGIES] Allergy to substance 5 Shortness of Breath [facility] (2 sources) beta Sitosterol / ZINC CITRATE Drug Allergy 5 Shortness of breath [facility] (2 sources) buPROPion Drug Allergy 9 Shortness of breath [facility] (2 sources) Lisinopril Allergy to substance 8 Cough [facility] (2 sources) Roflumilast Drug Allergy 7 Anxiety [facility] (2 sources) Other Propensity to adverse reactions 5 Shortness of breath [facility] Medications Current Medications Medication Drug Class(es) [...] Drug Class(es) Dates Sig (Normalized) Sig (Original) [id number] 200 actuat albuterol 0.09 mg/actuat metered dose [...] Long-term current use of systemic steroid; 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] Onset: 05-14-2023 [...] 157.5 cm Socorro Muller MD Work Phone: [facility] 05-14-2023 15:22-0400 Body weight 54.34 kg Socorro Muller MD Work Phone: [facility] 05-14-2023 15:22-0400 Diastolic blood pressure 72 mm[Hg] Socorro Muller MD Work Phone: [facility] 05-14-2023 15:22-0400 Heart rate 71 /min Socorro Muller MD Work Phone: [facility] 05-14-2023 15:22-0400 Respiratory rate 14 /min Socorro Muller MD Work Phone: [facility] 05-14-2023 15:22-0400 SaO2% (BldA) [Mass fraction] 95 % Socorro Muller MD Work Phone: [facility] 05-14-2023 15:22-0400 Systolic blood pressure 104 mm[Hg] Socorro Muller MD Work Phone: [facility] 04-25-2023 11:05-0400 Body mass index (BMI) [Ratio] 21.66 kg/m2 Aliyah Hernandez CANCER CENTER DIRECTOR - JOB PRESS OPERATOR Work Phone: [facility] 04-25-2023 11:05-0400 Body weight 53.71 kg Aliyah Bridenthal CANCER CENTER DIRECTOR - JOB PRESS OPERATOR Work Phone: [facility] 04-25-2023 11:05-0400 Diastolic blood pressure 65 mm[Hg] Aliyah Rajenthal CANCER CENTER DIRECTOR - JOB PRESS OPERATOR Work Phone: [facility] 04-25-2023 11:05-0400 Heart rate 97 /min Aliyah Bridenthal CANCER CENTER DIRECTOR - JOB PRESS OPERATOR Work Phone: [facility] 04-25-2023 11:05-0400 Respiratory rate 20 /min Aliyah Bridenthal CANCER CENTER DIRECTOR - JOB PRESS OPERATOR Work Phone: [facility] 04-25-2023 11:05-0400 SaO2% (BldA) [Mass fraction] 92 % Aliyah Rajenthal CANCER CENTER DIRECTOR - JOB PRESS OPERATOR Work Phone: [facility] 04-25-2023 11:05-0400 Systolic blood pressure 115 mm[Hg] Aliyah Rajenthal CANCER CENTER DIRECTOR - JOB PRESS OPERATOR Work Phone: [facility] Encounters Encounter Date Encounter Type Care Provider Facility Start: 08-14-2023 Refill Ruthie [facility] Work Phone: [facility]monary Medicine Procedures Date Procedure Procedure Detail Performing Clinician Start: 02-03-2022 Lipid 1996 panel - Serum or Plasma Aliyah Edithal CANCER CENTER DIRECTOR - JOB PRESS OPERATOR Work Phone: Start: 07-17-2021 Mammography Ruthie KNAPP[facility] Work Phone: Start: 05-23-2021 Mammography Aliyah Rajenthal CANCER CENTER DIRECTOR - JOB PRESS OPERATOR Work Phone: Start: 07-01-2018 H/O: hysterectomy History of hysterectomy Aliyah Rajenth al CANCER CENTER DIRECTOR - JOB PRESS OPERATOR Work Phone: Plan of Treatment Date Care Activity Detail Author Start: 05-30-2027 DTaP/Tdap/Td Vaccines (2 - Td or Tdap) DTaP/Tdap/Td Vaccines (2 - Td or Tdap) [facility] Start: 05-30-2027 Urine microalbumin profile [facility] Start: 02-03-2027 Lipid panel Lipid Panel [facility] Start: 07-06-2023 Influenza vaccination [facility] Start: 02-03-2023 Diabetes mellitus screening Diabetes Screening [facility] Start: 07-17-2022 Mammography [facility] Start: 07-06-2022 Influenza vaccination [facility] Start: 05-23-2022 Screening for malignant neoplasm of breast Mammogram [facility] Start: 03-31-2022 Zoster Vaccines (2 of 2) Zoster Vaccines (2 of 2) [facility] Start: 07-06-2021 Influenza vaccination INFLUENZA (#1) [facility] Start: 02-18-2020 PNEUMOCOCCAL (2 - PCV) PNEUMOCOCCAL (2 - PCV) [facility] Start: 02-18-2020 Pneumococcal vaccination Pneumococcal Vaccine (2 - PCV) [facility] Start: 02-18-2020 Pneumococcal Vaccine: Pediatrics (0 to 5 Years) and At-Risk Patients (6 to 64 Years) (2 - PCV) Pneumococcal Vaccine: Pediatrics (0 to 5 Years) and At-Risk Patients (6 to 64 Years) (2 - PCV) [facility] Start: 2011 SHINGRIX VACCINE (1 of 2) SHINGRIX VACCINE (1 of 2) [facility] Start: 2006 COLOGUARD (FIT-DNA) COLOGUARD (FIT-DNA) [facility] Start: 2006 Colonoscopy COLONOSCOPY [facility] Start: 2006 COLORECTAL CANCER SCREENING COLORECTAL CANCER SCREENING [facility] Start: [address] COLONOGRAPHY [facility] Start: 2006 DIABETES SCREEN DIABETES SCREEN [facility] Start: 2006 Diabetes Screening Diabetes Screening [facility] Start: 2006 FECAL OCCULT BLOOD FECAL OCCULT BLOOD [facility] Start: 2006 Lipid 1996 panel - Serum or Plasma Lipid Screening [facility] Start: 2006 LIPID SCREEN LIPID SCREEN [facility] Start: 2006 SIGMOIDOSCOPY SIGMOIDOSCOPY [facility] Start: 1991 HPV TESTING HPV TESTING [facility] Start: 1982 PAP TESTING PAP TESTING [facility] Start: 01-04-1980 Hepatitis A Vaccines (1 of 2 - Risk 2-dose series) Hepatitis A Vaccines (1 of 2 - Risk 2-dose series) [facility] Start: 1979 ANNUAL PCP TEAM CHRONIC DISEASE VISIT ANNUAL PCP TEAM CHRONIC DISEASE VISIT [facility] Start: 1979 HEPATITIS C SCREENING HEPATITIS C SCREENING [facility] Start: 1979 Hepatitis C screening Hepatitis C Screening [facility] Start: 1979 HIV SCREENING HIV SCREENING [facility] Start: 1973 Depresssion Monitoring Depresssion Monitoring [facility] Start: 1966 COVID-19 VACCINE (#1) COVID-19 VACCINE (#1) [facility] Start: 1966 COVID-19 VACCINE (1) COVID-19 VACCINE (1) [facility] Start: 1962 MMR Vaccines (1 of 1 - Standard series) MMR Vaccines (1 of 1 - Standard series) [facility] Start: 1961 COVID-19 VACCINE (#1) COVID-19 VACCINE (#1) [facility] Start: 1961 HIV screening HIV Screening [facility] Start: 1961 Screening for malignant neoplasm of colon [facility] Start: 1961 Screening for osteoporosis Bone Density Scan [facility] OXIMETRY - NOCTURNAL OXIMETRY - NOCTURNAL Procedures Routine Stage 4 very severe COPD by GOLD classification (HCC) Ordered: 07/04/2023 [facility] Work Phone: Immunizations Immunization Date Immunization Notes Care Provider Kyle buchanan 02-03-2022 zoster vaccine recombinant Aliyah Hernandez CANCER CENTER DIRECTOR - JOB PRESS OPERATOR Work Phone: [facility] 02-17-2019 pneumococcal polysaccharide vaccine, 23 valent Ruthie Doan PA-C Work Phone: [facility] Work Phone: 05-30-2017 tetanus toxoid, redu jovany diphtheria toxoid, and acellular pertussis vaccine, adsorbed Ruthie Doan PA-C Work Phone: [facility] Work Phone: 03-10-2014 pneumococcal polysaccharide vaccine, 23 valent Ruthie Doan PA-C Work Phone: [facility] Work Phone: 03-07-2014 pneumococcal polysaccharide vaccine, 23 valent Aliyah Hernandez CANCER CENTER DIRECTOR - JOB PRESS OPERATOR Work Phone: [facility] 08-05-2013 influenza virus vacc ine, unspecified formulation Aliyah Hernandez CANCER CENTER DIRECTOR - JOB PRESS OPERATOR Work Phone: [facility] Payers Date Payer Category Payer Medicare MEDICARE MEDICAR E A AND B [id number] 2016-Present [phone] [address] [address] [place] [address] Medicare [id number] 2016 Medicare [id number] 2016 Medicare [id number] 2015 Unknown [employer] BLUE CARD PPO OOS [id number] 2015-Present [phone] [address] [place] [address] PPO [id number] 2015 Unknown [id number] 2015 Unknown [id number] Social History Date Type Detail Facility Start: 1977 End: 05-14-2023 Tobacco smoking status AZIS Smokes tobacco daily [facility] Start: 1977 History of tobacco use Cigarette Smo ker [facility] Start: 05-02-2018 End: 07-04-2023 Cigarettes smoked current (pack per day) - Reported 0.5 [facility] Start: 05-02-2018 End: 05-14-2023 Tobacco use and exposure Smokeless tobacco non-user [facility] Start: 08-11-2021 End: 04-25-2023 Alcohol intake Current drinker of alcohol (finding) [facility] Start: 08-11-2021 History SDOH Alcohol Comment couple times a week [facility] Start: 08-11-2021 Tobacco Comment every 3-4 days [facility] Start: 1960 Sex Assigned At Not on file C [facility] Start: 09-25-1989 Tobacco smoking stat us NHIS Occasional tobacco smoker [facility] Start: 04-25-2023 End: 07-04-2023 Tobacco use panel [facility] How hard is it for y ou to pay for the very basics like food, housing, medical care, and heating Not hard at all [facility] (I/We) worried wheth er (my/our) food would run out before (I/we) got money to buy more. Never true [facility] Start: 09-08-2022 Alcohol Comment occasional [facility] Start: 04-15-2023 End: 04-25-2023 Exposure to SARS-CoV-2 (event) Not sure [facility] Start: 05-14-2023 End: 07-04-2023 Alcohol intake Ex-drinker (finding) [facility] Start: 05-14-2023 Tobacco Comment About 5 cigare ttes per dayLess one pack per day [facility] Clinical Notes 02-23-2022 to 08-14-2023 Telephone Encounter [...] reschedule until she can talk to her transportation driver. She has been taking the Prednisone 5mg daily. She has been unable to wean off any lower than that. Requesting refill of the 5mg to [facility]. Please review and advise. Tammy Landry MA documented in this encounter [facility] 07-12-2023 Miscellaneous Notes Formattin g of this [...] advise. Ruthie Munson documented in this encounter [facility] 07-04-2023 Note HNO ID: [id number] Author: Ruthie Doan PA-C Service: ? Author Type: Physician Wiper Blender Type: Progress Notes Filed: 07/04/2023 2:41 PM Note Text: Patient: Katlin Pond PCP: Celena Izquierdo MD CC: follow up HPI: Katlin Pond 63 year old female smoker with PMH significant for very severe COPD (FEV1 29%), HTN, and PTSD. Complications related to her chronic steroid use consist of osteoporosis with compression fractures requiring kyphoplasty. She was hospitalized at [facility] in December with bronchitis and had a OK, requiring a stent. Current therapy consists of [...] after heart attack (more content not included)... [facility] 07-04-2023 History of Presen t illness Narrative [...] fractures requiring kyphoplasty. She was hospitalized at [facility] in December with bronchitis and had a OK, requiring a stent. Current therapy consists of [...] Ruthie Doan PA-C documented in this encounter [facility] 06-07-2023 Miscellaneous Notes Formattin g of this note is different from the original. Patient phones requesting refills as follows: RENARD: 05/14/23 Requested Prescriptions Pending Prescriptions Disp Refills montelukast (SINGULAIR) 10 mg tablet [Pharmacy Med Name: MONTELUKAST SOD 10 MG TABLET] 90 tablet 1 Sig: TAKE 1 TABLET BY MOUTH EVERYDAY AT BEDTIME Please review and advise. Carmela Sheehan LPN documented in this encounter [facility] 05-14-2023 Note HNO ID: [id number] Author: Socorro Muller MD Service: ? Author Type: Physician Type: Progress Notes Filed: 05/14/2023 5:04 PM Note Text: . [facility] [place] Note Patient name: Katlin Pond PCP: Celena [...] fractures requiring kyphoplasty. She was hospitalized at [facility] in December with bronchitis and OK, requiring a stent. From a respiratory standpoint [...] in not operable. Questioning need for oxygen. [place] better on oxygen when she was in the hospital but did not appear to qualify for home oxygen at discharge. DATA: PFT 2018: Review of PFTs shows very severe obstruction Labs: Component Ref Range AND Units 8 yr ago Alpha 1 Antitrypsin 100 - 220 mg/dL 161 Imaging / Diagnostic Studies: CXR 03/2023 at [facility] reviewed which shows hyperinflation and changes [...] Less one pack (more content not included)... [facility] 05-14-2023 Instructions Socorro Muller MD - 05/14/2023 [...] weeks then stop documented in this encounter [facility] 05-14-2023 Nurse Note Patient presents with: COPD Pt states she has not been able to use her albuterol nebulizer d/t dry irritation that increases the patient's cough. Pt believes using the mask would be better for her. Pt has continued to use her inhaler without issue. documented in this encounter [facility] 05-14-2023 History of Presen t illness Narrative Images from the original note were not included. . [facility] [place] Note Patient name: Katlin Pond PCP: Celena [...] fractures requiring kyphoplasty. She was hospitalized at [facility] in December with bronchitis and OK, requiring a stent. From a respiratory standpoint [...] in not operable. Questioning need for oxygen. [place] better on oxygen when she was in the hospital but did not appear to qualify for home oxygen at discharge. DATA: PFT 2018: Review of PFTs shows very severe obstruction Labs: Component Ref Range & Units 8 yr ago Alpha 1 Antitrypsin 100 - 220 mg/dL 161 Imaging / Diagnostic Studies: CXR 03/2023 at [facility] reviewed which shows hyperinflation and changes [...] of adrenal insufficiency Socorro Muller MD [facility] [place] documented in this encounter [facility] 05-04-2023 Telephone encount er Note Reviewed chart. Refill appropriate. RX sent. [facility] 05-04-2023 Miscellaneous Notes Formattin g of this note might be different from the original. Reviewed chart. Refill appropriate. RX sent. Prescription Request: Last medication check: 04/25/23 Last physical exam: 02/03/22 Next scheduled appointment: none Last date of refill on this medication 10/18/22 90 day 1 refill documented in this encounter [facility] 05-04-2023 Telephone encount er Note Prescription Request: Last medication check: 04/25/23 Last physical exam: 02/03/22 Next scheduled appointment: none Last date of refill on this medication 10/18/22 90 day 1 refill [facility] 04-25-2023 Evaluation + Plan note Associated [...] pain regarding her chronic pain. [facility] 04-25-2023 Evaluation + Plan note Associated Problem(s): Essential hypertension Controlled. Continue losartan 50 mg metoprolol 25 mg [facility] 04-25-2023 Miscellaneous Notes Associate d Problem(s): [...] scheduled documented in this encounter [facility] 04-25-2023 Evaluation + Plan note Associated Problem(s): Chronic obstructive pulmonary disease with (acute) exacerbation (HCC) Continue prednisone 10 mg daily azithromycin 250 mg daily, albuterol as needed, Advair and Spiriva. Follow-up with pulmonology as scheduled [facility] 04-25-2023 History of Presen t illness [...] hospitalized in March for COPD exacerbation at [facility]. Was discharged home on azithromycin 250 mg [...] and WILL BE SEEING [facility] IN [place]NAGEMENT DOCTOR. -Within the next month or [...] note. JUAN Harry CNP 04/24/2023 7:21 PM Kiln Worker for Intimate and Non Intimate Exam Kiln Worker was declined Kiln Worker: accompanied Aunt documented in this encounter [facility] 03-16-2023 Miscellaneous Notes Formattin g of this note might be different from the original. Called patient to offer a appt with Pulm per provider, in order to get a medication refill, patient refuse appt. Gisel Reddy [facility] 03/16/2023 Verified name and date of . Patient phones requesting refills as follows: Requested Prescriptions Pending Prescriptions Disp Refills predniSONE (DELTASONE) 10 mg tablet 90 tablet 3 Please review and advise. Lorrie Goetz LPN documented in this encounter [facility] 03-09-2023 Miscellaneous Notes Formattin g of this [...] for breathing tests. documented in this encounter [facility] 05-09-2022 Miscellaneous Notes Patient phones requesting refills as follows: Pending Prescriptions Disp Refills AZITHROMYCIN 250 MG TABLET 30 tablet 11 Sig: Take 1 tablet by mouth once daily. NAEEM: No Please review and advise. Carmela Sheehan LPN documented in this encounter [facility] 04-05-2022 Miscellaneous Notes The following prescriptions have been called to [facility] pharmacy 04/05/2022 at 3:29 PM by Carmela [...] the original note were not included. Socorro Muller MD You 6 minutes ago (8:10 AM) Does her insurance cover the breath activated forms Message text Patient called to update you as a follow up in February. Patient reports asking for substitution of Ventolin or ProAir because my insurance covers it but the HFA is not covered. Please review and advise. Lorrie Goezt LPN documented in this encounter [facility] 02-23-2022 Miscellaneous Notes I have reviewed her [...] Rx was sent. documented in this encounter [facility] documented in this encounter [facility] note* Diagnosis COPD, severe (HCC) Chronic airway obstruction, not elsewhere classified documented in this encounter [facility] note* Diagnosis Allergic rhinitis, unspecified seasonality, unspecified trigger documented in this encounter [facility] note* Diagnosis Chronic obstructive pulmonary disease, unspecified COPD type (HCC)- Primary documented in this encounter [facility] note* Diagnosis COPD, severe (HCC) Chronic airway obstruction, not elsewhere classified Allergic rhinitis, unspecified seasonality, unspecified trigger documented in this encounter [facility] note* Diagnosis COPD with exacerbation (HCC) Obstructive chronic bronchitis with exacerbation documented in this encounter [facility] note* Diagnosis Chronic obstructive pulmonary disease with (acute) exacerbation (HCC)- Primary Acute midline low back pain without sciatica Essential hypertension Unspecified essential hypertension documented in this encounter [facility] note* Diagnosis Stage 4 very severe COPD by GOLD classification ([facility])- Primary Cigarette smoker Tobacco use disorder Current chronic use of systemic steroids documented in this encounter [facility] note* Diagnosis Allergic rhinitis, unspecified seasonality, unspecified trigger documented in this encounter [facility] note* Diagnosis Stage 4 very severe COPD by GOLD classification (HCC)- Primary Chronic cough Cough Cigarette smoker Tobacco use disorder Current chronic use of systemic steroids documented in this encounter [facility] note* Diagnosis Stage 4 very severe COPD by GOLD classification (HCC) documented in this encounter [facility] for referral (narrative)* Outpatient Procedure (Routine) - Pending Review Specialty Diagnoses / Procedures Referred By Molly mcginnis Referred To [facility] Diagnoses Chronic obstructive pulmonary disease, unspecified COPD type (HCC) Procedures SPIROMETRY WITH DILATOR IF OBSTRUCTED BRNCDILAT RSPSE SPMTRY PRE&POST-BRNCDILAT Socorro Mckeon MD [address] [place] [address] [facility] [place] [address] [place] [id number] Referral ID Status Reason Start Date Expiration Date Visits Requested Visits Authorized [id number] Pending Review Auto-Generat ed Referral 03/06/2023 04/04/2024 [facility] Procedure (Routine) - Pending Review Specialty Diagnoses / Procedures Referred By Contac t Referred To Contact [facility] Diagnoses Stage 4 very severe COPD by GOLD classification (HCC) Procedures OXIMETRY WITH AMBULATION NONINVASIVE EAR/PULSE OXIMETRY MULTIPLE DETER Socorro Muller MD [address] [place] [address] [facility] [place] [address] [place] [address] Referral ID Status Reason Start Date Expiration Date Visits Requested Visits Authorized [id number] Pending Review Auto-Generat ed Referral 05/14/2023 06/12/2024 1 1 T [facility] Reason for Referral Specialty Diagnoses / Procedures Referred By Contac t Referred To Contact Socorro Muller MD [address] [facility] [facility] [place] [address] Referral ID Status Reason Start Date Expiration Date V isits Requested Visits Authorized [id number] Pending Review 1 1 Summary Purpose Family [...] or prosecute any alcohol or drug abuse [facility] the event this information is protected by the Federal Confidentiality of Alcohol and Drug Abuse Patient Records regulations: The Federal rules restrict any use of the information to criminally investigate or prosecute any alcohol or drug abuse patient.[facility] the event this information is protected by the Federal Confidentiality of Alcohol and Drug Abuse Patient Records regulations: The Federal rules restrict any use of the information to criminally investigate or prosecute any alcohol or drug abuse patient.[facility] the event this information is protected by the Federal Confidentiality of Alcohol and Drug Abuse Patient Records regulations: The Federal rules restrict any use of the information to criminally investigate or prosecute any alcohol or drug abuse patient.[facility] the event this information is protected by the Federal Confidentiality of Alcohol and Drug Abuse Patient Records regulations: The Federal rules restrict any use of the information to criminally investigate or prosecute any alcohol or drug abuse patient.[facility] the event this information is protected by the Federal Confidentiality of Alcohol and Drug Abuse Patient Records regulations: The Federal rules restrict any use of the information to criminally investigate or prosecute any alcohol or drug abuse patient.[facility] the event this information is protected by the Federal Confidentiality of Alcohol and Drug Abuse Patient Records regulations: The Federal rules restrict any use of the information to criminally investigate or prosecute any alcohol or drug abuse patient.[facility] the event this information is protected by the Federal Confidentiality of Alcohol and Drug Abuse Patient Records regulations: The Federal rules restrict any use of the information to criminally investigate or prosecute any alcohol or drug abuse patient.[facility] the event this information is protected by the Federal Confidentiality of Alcohol and Drug Abuse Patient Records regulations: The Federal rules restrict any use of the information to criminally investigate or prosecute any alcohol or drug abuse patient.[facility] the event this information is protected by the Federal Confidentiality of Alcohol and Drug Abuse Patient Records regulations: The Federal rules restrict any use of the information to criminally investigate or prosecute any alcohol or drug abuse patient.[facility] the event this information is protected by the Federal Confidentiality of Alcohol and Drug Abuse Patient Records regulations: The Federal rules restrict any use of the information to criminally investigate or prosecute any alcohol or drug abuse patient.[facility] the event this information is protected by the Federal Confidentiality of Alcohol and Drug Abuse Patient Records regulations: The Federal rules restrict any use of the information to criminally investigate or prosecute any alcohol or drug abuse patient.[facility] the event this information is protected by the Federal Confidentiality of Alcohol and Drug Abuse Patient Records regulations: The Federal rules restrict any use of the information to criminally investigate or prosecute any alcohol or drug abuse patient.[facility] the event this information is protected by the Federal Confidentiality of Alcohol and Drug Abuse Patient Records regulations: The Federal rules restrict any use of the information to criminally investigate or prosecute any alcohol or drug abuse patient.[facility] Hospital[facility] the event this information is protected by the Federal Confidentiality of Alcohol and Drug Abuse Patient Records regulations: The Federal rules restrict any use of the information to criminally investigate or prosecute any alcohol or drug abuse patient.[facility] Reason for Visit (unrecogniz ed section and [...] Care Teams (unrecognized sec tion and content) Mechanical Test Technician Relationship Specialty Start Date End Date Celena Izquierdo [address] [place] [address] PCP - General Family Practice 11/01/16 Mechanical Test Technician Relationship Specialty Start Date End Date Celena Izquierdo [address] [place] [address] PCP - General Family Practice 11/01/16 Mechanical Test Technician Relationship Specialty Start Date End Date Celena Izquierdo [address] [place] [address] PCP - General Family Practice 11/01/16 Mechanical Test Technician Relationship Specialty Start Date End Date Celena Izquierdo [address] [place] [address] PCP - General Family Medicine 11/01/16 Mechanical Test Technician Relationship Specialty Start Date End Date Celena Izquierdo [address] [place] [address] PCP - General Family Medicine 11/01/16 Mechanical Test Technician Relationship Specialty Start Date End Date Celena Izquierdo [address] [facility] [place] [address] PCP - General Family Medicine 11/01/16 Mechanical Test Technician Relationship Specialty Start Date End Date Celena Izquierdo MD [address] [place] [address] PCP - General 04/05/19 Mechanical Test Technician Relationship Specialty Start Date End Date Celena Izquierdo MD [address] [place] [address] PCP - General 04/05/19 Mechanical Test Technician Relationship Specialty Start Date End Date Celena Izquierdo [address] [facility] [place] [address] PCP - General Family Medicine 11/01/16 Mechanical Test Technician Relationship Specialty Start Date End Date Celena Izquierdo [address] [place] [place] [address] PCP - General Family Medicine 11/01/16 Mechanical Test Technician Relationship Specialty Start Date End Date Celena Izquierdo [address] [facility] [place] [address] PCP - General Family Medicine 11/01/16 Mechanical Test Technician Relationship Specialty Start Date End Date Celena Izquierdo [address] [facility] [place] [address] PCP - General Family Medicine 11/01/16 Mechanical Test Technician Relationship Specialty Start Date End Date Celena Izquierdo [address] [facility] [place] [address] PCP - General Family Medicine 11/01/16 INFORMATION SOURCE (unrecogn ized section and content) DATE CREATED AUTHOR AUTHOR'S RICHIE ATION 11/12/2023 [facility] FOR RECORDS PERTAINING TO PATIENTS WHO ARE [...] BE BASED ON THE PRIMARY CLINICAL RECORDS. [employer] [facility]. provides no warranty or guarantee of the accuracy or completeness of information in this document.
--- NOTE | 2023-12-09 17:36 | PCM.HP.STD ---
[facility] - General General Date of Admission: 12/09/23 Date of Service: 12/09/23 Chief Complaint: Shortness of breath HPI Narrative RACQUEL IRVIN, is a 63 F with past medical history of COPD, coronary artery disease who presents progressive shortness of breath for the last 4 days with associated cough but without expectoration for the last 4 days. She felt febrile at home but it could not be measured. Has a history of PCI 1 year back and is on DAPT at this time. She is on chronic azithromycin therapy for recurrent exacerbations. She continues to smoke but has reduced the number of cigarettes smoked per day. also smokes but she denies any passive smoke inhalation. Was never recommended home oxygen therapy. She feels extremely short of breath while ambulating and decided to come to the hospital because of severe limitation in her daily activities. At the time of presentation in the ED, her saturation was about 95 on room air but dipped to around 85 when she walked to the restroom. She is on 4 L of oxygen at this time. WBC 8.1, hemoglobin 9.9, platelet 371, checks x-ray did not show any acute findings. PFSH Medical History Anxiety Anxiety, generalized Asthma Atherosclerosis of coronary artery of [place] heart without angina pectoris Broken back COPD (chronic obstructive pulmonary disease) Current smoker Emphysema lung GERD (gastroesophageal reflux disease) Hip replacement planned Hypertension Osteoporosis Panic attacks Post traumatic stress disorder (PTSD) Smoker Home Medications albuterol sulfate 2.5 mg/3 mL (0.083 %) solution for nebulization 2.5 mg inhalation BID breathing 10/04/14 [History Last Taken 12/13/22] guaifenesin 1,200 mg tablet, extended release 12 hr (Mucus Relief ER) 1,200 mg PO BID PRN PRN Congestion 01/24/15 [History Last Taken 12/13/22] tiotropium bromide 18 mcg capsule with inhalation device (Spiriva with HandiHaler) 1 puff inhalation DAILY SHORTNESS OF BREATH 01/24/15 [History Last Taken 12/13/22] alprazolam 1 mg tablet (Xanax) 1 mg PO BID anxiety 01/24/18 [History Last Taken 12/14/22] albuterol sulfate 90 mcg/actuation aerosol inhaler (ProAir HFA) 2 puff inhalation Q4H PRN PRN Sob &/Or Wheezing 11/04/18 [History Last Taken 12/14/22] fluticasone 500 mcg-salmeterol 50 mcg/dose blistr powdr for inhalation (Advair Diskus) 1 inh inhalation BID COPD 08/31/22 [History Last Taken 12/13/22] ibandronate 150 mg tablet 150 mg PO Q90D OSTEOPOROSIS 08/31/22 [History Last Taken 11/14/22] losartan 50 mg tablet 50 mg PO DAILY BLOOD PRESSURE 08/31/22 [History Last Taken 12/13/22] aspirin 81 mg chewable tablet 81 mg PO BREAKFAST #90 tabs 01/18/23 [Rx Last Taken Unknown] atorvastatin 40 mg tablet (Lipitor) 40 mg PO QHS #90 tabs 01/18/23 [Rx Last Taken Unknown] clopidogrel 75 mg tablet 75 mg PO DAILY #90 tabs 01/18/23 [Rx Last Taken Unknown] metoprolol succinate 25 mg tablet,extended release 24 hr 25 mg PO DAILY #90 tabs 01/18/23 [Rx Last Taken Unknown] omeprazole magnesium 20 mg tablet,delayed release (Prilosec OTC) 20 mg PO DAILY 01/23/23 [History Last Taken Unknown] azithromycin 250 mg tablet (Zithromax) 250 mg PO DAILY 7 days #7 tabs 03/31/23 [Rx Last Taken Unknown] benzonatate 100 mg capsule 200 mg (2 x 100 mg) PO TID PRN PRN Cough #40 caps 03/31/23 [Rx Last Taken Unknown] prednisone 10 mg tablet 20 mg (2 x 10 mg) PO BID #20 tabs 03/31/23 [Rx Last Taken Unknown] nitroglycerin 0.4 mg sublingual tablet (Nitrostat) 0.4 mg sublingual Q5-15M PRN chest pain #25 tabs 05/09/23 [Rx Last Taken Unknown] Allergy/AdvReac Type Severity Reaction Status Date / Time No Known Allergies Allergy Verified 12/09/23 13:45 Surgical History History of appendectomy History of coronary artery stent placement (~12/18/22) History of partial hysterectomy Social History Smoking Status: Light Smoker (<10/day) ROS Review of Systems ROS Unobtainable: Denies due to encephalopathy, due to endotracheal tube, due to mental condition, due to mental status or other Constitutional Constitutional: Denies anorexia, change in weight, chills, fatigue, fever(s), malaise, night sweats, weakness or other Eyes Eyes: Denies blurry vision, change in eye color, change in vision, discharge from eye(s), double vision, erythema, eye pain, loss of vision or other ENT HEENT: Denies abnormal hearing, dysphagia, ear pain, epistaxis, headache(s), hearing loss, nasal congestion, nasal discharge, post nasal drip, sinus pressure, sore throat or other Cardiovascular Cardiovascular: Reports dyspnea on exertion; Denies chest pain, claudication, lightheadedness, orthopnea, palpitations, paroxysmal nocturnal dyspnea, rapid heart rate, syncope or other Respiratory/Chest Respiratory/Chest: Reports cough, dyspnea, shortness of breath at rest, shortness of breath with exertion and wheezing; Denies hemoptysis or productive cough Gastrointestinal Gastrointestinal: Reports constipation Musculoskeletal Musculoskeletal: Denies arthralgias, back pain, joint pain, joint stiffness, joint swelling, myalgias, neck pain or other Neurologic Neurologic: Denies abnormal gait, abnormal speech, confusion, disequilibrium, dizziness, focal weakness, headache(s), numbness, paresthesias, seizure-like activity, seizures, syncope, tingling, tremor(s) or other Psychiatric Psychiatric: Denies anxiety, depression, homicidal ideation, suicidal ideation or other Endocrine Endocrinology: Denies change in body appearance, cold intolerance, excessive sweating, heat intolerance, polydipsia, polyuria or other Hematologic/Lymphatic Hematologic/Lymphatic: Denies anemia, easy bleeding, easy bruising, lymphadenopathy or other Allergic/Immunologic Allergic/Immunologic: Denies rhinitis, hives, eczemia, asthma or other Vital Signs Vital Signs Vital Signs: 12/09/23 13:44 12/09/23 14:14 12/09/23 14:00 Temperature 97.2 F L Temperature Source Temporal Pulse Rate 95 91 90 Respiratory Rate 20 H 16 21 H Respiratory Effort Respiratory Depth Respiratory Pattern Normal Blood Pressure 128/59 H 130/46 H Blood Pressure Mean 82 74 Pulse Ox 95 98 Oxygen Delivery Method Room Air Room Air 12/09/23 14:00 12/09/23 14:32 12/09/23 16:27 Temperature Temperature Source Pulse Rate 88 Respiratory Rate 22 H Respiratory Effort Short of Breath Respiratory Depth Normal Respiratory Pattern Tachypnea Tachypnea Blood Pressure Blood Pressure Mean Pulse Ox Oxygen Delivery Method Room Air Room Air Weight Weight: 116 lb Body Mass Index (BMI) 25.1 Physical Exam Const alert and oriented x3 Psych affect normal Results Medical Records Data Attestation: I reviewed the patient's medical records Lab / Micro Data Attestation: I reviewed the patient's lab results. 12/09/23 15:32 12/09/23 15:32 Labs: Laboratory Results - last 24 hr 12/09/23 15:32: WBC 8.1, RBC 4.78, Hgb 9.9 L, Hct 33.5 L, MCV 70.1 L, MCH 20.7 L, MCHC 29.6 L, RDW Std Deviation 49.7 H, RDW Coeff of Mehul 19.9 H, Plt Count 371, MPV 9.8, Immature Gran % (Auto) 0.100, Neut % (Auto) 44.9 L, Lymph % (Auto) 32.6, [place] % (Auto) 11.2 H, Eos % (Auto) 9.7 H, Baso % (Auto) 1.5 H, Absolute Neuts (auto) 3.6, Absolute Lymphs (auto) 2.64, Nucleated RBC % 0, Sodium 141, Potassium 3.9, Chloride 111 H, Carbon Dioxide 26.0, Anion Gap 4 L, BUN 4 L, Creatinine 0.48 L, Estim Creat Clear Calc 87.29, Est GFR (MDRD) Af Amer 170, Est GFR (MDRD) Non-Af 141, BUN/Creatinine Ratio 8.4 L, Glucose 110 H, Lactic Acid 1.8, Calcium 9.5, Troponin I High Sens 4, B-Natriuretic Peptide 13.6 Micro: Microbiology 12/09/23 17:00 Stool Stool Occult Blood (YASMINE) - Final 12/09/23 14:26 Mucosa - Nose SARS-CoV-2, Influenza & RSV (PCR) - Final Imaging Radiology Impression Chest X-Ray 12/09/23 14:30 IMPRESSION: There are no acute findings. Electronically Signed: Torres Amos MD at 14:48 EST Reading Location ID and State: [facility] / MD , Service support , Assessment & Plan Assessment/Plan (1) COPD exacerbation: PLAN: Plan 63-year-old female presents to the ED with worsening shortness of breath with cough and prior history of severe COPD. Based on her presentation and symptoms this is an episode of COPD exacerbation, will start her on therapy for the same. 1. COPD exacerbation: -IV methylprednisone for 5 days followed by oral prednisone taper -Oral azithromycin to cover atypical organisms [does not completely fulfill the criteria: No productive cough but worsening shortness of breath and given prior history of recurrent exacerbations we will treat her more aggressively.] -Respiratory therapy -DuoNeb nebulization, close monitoring 2. Coronary artery disease s/p stent placement in December 2022 -Continue dual antiplatelet therapy -No symptoms of angina at this time -proBNP levels were normal, no features concerning for congestive heart failure 3. Acute on chronic anemia -Decline in hemoglobin from 12 at baseline to 9 -Digital rectal exam in the ED was negative for blood, FOBT negative -Follow-up with gastroenterology as an outpatient, plan for outpatient colonoscopy plus upper endoscopy -Will send iron levels, ferritin, TIBC levels 4. Chronic constipation -Does not want any laxatives at this time, as they did not work in the past -Recommended increasing oral hydration, starting kiwi fruit daily -Follow-up with GI as an outpatient 5. Dyslipidemia continue atorvastatin 6. Hypertension: Continue losartan and metoprolol 7. GERD: Continue pantoprazole as prior prescribed Charges/Coding Visit Charges Inpatient E&M: 52792 Init Hosp L2
--- OUTSIDE RECORDS SUMMARY | 2023-12-09 17:41 | XMS RPT_ITS | CCD ---
Author Name Unknown Address [address] [place] [address] Organization [facility] Care Team Providers Care Measurement Superintendent Name Role Phone Celena Izquierdo Primary Care [...] HCL] Drug Allergy 9 Shortness of Breath [facility] Work Phone: (16 sources) Lisinopril; 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: [LISINOPRIL] Drug Allergy 8 Cough [facility] Work Phone: (16 sources) Roflumilast; 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: [ROFLUMILAST] Drug Allergy 7 Mental Status Change [facility] Work Phone: (16 sources) Seasonal allergy; 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: [SEASONAL ALLERGIES] Allergy to substance 5 Shortness of Breath [facility] (2 sources) beta Sitosterol / ZINC CITRATE Drug Allergy 5 Shortness of breath [facility] (2 sources) buPROPion Drug Allergy 9 Shortness of breath [facility] (2 sources) Lisinopril Allergy to substance 8 Cough [facility] (2 sources) Roflumilast Drug Allergy 7 Anxiety [facility] (2 sources) Other Propensity to adverse reactions 5 Shortness of breath [facility] Medications Current Medications Medication Drug Class(es) Dates [...] Drug Class(es) Dates Sig (Normalized) Sig (Original) [id number] 200 actuat albuterol 0.09 mg/actuat metered dose [...] Long-term current use of systemic steroid; 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: [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 of systemic steroids] Onset: 05-14-2023 [...] 157.5 cm Socorro Muller MD Work Phone: [facility] 05-14-2023 15:22-0400 Body weight 54.34 kg Socorro Muller MD Work Phone: [facility] 05-14-2023 15:22-0400 Diastolic blood pressure 72 mm[Hg] Socorro Muller MD Work Phone: [facility] 05-14-2023 15:22-0400 Heart rate 71 /min Socorro Muller MD Work Phone: [facility] 05-14-2023 15:22-0400 Respiratory rate 14 /min Socorro Muller MD Work Phone: [facility] 05-14-2023 15:22-0400 SaO2% (BldA) [Mass fraction] 95 % Socorro Muller MD Work Phone: [facility] 05-14-2023 15:22-0400 Systolic blood pressure 104 mm[Hg] Socorro Muller MD Work Phone: [facility] 04-25-2023 11:05-0400 Body mass index (BMI) [Ratio] 21.66 kg/m2 Aliyah Hernandez WHITE LEAD GRINDER - FASHION DESIGNER Work Phone: [facility] 04-25-2023 11:05-0400 Body weight 53.71 kg Aliyah Bridenthal WHITE LEAD GRINDER - FASHION DESIGNER Work Phone: [facility] 04-25-2023 11:05-0400 Diastolic blood pressure 65 mm[Hg] Aliyah Rajenthal WHITE LEAD GRINDER - FASHION DESIGNER Work Phone: [facility] 04-25-2023 11:05-0400 Heart rate 97 /min Aliyah Bridenthal WHITE LEAD GRINDER - FASHION DESIGNER Work Phone: [facility] 04-25-2023 11:05-0400 Respiratory rate 20 /min Aliyah Bridenthal WHITE LEAD GRINDER - FASHION DESIGNER Work Phone: [facility] 04-25-2023 11:05-0400 SaO2% (BldA) [Mass fraction] 92 % Aliyah Rajenthal WHITE LEAD GRINDER - FASHION DESIGNER Work Phone: [facility] 04-25-2023 11:05-0400 Systolic blood pressure 115 mm[Hg] Aliyah Rajenthal WHITE LEAD GRINDER - FASHION DESIGNER Work Phone: [facility] Encounters Encounter Date Encounter Type Care Provider Facility Start: 08-14-2023 Refill Ruthie GarrettC Work Phone: Pulmonary Medicine Procedures Date Procedure Procedure Detail Performing Clinician Start: 02-03-2022 Lipid 1996 panel - Serum or Plasma Aliyah Edithal WHITE LEAD GRINDER - FASHION DESIGNER Work Phone: Start: 07-17-2021 Mammography Ruthie KNAPPC Work Phone: Start: 05-23-2021 Mammography Aliyah Rajenthal WHITE LEAD GRINDER - FASHION DESIGNER Work Phone: Start: 07-01-2018 H/O: hysterectomy History of hysterectomy Aliyah Rajenth al WHITE LEAD GRINDER - FASHION DESIGNER Work Phone: Plan of Treatment Date Care Activity Detail Author Start: 05-30-2027 DTaP/Tdap/Td Vaccines (2 - Td or Tdap) DTaP/Tdap/Td Vaccines (2 - Td or Tdap) [facility] Start: 05-30-2027 Urine microalbumin profile [facility] Start: 02-03-2027 Lipid panel Lipid Panel [facility] Start: 07-06-2023 Influenza vaccination [facility] Start: 02-03-2023 Diabetes mellitus screening Diabetes Screening [facility] Start: 07-17-2022 Mammography [facility] Start: 07-06-2022 Influenza vaccination [facility] Start: 05-23-2022 Screening for malignant neoplasm of breast Mammogram [facility] Start: 03-31-2022 Zoster Vaccines (2 of 2) Zoster Vaccines (2 of 2) [facility] Start: 07-06-2021 Influenza vaccination INFLUENZA (#1) [facility] Start: 02-18-2020 PNEUMOCOCCAL (2 - PCV) PNEUMOCOCCAL (2 - PCV) [facility] Start: 02-18-2020 Pneumococcal vaccination Pneumococcal Vaccine (2 - PCV) [facility] Start: 02-18-2020 Pneumococcal Vaccine: Pediatrics (0 to 5 Years) and At-Risk Patients (6 to 64 Years) (2 - PCV) Pneumococcal Vaccine: Pediatrics (0 to 5 Years) and At-Risk Patients (6 to 64 Years) (2 - PCV) [facility] Start: 2011 SHINGRIX VACCINE (1 of 2) SHINGRIX VACCINE (1 of 2) [facility] Start: 2006 COLOGUARD (FIT-DNA) COLOGUARD (FIT-DNA) [facility] Start: 2006 Colonoscopy COLONOSCOPY [facility] Start: 2006 COLORECTAL CANCER SCREENING COLORECTAL CANCER SCREENING [facility] Start: [address] COLONOGRAPHY [facility] Start: 2006 DIABETES SCREEN DIABETES SCREEN [facility] Start: 2006 Diabetes Screening Diabetes Screening [facility] Start: 2006 FECAL OCCULT BLOOD FECAL OCCULT BLOOD [facility] Start: 2006 Lipid 1996 panel - Serum or Plasma Lipid Screening [facility] Start: 2006 LIPID SCREEN LIPID SCREEN [facility] Start: 2006 SIGMOIDOSCOPY SIGMOIDOSCOPY [facility] Start: 1991 HPV TESTING HPV TESTING [facility] Start: 1982 PAP TESTING PAP TESTING [facility] Start: 01-04-1980 Hepatitis A Vaccines (1 of 2 - Risk 2-dose series) Hepatitis A Vaccines (1 of 2 - Risk 2-dose series) [facility] Start: 1979 ANNUAL PCP TEAM CHRONIC DISEASE VISIT ANNUAL PCP TEAM CHRONIC DISEASE VISIT [facility] Start: 1979 HEPATITIS C SCREENING HEPATITIS C SCREENING [facility] Start: 1979 Hepatitis C screening Hepatitis C Screening [facility] Start: 1979 HIV SCREENING HIV SCREENING [facility] Start: 1973 Depresssion Monitoring Depresssion Monitoring [facility] Start: 1966 COVID-19 VACCINE (#1) COVID-19 VACCINE (#1) [facility] Start: 1966 COVID-19 VACCINE (1) COVID-19 VACCINE (1) [facility] Start: 1962 MMR Vaccines (1 of 1 - Standard series) MMR Vaccines (1 of 1 - Standard series) [facility] Start: 1961 COVID-19 VACCINE (#1) COVID-19 VACCINE (#1) [facility] Start: 1961 HIV screening HIV Screening [facility] Start: 1961 Screening for malignant neoplasm of colon [facility] Start: 1961 Screening for osteoporosis Bone Density Scan [facility] OXIMETRY - NOCTURNAL OXIMETRY - NOCTURNAL Procedures Routine Stage 4 very severe COPD by GOLD classification (HCC) Ordered: 07/04/2023 [facility] Work Phone: Immunizations Immunization Date Immunization Notes Care Provider Kyle buchanan 02-03-2022 zoster vaccine recombinant Aliyah Hernandez WHITE LEAD GRINDER - FASHION DESIGNER Work Phone: [facility] 02-17-2019 pneumococcal polysaccharide vaccine, 23 valent Ruthie Doan PA-C Work Phone: [facility] Work Phone: 05-30-2017 tetanus toxoid, redu jovany diphtheria toxoid, and acellular pertussis vaccine, adsorbed Ruthie Doan PA-C Work Phone: [facility] Work Phone: 03-10-2014 pneumococcal polysaccharide vaccine, 23 valent Ruthie Doan PA-C Work Phone: [facility] Work Phone: 03-07-2014 pneumococcal polysaccharide vaccine, 23 valent Aliyah Hernandez WHITE LEAD GRINDER - FASHION DESIGNER Work Phone: [facility] 08-05-2013 influenza virus vacc ine, unspecified formulation Aliyah Hernandez WHITE LEAD GRINDER - FASHION DESIGNER Work Phone: [facility] Payers Date Payer Category Payer Medicare MEDICARE MEDICAR E A AND B [id number] 2016-Present [phone] [address] [address] [place] [address] Medicare [id number] 2016 Medicare [id number] 2016 Medicare [id number] 2015 Unknown [employer] CARD PPO OOS [id number] 2015-Present [phone] [address] [place] [address] PPO [id number] 2015 Unknown [id number] 2015 Unknown [id number] Social History Date Type Detail Facility Start: 1977 End: 05-14-2023 Tobacco smoking status PRIS Smokes tobacco daily [facility] Start: 1977 History of tobacco use Cigarette Smo ker [facility] Start: 05-02-2018 End: 07-04-2023 Cigarettes smoked current (pack per day) - Reported 0.5 [facility] Start: 05-02-2018 End: 05-14-2023 Tobacco use and exposure Smokeless tobacco non-user [facility] Start: 08-11-2021 End: 04-25-2023 Alcohol intake Current drinker of alcohol (finding) [facility] Start: 08-11-2021 History SDOH Alcohol Comment couple times a week [facility] Start: 08-11-2021 Tobacco Comment every 3-4 days [facility] Start: 1960 Sex Assigned At Not on file [facility] Start: 09-25-1989 Tobacco smoking stat us NHIS Occasional tobacco smoker [facility] Start: 04-25-2023 End: 07-04-2023 Tobacco use panel [facility] How hard is it for y ou to pay for the very basics like food, housing, medical care, and heating Not hard at all [facility] (I/We) worried wheth er (my/our) food would run out before (I/we) got money to buy more. 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 She has been taking the Prednisone 5mg daily. She has been unable to wean off any lower than that. Requesting refill of the 5mg to [facility]. Please review and advise. Tammy Landry MA documented in this encounter [facility] 07-12-2023 Miscellaneous Notes Formattin g of this [...] advise. Ruthie Munson documented in this encounter [facility] 07-04-2023 Note HNO ID: [id number] Author: Ruthie Doan PA-C Service: ? Author Type: Physician Vocational Rehabilitation Supervisor Type: Progress Notes Filed: 07/04/2023 2:41 PM Note Text: Patient: Katlin Pond PCP: Celena Izquierdo MD CC: follow up HPI: Katlin Podn 63 year old female smoker with PMH significant for very severe COPD (FEV1 29%), HTN, and PTSD. Complications related to her chronic steroid use consist of osteoporosis with compression fractures requiring kyphoplasty. She was hospitalized at [facility] in December with bronchitis and had a SD, requiring a stent. Current therapy consists of [...] after heart attack (more content not included)... [facility] 07-04-2023 History of Presen t illness [...] fractures requiring kyphoplasty. She was hospitalized at [facility] in December with bronchitis and had a SD, requiring a stent. Current therapy consists of [...] Ruthie Doan PA-C documented in this encounter [facility] 06-07-2023 Miscellaneous Notes Formattin g of this note is different from the original. Patient phones requesting refills as follows: RENARD: 05/14/23 Requested Prescriptions Pending Prescriptions Disp Refills montelukast (SINGULAIR) 10 mg tablet [Pharmacy Med Name: MONTELUKAST SOD 10 MG TABLET] 90 tablet 1 Sig: TAKE 1 TABLET BY MOUTH EVERYDAY AT BEDTIME Please review and advise. Carmela Sheehan LPN documented in this encounter [facility] 05-14-2023 Note HNO ID: [id number] Author: Socorro Muller MD Service: ? Author Type: Physician Type: Progress Notes Filed: 05/14/2023 5:04 PM Note Text: . [facility] [place] Note Patient name: Katlin Pond PCP: Celena [...] fractures requiring kyphoplasty. She was hospitalized at [facility] in December with bronchitis and SD, requiring a stent. From a respiratory standpoint [...] in not operable. Questioning need for oxygen. [place] better on oxygen when she was in the hospital but did not appear to qualify for home oxygen at discharge. DATA: PFT 2018: Review of PFTs shows very severe obstruction Labs: Component Ref Range AND Units 8 yr ago Alpha 1 Antitrypsin 100 - 220 mg/dL 161 Imaging / Diagnostic Studies: CXR 03/2023 at [facility] reviewed which shows hyperinflation and changes [...] Less one pack (more content not included)... [facility] 05-14-2023 Instructions Socorro Muller MD - [...] weeks then stop documented in this encounter [facility] 05-14-2023 Nurse Note Patient presents with: COPD Pt states she has not been able to use her albuterol nebulizer d/t dry irritation that increases the patient's cough. Pt believes using the mask would be better for her. Pt has continued to use her inhaler without issue. documented in this encounter [facility] 05-14-2023 History of Presen t illness Narrative Images from the original note were not included. . [facility] Patient name: Katlin Pond PCP: Celena [...] fractures requiring kyphoplasty. She was hospitalized at [facility] in December with bronchitis and SD, requiring a stent. From a respiratory standpoint [...] in not operable. Questioning need for oxygen. [place] better on oxygen when she was in the hospital but did not appear to qualify for home oxygen at discharge. DATA: PFT 2018: Review of PFTs shows very severe obstruction Labs: Component Ref Range & Units 8 yr ago Alpha 1 Antitrypsin 100 - 220 mg/dL 161 Imaging / Diagnostic Studies: CXR 03/2023 at [facility] reviewed which shows hyperinflation and changes [...] of adrenal insufficiency Socorro Muller MD [facility] documented in this encounter [facility] 05-04-2023 Telephone encount er Note Reviewed chart. Refill appropriate. RX sent. [facility] 05-04-2023 Miscellaneous Notes Formattin g of this note might be different from the original. Reviewed chart. Refill appropriate. RX sent. Prescription Request: Last medication check: 04/25/23 Last physical exam: 02/03/22 Next scheduled appointment: none Last date of refill on this medication 10/18/22 90 day 1 refill documented in this encounter [facility] 05-04-2023 Telephone encount er Note Prescription Request: Last medication check: 04/25/23 Last physical exam: 02/03/22 Next scheduled appointment: none Last date of refill on this medication 10/18/22 90 day 1 refill [facility] 04-25-2023 Evaluation + Plan note Associated Problem(s): [...] follow-up with pain regarding her chronic pain. [facility] 04-25-2023 Evaluation + Plan note Associated Problem(s): Essential hypertension Controlled. Continue losartan 50 mg metoprolol 25 mg [facility] 04-25-2023 Miscellaneous Notes Associate d Problem(s): Acute [...] pulmonology as scheduled documented in this encounter [facility] 04-25-2023 Evaluation + Plan note Associated Problem(s): Chronic obstructive pulmonary disease with (acute) exacerbation (HCC) Continue prednisone 10 mg daily azithromycin 250 mg daily, albuterol as needed, Advair and Spiriva. Follow-up with pulmonology as scheduled [facility] 04-25-2023 History of Presen t illness Narrative [...] and WILL BE SEEING GAGE [facility] IN [place]-PAIN MANAGEMENT DOCTOR. -Within the next month or [...] note. JUAN Harry CNP 04/24/2023 7:21 PM Junior Engineer for Intimate and Non Intimate Exam Junior Engineer was declined Junior Engineer: accompanied Aunt documented in this encounter [facility] 03-16-2023 Miscellaneous Notes Formattin g of this note might be different from the original. Called patient to offer a appt with Pulm per provider, in order to get a medication refill, patient refuse appt. Gisel Reddy [facility] 03/16/2023 Verified name and date of . Patient phones requesting refills as follows: Requested Prescriptions Pending Prescriptions Disp Refills predniSONE (DELTASONE) 10 mg tablet 90 tablet 3 Please review and advise. Lorrie Goetz LPN documented in this encounter [facility] 03-09-2023 Miscellaneous Notes Formattin g of this [...] for breathing tests. documented in this encounter [facility] 05-09-2022 Miscellaneous Notes Patient phones requesting refills as follows: Pending Prescriptions Disp Refills AZITHROMYCIN 250 MG TABLET 30 tablet 11 Sig: Take 1 tablet by mouth once daily. NAEEM: No Please review and advise. Carmela Sheehan LPN documented in this encounter [facility] 04-05-2022 Miscellaneous Notes The following prescriptions have been called to [facility] pharmacy 04/05/2022 at 3:29 PM by Carmela [...] Lorrie Goetz LPN documented in this encounter [facility] 02-23-2022 Miscellaneous Notes I have reviewed her [...] Rx was sent. documented in this encounter [facility] documented in this encounter [facility] note* Diagnosis COPD, severe (HCC) Chronic airway obstruction, not elsewhere classified documented in this encounter [facility] note* Diagnosis Allergic rhinitis, unspecified seasonality, unspecified trigger documented in this encounter [facility] note* Diagnosis Chronic obstructive pulmonary disease, unspecified COPD type (HCC)- Primary documented in this encounter [facility] note* Diagnosis COPD, severe (HCC) Chronic airway obstruction, not elsewhere classified Allergic rhinitis, unspecified seasonality, unspecified trigger documented in this encounter [facility] note* Diagnosis COPD with exacerbation (HCC) Obstructive chronic bronchitis with exacerbation documented in this encounter [facility] note* Diagnosis Chronic obstructive pulmonary disease with (acute) exacerbation (HCC)- Primary Acute midline low back pain without sciatica Essential hypertension Unspecified essential hypertension documented in this encounter [facility] note* Diagnosis Stage 4 very severe COPD by GOLD classification ([facility])- Primary Cigarette smoker Tobacco use disorder Current chronic use of systemic steroids documented in this encounter [facility] note* Diagnosis Allergic rhinitis, unspecified seasonality, unspecified trigger documented in this encounter [facility] note* Diagnosis Stage 4 very severe COPD by GOLD classification (HCC)- Primary Chronic cough Cough Cigarette smoker Tobacco use disorder Current chronic use of systemic steroids documented in this encounter [facility] note* Diagnosis Stage 4 very severe COPD by GOLD classification (HCC) documented in this encounter [facility] for referral (narrative)* Outpatient Procedure (Routine) - Pending Review Specialty Diagnoses / Procedures Referred By Molly mcginnis Referred To Contact [facility] Diagnoses Chronic obstructive pulmonary disease, unspecified COPD type (HCC) Procedures SPIROMETRY WITH DILATOR IF OBSTRUCTED BRNCDILAT RSPSE SPMTRY PRE&POST-BRNCDILAT Socorro Mckeon MD [address] [place] [address] [facility] [address] [place] [id number] Referral ID Status Reason Start Date Expiration Date Visits Requested Visits Authorized [id number] Pending Review Auto-Generat ed Referral 03/06/2023 04/04/2024 [facility] Procedure (Routine) - Pending Review Specialty Diagnoses / Procedures Referred By Contac t Referred To Contact [facility] Diagnoses Stage 4 very severe COPD by GOLD classification (HCC) Procedures OXIMETRY WITH AMBULATION NONINVASIVE EAR/PULSE OXIMETRY MULTIPLE DETER Socorro Muller MD [address] [address] [facility] [address] [place] [address] Referral ID Status Reason Start Date Expiration Date Visits Requested Visits Authorized [id number] Pending Review Auto-Generat ed Referral 05/14/2023 06/12/2024 1 1 T [facility] Reason for Referral Specialty Diagnoses / Procedures Referred By Contac t Referred To Contact Socorro Muller MD [address] [place] [address] Referral ID Status Reason Start Date Expiration Date V isits Requested Visits Authorized [id number] Pending Review 1 1 Summary Purpose Family [...] or prosecute any alcohol or drug abuse [facility] the event this information is protected by the Federal Confidentiality of Alcohol and Drug Abuse Patient Records regulations: The Federal rules restrict any use of the information to criminally investigate or prosecute any alcohol or drug abuse patient.[facility] the event this information is protected by the Federal Confidentiality of Alcohol and Drug Abuse Patient Records regulations: The Federal rules restrict any use of the information to criminally investigate or prosecute any alcohol or drug abuse patient.[facility] the event this information is protected by the Federal Confidentiality of Alcohol and Drug Abuse Patient Records regulations: The Federal rules restrict any use of the information to criminally investigate or prosecute any alcohol or drug abuse patient.[facility] the event this information is protected by the Federal Confidentiality of Alcohol and Drug Abuse Patient Records regulations: The Federal rules restrict any use of the information to criminally investigate or prosecute any alcohol or drug abuse patient.[facility] the event this information is protected by the Federal Confidentiality of Alcohol and Drug Abuse Patient Records regulations: The Federal rules restrict any use of the information to criminally investigate or prosecute any alcohol or drug abuse patient.[facility] the event this information is protected by the Federal Confidentiality of Alcohol and Drug Abuse Patient Records regulations: The Federal rules restrict any use of the information to criminally investigate or prosecute any alcohol or drug abuse patient.[facility] CenterIn the event this information is protected by the Federal Confidentiality of Alcohol and Drug Abuse Patient Records regulations: The Federal rules restrict any use of the information to criminally investigate or prosecute any alcohol or drug abuse patient.[facility] CenterIn the event this information is protected by the Federal Confidentiality of Alcohol and Drug Abuse Patient Records regulations: The Federal rules restrict any use of the information to criminally investigate or prosecute any alcohol or drug abuse patient.[facility] CenterIn the event this information is protected by the Federal Confidentiality of Alcohol and Drug Abuse Patient Records regulations: The Federal rules restrict any use of the information to criminally investigate or prosecute any alcohol or drug abuse patient.[facility] CenterIn the event this information is protected by the Federal Confidentiality of Alcohol and Drug Abuse Patient Records regulations: The Federal rules restrict any use of the information to criminally investigate or prosecute any alcohol or drug abuse patient.[facility] CenterIn the event this information is protected by the Federal Confidentiality of Alcohol and Drug Abuse Patient Records regulations: The Federal rules restrict any use of the information to criminally investigate or prosecute any alcohol or drug abuse patient.[facility] CenterIn the event this information is protected by the Federal Confidentiality of Alcohol and Drug Abuse Patient Records regulations: The Federal rules restrict any use of the information to criminally investigate or prosecute any alcohol or drug abuse patient.[facility] CenterIn the event this information is protected by the Federal Confidentiality of Alcohol and Drug Abuse Patient Records regulations: The Federal rules restrict any use of the information to criminally investigate or prosecute any alcohol or drug abuse patient.[facility] CenterIn the event this information is protected by the Federal Confidentiality of Alcohol and Drug Abuse Patient Records regulations: The Federal rules restrict any use of the information to criminally investigate or prosecute any alcohol or drug abuse patient.[facility] Reason for Visit (unrecogniz ed section and [...] Care Teams (unrecognized sec tion and content) Measurement Superintendent Relationship Specialty Start Date End Date Celena Izquierdo [address] [place] [address] PCP - General Family Practice 11/01/16 Measurement Superintendent Relationship Specialty Start Date End Date Celena Izquierdo [address] [place] [address] PCP - General Family Practice 11/01/16 Measurement Superintendent Relationship Specialty Start Date End Date Celena Izquierdo [address] [place] [address] PCP - General Family Practice 11/01/16 Measurement Superintendent Relationship Specialty Start Date End Date Celena Izquierdo [address] [place] [place] [address] PCP - General Family Medicine 11/01/16 Measurement Superintendent Relationship Specialty Start Date End Date Celena Izquierdo [address] [place] [address] PCP - General Family Medicine 11/01/16 Measurement Superintendent Relationship Specialty Start Date End Date Celena Izquierdo [address] [facility] [place] [place] [address] PCP - General Family Medicine 11/01/16 Measurement Superintendent Relationship Specialty Start Date End Date Celena Izquierdo MD [address] [facility] [place] [address] PCP - General 04/05/19 Measurement Superintendent Relationship Specialty Start Date End Date Celena Izquierdo MD [address] [facility] [place] [address] PCP - General 04/05/19 Measurement Superintendent Relationship Specialty Start Date End Date Celena Izquierdo [address] [facility] [place] [place] [address] PCP - General Family Medicine 11/01/16 Measurement Superintendent Relationship Specialty Start Date End Date Celena Izquierdo [address] [place] [place] [address] PCP - General Family Medicine 11/01/16 Measurement Superintendent Relationship Specialty Start Date End Date Celena Izquierdo [address] [facility] [place] [address] PCP - General Family Medicine 11/01/16 Measurement Superintendent Relationship Specialty Start Date End Date Celena Izquierdo [address] [facility] [place] [address] PCP - General Family Medicine 11/01/16 Measurement Superintendent Relationship Specialty Start Date End Date Celena Izquierdo [address] [facility] [place] [place] [address] PCP - General Family Medicine 11/01/16 INFORMATION SOURCE (unrecogn ized section and content) DATE CREATED AUTHOR AUTHOR'S RICHIE ATION 11/12/2023 [facility] FOR RECORDS PERTAINING TO PATIENTS WHO [...] BE BASED ON THE PRIMARY CLINICAL RECORDS. [employer] [facility]. provides no warranty or guarantee of the accuracy or completeness of information in this document.
[2023-12-09] MEDS: Azithromycin 500 MG in Dextrose 5%-Water (250mL Bag) 250 ML 250 MG IV (17:44)
[2023-12-09] MEDS: 0.9% Saline Lock 10 ML Syringe IV (20:15)
[2023-12-09 20:20] LABS: Iron 12 ug/dL (50-170); Iron Binding Capacity,Total 356 ug/dL (250-450); PERCENT IRON SATURATION 3.4 % (15.0-55.0)
[2023-12-09] MEDS: Atorvastatin Calcium 40 MG Tablet PO (22:06)
[2023-12-09] MEDS: ALPRAZolam 0.5 MG Tablet 1 MG PO (22:06)
[2023-12-10] VITALS (17 sets, daily range): BP systolic 102–121; BP diastolic 49–65; PULSE 81–100; RESP 16–20; TEMP 36.3–36.9; O2SAT 93–100
[2023-12-10] MEDS: Ipratropium/Albuterol Sulfate 3 ML AMPUL.NEB INHALATION ×6 (03:10→23:35)
[2023-12-10 06:28] LABS: Absolute Lymphocyte Count 1.03 X10^3/uL (0.83-4.51); Absolute Neutrophil Count 2.3 X10^3/uL (2.0-7.7); Basophil# 0.01 X10^3/uL; Basophil% 0.3 % (0-1); Eosinophil# 0.01 X10^3/uL; Eosinophils% 0.3 % (0-5); Hematocrit 30.7 % (37-47); Hemoglobin 8.7 g/dL (12.0-15.0); Lymphocyte # 1.03 X10^3/ul (0.83-4.51); Lymphocyte % 30.1 % (19-41); Mean Corp Hgb Conc 28.3 g/dL (32-36); Mean Corpuscular Hgb 20.2 pg (27.0-32.0); Mean Corpuscular Volume 71.4 fL (81-99); Mean Platelet Vol. 10.6 fl (6.2-12.0); Monocyte% 2.9 % (0-10); NRBC Flagged by Analyzer 0 % (0-5); Neutrophil # 2.26 X10^3/uL (2.7-7.7); Neutrophil % 66.1 % (47-70); Platelet Count 388 K/mm3 (150-450); RBC Distribution Width CV 19.9 % (11.6-14.6); White Blood Count 3.4 K/mm3 (4.4-11.0)
[2023-12-10 06:35] LABS: International Normalized Ratio 1.1; Prothrombin Time (Protime)PT. 14.5 SECONDS (11.7-14.9)
[2023-12-10 06:58] LABS: ALB/GLOB Ratio 0.9 RATIO (0.9-2.4); AST(SGOT) 16 U/L (15-37); Alanine Aminotransfer ALT/SGPT 27 U/L (13-56); Albumin, Serum 2.9 g/dL (3.2-5.0); Alkaline Phosphatase 112 U/L (45-117); Anion Gap 3 (5-15); BUN 9 mg/dL (7-18); BUN/Creat Ratio 21.6 RATIO (10-20); Bilirubin, Direct 0.06 mg/dL (0.00-0.30); Calcium,Total 8.7 mg/dL (8.5-10.1); Chloride 114 mmol/L (98-107); Creatinine, Serum 0.42 mg/dL (0.55-1.02); EST Glomerular Filtration Rate 164 mL/min (>60); Est Glom Filt Rate - Afr Amer 198 mL/min (>60); Estimated Creatinine Clearance 109.62 ml/min; Globulin 3.1 g/dL (2.2-4.2); Glucose 155 mg/dL (74-106); Phosphorus 4.1 mg/dL (2.5-4.9); Potassium 4.1 mmol/L (3.5-5.1); Sodium Level 141 mmol/L (136-145); Thyroid Stim Hormone (TSH) 0.22 uIU/mL (0.358-3.74)
[2023-12-10] MEDS: Pantoprazole Sodium 20 MG Tablet PO (08:13)
[2023-12-10] MEDS: Benzonatate 100 MG Capsule 200 MG PO ×2 (08:13→19:20)
[2023-12-10] MEDS: Aspirin 81 MG TAB.CHEW PO (08:13)
[2023-12-10] MEDS: Clopidogrel Bisulfate 75 MG Tablet PO (08:14)
[2023-12-10] MEDS: Losartan Potassium 50 MG Tablet PO (08:18)
[2023-12-10] MEDS: Azithromycin 250 MG Tablet 500 MG PO (08:18)
[2023-12-10] MEDS: Metoprolol(XL)Succ 25 MG Tablet PO (08:22)
[2023-12-10] MEDS: ALPRAZolam 0.5 MG Tablet 1 MG PO ×2 (10:10→22:52)
--- NOTE | 2023-12-10 10:11 | PN.HOSP_ITS ---
Reason for Visit Reason for Visit: Diagnoses Chronic obstructive pulmonary disease with (acute) exacerbation (12/09/23) Subjective Subjective Patient with no acute events overnight per self and per nursing report but she is extremely anxious and discussed her current plan of care with several questions answered regarding her anemia as well as COPD exacerbation. She understands the plan to initiate oral iron supplementation with continued CBC trending and continued IV Solu-Medrol. Also discussed plan to obtain full respiratory viral panel which was unremarkable and procalcitonin which was also normal. Sputum culture is also been requested and is pending. Discussed that given this is unremarkable we will continue only chronic azithromycin. Patient notes she continues to feel fatigued with dyspnea, worse with exertion and ongoing occasional wheezing with nonproductive cough. Patient denies fevers, chills, nausea, emesis, abdominal pain, chest pain. Objective Data Objective Data Vital Signs: Vital Signs Temp Pulse Resp BP Pulse Ox O2 Del Method O2 Flow Rate 98.4 F 99 18 121/63 H 97 Nasal Cannula 2 12/10/23 10:10 12/10/23 10:10 12/10/23 10:10 12/10/23 10:10 12/10/23 10:10 12/10/23 10:10 12/10/23 10:10 Oxygen Flow Rate (L/min) 2 Oxygen Delivery Method Nasal Cannula Weight: 110 lb 3.698 oz Body Mass Index (BMI) 20.1 Intake & Output: Intake and Output for Last 24 Hours 12/08/23 12/09/23 12/10/23 23:59 23:59 23:59 Intake Total 1602.5 / 1602.5 240 / 240 Balance 1602.5 / 1602.5 240 / 240 Lab / Micro Data 12/10/23 05:48 12/10/23 05:48 Labs: Laboratory Results - last 24 hr 12/09/23 15:32: WBC 8.1, RBC 4.78, Hgb 9.9 L, Hct 33.5 L, MCV 70.1 L, MCH 20.7 L , MCHC 29.6 L, RDW Std Deviation 49.7 H, RDW Coeff of Mehul 19.9 H, Plt Count 371, MPV 9.8, Immature Gran % (Auto) 0.100, Neut % (Auto) 44.9 L, Lymph % (Auto) 32.6, Burnett % (Auto) 11.2 H, Eos % (Auto) 9.7 H, Baso % (Auto) 1.5 H, Absolute Neuts (auto) 3.6, Absolute Lymphs (auto) 2.64, Nucleated RBC % 0, Sodium 141, Potassium 3.9, Chloride 111 H, Carbon Dioxide 26.0, Anion Gap 4 L, BUN 4 L, Creatinine 0.48 L, Estim Creat Clear Calc 87.29, Est GFR (MDRD) Af Amer 170, Est GFR (MDRD) Non-Af 141, BUN/Creatinine Ratio 8.4 L, Glucose 110 H, Lactic Acid 1.8, Calcium 9.5, Iron 12 L, TIBC 356, Iron Saturation 3.4 L, Troponin I High Sens 4, B-Natriuretic Peptide 13.6 12/10/23 05:48: WBC 3.4 L, RBC 4.30, Hgb 8.7 L, Hct 30.7 L, MCV 71.4 L, MCH 20.2 L, MCHC 28.3 L, RDW Std Deviation 51.0 H, RDW Coeff of Mehul 19.9 H, Plt Count 388, MPV 10.6, Immature Gran % (Auto) 0.300, Neut % (Auto) 66.1, Lymph % (Auto) 30.1, Burnett % (Auto) 2.9, Eos % (Auto) 0.3, Baso % (Auto) 0.3, Absolute Neuts (auto) 2.3, Absolute Lymphs (auto) 1.03, Nucleated RBC % 0, PT 14.5, INR 1.1, Sodium 141, Potassium 4.1, Chloride 114 H, Carbon Dioxide 24.0, Anion Gap 3 L, BUN 9, Creatinine 0.42 L, Estim Creat Clear Calc 109.62, Est GFR (MDRD) Af Amer 198, Est GFR (MDRD) Non-Af 164, BUN/Creatinine Ratio 21.6 H, Glucose 155 H, Calcium 8.7, Phosphorus 4.1, Magnesium 2.0, Total Bilirubin 0.20, Direct Bilirubin 0.06, AST 16, ALT 27, Alkaline Phosphatase 112, Total Protein 6.0 L, Albumin 2.9 L, Globulin 3.1, Albumin/Globulin Ratio 0.9, TSH 0.22 L Micro: Microbiology 12/09/23 17:00 Stool Stool Occult Blood (YASMINE) - Final 12/09/23 14:26 Mucosa - Nose SARS-CoV-2, Influenza & RSV (PCR) - Final Radiography Diagnostic Testing: Radiology Impression Chest X-Ray 12/09/23 14:30 IMPRESSION: There are no acute findings. Electronically Signed: Torres Amos MD at 14:48 EST Reading Location ID and State: [facility] / [place] , Service support , Physical Exam Narrative Physical Examination: General: Awake, alert, oriented x 3 and cooperative, seated upright in the PCU bed, fatigued, no acute distress. Skin: Normal color, normal turgor, no icterus, no cyanosis. HEENT: AT/NC, EOMI, PERRLA, mildly dry MM. Lungs: Diminished, greater bases, appropriate effort, no evidence of any distress, occasional end expiratory wheezing, no marked rales or rhonchi, no evidence of any distress. Heart: Regular rate and rhythm; no gallop, rub audible. Abdomen: Soft, NTTP, ND, mildly hyperactive BS. Extremities: No cyanosis, clubbing, or edema. Neurological: Patient awake, alert, oriented as noted, cognitive function intact; pupils equally reactive to light and accommodation, cranial nerves II- XII grossly normal, moving all 4 extremities, no focal deficits, strength moderately globally decreased secondary to acute presentation. Psychiatric: Affect appears flat, fatigued, anxious, no evidence of any depressive feelings. Assessment & Plan Assessment/Plan (1) COPD exacerbation: PLAN: Plan The patient is a 63 y/o F w/ PMHx: Chronic mmicrocytic anemia, Anxiety/Panic attacks/PTSD, Asthma and COPD, Tobacco use, GERD, HTN, HLD, CAD s/p PCI who presents to the [facility] ED on 12/10/23 with history of persistent dyspnea, worse with exertion with nonproductive cough over the last 4 days with subjective fever but not measured on chronic azithromycin secondary to recurrent exacerbations but given not improving prompted ED evaluation. #1. Acute Hypoxia secondary to Acute on Chronic COPD/Asthma exacerbation: Admitted to PCU, maintain on oxygen with wean as tolerated to room air, continue ATC duonebs, PRN albuterol, IV methylprednisolone, currently maintained on oral azithromycin chronic regimen only, HOB, IS parameters, procalcitonin normal, will request sputum Cx, respiratory viral panel negative, added mucinex, added VEST therapy. #2. Abnormal TSH: TSH 0.22, free T4 1.12, subclinical, will need to repeated outpatient given her acute presentation. #3. Acute on chronic anemia, microcytic: Admission hemoglobin 9.9 decreased from most recently noted 03/30/2023 hemoglobin 12.7 at that time, negative guaiac testing, digital rectal exam unremarkable, will continue to trend CBC and plan outpatient gastroenterology consultation, 12/10/23, repeat hemoglobin 8.7, MCV in the 70 range, iron panel, saturation, TIBC 356, iron 12, iron saturation 3.4, ferritin 9 most consistent with Fe deficiency. Added oral Fe and recommend follow-up outpatient with GI to be cautious given no overt signs of bleed as noted and also on chronic antiplt with repeat CBC follow-up with PCP. Discussed bowel regimen and patient understands iron supplementations can be related to constipation but she has currently declined any bowel regimen addition. #4. Anxiety/Panic attacks/PTSD: We will continue patient home Xanax regimen which she has been on long-term. #5. CAD: Status post PCI 12/2022, will continue aspirin, Plavix, metoprolol, losartan home regimen. Given patient timeline of dual antiplatelet therapy if any concerns arise with anemia as noted certainly at the point where patient can be de-escalated to single agent therapy. Encourage continued outpatient follow- up with cardiology. #6. Hypertension: Continue home regimen including metoprolol, losartan, PRN hydralazine. #7. Hyperlipidemia: We will continue patient on statin therapy. #8. Tobacco Abuse: Encouraged cessation, inpatient consultation per RT, NR if desired. #9. GERD: Continue patient on PPI. #10. DVT prophylaxis: Had previously been on Lovenox but given hemoglobin decline although no evidence of bleeding we will hold. SCDs. #11. CODE status: Patient PER is her significant and living will is currently in place. Discussed CODE status at length including difference between FULL c ode, DNR-CCA and DNR-CC status. Following discussions about the differences in these status, requested DNR-CCA, no intubation status. She is amenable to interventions for ongoing medication issues but no drastic measures including intubation/CPR/pressor therapy. Advanced Care Planning Face to Face Time: 16 minutes. Charges/Coding Visit Charges Inpatient E&M: 41984 Subs Hosp L3
[2023-12-10 10:36] LABS: Procalcitonin < 0.04 ng/mL (0.00-0.09)
[2023-12-10 10:43] LABS: Ferritin 9 ng/mL (8-252); T4 Free Direct 1.12 ng/dL (0.76-1.46)
--- NOTE | 2023-12-10 12:28 | CASEMGMT ---
FOSTER LUGO Assessment Face to Face with patient for initial transition planning/care coordination assessment. FOSTER LUGO introduced self and role at [facility], pt voices understanding. Pt is A&Ox4 and is resting comfortably in bed and is calm. Pt at bedside. Care providers, pharmacy, and demographics verified. Admitting dx: SOB LACE Strata: 2 PCP: Macy Specialists: Renzo (Pulmonary), Lake (Cardio) Preferred Pharmacy: [facility] Insurance: [facility] Prescription Benefit: Yes LNOK: Jose Carlos Pond (H), Aixa Armstrong (MIL) Living Arrangements: Pt lives with her in a single story home with a basement without HR and 3 steps to enter the home with HR. Pt states her helps her with using steps. ADLs/IADLs: I with ADLs. assists with IADLs Transportation: DME: Shower chair with GB. Nebulizer. Cane and walker but does not use. Pt is on O2 now and states she wants [employer] for potential home O2 needs. Pt denied seeing a local list of in-network DME companies. HHC/SNF: Denies SNF. States HHC PT x 6 years ago for her hip. Pt states PT saw her for around 3 weeks. Pt?s goal: DC home with . Plan: PT recommends no additional therapy at this time. Pt states she wants to go home with her . Will follow for O2 needs. Orion Rizvi RN, CM
[2023-12-10] MEDS: guaiFENesin 1,200 MG Tablet 1200 MG PO ×2 (13:43→22:45)
[2023-12-10] MEDS: 0.9% Saline Lock 10 ML Syringe IV ×2 (13:44→23:09)
[2023-12-10] MEDS: Ferrous Gluconate 324 MG Tablet PO (19:20)
[2023-12-10] MEDS: Atorvastatin Calcium 40 MG Tablet PO (22:45)
[2023-12-11] VITALS (15 sets, daily range): BP systolic 100–113; BP diastolic 52–65; PULSE 79–102; RESP 16–20; TEMP 36.2–36.6; O2SAT 87–100
[2023-12-11] MEDS: Ketorolac 15 MG/ML Vial IV ×2 (01:25→10:58)
[2023-12-11] MEDS: 0.9% Saline Lock 10 ML Syringe IV ×4 (01:28→14:05)
--- NOTE | 2023-12-11 03:07 | CPS ---
After having a discussion with the patient it was determined that she does not want to attempt the chest vest therapy as she has concerns of it irritating a previous back injury. RT explained the benefits of therapy thoroughly and patient still decided to forego chest vest therapy.
[2023-12-11] MEDS: Oxycodone/Apap 5/325 Tablet PO ×2 (05:08→16:42)
[2023-12-11] MEDS: Benzonatate 100 MG Capsule 200 MG PO (05:08)
[2023-12-11 05:25] LABS: Absolute Lymphocyte Count 1.04 X10^3/uL (0.83-4.51); Absolute Neutrophil Count 9.7 X10^3/uL (2.0-7.7); Basophil# 0.02 X10^3/uL; Basophil% 0.2 % (0-1); Hemoglobin 8.3 g/dL (12.0-15.0); Lymphocyte # 1.04 X10^3/ul (0.83-4.51); Lymphocyte % 9.3 % (19-41); Mean Corp Hgb Conc 28.6 g/dL (32-36); Mean Corpuscular Hgb 20.4 pg (27.0-32.0); Mean Corpuscular Volume 71.4 fL (81-99); Mean Platelet Vol. 10.6 fl (6.2-12.0); Monocyte# 0.43 X10^3/uL; Monocyte% 3.8 % (0-10); NRBC Flagged by Analyzer 0 % (0-5); Neutrophil # 9.65 X10^3/uL (2.7-7.7); Neutrophil % 86.3 % (47-70); POSITIVE MORPHOLOGY YES; Platelet Count 406 K/mm3 (150-450); RBC Distribution Width CV 20.1 % (11.6-14.6); RBC Distribution Width SD 51.7 fl (35.1-43.9); Red Blood Count 4.06 M/mm3 (4.2-5.4); White Blood Count 11.2 K/mm3 (4.4-11.0)
[2023-12-11 05:29] LABS: Differential Indicated SCAN CRITERIA MET
[2023-12-11 05:52] LABS: AST(SGOT) 20 U/L (15-37); Alanine Aminotransfer ALT/SGPT 33 U/L (13-56); Albumin, Serum 2.9 g/dL (3.2-5.0); Alkaline Phosphatase 128 U/L (45-117); Anion Gap 0 (5-15); BUN 12 mg/dL (7-18); BUN/Creat Ratio 26.8 RATIO (10-20); Calcium,Total 8.8 mg/dL (8.5-10.1); Chloride 112 mmol/L (98-107); Creatinine, Serum 0.45 mg/dL (0.55-1.02); EST Glomerular Filtration Rate 151 mL/min (>60); Est Glom Filt Rate - Afr Amer 182 mL/min (>60); Estimated Creatinine Clearance 102.31 ml/min; Globulin 2.8 g/dL (2.2-4.2); Glucose 199 mg/dL (74-106); Potassium 4.1 mmol/L (3.5-5.1); Protein, Total 5.7 g/dL (6.4-8.2); Sodium Level 139 mmol/L (136-145)
[2023-12-11 06:19] LABS: Differential Comment SCANNED
[2023-12-11 06:21] LABS: Anisocytosis 2+
--- NOTE | 2023-12-11 06:24 | PN.HOSP_ITS ---
Reason for Visit Reason for Visit: Diagnoses Chronic obstructive pulmonary disease with (acute) exacerbation (12/09/23) Subjective Subjective Patient with with episode of lumbar back discomfort overnight following a coughing bout with then onset of chest discomfort however it is worse when she coughed and with certain movements however to be cautious obtained with no acute concerns. He notes that her pain is completely resolved with recent pain regimen. She does report feeling improved but still some dyspnea although she is currently been weaned off of oxygen but this is primarily with activity. Discussed her current situation with hemoglobin and continued decline to 8.3 and she was amenable to discontinuation of Plavix given she is greater than a year out from her PCI with continuation of aspirin therapy and consultation with gastroenterology. Patient denies fevers, chills, nausea, emesis, abdominal pain. Objective Data Objective Data Vital Signs: Vital Signs Temp Pulse Resp BP Pulse Ox O2 Del Method O2 Flow Rate 97.7 F L 102 H 18 102/65 96 Nasal Cannula 2 12/11/23 05:20 12/11/23 05:20 12/11/23 05:20 12/11/23 05:20 12/11/23 05:20 12/11/23 05:20 12/11/23 05:20 Oxygen Flow Rate (L/min) 2 Oxygen Delivery Method Nasal Cannula Weight: 110 lb 3.698 oz Body Mass Index (BMI) 20.1 Intake & Output: Intake and Output for Last 24 Hours 12/09/23 12/10/23 12/11/23 23:59 23:59 23:59 Intake Total 1602.5 / 1602.5 600 / 900 300 / 300 Balance 1602.5 / 1602.5 600 / 900 300 / 300 Lab / Micro Data 12/11/23 04:22 12/11/23 04:22 Labs: Laboratory Results - last 24 hr 12/10/23 05:48: WBC 3.4 L, RBC 4.30, Hgb 8.7 L, Hct 30.7 L, MCV 71.4 L, MCH 20.2 L, MCHC 28.3 L, RDW Std Deviation 51.0 H, RDW Coeff of Mehul 19.9 H, Plt Count 388, MPV 10.6, Immature Gran % (Auto) 0.300, Neut % (Auto) 66.1, Lymph % (Auto) 30.1, Roosevelt % (Auto) 2.9, Eos % (Auto) 0.3, Baso % (Auto) 0.3, Absolute Neuts (auto) 2.3, Absolute Lymphs (auto) 1.03, Nucleated RBC % 0, PT 14.5, INR 1.1, Sodium 141, Potassium 4.1, Chloride 114 H, Carbon Dioxide 24.0, Anion Gap 3 L, BUN 9, Creatinine 0.42 L, Estim Creat Clear Calc 109.62, Est GFR (MDRD) Af Amer 198, Est GFR (MDRD) Non-Af 164, BUN/Creatinine Ratio 21.6 H, Glucose 155 H, Calcium 8.7, Phosphorus 4.1, Magnesium 2.0, Ferritin 9, Total Bilirubin 0.20, Direct Bilirubin 0.06, AST 16, ALT 27, Alkaline Phosphatase 112, Total Protein 6.0 L, Albumin 2.9 L, Globulin 3.1, Albumin/Globulin Ratio 0.9, Procalcitonin < 0.04, TSH 0.22 L, Free T4 1.12 12/11/23 04:22: WBC 11.2 H, RBC 4.06 L, Hgb 8.3 L, Hct 29.0 L, MCV 71.4 L, MCH 20.4 L, MCHC 28.6 L, RDW Std Deviation 51.7 H, RDW Coeff of Mehul 20.1 H, Plt Count 406, MPV 10.6, Immature Gran % (Auto) 0.400, Neut % (Auto) 86.3 H, Lymph % (Auto) 9.3 L, Roosevelt % (Auto) 3.8, Eos % (Auto) 0.0, Baso % (Auto) 0.2, Absolute Neuts (auto) 9.7 H, Absolute Lymphs (auto) 1.04, Nucleated RBC % 0, Differential Comment SCANNED, Anisocytosis 2+, Sodium 139, Potassium 4.1, Chloride 112 H, Carbon Dioxide 27.0, Anion Gap 0 L, BUN 12, Creatinine 0.45 L, Estim Creat Clear Calc 102.31, Est GFR (MDRD) Af Amer 182, Est GFR (MDRD) Non-Af 151, BUN/Creat inine Ratio 26.8 H, Glucose 199 H, Calcium 8.8, Total Bilirubin 0.30, AST 20, ALT 33, Alkaline Phosphatase 128 H, Total Protein 5.7 L, Albumin 2.9 L, Globulin 2.8, Albumin/Globulin Ratio 1.0 Micro: Microbiology 12/10/23 10:30 Mucosa - Nasopharyngeal Respiratory Panel (PCR) - Final 12/09/23 17:00 Stool Stool Occult Blood (YASMINE) - Final 12/09/23 14:26 Mucosa - Nose SARS-CoV-2, Influenza & RSV (PCR) - Final Physical Exam Narrative Physical Examination: General: Awake, alert, oriented x 3 and cooperative, seated upright in the PCU bed, fatigued, no acute distress. Skin: Normal color, normal turgor, no icterus, no cyanosis. HEENT: AT/NC, EOMI, PERRLA, MMM. Lungs: Diminished, greater bases, appropriate effort, no evidence of any distress, improved, no wheezing noted. Heart: Regular rate and rhythm; no gallop, rub audible. Abdomen: Soft, NTTP, ND, normal BS. Extremities: No cyanosis, clubbing, or edema. Neurological: Patient awake, alert, oriented as noted, cognitive function intact; pupils equally reactive to light and accommodation, cranial nerves II- XII grossly normal, moving all 4 extremities, no focal deficits, strength moderately globally decreased secondary to acute presentation. Psychiatric: Affect appears improved, less anxious, less fatigued, no evidence of any depressive feelings. Assessment & Plan Assessment/Plan (1) COPD exacerbation: PLAN: Plan The patient is a 63 y/o F w/ PMHx: Chronic mmicrocytic anemia, Anxiety/Panic attacks/PTSD, Asthma and COPD, Tobacco use, GERD, HTN, HLD, CAD s/p PCI who presents to the [facility] ED on 12/10/23 with history of persistent dyspnea, worse with exertion with nonproductive cough over the last 4 days with subjective fever but not measured on chronic azithromycin secondary to recurrent exacerbations but given not improving prompted ED evaluation. #1. Acute Hypoxia secondary to Acute on Chronic COPD/Asthma exacerbation: Admitted to PCU, maintain on oxygen with wean as tolerated to room air, continue ATC duonebs, PRN albuterol, IV methylprednisolone, currently maintained on oral azithromycin chronic regimen only, HOB, IS parameters, procalcitonin normal, will request sputum Cx, respiratory viral panel negative, added mucinex, added VEST therapy. #2. Acute on chronic anemia, microcytic with concern for possible GI bleed component, although guiac negative: Admission hemoglobin 9.9 decreased from most recently noted 03/30/2023 hemoglobin 12.7 at that time, negative guaiac testing, digital rectal exam unremarkable, will continue to trend CBC and plan outpatient gastroenterology consultation, 12/10/23, repeat hemoglobin 8.7, MCV in the 70 range, iron panel, saturation, TIBC 356, iron 12, iron saturation 3.4, ferritin 9 most consistent with Fe deficiency. Added oral Fe. Initial plan for outpatient GI evaluation but repeat 12/11/23 Hgb continued to trend downward 8.3, will hold plavix, continue asa, place on PPI IV, allow clears and then NPO at midnight, consult GI for consider endoscopies to be cautious. #3. Abnormal TSH: TSH 0.22, free T4 1.12, subclinical, will need to repeated outpatient given her acute presentation. #4. Anxiety/Panic attacks/PTSD: We will continue patient home Xanax regimen which she has been on long-term. #5. CAD: Status post PCI 12/2022, will continue aspirin, holding Plavix as noted given 1 year out and anemia worsening as noted, continue metoprolol, losartan home regimen. Encourage continued outpatient follow-up with cardiology. #6. Hypertension: Continue home regimen including metoprolol, losartan, PRN hydralazine. #7. Hyperlipidemia: We will continue patient on statin therapy. #8. Tobacco Abuse: Encouraged cessation, inpatient consultation per RT, NR if desired. #9. GERD: Continue patient on PPI. #10. DVT prophylaxis: SCDs. #11. CODE status: Patient PER is her significant and living will is currently in place. DNR-CCA, no intubation status. Charges/Coding Visit Charges Inpatient E&M: 84618 Subs Hosp L3
[2023-12-11] MEDS: Ipratropium/Albuterol Sulfate 3 ML AMPUL.NEB INHALATION ×5 (06:52→23:12)
[2023-12-11] MEDS: ALPRAZolam 0.5 MG Tablet 1 MG PO ×2 (09:08→20:35)
[2023-12-11] MEDS: Ferrous Gluconate 324 MG Tablet PO ×2 (09:09→16:40)
[2023-12-11] MEDS: guaiFENesin 1,200 MG Tablet 1200 MG PO ×2 (09:09→20:26)
[2023-12-11] MEDS: Aspirin 81 MG TAB.CHEW PO (09:09)
[2023-12-11] MEDS: Losartan Potassium 50 MG Tablet PO (09:09)
[2023-12-11] MEDS: Metoprolol(XL)Succ 25 MG Tablet PO (09:09)
[2023-12-11] MEDS: Azithromycin 250 MG Tablet 500 MG PO (09:13)
[2023-12-11] MEDS: Pantoprazole Sodium 40 MG in 0.9% Normal Saline (100mL MB+) 100 ML 330 MG IV (10:52)
--- NOTE | 2023-12-11 13:46 | CHAPLAIN ---
Type of Pastoral Visit _x__ Initial Visit ___ Follow-up Visit ___ On-call Visit ___ General Patient Visit ___ Spiritual Assessment ___ Family Conference ___ Bereavement ___ Rapid Response ___ Code Blue ___ Other (describe below) Pastoral Care Referral From _x__ Patient ___ Family ___ Nurse ___ Physician ___ Smoking Pipe Maker ___ Aboriginal Community Council Member ___ Other (describe below) Sacrament/Intervention _x__ Active listening ___ Anointing ___ Mandaen ___ Bereavement ___ Communion ___ Catie exploration ___ ___ Life review ___ Prayer ___ Reconciliation ___ Sacrament of Sick _x__ Supportive presence ___ Wedding ___ Other (describe below) Pastoral Comments patient reports on her difficult health situation and how they keep finding new things that add to my sickness ; offer of support and a discussion about coping skills and activities; offer of support to spouse; spouse is with patient but the pt states he is my main or only support but don't expect him to be open about anything as he is never open about anything ; patient states that I have prayed for three years and God hasn't answered so I have given up on Him ; pt says that you probably won't like to hear this but I don't think is even really there ; offer of compassion for the difficult situation she is in and for the acknowledgement that God doesn't always change the circumstances but that he is always with us in them. ; offer to follow up with pt as she desires
[2023-12-11] MEDS: Bisacodyl 5 MG Tablet 20 MG PO (17:46)
[2023-12-11] MEDS: Polyethylene Glycol 3350 BOWEL PREP PO (20:08)
[2023-12-11] MEDS: Atorvastatin Calcium 40 MG Tablet PO (20:26)
[2023-12-11] MEDS: Pantoprazole Sodium 40 MG in 0.9% Normal Saline (100mL MB+) 100 ML 110 MG IV (20:37)
--- NOTE | 2023-12-11 23:00 | EX.PCM.CON.G ---
HPI Consult Data Date of Consult: 12/11/23 HPI Narrative Reason for Consultation: Anemia and abdominal pain HPI Narrative: RACQUEL IRVIN, is a 63 F with past medical history of COPD, coronary artery disease who presents progressive shortness of breath for the last 4 days with associated cough but without expectoration for the last 4 days. She felt febrile at home but it could not be measured. Has a history of PCI 1 year back and is on DAPT at this time. She is on chronic azithromycin therapy for recurrent exacerbations. She continues to smoke but has reduced the number of cigarettes smoked per day. also smokes but she denies any passive smoke inhalation. She feels extremely short of breath while ambulating and decided to come to the hospital because of severe limitation in her daily activities. At the time of presentation in the ED, her saturation was about 95 on room air but dipped to around 85 when she walked to the restroom. She is on 4 L of oxygen at this time. WBC 8.1, hemoglobin 9.9, platelet 371, checks x-ray did not show any acute findings. I was asked to see her due to progressive shortness of breath and worsening anemia. She is never had a colonoscopy. She does take aspirin and Plavix due to previous history of non-ST segment elevation VA with PCI and stent placement. PFSH Medical History Anxiety Anxiety, generalized Asthma Atherosclerosis of coronary artery of [place] heart without angina pectoris Broken back COPD (chronic obstructive pulmonary disease) Current smoker Emphysema lung GERD (gastroesophageal reflux disease) Hip replacement planned Hypertension Osteoporosis Panic attacks Post traumatic stress disorder (PTSD) Smoker Home Medications albuterol sulfate 2.5 mg/3 mL (0.083 %) solution for nebulization 2.5 mg inhalation BID breathing 10/04/14 [History Last Taken 12/13/22] guaifenesin 1,200 mg tablet, extended release 12 hr (Mucus Relief ER) 1,200 mg PO BID PRN PRN Congestion 01/24/15 [History Last Taken 12/13/22] tiotropium bromide 18 mcg capsule with inhalation device (Spiriva with HandiHaler) 1 puff inhalation DAILY SHORTNESS OF BREATH 01/24/15 [History Last Taken 12/13/22] alprazolam 1 mg tablet (Xanax) 1 mg PO BID anxiety 01/24/18 [History Last Taken 12/14/22] albuterol sulfate 90 mcg/actuation aerosol inhaler (ProAir HFA) 2 puff inhalation Q4H PRN PRN Sob &/Or Wheezing 11/04/18 [History Last Taken 12/14/22] fluticasone 500 mcg-salmeterol 50 mcg/dose blistr powdr for inhalation (Advair Diskus) 1 inh inhalation BID COPD 08/31/22 [History Last Taken 12/13/22] ibandronate 150 mg tablet 150 mg PO Q90D OSTEOPOROSIS 08/31/22 [History Last Taken 11/14/22] losartan 50 mg tablet 50 mg PO DAILY BLOOD PRESSURE 08/31/22 [History Last Taken 12/13/22] aspirin 81 mg chewable tablet 81 mg PO BREAKFAST #90 tabs 01/18/23 [Rx Last Taken Unknown] atorvastatin 40 mg tablet (Lipitor) 40 mg PO QHS #90 tabs 01/18/23 [Rx Last Taken Unknown] clopidogrel 75 mg tablet 75 mg PO DAILY #90 tabs 01/18/23 [Rx Last Taken Unknown] metoprolol succinate 25 mg tablet,extended release 24 hr 25 mg PO DAILY #90 tabs 01/18/23 [Rx Last Taken Unknown] omeprazole magnesium 20 mg tablet,delayed release (Prilosec OTC) 20 mg PO PRN acid relfux 01/23/23 [History Last Taken Unknown] azithromycin 250 mg tablet (Zithromax) 250 mg PO DAILY 7 days #7 tabs 03/31/23 [Rx Last Taken Unknown] benzonatate 100 mg capsule 200 mg (2 x 100 mg) PO TID PRN PRN Cough #40 caps 03/31/23 [Rx Last Taken Unknown] nitroglycerin 0.4 mg sublingual tablet (Nitrostat) 0.4 mg sublingual Q5-15M PRN chest pain #25 tabs 05/09/23 [Rx Last Taken Unknown] oxycodone-acetaminophen 5 mg-325 mg tablet See Rx Instructions PO BID PRN PAIN 12/10/23 [History Last Taken Unknown] Allergy/AdvReac Type Severity Reaction Status Date / Time No Known Allergies Allergy Verified 12/09/23 13:45 Surgical History History of appendectomy History of coronary artery stent placement (~12/18/22) History of partial hysterectomy Social History Smoking Status: Light Smoker (<10/day) ROS Review of Systems ROS Unobtainable: Denies due to encephalopathy, due to endotracheal tube, due to mental condition, due to mental status or other Constitutional Constitutional: Denies anorexia, change in weight, chills, fatigue, fever(s), malaise, night sweats, weakness or other Eyes Eyes: Denies blurry vision, change in eye color, change in vision, discharge from eye(s), double vision, erythema, eye pain, loss of vision or other ENT HEENT: Denies abnormal hearing, dysphagia, ear pain, epistaxis, headache(s), hearing loss, nasal congestion, nasal discharge, post nasal drip, sinus pressure, sore throat or other Cardiovascular Cardiovascular: Reports dyspnea on exertion; Denies chest pain, claudication, lightheadedness, orthopnea, palpitations, paroxysmal nocturnal dyspnea, rapid heart rate, syncope or other Respiratory/Chest Respiratory/Chest: Reports cough, dyspnea, shortness of breath at rest, shortness of breath with exertion and wheezing; Denies hemoptysis or productive cough Gastrointestinal Gastrointestinal: Reports constipation Musculoskeletal Musculoskeletal: Denies arthralgias, back pain, joint pain, joint stiffness, joint swelling, myalgias, neck pain or other Neurologic Neurologic: Denies abnormal gait, abnormal speech, confusion, disequilibrium, dizziness, focal weakness, headache(s), numbness, paresthesias, seizure-like activity, seizures, syncope, tingling, tremor(s) or other Psychiatric Psychiatric: Denies anxiety, depression, homicidal ideation, suicidal ideation or other Endocrine Endocrinology: Denies change in body appearance, cold intolerance, excessive sweating, heat intolerance, polydipsia, polyuria or other Hematologic/Lymphatic Hematologic/Lymphatic: Denies anemia, easy bleeding, easy bruising, lymphadenopathy or other Allergic/Immunologic Allergic/Immunologic: Denies rhinitis, hives, eczemia, asthma or other Physical Exam Narrative Physical Examination: General: Awake, alert, oriented x 3 and cooperative, seated upright in the PCU bed, fatigued, no acute distress. Skin: Normal color, normal turgor, no icterus, no cyanosis. HEENT: AT/NC, EOMI, PERRLA, MMM. Lungs: Diminished, greater bases, appropriate effort, no evidence of any distress, improved, no wheezing noted. Heart: Regular rate and rhythm; no gallop, rub audible. Abdomen: Soft, NTTP, ND, normal BS. Extremities: No cyanosis, clubbing, or edema. Neurological: Patient awake, alert, oriented as noted, cognitive function intact; pupils equally reactive to light and accommodation, cranial nerves II-XII grossly normal, moving all 4 extremities, no focal deficits, strength moderately globally decreased secondary to acute presentation. Psychiatric: Affect appears improved, less anxious, less fatigued, no evidence of any depressive feelings. Lab / Micro Data 12/12/23 07:15 12/12/23 07:15 Labs: Laboratory Results - last 24 hr 12/12/23 07:15: WBC 12.0 H, RBC 4.10 L, Hgb 8.5 L, Hct 29.8 L, MCV 72.7 L, MCH 20.7 L, MCHC 28.5 L, RDW Std Deviation 53.1 H, RDW Coeff of Mehul 20.5 H, Plt Count 388, MPV 9.5, Immature Gran % (Auto) 0.400, Neut % (Auto) 81.8 H, Lymph % (Auto) 11.9 L, Ward % (Auto) 5.8, Eos % (Auto) 0.0, Baso % (Auto) 0.1, Absolute Neuts (auto) 9.8 H, Absolute Lymphs (auto) 1.42, Nucleated RBC % 0, Anisocytosis 2+, PT 14.1, INR 1.1, APTT 25.3, Sodium 141, Potassium 3.5, Chloride 113 H, Carbon Dioxide 27.0, Anion Gap 1 L, BUN 6 L, Creatinine 0.45 L, Estim Creat Clear Calc 102.31, Est GFR (MDRD) Af Amer 180, Est GFR (MDRD) Non-Af 149, BUN/Creatinine Ratio 13.2, Glucose 111 H, Calcium 8.7, Total Bilirubin 0.30, AST 19, ALT 40, Alkaline Phosphatase 115, Total Protein 5.9 L, Albumin 3.1 L, Globulin 2.8, Albumin/Globulin Ratio 1.1 Micro: Microbiology 12/11/23 11:10 Sputum, Expectorated/Coughed Gram Stain - Final 12/11/23 11:10 Sputum, Expectorated/Coughed Respiratory Culture - Preliminary GNR lactose [employer] 12/09/23 15:32 Blood Culture (Wb) - Ankle Blood Culture - Preliminary No growth in 48 hours. Assessment & Plan Assessment/Plan (1) COPD exacerbation: PLAN: Plan 63-year-old female presents to the ED with worsening shortness of breath with cough and prior history of severe COPD. She was also discovered to have a chronic anemia possibly worsening her shortness of breath. She is on steroids along with antibiotic therapy. Acute on chronic anemia -Decline in hemoglobin from 12 at baseline to 9 -She will undergo EGD and colonoscopy. As her iron studies do not show iron deficiency anemia. She was explained alternatives, risk, benefits including not withstanding bleeding, infection, sepsis, perforation, need for emergent urgent . She will have an ASA of 3. Charges/Coding Visit Charges Inpatient E&M: 46061 Init Hosp L3
[2023-12-12] VITALS (13 sets, daily range): BP systolic 100–110; BP diastolic 52–58; PULSE 76–101; RESP 12–20; TEMP 36.1–36.9; O2SAT 84–100
[2023-12-12] MEDS: Ipratropium/Albuterol Sulfate 3 ML AMPUL.NEB INHALATION ×4 (03:19→15:34)
--- NOTE | 2023-12-12 06:22 | PN.HOSP_ITS ---
Reason for Visit Reason for Visit: Diagnoses Chronic obstructive pulmonary disease with (acute) exacerbation (12/09/23) Subjective Subjective Patient with no acute events overnight per self and per nursing report. She does note feeling fatigued secondary to the frequency of bowel movements with her bowel regimen/prep. Unfortunately she is having more enemas as she was not yet clear. She was maintained overnight on 2 L nasal cannula however oxygenation was in the high 90s. Patient did have upper and lower endoscopies and discussed these results as well as plan of care. Ambulatory oxygenation trial was performed requiring 2 L nasal cannula to maintain appropriate saturations with activity as she dropped to 87% but improved to 91% on 2 L. Patient is eager for discharge but understands that early and aggressive follow- up will be needed. Patient denies fevers, chills, nausea, emesis, abdominal pain, chest pain or worsening dyspnea. Objective Data Objective Data Vital Signs: Vital Signs Temp Pulse Resp BP Pulse Ox O2 Del Method O2 Flow Rate 97.8 F 76 18 108/58 L 99 Nasal Cannula 2 12/12/23 03:05 12/12/23 03:19 12/12/23 03:19 12/12/23 03:05 12/12/23 03:05 12/12/23 03:05 12/12/23 03:05 Oxygen Flow Rate (L/min) 2 Oxygen Delivery Method Nasal Cannula Weight: 110 lb 3.698 oz Body Mass Index (BMI) 20.1 Intake & Output: Intake and Output for Last 24 Hours 12/10/23 12/11/23 12/12/23 23:59 23:59 23:59 Intake Total 600 / 900 1989 Balance 600 / 900 1989 Lab / Micro Data 12/12/23 07:15 12/12/23 07:15 Micro: Microbiology 12/11/23 11:10 Sputum, Expectorated/Coughed Gram Stain - Final 12/09/23 15:32 Blood Culture (Wb) - Ankle Blood Culture - Preliminary No growth in 48 hours. 12/10/23 10:30 Mucosa - Nasopharyngeal Respiratory Panel (PCR) - Final 12/09/23 17:00 Stool Stool Occult Blood (YASMINE) - Final 12/09/23 14:26 Mucosa - Nose SARS-CoV-2, Influenza & RSV (PCR) - Final Physical Exam Narrative Physical Examination: General: Awake, alert, oriented x 3 and cooperative, seated upright in the PCU bed, aside from frequent bowel movements secondary to prep, no acute distress. Skin: Normal color, normal turgor, no icterus, no cyanosis. HEENT: AT/NC, EOMI, PERRLA, MMM. Lungs: Diminished, greater bases, appropriate effort, no evidence of any distress, improved, no wheezing noted. Heart: Regular rate and rhythm; no gallop, rub audible. Abdomen: Soft, NTTP, ND, normal BS. Extremities: No cyanosis, clubbing, or edema. Neurological: Patient awake, alert, oriented as noted, cognitive function intact; pupils equally reactive to light and accommodation, cranial nerves II- XII grossly normal, moving all 4 extremities, no focal deficits, strength mildly to moderately globally decreased. Psychiatric: Affect appears improved, no evidence of any depressive feelings. Assessment & Plan Assessment/Plan (1) COPD exacerbation: PLAN: Plan The patient is a 63 y/o F w/ PMHx: Chronic mmicrocytic anemia, Anxiety/Panic attacks/PTSD, Asthma and COPD, Tobacco use, GERD, HTN, HLD, CAD s/p PCI who presents to the [facility] ED on 12/10/23 with history of persistent dyspnea, worse with exertion with nonproductive cough over the last 4 days with subjective fever but not measured on chronic azithromycin secondary to recurrent exacerbations but given not improving prompted ED evaluation. #1. Acute Hypoxia secondary to Acute on Chronic COPD/Asthma exacerbation: Admitted to PCU, maintain on oxygen with wean as tolerated to room air, continue ATC duonebs, PRN albuterol, IV methylprednisolone, currently maintained on oral azithromycin chronic regimen only, HOB, IS parameters, procalcitonin normal, respiratory viral panel negative, added mucinex, added VEST therapy. Patient oxygenation trial performed and patient dropped to 87% with activity but improved to 9192% with 2 L nasal cannula. Patient is eager for discharge. Patient does report having a nebulizer machine at home. #2. Acute on chronic anemia, microcytic with concern for possible GI bleed component, although guiac negative: Admission hemoglobin 9.9 decreased from most recently noted 03/30/2023 hemoglobin 12.7 at that time, negative guaiac testing, digital rectal exam unremarkable, will continue to trend CBC and plan outpatient gastroenterology consultation, 12/10/23, repeat hemoglobin 8.7, MCV in the 70 range, iron panel, saturation, TIBC 356, iron 12, iron saturation 3.4, ferritin 9 most consistent with Fe deficiency. Added oral Fe. Initial plan for outpatient GI evaluation but repeat 12/11/23 Hgb continued to trend downward 8.3, will hold p lavix, continue asa, placed on PPI IV-->12/12/23 transitioned to oral PPI and sucralafate oral regimen added, allow clears and then NPO at midnight, consulted GI for consider endoscopies to be cautious. 12/12/2023 upper endoscopy with red blood noted in the gastric body with 2 bleeding angiodysplastic lesions in the stomach treated with heater probe as well as 2 nonbleeding angiodysplastic lesions in the duodenum treated with argon plasma coagulation. 12/12/23 in sigmoid colon, 8 mm polyp rectosigmoid colon removed with hot snare, stool otherwise distally noted with plan repeat colonoscopy in 6 months secondary to poor bowel prep. Patient returned to floor with allowance of resumption of diet. #3. Abnormal TSH: TSH 0.22, free T4 1.12, subclinical, will need to repeated outpatient given her acute presentation. #4. Anxiety/Panic attacks/PTSD: We will continue patient home Xanax regimen whi ch she has been on long-term. #5. CAD: Status post PCI 12/2022, will continue aspirin, discontinued Plavix as noted given 1 year out and anemia worsening with GI bleed as noted, continue metoprolol, losartan home regimen. Encourage continued outpatient follow-up with cardiology early given these medication changes. #6. Hypertension: Continue home regimen including metoprolol, losartan, PRN hydralazine. #7. Hyperlipidemia: We will continue patient on statin therapy. #8. Tobacco Abuse: Encouraged cessation, inpatient consultation per RT, NR if desired. #9. GERD: Continue patient on PPI. #10. DVT prophylaxis: SCDs. #11. CODE status: Patient PER is her significant and living will is currently in place. DNR-CCA, no intubation status. Charges/Coding Visit Charges Inpatient E&M: 23963 Subs Hosp L2
[2023-12-12 07:27] LABS: Absolute Lymphocyte Count 1.42 X10^3/uL (0.83-4.51); Absolute Neutrophil Count 9.8 X10^3/uL (2.0-7.7); Basophil# 0.01 X10^3/uL; Basophil% 0.1 % (0-1); Hematocrit 29.8 % (37-47); Hemoglobin 8.5 g/dL (12.0-15.0); Lymphocyte # 1.42 X10^3/ul (0.83-4.51); Lymphocyte % 11.9 % (19-41); Mean Corp Hgb Conc 28.5 g/dL (32-36); Mean Corpuscular Hgb 20.7 pg (27.0-32.0); Mean Corpuscular Volume 72.7 fL (81-99); Mean Platelet Vol. 9.5 fl (6.2-12.0); Monocyte% 5.8 % (0-10); NRBC Flagged by Analyzer 0 % (0-5); Neutrophil % 81.8 % (47-70); POSITIVE MORPHOLOGY YES; Platelet Count 388 K/mm3 (150-450); RBC Distribution Width CV 20.5 % (11.6-14.6); RBC Distribution Width SD 53.1 fl (35.1-43.9)
[2023-12-12 07:28] LABS: Differential Indicated SCAN CRITERIA MET
[2023-12-12 07:47] LABS: Anisocytosis 2+
[2023-12-12 08:12] LABS: ALB/GLOB Ratio 1.1 RATIO (0.9-2.4); AST(SGOT) 19 U/L (15-37); Alanine Aminotransfer ALT/SGPT 40 U/L (13-56); Albumin, Serum 3.1 g/dL (3.2-5.0); Alkaline Phosphatase 115 U/L (45-117); Anion Gap 1 (5-15); BUN 6 mg/dL (7-18); BUN/Creat Ratio 13.2 RATIO (10-20); Calcium,Total 8.7 mg/dL (8.5-10.1); Chloride 113 mmol/L (98-107); Creatinine, Serum 0.45 mg/dL (0.55-1.02); EST Glomerular Filtration Rate 149 mL/min (>60); Est Glom Filt Rate - Afr Amer 180 mL/min (>60); Estimated Creatinine Clearance 102.31 ml/min; Globulin 2.8 g/dL (2.2-4.2); Glucose 111 mg/dL (74-106); Potassium 3.5 mmol/L (3.5-5.1); Protein, Total 5.9 g/dL (6.4-8.2); Sodium Level 141 mmol/L (136-145)
[2023-12-12 08:15] LABS: International Normalized Ratio 1.1; Partial Thromboplast Time 25.3 Seconds (24.1-36.2); Prothrombin Time (Protime)PT. 14.1 SECONDS (11.7-14.9)
[2023-12-12] MEDS: Oxycodone/Apap 5/325 Tablet PO (09:08)
[2023-12-12] MEDS: Pantoprazole Sodium 40 MG in 0.9% Normal Saline (100mL MB+) 100 ML 330 MG IV (09:27)
--- NOTE | 2023-12-12 09:45 | COLBX_PTH ---
PATHOLOGY RESULTS PATIENT: RACQUEL IRVIN LOC: [facility] U#:[id number] AGE/SX: 63/F ROOM: [facility] RE12/09/[address]: Dr. Moraima Win MD : 1960 BED: 1 DIS: 12/12/2023 SPEC #: [id number] RECD: 12/13/23 07:35 STATUS: GEORGE REArtemio #: [id number] KAUSHIK: 12/12/23 09:[address]: Richard Arenas DEPT: SURGICAL PATHOLOGY RECD BY: Violetta Webb ENTERED: 12/13/23 07:35 SP TYPE: COLON BX OTHR DR: MD Dr. Moraima Gallegos MD Dr. Darrell Widmer, MD Tissues: Sigmoid colon biopsy Procedures: Surgery Specimen Level IV Comments: @ Ordering doctor for SUIV edited from to @ by ARLYN at 12/13/23 1435 @ Submitting doctor edited from to @ by ARLYN at 12/13/23 1439 HEADER OPERATION: Colonoscopy, EGD with electrohemostasis PRE-OP DIAGNOSIS: Anemia TISSUE SUBMITTED: Sigmoid polyp MICROSCOPIC DIAGNOSIS Sigmoid colon polyp, biopsy: Tubular adenoma. AM:elaine 12/14/2023 MICROSCOPIC DESCRIPTION Slides are reviewed. GROSS DESCRIPTION Received in fixative is one container labeled with the patient's name and designated sigmoid polyp. The specimen consists of multiple irregular fragments of light ambriz soft tissue that in aggregate measure 1.0 x 0.5 x 0.1 cm. The specimen is totally submitted in one cassette. / AM:elaine 12/13/2023 TC:5 CPT: 54476
--- NOTE | 2023-12-12 13:37 | OP.EGD_ITS ---
Patient Name: Katlin Pond Procedure Date: 12/12/2023 12:43 PM Date of : 1960 Age: 63 Procedure: Upper GI endoscopy Indications: Iron deficiency anemia Providers: Richard Arenas DO Medicines: Monitored Anesthesia Care Patient Profile: This is a 63 year old female. Refer to note in patient chart for documentation of history and physical. Patient has symptoms of chronic abdominal distention. Complications: No immediate complications. Procedure: Pre-Anesthesia Assessment: - Prior to the procedure, a History and Physical was performed, and patient medications and allergies were reviewed. The patient is competent. The risks and benefits of the procedure and the sedation options and risks were discussed with the patient. All questions were answered and informed consent was obtained. Patient identification and proposed procedure were verified by the physician in the pre-procedure area. Mental Status Examination: alert and oriented. Airway Examination: normal oropharyngeal airway and neck mobility. Respiratory Examination: clear to auscultation. CV Examination: normal. Prophylactic Antibiotics: The patient does not require prophylactic antibiotics. Prior Anticoagulants: The patient has taken no anticoagulant or antiplatelet agents. ASA Grade Assessment: III - A patient with severe systemic disease. After reviewing the risks and benefits, the patient was deemed in satisfactory condition to undergo the procedure. The anesthesia plan was to use monitored anesthesia care (MAC). Immediately prior to administration of medications, the patient was re-assessed for adequacy to receive sedatives. The heart rate, respiratory rate, oxygen saturations, blood pressure, adequacy of pulmonary ventilation, and response to care were monitored throughout the procedure. The physical status of the patient was re-assessed after the procedure. After obtaining informed consent, the endoscope was passed under direct vision. Throughout the procedure, the patient's blood pressure, pulse, and oxygen saturations were monitored continuously. The Colonoscope was introduced through the mouth, and advanced to the second part of duodenum. The upper GI endoscopy was accomplished without difficulty. The patient tolerated the procedure well. Scope In: 12:57:15 PM Scope Out: 1:04:34 PM Total Procedure Duration Time 0 hours 7 minutes 19 seconds Findings: The examined esophagus was normal. Red blood was found in the gastric body. Two 6 mm angiodysplastic lesions with bleeding were found in the gastric body. Coagulation for hemostasis using heater probe was successful. Estimated blood loss was minimal. Two 2 mm angiodysplastic lesions without bleeding were found in the second portion of the duodenum. Coagulation for bleeding prevention using argon plasma at 0.3 liters/minute and 20 conti was successful. Estimated blood loss was minimal. Impression: - Normal esophagus. - Red blood in the gastric body. 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 Treated with a heater probe. - Two non-bleeding angiodysplastic lesions in the duodenum. Treated with argon plasma coagulation (APC). - No specimens collected. Recommendation: - [facility] to [facility]. - Resume previous diet. - Continue present medications. Procedure Code(s): --- Professional --- 94619, Esophagogastroduodenoscopy, flexible, transoral; with control of bleeding, any method CPT copyright 2021 [employer]. All rights reserved. The codes documented in this report are preliminary and upon release specialist review may be revised to meet current compliance requirements. Richard Arenas DO 12/12/2023 1:36:48 PM This report has been signed electronically. Number of Addenda: 0 Note Initiated On: 12/12/2023 12:43 PM
--- NOTE | 2023-12-12 13:37 | OP.CCLET_ITS ---
12/12/2023 Magen Cavazos Re : Upper GI endoscopy procedure for Katlin Pond Dear Macy This procedure was performed on Tuesday, December 12, 2023. My impressions and recommendations are as follows: Impressions : - Normal esophagus. - Red blood in the gastric body. 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 Treated with a heater probe. - Two non-bleeding angiodysplastic lesions in the duodenum. Treated with argon plasma coagulation (APC). - No specimens collected. Recommendations : - Return [facility] to [facility] for [facility] care. - Resume previous diet. - Continue present medications. My findings are described in the full procedure note, which is enclosed. If I can be of further assistance, please feel free to contact me at . Sincerely, Richard Arenas, 12/12/2023 1:36:48 PM This report has been signed electronically.
--- NOTE | 2023-12-12 13:40 | OP.CCLET_ITS ---
12/12/2023 Magen Cavazos Re : Colonoscopy procedure for Katlin Pond Dear Macy This procedure was performed on Tuesday, December 12, 2023. My impressions and recommendations are as follows: Impressions : - Preparation of the colon was fair. - Diverticulosis in the recto-sigmoid colon and in the sigmoid colon. - One 8 mm polyp at the recto-sigmoid colon, removed using injection-lift and a hot snare. Resected and retrieved. - Stool in the sigmoid colon, in the descending colon, in the transverse colon, in the ascending colon and in the cecum. Recommendations : - Return patient to [facility] for [facility] care. - Resume previous diet today. - Continue present medications. - Repeat colonoscopy in 6 months because the bowel preparation was poor. My findings are described in the full procedure note, which is enclosed. If I can be of further assistance, please feel free to contact me at . Sincerely, Richard Arenas, 12/12/2023 1:39:49 PM This report has been signed electronically.
--- NOTE | 2023-12-12 13:40 | OP.COLON_ITS ---
Patient Name: Katlin Pond Procedure Date: 12/12/2023 1:04 PM Date of : 1960 Age: 63 Procedure: Colonoscopy Indications: This is the patient's first colonoscopy, Iron deficiency anemia Providers: Richard Arenas DO Medicines: Monitored Anesthesia Care Patient Profile: This is a 63 year old female. Refer to note in patient chart for documentation of history and physical. Patient has symptoms of chronic abdominal distention. Last Colonoscopy: none. The patient's first colonoscopy is today. Complications: No immediate complications. Procedure: Pre-Anesthesia Assessment: - Prior to the procedure, a History and Physical was performed, and patient medications and allergies were reviewed. The patient is competent. The risks and benefits of the procedure and the sedation options and risks were discussed with the patient. All questions were answered and informed consent was obtained. Patient identification and proposed procedure were verified by the physician in the pre-procedure area. Mental Status Examination: alert and oriented. Airway Examination: normal oropharyngeal airway and neck mobility. Respiratory Examination: clear to auscultation. CV Examination: normal. Prophylactic Antibiotics: The patient does not require prophylactic antibiotics. Prior Anticoagulants: The patient has taken no anticoagulant or antiplatelet agents. ASA Grade Assessment: III - A patient with severe systemic disease. After reviewing the risks and benefits, the patient was deemed in satisfactory condition to undergo the procedure. The anesthesia plan was to use monitored anesthesia care (MAC). Immediately prior to administration of medications, the patient was re-assessed for adequacy to receive sedatives. The heart rate, respiratory rate, oxygen saturations, blood pressure, adequacy of pulmonary ventilation, and response to care were monitored throughout the procedure. The physical status of the patient was re-assessed after the procedure. After I obtained informed consent, the scope was passed under direct vision. Throughout the procedure, the patient's blood pressure, pulse, and oxygen saturations were monitored continuously. The Colonoscope was introduced through the anus and advanced to the cecum, identified by appendiceal orifice and ileocecal valve. The colonoscopy was performed without difficulty. The patient tolerated the procedure well. The quality of the bowel preparation was fair. The ileocecal valve, appendiceal orifice, and rectum were photographed. Scope In: 1:07:20 PM Scope Withdrawal Time 0 hours 10 minutes 44 seconds Scope Out: 1:30:42 PM Total Procedure Duration Time 0 hours 23 minutes 22 seconds Findings: The perianal and digital rectal examinations were normal. Multiple small-mouthed diverticula were found in the recto-sigmoid colon and sigmoid colon. An 8 mm polyp was found in the recto-sigmoid colon. The polyp was sessile. The polyp was removed with a saline injection-lift technique using a hot snare. Resection and retrieval were complete. Verification of patient identification for the specimen was done. Estimated blood loss was minimal. Stool was found in the sigmoid colon, in the descending colon, in the transverse colon, in the ascending colon and in the cecum. Impression: - Preparation of the colon was fair. - Diverticulosis in the recto-sigmoid colon and in the sigmoid colon. - One 8 mm polyp at the recto-sigmoid colon, removed using injection-lift and a hot snare. Resected and retrieved. - Stool in the sigmoid colon, in the descending colon, in the transverse colon, in the ascending colon and in the cecum. Recommendation: - [facility] for [facility] care. - Resume previous diet today. - Continue present medications. - Repeat colonoscopy in 6 months because the bowel preparation was poor. Procedure Code(s): --- Professional --- 33647, Colonoscopy, flexible; with removal of tumor(s), polyp(s), or other lesion(s) by snare technique 43945, Colonoscopy, flexible; with directed submucosal injection(s), any substance CPT copyright 2021 [employer]. All rights reserved. The codes documented in this report are preliminary and upon beam carrier hauler pusher review may be revised to meet current compliance requirements. Richard Arenas DO 12/12/2023 1:39:49 PM This report has been signed electronically. Number of Addenda: 0 Note Initiated On: 12/12/2023 1:04 PM
[2023-12-12] MEDS: Lactated Ringers 1,000 ML 15 ML IV (13:44)
[2023-12-12] MEDS: Aspirin 81 MG TAB.CHEW PO (14:24)
[2023-12-12] MEDS: Azithromycin 250 MG Tablet 500 MG PO (14:25)
[2023-12-12] MEDS: guaiFENesin 1,200 MG Tablet 1200 MG PO (14:25)
[2023-12-12] MEDS: Ferrous Gluconate 324 MG Tablet PO (14:25)
[2023-12-12] MEDS: ALPRAZolam 0.5 MG Tablet 1 MG PO (14:29)
[2023-12-12] MEDS: Ketorolac 15 MG/ML Vial IV (14:29)
[2023-12-12] MEDS: 0.9% Saline Lock 10 ML Syringe IV (14:30)
[2023-12-12] MEDS: Simethicone 40MG/0.6ML Bottle 80 MG PO (14:39)
--- NOTE | 2023-12-12 15:42 | PCM.DC.SUM ---
Providers Date of Admission: 12/09/23 Date of Discharge: 12/12/23 Primary Care Physician: Dr. Magen Cavazos MD Consultations 12/11/23 08:55 Consult: Gastroenterology Routine Consulting Provider: [facility] Reason for Consult: Worsening anemia, microcytic, guiac neg but trending down, on antiplt EMERGENT Consult: No MD Notified: Yes Date Notified: 12/11/23 Time Notified: 08:56 Method of Notification: Text Reason For Visit: SHORTNESS OF BREATH Diagnosis Discharge Diagnosis (1) COPD exacerbation: Status: Chronic Code(s): J44.1 - Chronic obstructive pulmonary disease with (acute) exacerbation Plan: DISCHARGE DIAGNOSES: #1. Acute Hypoxia secondary to Acute on Chronic COPD/Asthma exacerbation with upon discharged noted GNR growth in sputum with final pending #2. Acute on chronic anemia, microcytic with GI bleed (bleeding angiodysplastic lesions in the stomach treated with heater probe as well as 2 nonbleeding angiodysplastic lesions in the duodenum treated with argon plasma coagulation, 8 mm polyp rectosigmoid colon removed with hot snare) #3. Abnormal TSH w/ TSH 0.22, free T4 1.12, subclinical #4. Anxiety/Panic attacks/PTSD #5. CAD, Status post PCI 12/2022 #6. Hypertension #7. Hyperlipidemia #8. Tobacco Abuse #9. GERD #10. CODE status: Patient PER is her significant and living will is currently in place. DNR-CCA, no intubation status. Medications at Discharge Home Medications tiotropium bromide 18 mcg capsule with inhalation device (Spiriva with HandiHaler) 1 puff inhalation DAILY SHORTNESS OF BREATH 01/24/15 alprazolam 1 mg tablet (Xanax) 1 mg PO BID anxiety 01/24/18 albuterol sulfate 90 mcg/actuation aerosol inhaler (ProAir HFA) 2 puff inhalation Q4H PRN PRN Sob &/Or Wheezing 11/04/18 ibandronate 150 mg tablet 150 mg PO Q90D OSTEOPOROSIS 08/31/22 losartan 50 mg tablet 50 mg PO DAILY BLOOD PRESSURE 08/31/22 aspirin 81 mg chewable tablet 81 mg PO BREAKFAST #90 tabs 01/18/23 atorvastatin 40 mg tablet (Lipitor) 40 mg PO QHS #90 tabs 01/18/23 metoprolol succinate 25 mg tablet,extended release 24 hr 25 mg PO DAILY #90 tabs 01/18/23 azithromycin 250 mg tablet (Zithromax) 250 mg PO DAILY 7 days #7 tabs 03/31/23 benzonatate 100 mg capsule 200 mg (2 x 100 mg) PO TID PRN PRN Cough #40 caps 03/31/23 nitroglycerin 0.4 mg sublingual tablet (Nitrostat) 0.4 mg sublingual Q5-15M PRN chest pain #25 tabs 05/09/23 oxycodone-acetaminophen 5 mg-325 mg tablet See Rx Instructions PO BID PRN PAIN 12/10/23 albuterol sulfate 2.5 mg/3 mL (0.083 %) solution for nebulization 2.5 mg (3 mL) inhalation Q2H PRN PRN Dyspnea,wheezing 30 days #180 mL 12/12/23 cefdinir 300 mg capsule 300 mg PO BID 7 days #14 caps 12/12/23 ferrous gluconate 324 mg (37.5 mg iron) tablet 324 mg PO BIDCM 30 days #60 tabs 12/12/23 guaifenesin 1,200 mg tablet, extended release 12 hr (Mucus Relief ER) 1,200 mg PO BID 14 days #28 tabs 12/12/23 pantoprazole 40 mg tablet,delayed release 40 mg PO BID 30 days #60 tabs 12/12/23 prednisone 10 mg tablet See Rx Instructions .Route .COMPLEX #30 tabs 12/12/23 sucralfate 1 gram tablet 1 g PO 1HR_ACHS 30 days #120 tabs 12/12/23 Hospital Course Operations None Procedures Colonoscopy, EGD and EKG Summary of Care Provided Minutes Spent on Discharge: 35 Hospital Course: The patient is a 63 y/o F w/ PMHx: Chronic mmicrocytic anemia, Anxiety/Panic attacks/PTSD, Asthma and COPD, Tobacco use, GERD, HTN, HLD, CAD s/p PCI who presents to the [facility] ED on 12/10/23 with history of persistent dyspnea, worse with exertion with nonproductive cough over the last 4 days with subjective fever but not measured on chronic azithromycin secondary to recurrent exacerbations but given not improving prompted ED evaluation. Admitted to PCU, maintained on oxygen, continued ATC duonebs, PRN albuterol, IV methylprednisolone-->prednisone taper at discharge, currently maintained on oral azithromycin chronic regimen only-->sputum cx with preliminary GNR so transitioned to oral cefdnir at discharge, HOB, IS parameters, procalcitonin normal, respiratory viral panel negative, added mucinex, added VEST therapy. Patient oxygenation trial performed and patient dropped to 87% with activity but improved to 91-92% with 2 L nasal cannula with patient noted to be ambulatory in the home and also in the community setting. Admission hemoglobin 9.9 decreased from most recently noted 03/30/2023 hemoglobin 12.7 at that time, negative guaiac testing, digital rectal exam unremarkable, will continue to trend CBC and plan outpatient gastroenterology consultation, 12/10/23, repeat hemoglobin 8.7, MCV in the 70 range, iron panel, saturation, TIBC 356, iron 12, iron saturation 3.4, ferritin 9 most consistent with Fe deficiency. Added oral Fe. Initial plan for outpatient GI evaluation but repeat 12/11/23 Hgb continued to trend downward 8.3, discontinued plavix, continued asa, placed on PPI IV-->12/12/23 transitioned to oral PPI and sucralafate oral regimen added, consulted GI for consider endoscopies to be cautious. 12/12/2023 upper endoscopy with red blood noted in the gastric body with 2 bleeding angiodysplastic lesions in the stomach treated with heater probe as well as 2 nonbleeding angiodysplastic lesions in the duodenum treated with argon plasma coagulation. 12/12/23 in sigmoid colon, 8 mm polyp rectosigmoid colon removed with hot snare, stool otherwise distally noted with plan repeat colonoscopy in 6 months secondary to poor bowel prep. Also during admission noted TSH 0.22, free T4 1.12, subclinical, encouraged repeated outpatient PCP assessment given her acute presentation. Given patient preference and clinical improvement patient diet initiated following endoscopies and was tolerated therefore discharged home with intervention and plan of care as noted with follow-up with primary care physician, cardiology, gastroenterology. Weight / BMI Weight Weight: 110 lb 3.698 oz Body Mass Index (BMI) 20.1 ABG / Lab / Microbiology Data 12/12/23 07:15 12/12/23 07:15 Laboratory: Laboratory Results - last 24 hr 12/12/23 07:15: WBC 12.0 H, RBC 4.10 L, Hgb 8.5 L, Hct 29.8 L, MCV 72.7 L, MCH 20.7 L, MCHC 28.5 L, RDW Std Deviation 53.1 H, RDW Coeff of Mehul 20.5 H, Plt Count 388, MPV 9.5, Immature Gran % (Auto) 0.400, Neut % (Auto) 81.8 H, Lymph % (Auto) 11.9 L, Bartholomew % (Auto) 5.8, Eos % (Auto) 0.0, Baso % (Auto) 0.1, Absolute Neuts (auto) 9.8 H, Absolute Lymphs (auto) 1.42, Nucleated RBC % 0, Anisocytosis 2+, PT 14.1, INR 1.1, APTT 25.3, Sodium 141, Potassium 3.5, Chloride 113 H, Carbon Dioxide 27.0, Anion Gap 1 L, BUN 6 L, Creatinine 0.45 L, Estim Creat Clear Calc 102.31, Est GFR (MDRD) Af Amer 180, Est GFR (MDRD) Non-Af 149, BUN/Creatinine Ratio 13.2, Glucose 111 H, Calcium 8.7, Total Bilirubin 0.30, AST 19, ALT 40, Alkaline Phosphatase 115, Total Protein 5.9 L, Albumin 3.1 L, Globulin 2.8, Albumin/Globulin Ratio 1.1 Microbiology: Microbiology 12/11/23 11:10 Sputum, Expectorated/Coughed Gram Stain - Final 12/11/23 11:10 Sputum, Expectorated/Coughed Respiratory Culture - Preliminary GNR 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 12/10/23 10:30 Mucosa - Nasopharyngeal Respiratory Panel (PCR) - Final 12/09/23 17:00 Stool Stool Occult Blood (YASMINE) - Final 12/09/23 14:26 Mucosa - Nose SARS-CoV-2, Influenza & RSV (PCR) - Final D/C Instructions Discharge Diet: Low fat / Low cholesterol May resume sexual activity in: 10-14 days Weight Bearing Status: Weight bearing as tolerated Call your doctor if you observe: Fever of 101 or Higher, Numbness or Tingling, Shortness of breath, Dizziness, Fainting spells, Chest pain, Increased palpitations (irregular heartbeat) and Uncontrolled pain Meaningful Use Info Meaningful Use Diagnoses (Choose all that apply): None applicable Discharge Plan Admission Admit Date/Time: 12/09/23 17:31 Primary Reason for Your Visit: Hypoxia, COPD Exac, GNR in Sputum (Cx final pending), GI bleed, ABLA Attending Provider: Moraima Win Primary Care Provider: Magen Cavazos Consulting Providers: Hui Cabrera Instructions Additional Instructions / Restrictions: ADDITIONAL DISCHARGE INSTRUCTIONS/PLANS OF CARE: #1. Acute Hypoxia (low oxygen) secondary to Acute on Chronic COPD/Asthma exacerbation: Please continue upon discharge aerosols as written, continue mucinex, continue steroid taper, encourage continued incentive spirometery exercises with 10x/hr from am to bedtime for at least 1 week, continue supplemental oxygen until weaned per your primary care physician. Also, from review of your prior sputum cultures, you have been sensitive to cephalosporins therefore be cautious given your sputum culture is pending at discharge you have been discharged to home on cefdinir. Please complete this regimen. If there is resistance noted you will contacted for an alternate regimen to be started. #2. Acute on chronic anemia secondary to gastrointestinal bleed: Admission hemoglobin 9.9 decreased from most recently noted 03/30/2023 hemoglobin 12.7 with repeat 12/11/23 Hgb 8.3. Plavix discontinued. Placed on high dose oral protonix and sucralafate. We will continue this regimen with follow-up with Gastroenterology to review pathology. Also, you will need repeat colonoscopy in 6 months given bowel prep was not complete while inpatient and the entire colon was not visualized. You have also been started on iron supplementation. Endoscopy results: 12/12/2023 upper endoscopy with red blood noted in the gastric body with 2 bleeding angiodysplastic lesions in the stomach treated with heater probe as well as 2 nonbleeding angiodysplastic lesions in the duodenum treated with argon plasma coagulation. 12/12/23 colonoscopy with 8 mm polyp rectosigmoid colon removed with hot snare, stool otherwise distally noted with plan repeat colonoscopy in 6 months secondary to poor bowel prep. #3. Abnormal thyroid stimulating hormone: During the admission your thyroid function was checked. TSH 0.22, free T4 1.12 which is considered subclinical and will only needed to be rechecked outpatient at a later date with your primary care at this time. #4. CAD: Status post PCI 12/2022, will continue aspirin, discontinued Plavix as noted given 1 year out and anemia worsening with GI bleed as noted, continue metoprolol, losartan home regimen. Please follow-up with cardiology early given these medication changes to review. Discharge Orders/Prescriptions Prescriptions: New sucralfate 1 gram Tablet 1 g PO 1HR_ACHS 30 Days Qty: 120 0RF pantoprazole 40 mg Tablet,Delayed Release (Dr/Ec) 40 mg PO BID 30 Days Qty: 60 0RF guaifenesin [Mucus Relief ER] 1,200 mg Tablet Extended Release 12hr 1,200 mg PO BID 14 Days Qty: 28 0RF ferrous gluconate 324 mg (37.5 mg iron) Tablet 324 mg PO BIDCM 30 Days Qty: 60 0RF cefdinir 300 mg capsule 300 mg PO BID 7 Days Qty: 14 0RF prednisone 10 mg tablet See Rx Instructions .ROUTE .COMPLEX Qty: 30 0RF Taper: Prednisone Taper 40 mg WITH BREAKFAST for 3 Days and 0 Hour 30 mg WITH BREAKFAST for 3 Days and 0 Hour 20 mg WITH BREAKFAST for 3 Days and 0 Hour 10 mg WITH BREAKFAST for 3 Days and 0 Hour Rx Instructions: See Taper orally Continued nitroglycerin [Nitrostat] 0.4 mg tablet, sublingual 0.4 mg sublingual Q5-15M PRN (Reason: chest pain) Qty: 25 3RF Rx Instructions: do not exceed 3 doses per episode Spiriva with HandiHaler 1 PUFF inhaler 1 puff inhalation DAILY alprazolam [Xanax] 1 MG tablet 1 mg PO BID albuterol sulfate [ProAir HFA] 1 PUFF inhaler 2 puff inhalation Q4H PRN PRN (Reason: Sob &/Or Wheezing) losartan 50 mg tablet 50 mg PO DAILY ibandronate 150 mg tablet 150 mg PO Q90D benzonatate 100 mg Capsule 200 mg PO TID PRN PRN (Reason: Cough) Qty: 40 0RF azithromycin [Zithromax] 250 mg tablet 250 mg PO DAILY 7 Days Qty: 7 0RF oxycodone-acetaminophen 5-325 mg tablet See Rx Instructions PO BID PRN Patient Comments: TAKE 1/2 TO 1 TABLET BY MOUTH TWICE A DAY NEEDED FOR PAIN Rx Instructions: 0.5-1 orally twice daily as needed; metoprolol succinate 25 mg tablet extended release 24 hr 25 mg PO DAILY Qty: 90 3RF atorvastatin [Lipitor] 40 mg tablet 40 mg PO QHS Qty: 90 3RF aspirin 81 mg tablet,chewable 81 mg PO BREAKFAST Qty: 90 3RF Changed albuterol sulfate 2.5 MG/3 ML solution for nebulization 2.5 mg inhalation Q2H PRN PRN (Reason: Dyspnea,wheezing) 30 Days Qty: 180 0RF Discontinued omeprazole magnesium [Prilosec OTC] 20 mg tablet,delayed release (DR/EC) 20 mg PO PRN guaifenesin [Mucus Relief ER] 1,200 MG tablet 1,200 mg PO BID PRN PRN (Reason: Congestion) fluticasone propion-salmeterol [Advair Diskus] 500-50 mcg/dose blister with device 1 inh INHALATION BID clopidogrel 75 mg tablet 75 mg PO DAILY Qty: 90 3RF Referrals / Follow Up: Magen Cavazos MD [Primary Care Provider] - (Follow-up within 3-5 days to review admission. Call office earlier if any concerns arise.) Richard Arenas DO [Med Staff - Active Staff] - (Follow-up in 4 weeks to review biopsies, may see Dr. Florez or Gastroenterology HAND DRY CLEANER.) Ramona Tinajero PA [Med Staff - Adv Practice Prof] - (Please follow-up in 1-2 weeks to review recent admission, medication changes.) Disposition Disposition (needs filled in before D/C Order can be placed): Home Health Service Charges/Coding Visit Charges Inpatient E&M: 65466 Disch Hosp >30min
--- NOTE | 2023-12-12 15:47 | CASEMGMT ---
Referral sent to [facility] for home O2 via [facility] at this time.
[2023-12-12] MEDS: Sucralfate 1 GM Tablet PO (15:55)
== END 2023-12-12 18:13 | disposition home health service (06) | DRG 190 ==
LOC: ED 14:45 → PCU 17:38
PROVIDERS: Anesthesiology; Emergency Medicine; Internal Medicine Gastroenterology; Admitting Provider Internal Medicine; Emergency Provider Emergency Medicine; PCP Family Medicine; Visit Provider Family Medicine
PROC: 0DJD8ZZ Inspection of Lower Intestinal Tract, Via Natural or Artificial Opening Endoscopic (ICD-10-PCS; CPT 45378; principal; 2023-12-12 09:40)
DX: J44.1 Chronic obstructive pulmonary disease with (acute) exacerbation (principal); K31.811 Angiodysplasia of stomach and duodenum with bleeding; D50.9 Iron deficiency anemia, unspecified; F17.210 Nicotine dependence, cigarettes, uncomplicated; E78.5 Hyperlipidemia, unspecified; D12.7 Benign neoplasm of rectosigmoid junction; I10 Essential (primary) hypertension; I25.10 Atherosclerotic heart disease of native coronary artery without angina pectoris; K21.9 Gastro-esophageal reflux disease without esophagitis; K57.30 Diverticulosis of large intestine without perforation or abscess without bleeding; K59.09 Other constipation; I25.2 Old myocardial infarction; F41.0 Panic disorder [episodic paroxysmal anxiety]; Z79.83 Long term (current) use of bisphosphonates; F41.1 Generalized anxiety disorder; F43.10 Post-traumatic stress disorder, unspecified; Z79.02 Long term (current) use of antithrombotics/antiplatelets; Z79.51 Long term (current) use of inhaled steroids; Z95.5 Presence of coronary angioplasty implant and graft; Z79.82 Long term (current) use of aspirin; Z79.2 Long term (current) use of antibiotics; M81.0 Age-related osteoporosis without current pathological fracture; Z90.49 Acquired absence of other specified parts of digestive tract; Z90.710 Acquired absence of both cervix and uterus; R94.6 Abnormal results of thyroid function studies
CPT/HCPCS: 36415; 71045; 80048; 80053; 82248; 82274; 82728; 83540; 83550; 83605; 83735; 83880; 84100; 84145; 84439; 84443; 84484; 85025; 85610; 85730; 87040; 87070; 87077; 87186; 87205; 87631; 87633; 88305; 93005; 94640; 94668; 97116; 97162; 97166; 97530; 97802; 99252; 99285; 99406; J7030; J7040; J7120; A4216; G0463; J2405

== ENCOUNTER 2024-01-03 12:09 | Inpatient (IN) | payer MEDICARE, SELFPAY ==
[2024-01-03] VITALS (13 sets, daily range): BP systolic 92–146; BP diastolic 62–78; PULSE 79–88; RESP 16–30; TEMP 36.3–36.5; O2SAT 87–98; BMI 20.5; BMI 19.5
--- NOTE | 2024-01-03 12:23 | EKG12_ITS ---
Test Reason : SHORT OF BREATH Blood Pressure : / mmHG Vent. Rate : 081 BPM Atrial Rate : 081 BPM P-R Int : 150 ms QRS Dur : 088 ms QT Int : 400 ms P-R-T Axes : 071 081 079 degrees QTc Int : 464 ms Normal sinus rhythm Normal ECG Confirmed by NAVI DIETRICH, LILY ([id number]), publications editor CANDI BARRIOS ([id number]) on 01/07/2024 9:18:59 AM Referred By: ANTONIA Confirmed By:ROSELINE MCELROY MD
--- NOTE | 2024-01-03 12:24 | ED.VIS.DYS ---
HPI History of Present Illness Chief Complaint: Shortness of Breath Detail of Chief Complaint: Shortness of breath Informant: patient Narrative Narrative: Patient presents with shortness of breath that started about a week ago. She complains of a cough that she cannot bring anything up. She has had some chills every day. She denies fevers. Complains of exertional dyspnea. Patient states that she was admitted earlier this month for suspected COPD exacerbation and was on tapering dose prednisone. Patient also taking daily Zithromax. PFSH PFSH Medical History Anxiety Anxiety, generalized Asthma Atherosclerosis of coronary artery of [place] heart without angina pectoris Broken back COPD (chronic obstructive pulmonary disease) Current smoker Depression Emphysema lung GERD (gastroesophageal reflux disease) GERD (gastroesophageal reflux disease) Hip replacement planned Hypertension Myocardial infarct On home oxygen therapy Osteoarthritis Osteoporosis Panic attacks Post traumatic stress disorder (PTSD) Smoker Home Medications tiotropium bromide 18 mcg capsule with inhalation device (Spiriva with HandiHaler) 1 puff inhalation DAILY SHORTNESS OF BREATH 01/24/15 [History Last Taken 12/13/22] alprazolam 1 mg tablet (Xanax) 1 mg PO BID anxiety 01/24/18 [History Last Taken 01/03/24] albuterol sulfate 90 mcg/actuation aerosol inhaler (ProAir HFA) 2 puff inhalation Q4H PRN PRN Sob &/Or Wheezing 11/04/18 [History Last Taken 01/03/24] ibandronate 150 mg tablet 150 mg PO Q90D OSTEOPOROSIS 08/31/22 [History Last Taken 12/15/23] losartan 50 mg tablet 50 mg PO DAILY BLOOD PRESSURE 08/31/22 [History Last Taken 12/13/22] aspirin 81 mg chewable tablet 81 mg PO BREAKFAST #90 tabs 01/18/23 [Rx Last Taken 01/03/24] atorvastatin 40 mg tablet (Lipitor) 40 mg PO QHS #90 tabs 01/18/23 [Rx Last Taken 01/02/24] metoprolol succinate 25 mg tablet,extended release 24 hr 25 mg PO DAILY #90 tabs 01/18/23 [Rx Last Taken 01/03/24] azithromycin 250 mg tablet (Zithromax) 250 mg PO DAILY 7 days #7 tabs 03/31/23 [Rx Last Taken 01/02/24] benzonatate 100 mg capsule 200 mg (2 x 100 mg) PO TID PRN PRN Cough #40 caps 03/31/23 [Rx Last Taken 01/02/24] nitroglycerin 0.4 mg sublingual tablet (Nitrostat) 0.4 mg sublingual Q5-15M PRN chest pain #25 tabs 05/09/23 [Rx Last Taken Unknown] oxycodone-acetaminophen 5 mg-325 mg tablet See Rx Instructions PO BID PRN PAIN 12/10/23 [History Last Taken Unknown] albuterol sulfate 2.5 mg/3 mL (0.083 %) solution for nebulization 2.5 mg (3 mL) inhalation Q2H PRN PRN Dyspnea,wheezing 30 days #180 mL 12/12/23 [Rx Last Taken 01/02/24] ferrous gluconate 324 mg (37.5 mg iron) tablet 324 mg PO BIDCM 30 days #60 tabs 12/12/23 [Rx Last Taken 01/02/24] guaifenesin 1,200 mg tablet, extended release 12 hr (Mucus Relief ER) 1,200 mg PO BID 14 days #28 tabs 12/12/23 [Rx Last Taken 12/31/23] ipratropium 0.5 mg-albuterol 3 mg (2.5 mg base)/3 mL nebulization soln 3 ml inhalation Q6H 14 days #180 mL 12/12/23 [Rx Last Taken 01/02/24] pantoprazole 40 mg tablet,delayed release 40 mg PO BID 30 days #60 tabs 12/12/23 [Rx Last Taken 01/03/24] fluticasone fur. 100 mcg-umeclid 62.5 mcg-vilant 25 mcg inhalat.powder (Trelegy Ellipta) 1 inh inhalation DAILY 01/03/24 [History Last Taken 01/03/24] montelukast 10 mg tablet 10 mg PO DAILY 01/03/24 [History Last Taken 01/02/24] Allergy/AdvReac Type Severity Reaction Status Date / Time No Known Allergies Allergy Verified 12/09/23 13:45 Surgical History (Updated 12/20/23 @ 00:01 by Jordi Painter) History of appendectomy History of coronary artery stent placement (~12/18/22) History of partial hysterectomy Social History Smoking Status: Light Smoker (<10/day) ROS ROS ED Review of Systems ROS Unobtainable: other Constitutional Constitutional ED: Reports chills and lethargy; Denies fever(s), sweats or weight loss Eyes Eyes: Denies blurry vision, change in vision or diplopia ENT ENT ED: Denies rhinorrhea or sore throat Cardiovascular Cardiovascular: Denies chest pain, orthopnea or racing heartbeat Respiratory/Chest Respiratory/Chest: Reports cough, dyspnea and dyspnea on exertion; Denies orthopnea or sputum Gastrointestinal Gastrointestinal: Denies abdominal pain, diarrhea, nausea or vomiting Genitourinary Genitourinary ED: Denies dysuria, hematuria or urinary frequency Musculoskeletal Musculoskeletal: Denies arthralgias, back pain, myalgias or neck pain Integumentary Denies abscess, Abrasions or rash Neurologic Neurologic: Denies headache(s) or weakness Psychiatric Psychiatric: Denies anxiety, depression or suicidal thoughts Endocrine Endocrinology: Denies polydipsia, polyphagia or polyuria Hematologic/Lymphatic Hematologic/Lymphatic: Denies easy bleeding, easy bruising or lymphadenopathy Allergic/Immunologic Allergic/Immunologic ED: Denies mouth swelling, tongue swelling or urticaria EXAM Physical Exam Const Vital Signs: 01/03/24 12:11 01/03/24 12:14 01/03/24 12:15 Temperature 97.4 F L Temperature Source Temporal Pulse Rate 88 Respiratory Rate 19 H Respiratory Effort Respiratory Pattern Blood Pressure 146/72 H Blood Pressure Mean 96 Pulse Ox 87 94 94 Oxygen Delivery Method Room Air Nasal Cannula Nasal Cannula Oxygen Flow Rate (L/min) 2 2 01/03/24 12:14 01/03/24 12:20 01/03/24 12:26 Temperature 97.4 F L Temperature Source Temporal Pulse Rate 86 Respiratory Rate 25 H Respiratory Effort Short of Breath Accessory Muscle Use Nasal Flaring Respiratory Pattern Blood Pressure 132/74 H Blood Pressure Mean 93 Pulse Ox 94 94 Oxygen Delivery Method Nasal Cannula Nasal Cannula Nasal Cannula Oxygen Flow Rate (L/min) 2 2 01/03/24 13:15 01/03/24 13:24 01/03/24 14:00 Temperature 97.3 F L Temperature Source Temporal Pulse Rate 80 85 80 Respiratory Rate 30 H 16 24 H Respiratory Effort Respiratory Pattern Normal Blood Pressure 92/78 123/67 H Blood Pressure Mean 82 85 Pulse Ox 95 94 Oxygen Delivery Method Nasal Cannula Nasal Cannula Oxygen Flow Rate (L/min) 2 2 01/03/24 14:00 01/03/24 14:04 Temperature 97.3 F L Temperature Source Pulse Rate 83 83 Respiratory Rate 21 H 22 H Respiratory Effort Respiratory Pattern Blood Pressure 123/67 H 123/67 H Blood Pressure Mean 85 85 Pulse Ox 95 95 Oxygen Delivery Method Nasal Cannula Oxygen Flow Rate (L/min) 2 Positive well nourished and well developed General Appearance ED: well developed and NAD HEENT Reports TM's clear and moist mucous membranes normocephalic and atraumatic; Negative for trauma or tenderness Tympanic Membrane ED: Yes TM's clear Eyes PERRL and EOMs intact bilaterally General Eye ED: Negative for pale conjunctiva or scleral icterus Neck no lymphadenopathy, supple and no JVD General: Negative for tenderness Chest Wall inspection of chest normal and palpation of chest normal Chest: Negative for tenderness Resp normal respiratory effort and clear to auscultation bilaterally Effort and Inspection: Negative for respiratory distress or pain with movement Auscultation: rhonchi, wheezes and diminished lung sounds Cardio regular rate, regular rhythm, S1 normal heart sound, S2 normal heart sound and no murmurs Peripheral Pulses: pulses 2+ throughout GI normal to inspection, nondistended, normoactive bowel sounds, soft to palpation, non-tender, non-distended and no masses Back/Spine no CVA tenderness and no thoracic nor lumbar tenderness Extremity normal to inspection General Extremety ED: Negative for edema General Extremity: Negative for edema Neuro oriented x3, CN's II-XII intact bilaterally, no sensory deficits noted and gait normal Sensorium / Orientation: awake, alert, oriented to person, oriented to place and oriented to time Motor Exam: strength 5/5 throughout and strength abnormal Psych mental status grossly normal Skin no rashes or lesions noted and no wounds MDM MDM MDM Narrative Medical decision making narrative: Patient presents with exertional dyspnea and cough and hypoxic over the week. Patient received an aerosol by EMS prior to arrival. EKG obtained arrival showed a sinus rhythm with rate of 81 bpm with no acute ST segment changes. CBC with differential count of 8.7 hemoglobin 12.0 and platelet count 376. Chemistries unremarkable. Lactate was normal at 1.1 and troponin was normal at 7. I did give patient a DuoNeb aerosol and started on Solu-Medrol. Case discussed with hospitalist will evaluate patient for admission. Lab Data Labs: Laboratory Results - last 24 hr 01/03/24 12:30 WBC 8.7 RBC 5.38 Hgb 12.0 Hct 41.3 MCV 76.8 L MCH 22.3 L MCHC 29.1 L RDW Std Deviation 68.0 H RDW Coeff of Mehul 25.3 H Plt Count 376 MPV 10.4 Immature Gran % (Auto) 0.200 Neut % (Auto) 51.3 Lymph % (Auto) 30.8 [place] % (Auto) 6.9 Eos % (Auto) 9.5 H Baso % (Auto) 1.3 H Absolute Neuts (auto) 4.5 Absolute Lymphs (auto) 2.69 Nucleated RBC % 0 Differential Comment SCANNED Anisocytosis 2+ Microcytosis 1+ Macrocytosis 1+ Sodium 140 Potassium 3.7 Chloride 110 H Carbon Dioxide 26.0 Anion Gap 4 L BUN 8 Creatinine 0.50 L Estim Creat Clear Calc 92.27 Est GFR (MDRD) Af Amer 158 Est GFR (MDRD) Non-Af 131 BUN/Creatinine Ratio 15.8 Glucose 92 Lactic Acid 1.1 Calcium 9.3 Troponin I High Sens 7 B-Natriuretic Peptide 36.0 Radiography Diagnostic Testing: Clinical Impression(s) from Imaging Studies Chest X-Ray 01/03/24 12:50 IMPRESSION: Hyperinflation. The lungs are clear. Electronically Signed: Kevin Turpin MD at 13:03 EST Reading Location ID and State: [address] [place] [address] , Service support , 1 view chest x-ray obtained interpreted by myself as no evidence of infiltrate or pneumothorax or acute disease process. Radiology in agreement. EKG Initial EKG: Attestation: I personally reviewed and interpreted this EKG as follows: Comments: Sinus rhythm with rate of 81 bpm with no acute ST segment changes. Discharge Plan Dx/Rx/DC Orders Clinical Impression: Exertional dyspnea, Hypoxemia, COPD exacerbation Disposition Disposition: Acute Care Hospital [facility] Discharge Date/Time: 01/03/24 15:13
[2024-01-03] MEDS: MethylPREDNISolone 125 MG/2 ML Vial IV (12:33)
[2024-01-03 12:48] LABS: Absolute Lymphocyte Count 2.69 X10^3/uL (0.83-4.51); Absolute Neutrophil Count 4.5 X10^3/uL (2.0-7.7); Basophil# 0.11 X10^3/uL; Basophil% 1.3 % (0-1); Eosinophil# 0.83 X10^3/uL; Eosinophils% 9.5 % (0-5); Hematocrit 41.3 % (37-47); Lymphocyte # 2.69 X10^3/ul (0.83-4.51); Lymphocyte % 30.8 % (19-41); Mean Corp Hgb Conc 29.1 g/dL (32-36); Mean Corpuscular Hgb 22.3 pg (27.0-32.0); Mean Corpuscular Volume 76.8 fL (81-99); Mean Platelet Vol. 10.4 fl (6.2-12.0); Monocyte% 6.9 % (0-10); NRBC Flagged by Analyzer 0 % (0-5); Neutrophil # 4.48 X10^3/uL (2.7-7.7); Neutrophil % 51.3 % (47-70); POSITIVE MORPHOLOGY YES; Platelet Count 376 K/mm3 (150-450); RBC Distribution Width CV 25.3 % (11.6-14.6); Red Blood Count 5.38 M/mm3 (4.2-5.4); White Blood Count 8.7 K/mm3 (4.4-11.0)
--- NOTE | 2024-01-03 12:50 | RAD_ITS ---
STUDY: X-RAY CHEST REASON FOR EXAM: Female, 63 years old. Dyspnea TECHNIQUE: Single AP portable view of the chest. COMPARISON: Comparison is made with prior study dated December 09, 2003. FINDINGS: EKG electrodes are seen. Hyperinflation. The lungs are clear. There is no demonstrated pleural abnormality. Normal size heart. Normal mediastinum and jenny. Normal visualized pulmonary arteries. There is atherosclerotic calcification of the aortic arch with tortuosity. Evidence of prior vertebroplasty of a mid and lower dorsal vertebrae. Normal visualized ribs, clavicles, and shoulders. There is no demonstrated abnormality of the visualized soft tissue structures of the upper abdomen. RAD/Chest 1 View (Portable) IMPRESSION: Hyperinflation. The lungs are clear. Electronically Signed: Kevin Turpin MD at 13:03 EST ,
[2024-01-03 12:56] LABS: Differential Indicated SCAN CRITERIA MET
[2024-01-03 13:09] LABS: Anion Gap 4 (5-15); BUN 8 mg/dL (7-18); BUN/Creat Ratio 15.8 RATIO (10-20); Calcium,Total 9.3 mg/dL (8.5-10.1); Chloride 110 mmol/L (98-107); EST Glomerular Filtration Rate 131 mL/min (>60); Est Glom Filt Rate - Afr Amer 158 mL/min (>60); Estimated Creatinine Clearance 92.27 ml/min; Glucose 92 mg/dL (74-106); Lactic Acid 1.1 mmol/L (0.4-1.9); Potassium 3.7 mmol/L (3.5-5.1); Sodium Level 140 mmol/L (136-145); Troponin-I HS 7 pg/mL (3.0-54.0)
[2024-01-03 13:13] LABS: Anisocytosis 2+; Differential Comment SCANNED; Macrocytosis 1+; Microcytosis 1+
[2024-01-03] MEDS: Ipratropium/Albuterol Sulfate 3 ML AMPUL.NEB INHALATION ×2 (13:23→20:10)
--- NOTE | 2024-01-03 13:57 | PN.HOSP_ITS ---
Subjective Subjective Patient came to the emergency room [facility] with complaints of shortness of breath over the past few days along with cough which was minimally productive of thick sputum. Patient did not complain of any fevers or chills, she has a long history of chronic obstructive pulmonary disease and is on ae rosol treatments at home and 2 L of oxygen, according to the and the patient, even though she was on 2 L of oxygen at times her pulse ox would dip down to 86%. Workup in the emergency room included a chest x-ray which showed no evidence of infiltrates, patient's CBC was unremarkable, chemistry panel was also unremarkable. Patient will be admitted to [facility] for exacerbation of COPD, respiratory panel was obtained and is pending, patient's COVID, influenza, and RSV were negative. Patient will be treated with IV corticosteroids, I have elected to change her antibiotic over to Levaquin-she had a sputum culture approximately 3 weeks ago that was positive for Klebsiella pneumoniae. Objective Data Objective Data Vital Signs: Vital Signs Temp Pulse Resp BP Pulse Ox O2 Del Method O2 Flow Rate 97.4 F L 85 16 92/78 95 Nasal Cannula 2 01/03/24 12:14 01/03/24 13:24 01/03/24 13:24 01/03/24 13:15 01/03/24 13:15 01/03/24 13:15 01/03/24 13:15 Oxygen Flow Rate (L/min) 2 Oxygen Delivery Method Nasal Cannula Weight: 50.9 kg Body Mass Index (BMI) 20.5 Lab / Micro Data 01/03/24 12:30 01/03/24 12:30 Labs: Laboratory Results - last 24 hr 01/03/24 12:30: WBC 8.7, RBC 5.38, Hgb 12.0, Hct 41.3, MCV 76.8 L, MCH 22.3 L, MCHC 29.1 L, RDW Std Deviation 68.0 H, RDW Coeff of Mehul 25.3 H, Plt Count 376, MPV 10.4, Immature Gran % (Auto) 0.200, Neut % (Auto) 51.3, Lymph % (Auto) 30.8, [place] % (Auto) 6.9, Eos % (Auto) 9.5 H, Baso % (Auto) 1.3 H, Absolute Neuts (auto) 4.5, Absolute Lymphs (auto) 2.69, Nucleated RBC % 0, Differential Comment SCANNED, Anisocytosis 2+, Microcytosis 1+, Macrocytosis 1+, Sodium 140, Potassium 3.7, Chloride 110 H, Carbon Dioxide 26.0, Anion Gap 4 L, BUN 8, Creatinine 0.50 L, Estim Creat Clear Calc 92.27, Est GFR (MDRD) Af Amer 158, Est GFR (MDRD) Non-Af 131, BUN/Creatinine Ratio 15.8, Glucose 92, Lactic Acid 1.1, Calcium 9.3, Troponin I High Sens 7, B-Natriuretic Peptide 36.0 Micro: Microbiology 01/03/24 12:25 Mucosa - Nose SARS-CoV-2, Influenza & RSV (PCR) - Final Radiography Diagnostic Testing: Radiology Impression Chest X-Ray 01/03/24 12:50 IMPRESSION: Hyperinflation. The lungs are clear. Electronically Signed: Kevin Turpin MD at 13:03 EST , Physical Exam Const alert, oriented x3, no apparent distress and average body habitus General Appearance: cooperative, well kempt and well developed Orientation / Consciousness: awake, oriented to person, oriented to place and o riented to time HEENT normocephalic, head/scalp atraumatic and moist oral mucous membranes Eyes PERRL, EOMs intact bilaterally and conjunctivae normal Neck supple, no JVD, thyroid normal and no carotid bruits General: trachea midline Resp normal respiratory effort, no retractions and no use of accessory muscles Resp Narrative: Auscultation of the lungs reveals expiratory rhonchi bilaterally which clears somewhat on coughing, and there are no rales or wheezing noted Auscultation: rhonchi; Negative for rales or wheezes Cardio regular rate, regular rhythm, S1 normal heart sound, S2 normal heart sound, no murmurs, no rub and no gallops GI normal to inspection, nondistended, normoactive bowel sounds, soft to palpation, non-tender and non-distended Extremity no clubbing, cyanosis or edema Skin no rashes or lesions noted General Skin Exam: no breakdown Neuro oriented x3, CN's II-XII intact bilaterally, moves all extremities, no focal motor deficits and no sensory deficits noted Sensorium / Orientation: awake and alert Speech: speech normal Psych affect normal Assessment & Plan Assessment/Plan (1) COPD exacerbation: PLAN: Plan 1. Acute exacerbation of COPD-patient will be admitted to [facility] 3, she will be placed on IV Solu-Medrol, I will place her on oral Levaquin due to her p ositive sputum approximately 2 to 3 weeks ago for Klebsiella pneumoniae. Patient will be maintained on her home meds with the exception of Zithromax. I will order a noncontrasted chest CT to better delineate her pulmonary pathology. #2 coronary artery disease-this appears to be stable at this time #3 chronic hypoxic respiratory failure secondary to chronic COPD-patient is on her home oxygen setting which is 2 L at rest, she does say that she gets short of breath on exertion. #4 hyperlipidemia-patient is on atorvastatin #5 essential hypertension-patient will remain on her current medications Total clinical time spent by myself addressing the patient's medical issues, reviewing all of her data, and collaborating with patient's care team: 55 minutes Charges/Coding Visit Charges Inpatient E&M: [id number] Init Hosp L2
--- NOTE | 2024-01-03 14:25 | CT_ITS ---
STUDY: CT CHEST WITHOUT CONTRAST REASON FOR EXAM: Female, 63 years old. Dyspnea, COPD RADIATION DOSAGE (If Supplied By Facility): CTDIvol = ( 6.28 ) mGy, DLP = ( 215.06 ) mGycm TECHNIQUE: Transaxial imaging was performed without the administration of intravenous contrast material. Multiplanar coronal and sagittal images were reformatted. Individualized dose optimization techniques were used for this CT. COMPARISON: Comparison made with prior study dated September 25, 2013. Comparison made with prior chest radiograph done earlier in the day. FINDINGS: CHEST Scarring at the right lung apex. Hyperinflation. Emphysematous changes. Mild increased markings at the lung bases suggestive scarring. There is no demonstrated pleural abnormality. There are calcifications of the coronary arteries. Normal mediastinum. Normal hilar regions. Normal unenhanced pulmonary arteries. There is atherosclerotic calcification of the aortic arch with tortuosity and elongation of the aortic arch and descending thoracic aorta. There are degenerative changes of the thoracic spine. There is no demonstrated abnormality of the visualized upper abdomen. CT/Chest without Contrast IMPRESSION: Hyperinflation and emphysematous changes. Scarring at the lung apices. Electronically Signed: Kevin Turpin MD at 15:00 EST ,
[2024-01-03] MEDS: levoFLOXacin 500 MG Tablet PO (15:38)
[2024-01-03] MEDS: Ferrous Gluconate 324 MG Tablet PO (17:57)
--- OUTSIDE RECORDS SUMMARY | 2024-01-03 21:33 | XMS RPT_ITS | CCD ---
Author Name Unknown Address [address] [place] [address] Organization [facility] Care Team Providers Care Blending Tank Tender Name Role Phone Celena Izquierdo Primary Care [...] HCL] Drug Allergy 9 Shortness of Breath [facility] Work Phone: (16 sources) Lisinopril; 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: [LISINOPRIL] Drug Allergy 8 Cough [facility] Work Phone: (16 sources) Roflumilast; 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: [ROFLUMILAST] Drug Allergy 7 Mental Status Change [facility] Work Phone: (16 sources) Seasonal allergy; 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: [SEASONAL ALLERGIES] Allergy to substance 5 Shortness of Breath [facility] (2 sources) beta Sitosterol / ZINC CITRATE Drug Allergy 5 Shortness of breath [facility] (2 sources) buPROPion Drug Allergy 9 Shortness of breath [facility] (2 sources) Lisinopril Allergy to substance 8 Cough [facility] (2 sources) Roflumilast Drug Allergy 7 Anxiety [facility] (2 sources) Other Propensity to adverse reactions 5 Shortness of breath [facility] Medications Current Medications Medication Drug [...] Drug Class(es) Dates Sig (Normalized) Sig (Original) [id number] 200 actuat albuterol 0.09 mg/actuat metered dose [...] Long-term current use of systemic steroid; 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: [[facility] (current) use of systemic steroids] Onset: 05-14-2023 [...] 157.5 cm Socorro Muller MD Work Phone: [facility] 05-14-2023 15:22-0400 Body weight 54.34 kg Socorro Muller MD Work Phone: [facility] 05-14-2023 15:22-0400 Diastolic blood pressure 72 mm[Hg] Socorro Muller MD Work Phone: [facility] 05-14-2023 15:22-0400 Heart rate 71 /min Socorro Muller MD Work Phone: [facility] 05-14-2023 15:22-0400 Respiratory rate 14 /min Socorro Muller MD Work Phone: [facility] 05-14-2023 15:22-0400 SaO2% (BldA) [Mass fraction] 95 % Socorro Muller MD Work Phone: [facility] 05-14-2023 15:22-0400 Systolic blood pressure 104 mm[Hg] Socorro Muller MD Work Phone: [facility] 04-25-2023 11:05-0400 Body mass index (BMI) [Ratio] 21.66 kg/m2 Aliyah Hernandez HUMAN CAPITAL ANALYST - HAND FORMER HELPER Work Phone: [facility] 04-25-2023 11:05-0400 Body weight 53.71 kg Aliyah Bridenthal HUMAN CAPITAL ANALYST - HAND FORMER HELPER Work Phone: [facility] 04-25-2023 11:05-0400 Diastolic blood pressure 65 mm[Hg] Aliyah Rajenthal HUMAN CAPITAL ANALYST - HAND FORMER HELPER Work Phone: [facility] 04-25-2023 11:05-0400 Heart rate 97 /min Aliyah Bridenthal HUMAN CAPITAL ANALYST - HAND FORMER HELPER Work Phone: [facility] 04-25-2023 11:05-0400 Respiratory rate 20 /min Aliyah Bridenthal HUMAN CAPITAL ANALYST - HAND FORMER HELPER Work Phone: [facility] 04-25-2023 11:05-0400 SaO2% (BldA) [Mass fraction] 92 % Aliyah Rajenthal HUMAN CAPITAL ANALYST - HAND FORMER HELPER Work Phone: [facility] 04-25-2023 11:05-0400 Systolic blood pressure 115 mm[Hg] Aliyah Rajenthal HUMAN CAPITAL ANALYST - HAND FORMER HELPER Work Phone: [facility] Encounters Encounter Date Encounter Type Care Provider Facility Start: 08-14-2023 Refill Ruthie GarrettC Work Phone: Pulmonary Medicine Procedures Date Procedure Procedure Detail Performing Clinician Start: 02-03-2022 Lipid 1996 panel - Serum or Plasma Aliyah Edithal HUMAN CAPITAL ANALYST - HAND FORMER HELPER Work Phone: Start: 07-17-2021 Mammography Ruthie KNAPPC Work Phone: Start: 05-23-2021 Mammography Aliyah Rajenthal HUMAN CAPITAL ANALYST - HAND FORMER HELPER Work Phone: Start: 07-01-2018 H/O: hysterectomy History of hysterectomy Aliyah Rajenth al HUMAN CAPITAL ANALYST - HAND FORMER HELPER Work Phone: Plan of Treatment Date Care Activity Detail Author Start: 05-30-2027 DTaP/Tdap/Td Vaccines (2 - Td or Tdap) DTaP/Tdap/Td Vaccines (2 - Td or Tdap) [facility] Start: 05-30-2027 Urine microalbumin profile [facility] Start: 02-03-2027 Lipid panel Lipid Panel [facility] Start: 07-06-2023 Influenza vaccination [facility] Start: 02-03-2023 Diabetes mellitus screening Diabetes Screening [facility] Start: 07-17-2022 Mammography [facility] Start: 07-06-2022 Influenza vaccination [facility] Start: 05-23-2022 Screening for malignant neoplasm of breast Mammogram [facility] Start: 03-31-2022 Zoster Vaccines (2 of 2) Zoster Vaccines (2 of 2) [facility] Start: 07-06-2021 Influenza vaccination INFLUENZA (#1) [facility] Start: 02-18-2020 PNEUMOCOCCAL (2 - PCV) PNEUMOCOCCAL (2 - PCV) [facility] Start: 02-18-2020 Pneumococcal vaccination Pneumococcal Vaccine (2 - PCV) [facility] Start: 02-18-2020 Pneumococcal Vaccine: Pediatrics (0 to 5 Years) and At-Risk Patients (6 to 64 Years) (2 - PCV) Pneumococcal Vaccine: Pediatrics (0 to 5 Years) and At-Risk Patients (6 to 64 Years) (2 - PCV) [facility] Start: 2011 SHINGRIX VACCINE (1 of 2) SHINGRIX VACCINE (1 of 2) [facility] Start: 2006 COLOGUARD (FIT-DNA) COLOGUARD (FIT-DNA) [facility] Start: 2006 Colonoscopy COLONOSCOPY [facility] Start: 2006 COLORECTAL CANCER SCREENING COLORECTAL CANCER SCREENING [facility] Start: [address] COLONOGRAPHY [facility] Start: 2006 DIABETES SCREEN DIABETES SCREEN [facility] Start: 2006 Diabetes Screening Diabetes Screening [facility] Start: 2006 FECAL OCCULT BLOOD FECAL OCCULT BLOOD [facility] Start: 2006 Lipid 1996 panel - Serum or Plasma Lipid Screening [facility] Start: 2006 LIPID SCREEN LIPID SCREEN [facility] Start: 2006 SIGMOIDOSCOPY SIGMOIDOSCOPY [facility] Start: 1991 HPV TESTING HPV TESTING [facility] Start: 1982 PAP TESTING PAP TESTING [facility] Start: 01-04-1980 Hepatitis A Vaccines (1 of 2 - Risk 2-dose series) Hepatitis A Vaccines (1 of 2 - Risk 2-dose series) [facility] Start: 1979 ANNUAL PCP TEAM CHRONIC DISEASE VISIT ANNUAL PCP TEAM CHRONIC DISEASE VISIT [facility] Start: 1979 HEPATITIS C SCREENING HEPATITIS C SCREENING [facility] Start: 1979 Hepatitis C screening Hepatitis C Screening [facility] Start: 1979 HIV SCREENING HIV SCREENING [facility] Start: 1973 Depresssion Monitoring Depresssion Monitoring [facility] Start: 1966 COVID-19 VACCINE (#1) COVID-19 VACCINE (#1) [facility] Start: 1966 COVID-19 VACCINE (1) COVID-19 VACCINE (1) [facility] Start: 1962 MMR Vaccines (1 of 1 - Standard series) MMR Vaccines (1 of 1 - Standard series) [facility] Start: 1961 COVID-19 VACCINE (#1) COVID-19 VACCINE (#1) [facility] Start: 1961 HIV screening HIV Screening [facility] Start: 1961 Screening for malignant neoplasm of colon [facility] Start: 1961 Screening for osteoporosis Bone Density Scan [facility] OXIMETRY - NOCTURNAL OXIMETRY - NOCTURNAL Procedures Routine Stage 4 very severe COPD by GOLD classification (HCC) Ordered: 07/04/2023 [facility] Work Phone: Immunizations Immunization Date Immunization Notes Care Provider Kyle buchanan 02-03-2022 zoster vaccine recombinant Aliyah Hernandez HUMAN CAPITAL ANALYST - HAND FORMER HELPER Work Phone: [facility] 02-17-2019 pneumococcal polysaccharide vaccine, 23 valent Ruthie Doan PA-C Work Phone: [facility] Work Phone: 05-30-2017 tetanus toxoid, redu jovany diphtheria toxoid, and acellular pertussis vaccine, adsorbed Ruthie Doan PA-C Work Phone: [facility] Work Phone: 03-10-2014 pneumococcal polysaccharide vaccine, 23 valent Ruthie Doan PA-C Work Phone: [facility] Work Phone: 03-07-2014 pneumococcal polysaccharide vaccine, 23 valent Aliyah Hernandez HUMAN CAPITAL ANALYST - HAND FORMER HELPER Work Phone: [facility] 08-05-2013 influenza virus vacc ine, unspecified formulation Aliyah Hernandez HUMAN CAPITAL ANALYST - HAND FORMER HELPER Work Phone: [facility] Payers Date Payer Category Payer Medicare MEDICARE MEDICAR E A AND B [id number] 2016-Present [phone] [address] [address] [place] [address] Medicare [id number] 2016 Medicare [id number] 2016 Medicare [id number] 2015 Unknown [employer] BLUE CARD PPO OOS [id number] 2015-Present [phone] [address] [place] [address] PPO [id number] 2015 Unknown [id number] 2015 Unknown [id number] Social History Date Type Detail Facility Start: 1977 End: 05-14-2023 Tobacco smoking status KYIS Smokes tobacco daily [facility] Start: 1977 History of tobacco use Cigarette Smo ker [facility] Start: 05-02-2018 End: 07-04-2023 Cigarettes smoked current (pack per day) - Reported 0.5 [facility] Start: 05-02-2018 End: 05-14-2023 Tobacco use and exposure Smokeless tobacco non-user [facility] Start: 08-11-2021 End: 04-25-2023 Alcohol intake Current drinker of alcohol (finding) [facility] Start: 08-11-2021 History SDOH Alcohol Comment couple times a week [facility] Start: 08-11-2021 Tobacco Comment every 3-4 days [facility] Start: 1960 Sex Assigned At Not on file [facility] Start: 09-25-1989 Tobacco smoking stat us NHIS Occasional tobacco smoker [facility] Start: 04-25-2023 End: 07-04-2023 Tobacco use panel [facility] How hard is it for y ou to pay for the very basics like food, housing, medical care, and heating Not hard at all [facility] (I/We) worried wheth er (my/our) food would run out before (I/we) got money to buy more. 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 She has been taking the Prednisone 5mg daily. She has been unable to wean off any lower than that. Requesting refill of the 5mg to [facility]. Please review and advise. Tammy Landry MA documented in this encounter [facility] 07-12-2023 Miscellaneous Notes Formattin g of this [...] advise. Ruthie Munson documented in this encounter [facility] 07-04-2023 Note HNO ID: [id number] Author: Ruthie Doan PA-C Service: ? Author Type: Physician Engagement Director Type: Progress Notes Filed: 07/04/2023 2:41 PM Note Text: Patient: Katlin Pond PCP: Celena Izquierdo MD CC: follow up HPI: Katlin Pond 63 year old female smoker with PMH significant for very severe COPD (FEV1 29%), HTN, and PTSD. Complications related to her chronic steroid use consist of osteoporosis with compression fractures requiring kyphoplasty. She was hospitalized at [facility] in December with bronchitis and had a MD, requiring a stent. Current therapy consists of [...] after heart attack (more content not included)... [facility] 07-04-2023 History of Presen t illness [...] fractures requiring kyphoplasty. She was hospitalized at [facility] in December with bronchitis and had a MD, requiring a stent. Current therapy consists of [...] Ruthie Doan PA-C documented in this encounter [facility] 06-07-2023 Miscellaneous Notes Formattin g of this note is different from the original. Patient phones requesting refills as follows: RENARD: 05/14/23 Requested Prescriptions Pending Prescriptions Disp Refills montelukast (SINGULAIR) 10 mg tablet [Pharmacy Med Name: MONTELUKAST SOD 10 MG TABLET] 90 tablet 1 Sig: TAKE 1 TABLET BY MOUTH EVERYDAY AT BEDTIME Please review and advise. Carmela Sheehan LPN documented in this encounter [facility] 05-14-2023 Note HNO ID: [id number] Author: Socorro Muller MD Service: ? Author Type: Physician Type: Progress Notes Filed: 05/14/2023 5:04 PM Note Text: . [facility] Note Patient name: Katlin Pond PCP: Celena [...] fractures requiring kyphoplasty. She was hospitalized at [facility] in December with bronchitis and MD, requiring a stent. From a respiratory standpoint [...] in not operable. Questioning need for oxygen. [place] better on oxygen when she was in the hospital but did not appear to qualify for home oxygen at discharge. DATA: PFT 2018: Review of PFTs shows very severe obstruction Labs: Component Ref Range AND Units 8 yr ago Alpha 1 Antitrypsin 100 - 220 mg/dL 161 Imaging / Diagnostic Studies: CXR 03/2023 at [facility] reviewed which shows hyperinflation and changes consistent with COPD PAST MEDICAL HISTORY Diagnosis Date Chronic airway obstruction, not elsewhere classified 04/02/15 FEV1: 1.34 L, 54%. Collar bone fracture 2017 Depression Heart attack (HCC) 12/2022 s/p stent HTN (hypertension) Humerus fracture 09/2017 Multiple allergies Previously tested by Arine Parsons M.D., Suzanne Osteoporosis PTSD (post-traumatic stress [...] Less one pack (more content not included)... [facility] 05-14-2023 Instructions Socorro Muller MD - [...] weeks then stop documented in this encounter [facility] 05-14-2023 Nurse Note Patient presents with: COPD Pt states she has not been able to use her albuterol nebulizer d/t dry irritation that increases the patient's cough. Pt believes using the mask would be better for her. Pt has continued to use her inhaler without issue. documented in this encounter [facility] 05-14-2023 History of Presen t illness Narrative Images from the original note were not included. . [facility] Patient name: Katlin Pond PCP: Celena [...] fractures requiring kyphoplasty. She was hospitalized at [facility] in December with bronchitis and MD, requiring a stent. From a respiratory standpoint [...] in not operable. Questioning need for oxygen. [place] better on oxygen when she was in the hospital but did not appear to qualify for home oxygen at discharge. DATA: PFT 2018: Review of PFTs shows very severe obstruction Labs: Component Ref Range & Units 8 yr ago Alpha 1 Antitrypsin 100 - 220 mg/dL 161 Imaging / Diagnostic Studies: CXR 03/2023 at [facility] reviewed which shows hyperinflation and [...] of adrenal insufficiency Socorro Muller MD [facility] documented in this encounter [facility] 05-04-2023 Telephone encount er Note Reviewed chart. Refill appropriate. RX sent. [facility] 05-04-2023 Miscellaneous Notes Formattin g of this note might be different from the original. Reviewed chart. Refill appropriate. RX sent. Prescription Request: Last medication check: 04/25/23 Last physical exam: 02/03/22 Next scheduled appointment: none Last date of refill on this medication 10/18/22 90 day 1 refill documented in this encounter [facility] 05-04-2023 Telephone encount er Note Prescription Request: Last medication check: 04/25/23 Last physical exam: 02/03/22 Next scheduled appointment: none Last date of refill on this medication 10/18/22 90 day 1 refill [facility] 04-25-2023 Evaluation + Plan note [...] follow-up with pain regarding her chronic pain. [facility] 04-25-2023 Evaluation + Plan note Associated Problem(s): Essential hypertension Controlled. Continue losartan 50 mg metoprolol 25 mg [facility] 04-25-2023 Miscellaneous Notes Associate d [...] pulmonology as scheduled documented in this encounter [facility] 04-25-2023 Evaluation + Plan note Associated Problem(s): Chronic obstructive pulmonary disease with (acute) exacerbation (HCC) Continue prednisone 10 mg daily azithromycin 250 mg daily, albuterol as needed, Advair and Spiriva. Follow-up with pulmonology as scheduled [facility] 04-25-2023 History of Presen t [...] for with specialist. SUBJECTIVE/OBJECTIVE: HPI - Katlin Pnod (: 1960) is a 63 y.o. female , Established patient, here for the evaluation of the following chief complaint(s): Cough, Shortness of Breath, and COPD Patient was hospitalized in March for COPD exacerbation at [facility]. Was discharged home on azithromycin 250 mg [...] and WILL BE SEEING GAGE SHARMA IN [place]-PAIN MANAGEMENT DOCTOR. -Within the next month or [...] note. JUAN Harry CNP 04/24/2023 7:21 PM [employer] for Intimate and Non Intimate Exam [employer] was declined [employer]: accompanied Aunt documented in this encounter [facility] 03-16-2023 Miscellaneous Notes Formattin g of this note might be different from the original. Called patient to offer a appt with Pulm per provider, in order to get a medication refill, patient refuse appt. Gisel Reddy [facility] 03/16/2023 Verified name and date of . Patient phones requesting refills as follows: Requested Prescriptions Pending Prescriptions Disp Refills predniSONE (DELTASONE) 10 mg tablet 90 tablet 3 Please review and advise. Lorrie Goetz LPN documented in this encounter [facility] 03-09-2023 Miscellaneous Notes Formattin g of this [...] for breathing tests. documented in this encounter [facility] 05-09-2022 Miscellaneous Notes Patient phones requesting refills as follows: Pending Prescriptions Disp Refills AZITHROMYCIN 250 MG TABLET 30 tablet 11 Sig: Take 1 tablet by mouth once daily. NAEEM: No Please review and advise. Carmela Sheehan LPN documented in this encounter [facility] 04-05-2022 Miscellaneous Notes The following prescriptions have been called to [facility] pharmacy 04/05/2022 at 3:29 PM by [...] Lorrie Goetz LPN documented in this encounter [facility] 02-23-2022 Miscellaneous Notes I have reviewed her [...] Rx was sent. documented in this encounter [facility] documented in this encounter [facility] note* Diagnosis COPD, severe (HCC) Chronic airway obstruction, not elsewhere classified documented in this encounter [facility] note* Diagnosis Allergic rhinitis, unspecified seasonality, unspecified trigger documented in this encounter [facility] note* Diagnosis Chronic obstructive pulmonary disease, unspecified COPD type (HCC)- Primary documented in this encounter [facility] note* Diagnosis COPD, severe (HCC) Chronic airway obstruction, not elsewhere classified Allergic rhinitis, unspecified seasonality, unspecified trigger documented in this encounter [facility] note* Diagnosis COPD with exacerbation (HCC) Obstructive chronic bronchitis with exacerbation documented in this encounter [facility] note* Diagnosis Chronic obstructive pulmonary disease with (acute) exacerbation (HCC)- Primary Acute midline low back pain without sciatica Essential hypertension Unspecified essential hypertension documented in this encounter [facility] note* Diagnosis Stage 4 very severe COPD by GOLD classification ([facility])- Primary Cigarette smoker Tobacco use disorder Current chronic use of systemic steroids documented in this encounter [facility] note* Diagnosis Allergic rhinitis, unspecified seasonality, unspecified trigger documented in this encounter [facility] note* Diagnosis Stage 4 very severe COPD by GOLD classification (HCC)- Primary Chronic cough Cough Cigarette smoker Tobacco use disorder Current chronic use of systemic steroids documented in this encounter [facility] note* Diagnosis Stage 4 very severe COPD by GOLD classification (HCC) documented in this encounter [facility] for referral (narrative)* Outpatient Procedure (Routine) - Pending Review Specialty Diagnoses / Procedures Referred By Molly mcginnis Referred To [facility] Diagnoses Chronic obstructive pulmonary disease, unspecified COPD type (HCC) Procedures SPIROMETRY WITH DILATOR IF OBSTRUCTED BRNCDILAT RSPSE SPMTRY PRE&POST-BRNCDILAT Socorro Mckeon MD [address] [place] [address] [facility] [address] [place] [id number] Referral ID Status Reason Start Date Expiration Date Visits Requested Visits Authorized [id number] Pending Review Auto-Generat ed Referral 03/06/2023 04/04/2024 1 [facility] Procedure (Routine) - Pending Review Specialty Diagnoses / Procedures Referred By Contac t Referred To Contact [facility] Diagnoses Stage 4 very severe COPD by GOLD classification (HCC) Procedures OXIMETRY WITH AMBULATION NONINVASIVE EAR/PULSE OXIMETRY MULTIPLE DETER Socorro Muller MD [address] [place] [address] [facility] [address] [place] [address] Referral ID Status Reason Start Date Expiration Date Visits Requested Visits Authorized [id number] Pending Review Auto-Generat ed Referral 05/14/2023 06/12/2024 1 1 T [facility] Reason for Referral Specialty Diagnoses / Procedures Referred By Contac t Referred To Contact Socorro Muller MD [address] [facility] [place] [address] Referral ID Status Reason Start Date Expiration Date V isits Requested Visits Authorized [id number] Pending Review 1 1 Summary Purpose Family [...] or prosecute any alcohol or drug abuse patient.[facility] the event this information is protected by the Federal Confidentiality of Alcohol and Drug Abuse Patient Records regulations: The Federal rules restrict any use of the information to criminally investigate or prosecute any alcohol or drug abuse patient.[facility] the event this information is protected by the Federal Confidentiality of Alcohol and Drug Abuse Patient Records regulations: The Federal rules restrict any use of the information to criminally investigate or prosecute any alcohol or drug abuse patient.[facility] the event this information is protected by the Federal Confidentiality of Alcohol and Drug Abuse Patient Records regulations: The Federal rules restrict any use of the information to criminally investigate or prosecute any alcohol or drug abuse patient.[facility] WestIn the event this information is protected by the Federal Confidentiality of Alcohol and Drug Abuse Patient Records regulations: The Federal rules restrict any use of the information to criminally investigate or prosecute any alcohol or drug abuse patient.[facility] WestIn the event this information is protected by the Federal Confidentiality of Alcohol and Drug Abuse Patient Records regulations: The Federal rules restrict any use of the information to criminally investigate or prosecute any alcohol or drug abuse patient.[facility] WestIn the event this information is protected by the Federal Confidentiality of Alcohol and Drug Abuse Patient Records regulations: The Federal rules restrict any use of the information to criminally investigate or prosecute any alcohol or drug abuse patient.[facility] WestIn the event this information is protected by the Federal Confidentiality of Alcohol and Drug Abuse Patient Records regulations: The Federal rules restrict any use of the information to criminally investigate or prosecute any alcohol or drug abuse patient.[facility] WestIn the event this information is protected by the Federal Confidentiality of Alcohol and Drug Abuse Patient Records regulations: The Federal rules restrict any use of the information to criminally investigate or prosecute any alcohol or drug abuse patient.[facility] WestIn the event this information is protected by the Federal Confidentiality of Alcohol and Drug Abuse Patient Records regulations: The Federal rules restrict any use of the information to criminally investigate or prosecute any alcohol or drug abuse patient.[facility] WestIn the event this information is protected by the Federal Confidentiality of Alcohol and Drug Abuse Patient Records regulations: The Federal rules restrict any use of the information to criminally investigate or prosecute any alcohol or drug abuse patient.[facility] WestIn the event this information is protected by the Federal Confidentiality of Alcohol and Drug Abuse Patient Records regulations: The Federal rules restrict any use of the information to criminally investigate or prosecute any alcohol or drug abuse patient.[facility] WestIn the event this information is protected by the Federal Confidentiality of Alcohol and Drug Abuse Patient Records regulations: The Federal rules restrict any use of the information to criminally investigate or prosecute any alcohol or drug abuse patient.[facility]In the event this information is protected by the Federal Confidentiality of Alcohol and Drug Abuse Patient Records regulations: The Federal rules restrict any use of the information to criminally investigate or prosecute any alcohol or drug abuse patient.[facility] WestIn the event this information is protected by the Federal Confidentiality of Alcohol and Drug Abuse Patient Records regulations: The Federal rules restrict any use of the information to criminally investigate or prosecute any alcohol or drug abuse patient.[facility] Reason for Visit (unrecogniz ed section and [...] Care Teams (unrecognized sec tion and content) Blending Tank Tender Relationship Specialty Start Date End Date Celena Izquierdo [address] [place] [address] PCP - General Family Practice 11/01/16 Blending Tank Tender Relationship Specialty Start Date End Date Celena Izquierdo [address] [place] [address] PCP - General Family Practice 11/01/16 Blending Tank Tender Relationship Specialty Start Date End Date Celena Izquierdo [address] [place] [address] PCP - General Family Practice 11/01/16 Blending Tank Tender Relationship Specialty Start Date End Date Celena Izquierdo [address] [place] [place] [address] PCP - General Family Medicine 11/01/16 Blending Tank Tender Relationship Specialty Start Date End Date Celena Izquierdo [address] [place] [place] [address] PCP - General Family Medicine 11/01/16 Blending Tank Tender Relationship Specialty Start Date End Date Celena Izquierdo [address] [place] [facility] [place] [address] PCP - General Family Medicine 11/01/16 Blending Tank Tender Relationship Specialty Start Date End Date Celena Izquierdo MD [address] [facility] [address] PCP - General 04/05/19 Blending Tank Tender Relationship Specialty Start Date End Date Celena Izquierdo MD [address] [facility] [address] PCP - General 04/05/19 Blending Tank Tender Relationship Specialty Start Date End Date Celena Izquierdo [address] [place] [facility] [place] [address] PCP - General Family Medicine 11/01/16 Blending Tank Tender Relationship Specialty Start Date End Date Celena Izquierdo [address] [place] [place] [address] PCP - General Family Medicine 11/01/16 Blending Tank Tender Relationship Specialty Start Date End Date Celena Izquierdo [address] [place] [facility] [place] [address] PCP - General Family Medicine 11/01/16 Blending Tank Tender Relationship Specialty Start Date End Date Celena Izquierdo [address] [place] [address] PCP - General Family Medicine 11/01/16 Blending Tank Tender Relationship Specialty Start Date End Date Celena Izquierdo [address] [facility] [place] [address] PCP - General Family Medicine 11/01/16 INFORMATION SOURCE (unrecogn ized section and content) DATE CREATED AUTHOR AUTHOR'S RICHIE ATION 11/12/2023 [facility] FOR RECORDS PERTAINING TO PATIENTS WHO [...] BE BASED ON THE PRIMARY CLINICAL RECORDS. [facility]. provides no warranty or guarantee of the accuracy or completeness of information in this document.
[2024-01-03] MEDS: 0.9% Saline Lock 10 ML Syringe IV (22:59)
[2024-01-03] MEDS: Heparin Injection (Vial) 5,000 UNIT/ML VIAL 5000 UNIT SC (23:01)
[2024-01-03] MEDS: guaiFENesin 1,200 MG Tablet 1200 MG PO (23:02)
[2024-01-03] MEDS: Montelukast 10 MG Tablet PO (23:02)
[2024-01-03] MEDS: Atorvastatin Calcium 40 MG Tablet PO (23:02)
[2024-01-03] MEDS: Pantoprazole Sodium 40 MG Tablet PO (23:02)
[2024-01-03] MEDS: ALPRAZolam 0.5 MG Tablet 1 MG PO (23:12)
[2024-01-03] MEDS: Oxycodone/Apap 5/325 Tablet PO (23:15)
[2024-01-04] VITALS (15 sets, daily range): BP systolic 101–130; BP diastolic 50–78; PULSE 74–91; RESP 16–22; TEMP 36.3–36.6; O2SAT 93–99
[2024-01-04] MEDS: Ipratropium/Albuterol Sulfate 3 ML AMPUL.NEB INHALATION ×3 (01:50→14:05)
[2024-01-04] MEDS: 0.9% Saline Lock 10 ML Syringe IV ×3 (05:13→23:01)
[2024-01-04] MEDS: levoFLOXacin 500 MG Tablet PO (05:13)
[2024-01-04] MEDS: Oxycodone/Apap 5/325 Tablet PO ×2 (07:32→22:58)
[2024-01-04] MEDS: Metoprolol(XL)Succ 25 MG Tablet PO (07:33)
[2024-01-04] MEDS: Pantoprazole Sodium 40 MG Tablet PO ×2 (07:33→22:59)
[2024-01-04] MEDS: Losartan Potassium 50 MG Tablet PO (07:33)
[2024-01-04] MEDS: Ferrous Gluconate 324 MG Tablet PO ×2 (07:34→16:34)
[2024-01-04] MEDS: guaiFENesin 1,200 MG Tablet 1200 MG PO ×2 (07:34→22:59)
[2024-01-04] MEDS: Heparin Injection (Vial) 5,000 UNIT/ML VIAL 5000 UNIT SC ×2 (07:34→23:00)
[2024-01-04] MEDS: Aspirin 81 MG TAB.CHEW PO (07:34)
[2024-01-04] MEDS: Ensure Clear 120 ML Liquid PO ×3 (07:37→16:34)
[2024-01-04] MEDS: ALPRAZolam 0.5 MG Tablet 1 MG PO ×2 (07:37→22:59)
[2024-01-04] MEDS: Benzonatate 100 MG Capsule 200 MG PO (11:43)
--- NOTE | 2024-01-04 13:47 | PN_ITS ---
Subjective Subjective Patient seen and examined. She has been managed for COPD exacerbation. She still complains of shortness of breath and states is worse at home as she gets more short of breath with exertion. She says her pulse ox drops when she tries to ambulate and goes down into the 70s and 80s. She wears 2 L of oxygen at home and was only started on oxygen recently. She is still coughing and wheezing. Review of systems otherwise negative. She remains on 2 L of oxygen but has otherwise remained hemodynamically stable. Objective Data Objective Data Vital Signs: Vital Signs Temp Pulse Resp BP Pulse Ox O2 Del Method O2 Flow Rate 97.9 F 83 16 117/78 98 Nasal Cannula 2 01/04/24 11:46 01/04/24 11:46 01/04/24 11:46 01/04/24 11:46 01/04/24 11:46 01/04/24 11:46 01/04/24 11:46 Oxygen Flow Rate (L/min) [ 4 AMBULATING with Oxygen #1] Oxygen Flow Rate (L/min) [At 2 REST with Oxygen] Oxygen Flow Rate (L/min) 2 Oxygen Delivery Method Nasal Cannula Weight: 107 lb 3.2 oz Body Mass Index (BMI) 19.5 Intake & Output: Intake and Output for Last 24 Hours 01/02/24 01/03/24 01/04/24 23:59 23:59 23:59 Intake Total 400 / 400 Balance 400 / 400 Lab / Micro Data 01/03/24 12:30 01/03/24 12:30 Micro: Microbiology 01/03/24 14:45 Mucosa - Nasopharyngeal Respiratory Panel (PCR) - Final 01/03/24 12:25 Mucosa - Nose SARS-CoV-2, Influenza & RSV (PCR) - Final Radiography Diagnostic Testing: Radiology Impression Chest CT 01/03/24 14:25 IMPRESSION: Hyperinflation and emphysematous changes. Scarring at the lung apices. Electronically Signed: Kevin Turpin MD at 15:00 EST , Physical Exam Const alert, oriented x3 and no apparent distress General Appearance: cooperative and well kempt Orientation / Consciousness: awake HEENT normocephalic, head/scalp atraumatic and moist oral mucous membranes Eyes PERRL, EOMs intact bilaterally and conjunctivae normal Neck supple, no JVD and thyroid normal General: trachea midline Resp Resp Narrative: diminished breath sounds bibasally, no wheezes or crackles. Auscultation: rhonchi; Negative for rales or wheezes Cardio regular rate, regular rhythm, S1 normal heart sound, S2 normal heart sound, no murmurs, no rub and no gallops GI normal to inspection, nondistended, normoactive bowel sounds, soft to palpation, non-tender and non-distended Extremity no clubbing, cyanosis or edema Skin no rashes or lesions noted General Skin Exam: no breakdown Neuro oriented x3, CN's II-XII intact bilaterally, moves all extremities, no focal motor deficits and no sensory deficits noted Sensorium / Orientation: awake and alert Speech: speech normal Motor Exam: strength 5/5 throughout and general weakness Psych affect normal Assessment & Plan Assessment/Plan (1) COPD exacerbation: PLAN: Plan #Acute COPD exacerbation * on IV solumedrol. Breathing treatment with bronchodilators. * titrate oxygen to maintain sats >90% * on oral levaquin as she had positive sputum cultures ~ 2-3 weeks ago for Klebsiella pneumoniae * CT chest showed hyperinflation emphysematous changes and scarring at the lung apices. * #CAD s/p remote insertion of stent: aspirin, statin and metoprolol as well as losartan #Chronic respiratory failure due to COPD: * on her baseline 2L of oxygen. She says she has been getting hypoxic with slight exertion at home and so thinks she needs more oxygen at home. * Will need another walking pulse ox prior to discharge to see if she qualifies for increased oxygen at home. #Hyperlipidemia: on statin #Benign essential hypertension: on metoprolol and losartan. #History of smoking: says she quit smoking about a year ago, but admits to smoking for many years. counseled to continue abstaining from smoking. DVT prophylaxis: heparin Charges/Coding Visit Charges Inpatient E&M: 28700 Subs Hosp L2
--- NOTE | 2024-01-04 14:15 | CASEMGMT ---
FOSTER LUGO Readmission Note Previous Admission: 12/09/23-12/12/23 Diagnosis:SOB DC Disposition: Home with oxygen Current Admission: Admitted 01/03/24 Current Diagnosis: COPD Pt dc'd from [facility] to home with oxygen through [employer] at 2L with exertion. No PT was recommended for pt. Pt presented to ER from home with worsening SOB and a dry cough. FOSTER LUGO into pt room, pt present, pt states she took her atb as ordered and has been taking all of her medications as ordered. Pt states she has not been able to get out of the house to go to any follow up appts. Pt states she does have an appt on January 13 with but has no other appts scheduled. Encouraged follow up with PCP. Pt is interested in a portable POC, she is aware this will be requested upon dc. Pt has portable oxygen tank to bring in upon dc. Pt is up SBA, denies any need for HHC for therapy or SN for monitoring of respiratory status. Pt states she would just like to get better and back to her life. She states she is depending on her too much. Discussed Pt Link, pt states she did this in the past and denies need for this currently. Pt denies any further needs. in room and agrees with pt. DC Plan: Home, follow for increased oxygen need and add POC to rx. Green sheet on chart for this.
[2024-01-04] MEDS: Montelukast 10 MG Tablet PO (22:59)
[2024-01-04] MEDS: Atorvastatin Calcium 40 MG Tablet PO (23:00)
[2024-01-04] MEDS: Albuterol 2.5 MG/3 ML VIAL.NEB. INHALATION (23:13)
[2024-01-05] VITALS (9 sets, daily range): BP systolic 98–111; BP diastolic 52–68; PULSE 68–89; RESP 16–20; TEMP 36.5–36.6; O2SAT 90–98
[2024-01-05] MEDS: Albuterol 2.5 MG/3 ML VIAL.NEB. INHALATION (02:16)
[2024-01-05] MEDS: Benzonatate 100 MG Capsule 200 MG PO (04:14)
[2024-01-05] MEDS: levoFLOXacin 500 MG Tablet PO (05:55)
[2024-01-05] MEDS: Oxycodone/Apap 5/325 Tablet PO (05:55)
[2024-01-05] MEDS: 0.9% Saline Lock 10 ML Syringe IV (05:56)
[2024-01-05] MEDS: Metoprolol(XL)Succ 25 MG Tablet PO (07:51)
[2024-01-05] MEDS: Aspirin 81 MG TAB.CHEW PO (07:51)
[2024-01-05] MEDS: guaiFENesin 1,200 MG Tablet 1200 MG PO (07:52)
[2024-01-05] MEDS: Pantoprazole Sodium 40 MG Tablet PO (07:52)
[2024-01-05] MEDS: Heparin Injection (Vial) 5,000 UNIT/ML VIAL 5000 UNIT SC (07:53)
[2024-01-05] MEDS: Ferrous Gluconate 324 MG Tablet PO (07:53)
[2024-01-05] MEDS: Ipratropium/Albuterol Sulfate 3 ML AMPUL.NEB INHALATION (07:57)
[2024-01-05] MEDS: ALPRAZolam 0.5 MG Tablet 1 MG PO (07:58)
[2024-01-05] MEDS: Ensure Clear 120 ML Liquid PO (07:58)
[2024-01-05 08:40] LABS: Absolute Lymphocyte Count 0.81 X10^3/uL (0.83-4.51); Absolute Neutrophil Count 10.8 X10^3/uL (2.0-7.7); Basophil# 0.02 X10^3/uL; Basophil% 0.2 % (0-1); Hematocrit 39.6 % (37-47); Hemoglobin 10.6 g/dL (12.0-15.0); Lymphocyte # 0.81 X10^3/ul (0.83-4.51); Lymphocyte % 6.8 % (19-41); Mean Corp Hgb Conc 26.8 g/dL (32-36); Mean Corpuscular Hgb 22.4 pg (27.0-32.0); Mean Corpuscular Volume 83.5 fL (81-99); Mean Platelet Vol. 10.4 fl (6.2-12.0); Monocyte# 0.36 X10^3/uL; NRBC Flagged by Analyzer 0 % (0-5); Neutrophil # 10.76 X10^3/uL (2.7-7.7); Neutrophil % 89.7 % (47-70); POSITIVE MORPHOLOGY YES; Platelet Count 290 K/mm3 (150-450); RBC Distribution Width CV 25.3 % (11.6-14.6); RBC Distribution Width SD 76.2 fl (35.1-43.9); Red Blood Count 4.74 M/mm3 (4.2-5.4)
[2024-01-05 08:42] LABS: Differential Indicated SCAN CRITERIA MET
[2024-01-05 08:55] LABS: Anion Gap 3 (5-15); BUN 11 mg/dL (7-18); BUN/Creat Ratio 19.3 RATIO (10-20); Calcium,Total 9.5 mg/dL (8.5-10.1); Chloride 109 mmol/L (98-107); Creatinine, Serum 0.57 mg/dL (0.55-1.02); EST Glomerular Filtration Rate 114 mL/min (>60); Est Glom Filt Rate - Afr Amer 138 mL/min (>60); Estimated Creatinine Clearance 77.55 ml/min; Glucose 152 mg/dL (74-106); Potassium 3.9 mmol/L (3.5-5.1); Sodium Level 137 mmol/L (136-145)
[2024-01-05 09:36] LABS: Anisocytosis 2+; Differential Comment SCANNED; Macrocytosis 1+; Microcytosis 1+
--- NOTE | 2024-01-05 11:39 | DS.PCM_ITS ---
Providers Date of Admission: 01/03/24 Date of Discharge: 01/05/24 Primary Care Physician: Dr. Magen Cavazos MD Reason For Visit: COPD Diagnosis Discharge Diagnosis (1) COPD exacerbation: Status: Chronic Code(s): J44.1 - Chronic obstructive pulmonary disease with (acute) exacerbation Plan #Acute COPD exacerbation * on IV solumedrol. Breathing treatment with bronchodilators. * titrate oxygen to maintain sats >90% * on oral levaquin as she had positive sputum cultures ~ 2-3 weeks ago for Klebsiella pneumoniae * CT chest showed hyperinflation emphysematous changes and scarring at the lung apices. * #CAD s/p remote insertion of stent: aspirin, statin and metoprolol as well as losartan #Chronic respiratory failure due to COPD: * on her baseline 2L of oxygen. She says she has been getting hypoxic with slight exertion at home and so thinks she needs more oxygen at home. * Will need another walking pulse ox prior to discharge to see if she qualifies for increased oxygen at home. #Hyperlipidemia: on statin #Benign essential hypertension: on metoprolol and losartan. #History of smoking: says she quit smoking about a year ago, but admits to smoking for many years. counseled to continue abstaining from smoking. DVT prophylaxis: heparin Medications at Discharge Home Medications tiotropium bromide 18 mcg capsule with inhalation device (Spiriva with HandiHaler) 1 puff inhalation DAILY SHORTNESS OF BREATH 01/24/15 alprazolam 1 mg tablet (Xanax) 1 mg PO BID anxiety 01/24/18 albuterol sulfate 90 mcg/actuation aerosol inhaler (ProAir HFA) 2 puff inhalation Q4H PRN PRN Sob &/Or Wheezing 11/04/18 ibandronate 150 mg tablet 150 mg PO Q90D OSTEOPOROSIS 08/31/22 losartan 50 mg tablet 50 mg PO DAILY BLOOD PRESSURE 08/31/22 aspirin 81 mg chewable tablet 81 mg PO BREAKFAST #90 tabs 01/18/23 atorvastatin 40 mg tablet (Lipitor) 40 mg PO QHS #90 tabs 01/18/23 metoprolol succinate 25 mg tablet,extended release 24 hr 25 mg PO DAILY #90 tabs 01/18/23 benzonatate 100 mg capsule 200 mg (2 x 100 mg) PO TID PRN PRN Cough #40 caps 03/31/23 nitroglycerin 0.4 mg sublingual tablet (Nitrostat) 0.4 mg sublingual Q5-15M PRN chest pain #25 tabs 05/09/23 oxycodone-acetaminophen 5 mg-325 mg tablet See Rx Instructions PO BID PRN PAIN 12/10/23 albuterol sulfate 2.5 mg/3 mL (0.083 %) solution for nebulization 2.5 mg (3 mL) inhalation Q2H PRN PRN Dyspnea,wheezing 30 days #180 mL 12/12/23 ferrous gluconate 324 mg (37.5 mg iron) tablet 324 mg PO BIDCM 30 days #60 tabs 12/12/23 guaifenesin 1,200 mg tablet, extended release 12 hr (Mucus Relief ER) 1,200 mg PO BID 14 days #28 tabs 12/12/23 ipratropium 0.5 mg-albuterol 3 mg (2.5 mg base)/3 mL nebulization soln 3 ml inhalation Q6H 14 days #180 mL 12/12/23 pantoprazole 40 mg tablet,delayed release 40 mg PO BID 30 days #60 tabs 12/12/23 fluticasone fur. 100 mcg-umeclid 62.5 mcg-vilant 25 mcg inhalat.powder (Trelegy Ellipta) 1 inh inhalation DAILY 01/03/24 montelukast 10 mg tablet 10 mg PO DAILY 01/03/24 prednisone 20 mg tablet 40 mg (2 x 20 mg) PO DAILY #10 tabs 01/05/24 Hospital Course Operations None Procedures None Summary of Care Provided Minutes Spent on Discharge: 45 Hospital Course: Patient is a 64-year-old female with a past medical history as outlined was admitted through the ED on 01/03/2024 with complaint of shortness of breath which have been going on for several days prior to admission. She had an assisted cough productive of scant sputum. She did not complain of any fever or chills o r any other symptoms. She said her oxygen saturation went down with exertion. Chest x-ray showed no evidence of infiltrate. She was admitted and managed for acute COPD exacerbation. She was placed on breathing treatments bronchodilators. She was initially placed on Levaquin also as she had had previous urine cultures in previous months for Klebsiella. Her shortness of breath improved and she did feel better. She had walking pulse ox was low so that she required any more oxygen. She was discharged home on 01/05/2024. She is follow-up with her primary care doctor within 1 to 2 weeks and was counseled to be compliant with her medications. She was discharged on p.o. prednisone 40 mg daily for 5 days. Patient seen and examined prior to discharge. She felt well and had no active complaints. Review of systems otherwise negative. Labs and vitals reviewed. Medication reviewed and reconciled. Physical Exam Const alert, oriented x3, no apparent distress and average body habitus General Appearance: cooperative, comfortable, well kempt and well developed Orientation / Consciousness: awake, oriented to person, oriented to place and oriented to time HEENT normocephalic, head/scalp atraumatic, hearing grossly normal bilaterally and moist oral mucous membranes Mouth: oral and palatal mucosa normal Eyes PERRL, EOMs intact bilaterally and conjunctivae normal Neck no lymphadenopathy, supple, no JVD, thyroid normal and no carotid bruits General: trachea midline Resp normal respiratory effort, no retractions and no use of accessory muscles Resp Narrative: diminished breath sounds bibasally, no wheezes or crackles. on 2L of oxygen Auscultation: Negative for rales or wheezes Cardio regular rate, regular rhythm, S1 normal heart sound, S2 normal heart sound, no murmurs, no rub and no gallops GI normal to inspection, nondistended, normoactive bowel sounds, soft to palpation, non-tender and non-distended Extremity normal to inspection, full ROM and no clubbing, cyanosis or edema Skin no rashes or lesions noted General Skin Exam: no breakdown Neuro oriented x3, CN's II-XII intact bilaterally, moves all extremities, no focal motor deficits and no sensory deficits noted Sensorium / Orientation: awake and alert Speech: speech normal Motor Exam: strength 5/5 throughout and general weakness Psych affect normal Medical Records Data Medical Nutrition Assessment Dietitian: Malnutrition Criteria Met Start: 01/04/24 15:44 Freq: Status: Active Protocol: Document 01/04/24 15:44 RMA (Rec: 01/04/24 15:44 RMA [id number]) Nutrition Malnutrition Evidence of Malnutrition Exists Yes Malnutrition (severe): Chronic Evidenced By Suboptimal Energy Intake ( Severe),Weight Loss (Severe) Clinical Problem Chronic Disease or Condition Related Malnutrition Etiology severe protein-calorie malnutrition in the context of chronic disease related to increased energy expenditure/ COPD and inadequate oral intake Signs/Symptoms as evidenced by BMI 19.6, ~5-6 % unintentional weight loss x 1 month and PO meeting less than 50% estimated nutrition needs x 1-2 weeks Status Active Problem Recommendation Dietitian Recommendations/Changes Continue liberalized regular diet and ensure clear w/ medpass. Will add 240mL ensure clear TID w/ meals, pt likes burt. Consider additional ONS as needed if pt willing. Weight / BMI Weight Weight: 107 lb 3.196 oz Body Mass Index (BMI) 19.5 ABG / Lab / Microbiology Data 01/05/24 08:10 01/05/24 08:11 Laboratory: Laboratory Results - last 24 hr 01/05/24 08:10: WBC 12.0 H, RBC 4.74, Hgb 10.6 L, Hct 39.6, MCV 83.5 D, MCH 22.4 L, MCHC 26.8 L D, RDW Std Deviation 76.2 H, RDW Coeff of Mehul 25.3 H, Plt Count 290, MPV 10.4, Immature Gran % (Auto) 0.300, Neut % (Auto) 89.7 H, Lymph % (Auto) 6.8 L, [place] % (Auto) 3.0, Eos % (Auto) 0.0, Baso % (Auto) 0.2, Absolute Neuts (auto) 10.8 H, Absolute Lymphs (auto) 0.81 L, Nucleated RBC % 0, Differential Comment SCANNED, Anisocytosis 2+, Microcytosis 1+, Macrocytosis 1+ 01/05/24 08:11: Sodium 137, Potassium 3.9, Chloride 109 H, Carbon Dioxide 25.0, Anion Gap 3 L, BUN 11, Creatinine 0.57, Estim Creat Clear Calc 77.55, Est GFR (MDRD) Af Amer 138, Est GFR (MDRD) Non-Af 114, BUN/Creatinine Ratio 19.3, Glucose 152 H, Calcium 9.5 Microbiology: Microbiology 01/03/24 12:30 Blood Culture (Wb) - Left Hand Blood Culture - Preliminary No growth in 48 hours. 01/03/24 14:45 Mucosa - Nasopharyngeal Respiratory Panel (PCR) - Final 01/03/24 12:25 Mucosa - Nose SARS-CoV-2, Influenza & RSV (PCR) - Final D/C Instructions Discharge Diet: Low fat / Low cholesterol Discharge Activity: Return to Normal Activity Weight Bearing Status: Weight bearing as tolerated Call your doctor if you observe: Fever of 101 or Higher, Shortness of breath, Dizziness, Swelling in the ankles, Chest pain and Increased palpitations (irregular heartbeat) Meaningful Use Info Meaningful Use Diagnoses (Choose all that apply): None applicable Discharge Plan Admission Admit Date/Time: 01/03/24 14:13 Primary Reason for Your Visit: COPD exacerbation Attending Provider: Nataliia Hernandez Primary Care Provider: Magen Cavazos Consulting Providers: Mayito Ayers Instructions Patient Instructions: COPD: Chronic Coughing, COPD: Wheezing and Chest Tightness, Discharge Instructions: COPD Discharge Orders/Prescriptions Prescriptions: New prednisone 20 mg tablet 40 mg PO DAILY Qty: 10 0RF Continued nitroglycerin [Nitrostat] 0.4 mg tablet, sublingual 0.4 mg sublingual Q5-15M PRN (Reason: chest pain) Qty: 25 3RF Rx Instructions: do not exceed 3 doses per episode tiotropium bromide [Spiriva with HandiHaler] 1 PUFF inhaler 1 puff inhalation DAILY Hold Instructions: Order Changed alprazolam [Xanax] 1 MG tablet 1 mg PO BID albuterol sulfate [ProAir HFA] 1 PUFF inhaler 2 puff inhalation Q4H PRN PRN (Reason: Sob &/Or Wheezing) losartan 50 mg tablet 50 mg PO DAILY ibandronate 150 mg tablet 150 mg PO Q90D benzonatate 100 mg Capsule 200 mg PO TID PRN PRN (Reason: Cough) Qty: 40 0RF oxycodone-acetaminophen 5-325 mg tablet See Rx Instructions PO BID PRN Patient Comments: TAKE 1/2 TO 1 TABLET BY MOUTH TWICE A DAY NEEDED FOR PAIN Rx Instructions: 0.5-1 orally twice daily as needed; pantoprazole 40 mg Tablet,Delayed Release (Dr/Ec) 40 mg PO BID 30 Days Qty: 60 0RF guaifenesin [Mucus Relief ER] 1,200 mg Tablet Extended Release 12hr 1,200 mg PO BID 14 Days Qty: 28 0RF ferrous gluconate 324 mg (37.5 mg iron) Tablet 324 mg PO BIDCM 30 Days Qty: 60 0RF albuterol sulfate 2.5 MG/3 ML solution for nebulization 2.5 mg inhalation Q2H PRN PRN (Reason: Dyspnea,wheezing) 30 Days Qty: 180 0RF ipratropium-albuterol 0.5 mg-3 mg(2.5 mg base)/3 mL Solution For Nebulization 3 ml inhalation Q6H 14 Days Qty: 180 0RF montelukast 10 mg tablet 10 mg PO DAILY Patient Comments: TAKE 1 TABLET BY MOUTH EVERYDAY AT BEDTIME Trelegy Ellipta 100-62.5-25 mcg blister with device 1 inh inhalation DAILY metoprolol succinate 25 mg tablet extended release 24 hr 25 mg PO DAILY Qty: 90 3RF atorvastatin [Lipitor] 40 mg tablet 40 mg PO QHS Qty: 90 3RF aspirin 81 mg tablet,chewable 81 mg PO BREAKFAST Qty: 90 3RF Discontinued azithromycin [Zithromax] 250 mg tablet 250 mg PO DAILY 7 Days Qty: 7 0RF Referrals / Follow Up: Magen Cavazos MD [Primary Care Provider] - Within 1 Week Disposition Disposition (needs filled in before D/C Order can be placed): Home, Self Care Charges/Coding Visit Charges Inpatient E&M: 06958 Disch Hosp >30min
== END 2024-01-05 12:29 | disposition home or self-care (01) | DRG 191 ==
LOC: ED 13:36 → MS3 14:31
PROVIDERS: Admitting Provider Internal Medicine; Emergency Provider Emergency Medicine; PCP Family Medicine; Visit Provider Student in an Organized Health Care Education/Training Program
DX: J44.1 Chronic obstructive pulmonary disease with (acute) exacerbation (principal); J96.11 Chronic respiratory failure with hypoxia; Z99.81 Dependence on supplemental oxygen; I10 Essential (primary) hypertension; I25.10 Atherosclerotic heart disease of native coronary artery without angina pectoris; E78.5 Hyperlipidemia, unspecified; F17.200 Nicotine dependence, unspecified, uncomplicated; I25.2 Old myocardial infarction; K21.9 Gastro-esophageal reflux disease without esophagitis; Z95.5 Presence of coronary angioplasty implant and graft; F41.1 Generalized anxiety disorder; M81.0 Age-related osteoporosis without current pathological fracture; Z79.82 Long term (current) use of aspirin; Z79.51 Long term (current) use of inhaled steroids; Z90.49 Acquired absence of other specified parts of digestive tract; Z90.710 Acquired absence of both cervix and uterus
CPT/HCPCS: 71045; 71250; 80048; 83605; 83880; 84484; 85025; 87040; 87631; 87633; 93005; 94640; 94762; 97802; 99284; 99406; A4216

== ENCOUNTER 2024-01-18 21:10 | Inpatient (IN) | payer MEDICARE, SELFPAY ==
[2024-01-18] VITALS (9 sets, daily range): BP systolic 143–158; BP diastolic 62–67; PULSE 93–100; RESP 22–40; TEMP 36.6–37.2; O2SAT 96–100
--- NOTE | 2024-01-18 22:24 | CT_ITS ---
EXAM: CT HEAD WITHOUT INTRAVENOUS CONTRAST CLINICAL INDICATION: headache TECHNIQUE: Multiple axial images were obtained of the head without intravenous contrast. This CT exam was performed using one or more of the following dose reduction techniques: automated exposure control, adjustment of the mA and/or kV according to patient size, and/or use of iterative reconstruction technique. RADIATION DOSE: Total DLP: 779.24 mGy-cm. COMPARISON: No relevant prior studies available. FINDINGS: BRAIN AND EXTRA-AXIAL SPACES: A minimal degree of age-related atrophy is present with slight prominence of the sulci and ventricles. No intra- or extra-axial hemorrhage. No evidence of acute infarct. No intracranial mass or mass effect. There is preservation of the kline/white matter interface. Posterior fossa structures are unremarkable. Basal cisterns are patent. BONES/JOINTS: Unremarkable. No discrete lytic or blastic abnormalities. VASCULATURE: Atherosclerotic vascular calcification is present. The middle cerebral arteries are not hyperdense. SINUSES: Trace of fluid noted within the dependent portion of each maxillary antrum. Mucosal thickening noted within the right sphenoid sinus, within the ethmoid air cells bilaterally, and within the small bowel frontal sinuses. MASTOID AIR CELLS: Unremarkable. Clear. ORBITS: Visualized globes, extraocular muscles, optic nerves and retrobulbar fat appear unremarkable. CT/Brain/Head without Contrast IMPRESSION: 1. Sinusitis. 2. Minimal age-related atrophy. 3. No intracranial hemorrhage or mass identified. Electronically Signed: Riley Kennedy MD at 23:43 EDT ,
[2024-01-18] MEDS: Ketorolac 15 MG/ML Vial IV (22:36)
[2024-01-18] MEDS: Ipratropium/Albuterol Sulfate 3 ML AMPUL.NEB INHALATION (22:36)
[2024-01-18] MEDS: Albuterol 2.5 MG/3 ML VIAL.NEB. INHALATION ×2 (22:36→23:34)
[2024-01-18 22:40] LABS: Basophil# 0.11 X10^3/uL; Basophil% 0.7 % (0-1); Eosinophil# 0.41 X10^3/uL; Eosinophils% 2.7 % (0-5); Hematocrit 40.3 % (37-47); Hemoglobin 11.8 g/dL (12.0-15.0); Lymphocyte % 7.9 % (19-41); Mean Corp Hgb Conc 29.3 g/dL (32-36); Mean Corpuscular Hgb 24.1 pg (27.0-32.0); Mean Corpuscular Volume 82.2 fL (81-99); Mean Platelet Vol. 9.9 fl (6.2-12.0); Monocyte# 0.34 X10^3/uL; Monocyte% 2.3 % (0-10); NRBC Flagged by Analyzer 0 % (0-5); Neutrophil # 12.99 X10^3/uL (2.7-7.7); POSITIVE MORPHOLOGY YES; Platelet Count 287 K/mm3 (150-450); RBC Distribution Width CV 25.2 % (11.6-14.6); RBC Distribution Width SD 74.4 fl (35.1-43.9); White Blood Count 15.1 K/mm3 (4.4-11.0)
[2024-01-18 22:41] LABS: Differential Indicated SCAN CRITERIA MET
--- NOTE | 2024-01-18 22:49 | EDS_ITS ---
HPI History of Present Illness Chief Complaint: Shortness of Breath Informant: patient Onset/Context/Timing Onset: Days Context: Gradual Onset Narrative Narrative: Patient presents with worsening shortness of breath for the past 3 days. Patient has a history of COPD and was just admitted here December through January 05 for the same. She was discharged with 5 days of steroids which she completed. She states since that time she has had increasing shortness of breath again. She also complains of a headache that she has had for the past 2 weeks. She has been taking Tylenol without improvement. PFSH PFSH Medical History Anxiety Asthma Atherosclerosis of coronary artery of [place] heart without angina pectoris Broken back COPD (chronic obstructive pulmonary disease) Current smoker Depression Emphysema lung GERD (gastroesophageal reflux disease) Hip replacement planned Hypertension Myocardial infarct On home oxygen therapy Osteoarthritis Osteoporosis Panic attacks Post traumatic stress disorder (PTSD) Smoker Home Medications tiotropium bromide 18 mcg capsule with inhalation device (Spiriva with HandiHaler) 1 puff inhalation DAILY SHORTNESS OF BREATH 01/24/15 [History Last Taken 12/13/22] alprazolam 1 mg tablet (Xanax) 1 mg PO BID anxiety 01/24/18 [History Last Taken 01/03/24] albuterol sulfate 90 mcg/actuation aerosol inhaler (ProAir HFA) 2 puff inhalation Q4H PRN PRN Sob &/Or Wheezing 11/04/18 [History Last Taken 01/03/24] ibandronate 150 mg tablet 150 mg PO Q90D OSTEOPOROSIS 08/31/22 [History Last Taken 12/15/23] losartan 50 mg tablet 50 mg PO DAILY BLOOD PRESSURE 08/31/22 [History Last Taken 12/13/22] aspirin 81 mg chewable tablet 81 mg PO BREAKFAST #90 tabs 01/18/23 [Rx Last Taken 01/03/24] atorvastatin 40 mg tablet (Lipitor) 40 mg PO QHS #90 tabs 01/18/23 [Rx Last Taken 01/02/24] metoprolol succinate 25 mg tablet,extended release 24 hr 25 mg PO DAILY #90 tabs 01/18/23 [Rx Last Taken 01/03/24] benzonatate 100 mg capsule 200 mg (2 x 100 mg) PO TID PRN PRN Cough #40 caps 03/31/23 [Rx Last Taken 01/02/24] nitroglycerin 0.4 mg sublingual tablet (Nitrostat) 0.4 mg sublingual Q5-15M PRN chest pain #25 tabs 05/09/23 [Rx Last Taken Unknown] albuterol sulfate 2.5 mg/3 mL (0.083 %) solution for nebulization 2.5 mg (3 mL) inhalation Q2H PRN PRN Dyspnea,wheezing 30 days #180 mL 12/12/23 [Rx Last Taken 01/02/24] ferrous gluconate 324 mg (37.5 mg iron) tablet 324 mg PO BIDCM 30 days #60 tabs 12/12/23 [Rx Last Taken 01/02/24] guaifenesin 1,200 mg tablet, extended release 12 hr (Mucus Relief ER) 1,200 mg PO BID 14 days #28 tabs 12/12/23 [Rx Last Taken 12/31/23] ipratropium 0.5 mg-albuterol 3 mg (2.5 mg base)/3 mL nebulization soln 3 ml in halation Q6H 14 days #180 mL 12/12/23 [Rx Last Taken 01/02/24] pantoprazole 40 mg tablet,delayed release 40 mg PO BID 30 days #60 tabs 12/12/23 [Rx Last Taken 01/03/24] fluticasone fur. 100 mcg-umeclid 62.5 mcg-vilant 25 mcg inhalat.powder (Trelegy Ellipta) 1 inh inhalation DAILY 01/03/24 [History Last Taken 01/03/24] montelukast 10 mg tablet 10 mg PO DAILY 01/03/24 [History Last Taken 01/02/24] Allergy/AdvReac Type Severity Reaction Status Date / Time No Known Allergies Allergy Verified 01/18/24 21:12 Surgical History History of appendectomy History of coronary artery stent placement (~12/18/22) History of partial hysterectomy Social History Smoking Status: Former smoker ROS ROS ED Constitutional Constitutional ED: Denies chills or fever(s) Eyes Eyes: Denies change in vision or discharge from eye(s) ENT ENT ED: Denies discharge from eye(s), rhinorrhea or sore throat Cardiovascular Cardiovascular: Reports other Details: Chest tightness ; Denies palpitations Respiratory/Chest Respiratory/Chest: Reports dyspnea Gastrointestinal Gastrointestinal: Denies abdominal pain, nausea or vomiting Genitourinary Genitourinary ED: Denies dysuria Musculoskeletal Musculoskeletal: Denies back pain or extremity pain Integumentary Denies Abrasions or rash Neurologic Neurologic: Reports headache(s); Denies weakness Allergic/Immunologic Allergic/Immunologic ED: Denies lip swelling or urticaria EXAM Physical Exam Const Vital Signs: 01/18/24 21:12 01/18/24 21:49 01/18/24 21:18 Temperature 97.9 F 98.3 F Temperature Source Temporal Oral Pulse Rate 100 93 93 Respiratory Rate 40 H 33 H 25 H Respiratory Effort Respiratory Depth Respiratory Pattern Blood Pressure 158/66 H 144/63 H 144/63 H Blood Pressure Mean 96 90 90 Pulse Ox 96 100 99 Oxygen Delivery Method Nasal Cannula Nasal Cannula Nasal Cannula Oxygen Flow Rate (L/min) 6 2 2 01/18/24 21:53 01/18/24 22:11 01/18/24 22:30 Temperature 99 F 99 F Temperature Source Oral Oral Pulse Rate 97 94 Respiratory Rate 22 H 22 H Respiratory Effort Short of Breath Respiratory Depth Shallow Respiratory Pattern Tachypnea Blood Pressure 146/67 H 146/67 H Blood Pressure Mean 93 93 Pulse Ox 97 96 Oxygen Delivery Method Nasal Cannula Nasal Cannula Nasal Cannula Oxygen Flow Rate (L/min) 2 2 01/18/24 22:36 01/18/24 23:45 Temperature Temperature Source Pulse Rate 94 94 Respiratory Rate 24 H 25 H Respiratory Effort Respiratory Depth Respiratory Pattern Tachypnea Blood Pressure 143/62 H Blood Pressure Mean 89 Pulse Ox 97 Oxygen Delivery Method Oxygen Flow Rate (L/min) Positive well nourished and well developed General Appearance ED: well developed HEENT Reports moist mucous membranes Eyes EOMs intact bilaterally Chest Wall inspection of chest normal and palpation of chest normal Resp Resp Narrative: Patient tachypneic with expiratory wheezes bilaterally. Cardio regular rate and regular rhythm GI non-tender Palpation: soft Extremity normal to inspection Neuro oriented x3 Neuro Narrative: No focal neurologic deficit. Psych mental status grossly normal Skin no rashes or lesions noted MDM MDM MDM Narrative Medical decision making narrative: Patient placed on rn cardiac rehab. EKG obtained to evaluate for cardiac ar rhythmia/ischemia. Chest x-ray obtained to evaluate for acute lung pathology, cardiac size, or mediastinal abnormality. Given her 2-week history of headache will obtain a head CT to ensure no intracranial abnormality. Patient given Toradol for pain. Solu-Medrol provided by EMS. Aerosols given here. Labwork obtained to evaluate for leukocytosis, anemia, and electrolyte derangement. History & Record Review Discussion w/independent historian: Patient and Family Additional record(s) reviewed:: Prior inpatient record, Prior ED visit and Prior labs Lab Data Attestation: I reviewed the patient's lab results. Labs: Laboratory Results - last 24 hr 01/18/24 22:32 WBC 15.1 H RBC 4.90 Hgb 11.8 L Hct 40.3 MCV 82.2 MCH 24.1 L MCHC 29.3 L RDW Std Deviation 74.4 H RDW Coeff of Mehul 25.2 H Plt Count 287 MPV 9.9 Immature Gran % (Auto) 0.400 Neut % (Auto) 86.0 H Lymph % (Auto) 7.9 L [place] % (Auto) 2.3 Eos % (Auto) 2.7 Baso % (Auto) 0.7 Absolute Neuts (auto) 13.0 H Absolute Lymphs (auto) 1.20 Nucleated RBC % 0 Platelet Estimate ADEQUATE RBC Morphology N CHROM Anisocytosis RARE Microcytosis RARE Sodium 141 Potassium 3.8 Chloride 111 H Carbon Dioxide 27.0 Anion Gap 3 L BUN 9 Creatinine 0.33 L Est GFR (MDRD) Af Amer 263 Est GFR (MDRD) Non-Af 217 BUN/Creatinine Ratio 27.6 H Glucose 143 H Calcium 8.8 Troponin I High Sens 5 Radiography Chest X-Ray - ED: 1 View, Read by ED Physician and Chronic Changes Diagnostic Testing: Clinical Impression(s) from Imaging Studies Brain CT 01/18/24 22:24 IMPRESSION: 1. Sinusitis. 2. Minimal age-related atrophy. 3. No intracranial hemorrhage or mass identified. Electronically Signed: Riley Kennedy MD at 23:43 EDT , Chest X-Ray 01/18/24 23:18 IMPRESSION: No significant interval change or acute process. Electronically Signed: Riley Knenedy MD at 23:54 EDT , EKG Initial EKG: Attestation: I personally reviewed and interpreted this EKG as follows: Interpretation: Sinus Rhythm (Sinus at 94 with 1/[address] depression in the lateral precordial leads. This is similar to prior study from 01/03/2024) Treatment and Re-Evaluation :: CBC was a white count of 15.1 with a hemoglobin of 11.8. 86% neutrophils noted. Patient was recently on prednisone which may be contributing to her elevated white count. Chemistry studies are unremarkable. Glucose is 143. Troponin is normal at 5. Portable chest x-ray per my interpretation reveals no acute findings. CT scan of the head shows sinusitis with no intracranial hemorrhage or abnormality. After Toradol patient's headache is only mildly improved. She will be given a small dose of Reglan and Benadryl as well to help with migraine. She recently completed a course of Levaquin. I will give her a dose of doxycycline at this time. Patient is still slightly tachypneic but respiratory rate is in the mid to high 20s. She still has diffuse wheezing, although improved from initial evaluation. Will speak with hospitalist regarding admission. Discharge Plan Triage Chief Complaint: Shortness of Breath ED Provider: Ruthie Anna Dx/Rx/DC Orders Clinical Impression: Headache, COPD exacerbation Prescriptions: No Action nitroglycerin [Nitrostat] 0.4 mg tablet, sublingual 0.4 mg sublingual Q5-15M PRN (Reason: chest pain) Qty: 25 3RF Rx Instructions: do not exceed 3 doses per episode tiotropium bromide [Spiriva with HandiHaler] 1 PUFF inhaler 1 puff inhalation DAILY Hold Instructions: Order Changed alprazolam [Xanax] 1 MG tablet 1 mg PO BID albuterol sulfate [ProAir HFA] 1 PUFF inhaler 2 puff inhalation Q4H PRN PRN (Reason: Sob &/Or Wheezing) losartan 50 mg tablet 50 mg PO DAILY ibandronate 150 mg tablet 150 mg PO Q90D benzonatate 100 mg Capsule 200 mg PO TID PRN PRN (Reason: Cough) Qty: 40 0RF pantoprazole 40 mg Tablet,Delayed Release (Dr/Ec) 40 mg PO BID 30 Days Qty: 60 0RF guaifenesin [Mucus Relief ER] 1,200 mg Tablet Extended Release 12hr 1,200 mg PO BID 14 Days Qty: 28 0RF ferrous gluconate 324 mg (37.5 mg iron) Tablet 324 mg PO BIDCM 30 Days Qty: 60 0RF albuterol sulfate 2.5 MG/3 ML solution for nebulization 2.5 mg inhalation Q2H PRN PRN (Reason: Dyspnea,wheezing) 30 Days Qty: 180 0RF ipratropium-albuterol 0.5 mg-3 mg(2.5 mg base)/3 mL Solution For Nebulization 3 ml inhalation Q6H 14 Days Qty: 180 0RF montelukast 10 mg tablet 10 mg PO DAILY Patient Comments: TAKE 1 TABLET BY MOUTH EVERYDAY AT BEDTIME Trelegy Ellipta 100-62.5-25 mcg blister with device 1 inh inhalation DAILY metoprolol succinate 25 mg tablet extended release 24 hr 25 mg PO DAILY Qty: 90 3RF atorvastatin [Lipitor] 40 mg tablet 40 mg PO QHS Qty: 90 3RF aspirin 81 mg tablet,chewable 81 mg PO BREAKFAST Qty: 90 3RF Primary Care Provider: Magen Cavazos Referrals: Magen Cavazos MD [Primary Care Provider] - Disposition Disposition: Acute Care Hospital [facility]
[2024-01-18 22:53] LABS: Anisocytosis RARE; Microcytosis RARE; Platelet Estimate ADEQUATE (ADEQ); Red Cell Morphology N CHROM NORMAL (NORM C&C)
[2024-01-18 22:58] LABS: Anion Gap 3 (5-15); BUN 9 mg/dL (7-18); BUN/Creat Ratio 27.6 RATIO (10-20); Calcium,Total 8.8 mg/dL (8.5-10.1); Chloride 111 mmol/L (98-107); Creatinine, Serum 0.33 mg/dL (0.55-1.02); EST Glomerular Filtration Rate 217 mL/min (>60); Est Glom Filt Rate - Afr Amer 263 mL/min (>60); Glucose 143 mg/dL (74-106); Potassium 3.8 mmol/L (3.5-5.1); Sodium Level 141 mmol/L (136-145); Troponin-I HS 5 pg/mL (3.0-54.0)
--- NOTE | 2024-01-18 22:59 | CPS ---
x1 Albuterol given to pt. in ER as well. x1 additional Albuterol held at this time per pt. Will check back later to see if she'd like additional tx.
--- NOTE | 2024-01-18 23:18 | RAD_ITS ---
EXAM: XR CHEST, 1 VIEW CLINICAL INDICATION: sob TECHNIQUE: Frontal view of the chest. COMPARISON: Previous chest radiographs of 01/03/2024 and 12/09/2023, and with a chest radiographs dating back to 12/14/2022. Nonenhanced chest CT of 01/03/2024. FINDINGS: LUNGS AND PLEURAL SPACES: No acute pulmonary infiltrates or pleural effusions are identified. Chronic costal cartilaginous calcification is noted bilaterally, projected over the medial aspect of the lung bases. HEART: Heart size is within normal limits, with normal pulmonary vasculature. Coronary artery calcification or stent material is noted. MEDIASTINUM: Thoracic aorta remains mildly elongated and calcific. No mediastinal widening. BONES/JOINTS: Old compression fracture with findings of previous vertebroplasty again noted at 2 levels. Osseous structures are demineralized. SOFT TISSUES: Unremarkable. RAD/Chest 1 View (Portable) IMPRESSION: No significant interval change or acute process. Electronically Signed: Riley Kennedy MD at 23:54 EDT ,
--- NOTE | 2024-01-18 23:54 | CPS ---
[2334] x1 Albuterol given to pt. Pre-HR=97, RR=30 with diminished breath sounds with scattered expiratory wheezes through out. Post-HR=95, RR=28 with clearer breath sounds in upper lobe segments and right middle lobe. Bases still diminished with scattered wheezes through out.
[2024-01-18] MEDS: DiphenhydrAMINE 50 MG/ML Syringe 12.5 MG IV (23:58)
[2024-01-18] MEDS: Metoclopramide 10 MG/2 ML Vial 2.5 MG IV (23:58)
[2024-01-19] VITALS (13 sets, daily range): BP systolic 109–138; BP diastolic 55–71; PULSE 70–96; RESP 16–28; TEMP 36.4–37.4; O2SAT 92–96; BMI 19.5
--- NOTE | 2024-01-19 00:17 | HP.PCM.HOS_ITS ---
[facility] - General General Date of Admission: 01/19/24 Date of Service: 01/19/24 Chief Complaint: SOB and Headache. HPI Narrative RACQUEL IRVIN, is a 64 F with a past medical history of essential hypertension, hyperlipidemia, CAD; s/p NC with subsequent LLOYD to LAD (2022), history of GI bleed, OA; s/p Right THR, osteoporosis, PTSD, depression, history of anxiety with panic attacks and history of ongoing tobacco abuse; with subsequent Asthma/COPD with chronic hypoxic respiratory failure on 2L NC with recent admission here for AE COPD from December 09, 2023 to December 12, 2023 and then again was admitted from January 03, 2024 to January 05, 2024 again for AE COPD who presents to [facility] ER complaining of SOB and headache. Ms. Irvin reports her symptoms began approximately three days prior to admission with FERNANDEZ that gradually progressed to SOB at rest. She also admits to wheezing and a persistent frontal headache for the past ~2 weeks that has not improved after treatment with Tylenol. She admits her symptoms are similar to her previous COPD exacerbations (minus the headache) which started after she finished her 5 day steroid taper about 2 weeks ago. She denies related fever, chills, nausea or vomiting but she does have a history of constipation. In the ER she was once again diagnosed with AE COPD complicated by acute respiratory insufficiency and persistent frontal headache likely due to Acute Sinusitis noted on admission CT and she was then admitted to the general medical floor for ongoing care for a stay that is expected to be greater than 48 hours. PFSH Medical History Anxiety Asthma Atherosclerosis of coronary artery of [place] heart without angina pectoris Broken back COPD (chronic obstructive pulmonary disease) Current smoker Depression Emphysema lung GERD (gastroesophageal reflux disease) Hip replacement planned Hypertension Myocardial infarct On home oxygen therapy Osteoarthritis Osteoporosis Panic attacks Post traumatic stress disorder (PTSD) Smoker Home Medications tiotropium bromide 18 mcg capsule with inhalation device (Spiriva with HandiHaler) 1 puff inhalation DAILY SHORTNESS OF BREATH 01/24/15 [History Last Taken 12/13/22] alprazolam 1 mg tablet (Xanax) 1 mg PO BID anxiety 01/24/18 [History Last Taken 01/03/24] albuterol sulfate 90 mcg/actuation aerosol inhaler (ProAir HFA) 2 puff inhalation Q4H PRN PRN Sob &/Or Wheezing 11/04/18 [History Last Taken 01/03/24] ibandronate 150 mg tablet 150 mg PO Q90D OSTEOPOROSIS 08/31/22 [History Last Taken 12/15/23] losartan 50 mg tablet 50 mg PO DAILY BLOOD PRESSURE 08/31/22 [History Last Taken 12/13/22] aspirin 81 mg chewable tablet 81 mg PO BREAKFAST #90 tabs 01/18/23 [Rx Last Taken 01/03/24] atorvastatin 40 mg tablet (Lipitor) 40 mg PO QHS #90 tabs 01/18/23 [Rx Last Taken 01/02/24] metoprolol succinate 25 mg tablet,extended release 24 hr 25 mg PO DAILY #90 tabs 01/18/23 [Rx Last Taken 01/03/24] benzonatate 100 mg capsule 200 mg (2 x 100 mg) PO TID PRN PRN Cough #40 caps 03/31/23 [Rx Last Taken 01/02/24] nitroglycerin 0.4 mg sublingual tablet (Nitrostat) 0.4 mg sublingual Q5-15M PRN chest pain #25 tabs 05/09/23 [Rx Last Taken Unknown] albuterol sulfate 2.5 mg/3 mL (0.083 %) solution for nebulization 2.5 mg (3 mL) inhalation Q2H PRN PRN Dyspnea,wheezing 30 days #180 mL 12/12/23 [Rx Last Taken 01/02/24] ferrous gluconate 324 mg (37.5 mg iron) tablet 324 mg PO BIDCM 30 days #60 tabs 12/12/23 [Rx Last Taken 01/02/24] guaifenesin 1,200 mg tablet, extended release 12 hr (Mucus Relief ER) 1,200 mg PO BID 14 days #28 tabs 12/12/23 [Rx Last Taken 12/31/23] ipratropium 0.5 mg-albuterol 3 mg (2.5 mg base)/3 mL nebulization soln 3 ml inhalation Q6H 14 days #180 mL 12/12/23 [Rx Last Taken 01/02/24] pantoprazole 40 mg tablet,delayed release 40 mg PO BID 30 days #60 tabs 12/12/23 [Rx Last Taken 01/03/24] fluticasone fur. 100 mcg-umeclid 62.5 mcg-vilant 25 mcg inhalat.powder (Trelegy Ellipta) 1 inh inhalation DAILY 01/03/24 [History Last Taken 01/03/24] montelukast 10 mg tablet 10 mg PO DAILY 01/03/24 [History Last Taken 01/02/24] simethicone 125 mg capsule (Gas Relief (simethicone)) 125 mg PO BID gas 01/19/24 [History Last Taken 01/18/24] Allergy/AdvReac Type Severity Reaction Status Date / Time No Known Allergies Allergy Verified 01/18/24 21:12 Surgical History History of appendectomy History of coronary artery stent placement (~12/18/22) History of partial hysterectomy Social History Smoking Status: Former smoker ROS ROS Narrative Review of systems: General: Patient denies fever or chills. HENT: Patient admits to severe frontal headache. EYES: Denies changes in vision or discharge from eyes Resp: Patient admits to shortness of breath as per HPI. Cardiac: Patient admits to chest tightness but she denies chest pain or palpitations. GI: Denies abdominal pain, denies changes in bowel, denies vomiting or nausea : Denies changes in urination Extremity: Denies swelling Musculoskeletal: Feels somewhat generally weak and unwell Neuro: Denies any numbness/tingling Heme: Denies any bleeding or bruising Skin: Denies rashes Psychiatric: No complaints voiced related to uncontrolled depression or anxiety. Endocrine: No polyuria, polydipsia or polyphagia. The rest of the 14 point ROS was negative except for positives in HPI. Vital Signs Vital Signs Vital Signs: 01/18/24 21:12 01/18/24 21:49 01/18/24 21:18 Temperature 97.9 F 98.3 F Temperature Source Temporal Oral Pulse Rate 100 93 93 Respiratory Rate 40 H 33 H 25 H Respiratory Effort Respiratory Depth Respiratory Pattern Blood Pressure 158/66 H 144/63 H 144/63 H Blood Pressure Mean 96 90 90 Pulse Ox 96 100 99 Oxygen Delivery Method Nasal Cannula Nasal Cannula Nasal Cannula Oxygen Flow Rate (L/min) 6 2 2 01/18/24 21:53 01/18/24 22:11 01/18/24 22:30 Temperature 99 F 99 F Temperature Source Oral Oral Pulse Rate 97 94 Respiratory Rate 22 H 22 H Respiratory Effort Short of Breath Respiratory Depth Shallow Respiratory Pattern Tachypnea Blood Pressure 146/67 H 146/67 H Blood Pressure Mean 93 93 Pulse Ox 97 96 Oxygen Delivery Method Nasal Cannula Nasal Cannula Nasal Cannula Oxygen Flow Rate (L/min) 2 2 01/18/24 22:36 01/18/24 23:45 01/18/24 23:00 Temperature 98.5 F Temperature Source Oral Pulse Rate 94 94 93 Respiratory Rate 24 H 25 H 30 H Respiratory Effort Respiratory Depth Respiratory Pattern Tachypnea Blood Pressure 143/62 H 143/62 H Blood Pressure Mean 89 89 Pulse Ox 97 96 Oxygen Delivery Method Room Air Oxygen Flow Rate (L/min) 01/19/24 00:06 01/19/24 00:07 Temperature 99.3 F H 98.6 F Temperature Source Oral Pulse Rate 96 96 Respiratory Rate 23 H 26 H Respiratory Effort Respiratory Depth Respiratory Pattern Blood Pressure 138/71 H 138/71 H Blood Pressure Mean 93 93 Pulse Ox 96 96 Oxygen Delivery Method Room Air Oxygen Flow Rate (L/min) Physical Exam Const alert, oriented x3, no apparent distress and average body habitus General Appearance: cooperative HEENT normocephalic, head/scalp atraumatic, hearing grossly normal bilaterally and moist oral mucous membranes Eyes PERRL and EOMs intact bilaterally Neck no lymphadenopathy and supple Resp Resp Narrative: Diminished breath sounds throughout with scattered expiratory wheezes. Auscultation: wheezes Cardio regular rate and regular rhythm GI normal to inspection, nondistended, normoactive bowel sounds, soft to palpation, non-tender and non-distended Extremity normal to inspection and full ROM Skin Skin Narrative: Patient has no evidence of rash at this time. Neuro oriented x3, CN's II-XII intact bilaterally, moves all extremities and no focal motor deficits Neuro Narrative: Patient's headache has improved ~50% after treatment with Toradol and Benadryl in the ER. Sensorium / Orientation: awake, alert, oriented to person, oriented to place and oriented to time Speech: speech normal Motor Exam: strength 5/5 throughout Psych affect normal Results Medical Records Data Attestation: I reviewed the patient's medical records Lab / Micro Data Attestation: I reviewed the patient's lab results. 01/18/24 22:32 01/18/24 22:32 Labs: Laboratory Results - last 24 hr 01/18/24 22:32: WBC 15.1 H, RBC 4.90, Hgb 11.8 L, Hct 40.3, MCV 82.2, MCH 24.1 L , MCHC 29.3 L, RDW Std Deviation 74.4 H, RDW Coeff of Mehul 25.2 H, Plt Count 287, MPV 9.9, Immature Gran % (Auto) 0.400, Neut % (Auto) 86.0 H, Lymph % (Auto) 7.9 L, [place] % (Auto) 2.3, Eos % (Auto) 2.7, Baso % (Auto) 0.7, Absolute Neuts (auto) 13.0 H, Absolute Lymphs (auto) 1.20, Nucleated RBC % 0, Platelet Estimate ADEQUATE, RBC Morphology N CHROM, Anisocytosis RARE, Microcytosis RARE, Sodium 141, Potassium 3.8, Chloride 111 H, Carbon Dioxide 27.0, Anion Gap 3 L, BUN 9, Creatinine 0.33 L, Est GFR (MDRD) Af Amer 263, Est GFR (MDRD) Non-Af 217, BUN/Creatinine Ratio 27.6 H, Glucose 143 H, Calcium 8.8, Troponin I High Sens 5 Imaging Radiology Impression Brain CT 01/18/24 22:24 IMPRESSION: 1. Sinusitis. 2. Minimal age-related atrophy. 3. No intracranial hemorrhage or mass identified. Electronically Signed: Riley Kennedy MD at 23:43 EDT , Chest X-Ray 01/18/24 23:18 IMPRESSION: No significant interval change or acute process. Electronically Signed: Riley Kennedy MD at 23:54 EDT , Assessment & Plan Assessment/Plan (1) COPD exacerbation: (2) Respiratory insufficiency: (3) Acute sinusitis: QUALIFIERS: Sinusitis location: unspecified location Recurrence: non-recurrent Qualified Code(s): J01.90 - Acute sinusitis, unspecified (4) Headache: QUALIFIERS: Headache type: unspecified Headache chronicity pattern: acute headache Intractability: not intractable Qualified Code(s): R51.9 - Headache, unspecified PLAN: Plan 1. AE COPD in the setting of ongoing tobacco abuse - Admit to general medical floor. Continue IV Solumedrol and IV Doxycycline begun in the ER plus scheduled and prn nebulizers. Tobacco cessation will be strongly encouraged with nicotine patch offered to control cravings. 2. [id number] respiratory insufficiency due to #1 - Wean additional supplemental oxygen back down to baseline levels as tolerated. 3. Acute Sinusitis noted on CT this admission with persistent headache x ~2 weeks complicating #1 & #2 - Patient started on IV antibiotics for #1. Give Tylenol prn for [id number] (level 1-5/10) pain or fever. Give Morphine IV prn for severe (level 6-10/10) pain. 4. Recent admission here for AE COPD from December 09, 2023 to December 12, 2023 and then again was admitted from January 03, 2024 to January 05, 2024 again for AE COPD - Noted. Patient would likely benefit from a more prolonged and more gradually decreasing steroid taper in the future to decrease the chances of further serial readmission. 5. Essential hypertension - Continue home regimen plus give prn IV Hydralazine for systolic blood pressure > 160 mm Hg. 6. Hyperlipidemia- Resume statin as previous. 7. CAD; s/p NC with subsequent LLOYD to LAD (2022) - Stable. Continue BASA daily. 8. History of GI bleed - Noted with no evidence of recurrence at this time. Continue BID Protonix for GI prophylaxis with steroids used to treat #1. 9. OA; s/p Right THR and osteoporosis - Noted. 10. PTSD, depression and anxiety with panic - Continue home regimen and give Xanax prn for breakthrough symptoms. 11. DVT prophylaxis - Lovenox 40 mg sq daily. Total time: Approximately 55 minutes. Charges/Coding Visit Charges Inpatient E&M: 94154 Init Hosp L2
[2024-01-19] MEDS: Doxycycline 100 MG in Dextrose 5%-Water (250mL Bag) 250 ML 250 MG IV ×3 (00:48→22:58)
[2024-01-19] MEDS: Acetaminophen 325 MG Tablet 650 MG PO ×3 (02:43→23:00)
[2024-01-19] MEDS: 0.9% Saline Lock 10 ML Syringe IV ×2 (02:44→09:13)
[2024-01-19] MEDS: 0.9% Normal Saline (1000mL) 1,000 ML 70 ML IV ×2 (02:45→17:29)
[2024-01-19] MEDS: Ipratropium/Albuterol Sulfate 3 ML AMPUL.NEB INHALATION ×3 (07:49→20:18)
[2024-01-19 08:55] LABS: Basophil# 0.02 X10^3/uL; Basophil% 0.4 % (0-1); Hematocrit 39.4 % (37-47); Hemoglobin 11.8 g/dL (12.0-15.0); Lymphocyte % 17.8 % (19-41); Mean Corp Hgb Conc 29.9 g/dL (32-36); Mean Corpuscular Hgb 24.5 pg (27.0-32.0); Mean Corpuscular Volume 81.9 fL (81-99); Mean Platelet Vol. 10.6 fl (6.2-12.0); Monocyte# 0.13 X10^3/uL; Monocyte% 2.6 % (0-10); NRBC Flagged by Analyzer 0 % (0-5); Neutrophil # 3.99 X10^3/uL (2.7-7.7); Neutrophil % 78.8 % (47-70); POSITIVE MORPHOLOGY YES; Platelet Count 290 K/mm3 (150-450); RBC Distribution Width CV 24.6 % (11.6-14.6); RBC Distribution Width SD 72.4 fl (35.1-43.9); Red Blood Count 4.81 M/mm3 (4.2-5.4); White Blood Count 5.1 K/mm3 (4.4-11.0)
[2024-01-19 08:59] LABS: Differential Indicated SCAN CRITERIA MET
[2024-01-19] MEDS: ALPRAZolam 0.5 MG Tablet 1 MG PO ×2 (09:13→22:59)
[2024-01-19] MEDS: MethylPREDNISolone 125 MG/2 ML Vial 60 MG IV ×2 (09:13→22:59)
[2024-01-19] MEDS: Senna/Docusate Sodium 1 Tablet 2 TABLET PO (09:13)
[2024-01-19] MEDS: Ferrous Gluconate 324 MG Tablet PO ×2 (09:14→17:29)
[2024-01-19] MEDS: Aspirin 81 MG TAB.CHEW PO (09:14)
[2024-01-19] MEDS: Ascorbic Acid 500 MG Tablet 1000 MG PO ×2 (09:14→17:29)
[2024-01-19] MEDS: Pantoprazole Sodium 40 MG Tablet PO ×2 (09:15→22:57)
[2024-01-19] MEDS: Montelukast 10 MG Tablet PO (09:15)
[2024-01-19] MEDS: Enoxaparin 40 MG/0.4 ML Syringe SC (09:15)
[2024-01-19] MEDS: Losartan Potassium 50 MG Tablet PO (09:15)
[2024-01-19] MEDS: guaiFENesin 1,200 MG Tablet 1200 MG PO ×2 (09:15→22:59)
[2024-01-19] MEDS: Cholecalciferol (Vit D3) 125 MCG CAPSULE (5,000 UNITS) PO (09:16)
[2024-01-19] MEDS: Metoprolol(XL)Succ 25 MG Tablet PO (09:16)
[2024-01-19 09:22] LABS: Anisocytosis 1+; Ovalocyte 1+
[2024-01-19 09:57] LABS: ALB/GLOB Ratio 1.1 RATIO (0.9-2.4); AST(SGOT) 16 U/L (15-37); Alanine Aminotransfer ALT/SGPT 19 U/L (13-56); Albumin, Serum 3.3 g/dL (3.2-5.0); Alkaline Phosphatase 95 U/L (45-117); Anion Gap 5 (5-15); BUN 9 mg/dL (7-18); BUN/Creat Ratio 22.4 RATIO (10-20); Calcium,Total 8.8 mg/dL (8.5-10.1); Chloride 110 mmol/L (98-107); EST Glomerular Filtration Rate 171 mL/min (>60); Est Glom Filt Rate - Afr Amer 207 mL/min (>60); Estimated Creatinine Clearance 108.63 ml/min; Globulin 3.1 g/dL (2.2-4.2); Glucose 118 mg/dL (74-106); Phosphorus 2.4 mg/dL (2.5-4.9); Potassium 4.1 mmol/L (3.5-5.1); Protein, Total 6.4 g/dL (6.4-8.2); Sodium Level 141 mmol/L (136-145); Thyroid Stim Hormone (TSH) 0.18 uIU/mL (0.358-3.74)
[2024-01-19] MEDS: Benzonatate 100 MG Capsule 200 MG PO ×2 (11:51→22:58)
--- NOTE | 2024-01-19 12:10 | PCM.PROGNOTE ---
Subjective Subjective Patient seen and examined. She was admitted with a complaint of shortness of breath and is being managed for acute COPD exacerbation. She was recently admitted a few weeks ago for similar presentation and was managed for acute COPD exacerbation. She is complaing of wheezing and coughing as well as difficulty breathing. She has yet to follow up with pulmonology. She says she doesnt smoke anymore, but her still smokes, though he usually smokes outside. She is on 2L of oxygen. Review of systems is otherwise negative. Objective Data Objective Data Vital Signs: Vital Signs Temp Pulse Resp BP Pulse Ox O2 Del Method O2 Flow Rate 99 F 87 18 129/59 H 96 Nasal Cannula 2 01/19/24 08:22 01/19/24 09:16 01/19/24 08:22 01/19/24 08:22 01/19/24 08:22 01/19/24 08:22 01/19/24 08:22 Oxygen Flow Rate (L/min) 2 Oxygen Delivery Method Nasal Cannula Weight: 106 lb 4.8 oz Body Mass Index (BMI) 19.5 Intake & Output: Intake and Output for Last 24 Hours 01/17/24 01/18/24 01/19/24 23:59 23:59 23:59 Intake Total 0 / 0 1322.83 / 1322.83 Balance 0 / 0 1322.83 / 1322.83 Lab / Micro Data 01/19/24 08:20 01/19/24 08:20 Labs: Laboratory Results - last 24 hr 01/18/24 22:32: WBC 15.1 H, RBC 4.90, Hgb 11.8 L, Hct 40.3, MCV 82.2, MCH 24.1 L, MCHC 29.3 L, RDW Std Deviation 74.4 H, RDW Coeff of Mehul 25.2 H, Plt Count 287, MPV 9.9, Immature Gran % (Auto) 0.400, Neut % (Auto) 86.0 H, Lymph % (Auto) 7.9 L, [place] % (Auto) 2.3, Eos % (Auto) 2.7, Baso % (Auto) 0.7, Absolute Neuts (auto) 13.0 H, Absolute Lymphs (auto) 1.20, Nucleated RBC % 0, Platelet Estimate ADEQUATE, RBC Morphology N CHROM, Anisocytosis RARE, Microcytosis RARE, Sodium 141, Potassium 3.8, Chloride 111 H, Carbon Dioxide 27.0, Anion Gap 3 L, BUN 9, Creatinine 0.33 L, Est GFR (MDRD) Af Amer 263, Est GFR (MDRD) Non-Af 217, BUN/Creatinine Ratio 27.6 H, Glucose 143 H, Calcium 8.8, Troponin I High Sens 5 01/19/24 08:20: WBC 5.1, RBC 4.81, Hgb 11.8 L, Hct 39.4, MCV 81.9, MCH 24.5 L, MCHC 29.9 L, RDW Std Deviation 72.4 H, RDW Coeff of Mehul 24.6 H, Plt Count 290, MPV 10.6, Immature Gran % (Auto) 0.400, Neut % (Auto) 78.8 H, Lymph % (Auto) 17.8 L, [place]mort[place] % (Auto) 2.6, Eos % (Auto) 0.0, Baso % (Auto) 0.4, Absolute Neuts (auto) 4.0, Absolute Lymphs (auto) 0.90, Nucleated RBC % 0, Anisocytosis 1+, Ovalocytes 1+, Sodium 141, Potassium 4.1, Chloride 110 H, Carbon Dioxide 26.0, Anion Gap 5, BUN 9, Creatinine 0.40 L, Estim Creat Clear Calc 108.63, Est GFR (MDRD) Af Amer 207, Est GFR (MDRD) Non-Af 171, BUN/Creatinine Ratio 22.4 H, Glucose 118 H, Calcium 8.8, Phosphorus 2.4 L, Magnesium 2.0, Total Bilirubin 0.50, AST 16, ALT 19, Alkaline Phosphatase 95, Total Protein 6.4, Albumin 3.3, Globulin 3.1, Albumin/Globulin Ratio 1.1, TSH 0.18 L Radiography Diagnostic Testing: Radiology Impression Brain CT 01/18/24 22:24 IMPRESSION: 1. Sinusitis. 2. Minimal age-related atrophy. 3. No intracranial hemorrhage or mass identified. Electronically Signed: Riley Kennedy MD at 23:43 EDT , Chest X-Ray 01/18/24 23:18 IMPRESSION: No significant interval change or acute process. Electronically Signed: Riley Kennedy MD at 23:54 EDT , Physical Exam Const alert, oriented x3 and no apparent distress General Appearance: cooperative HEENT normocephalic, head/scalp atraumatic, moist oral mucous membranes and oropharynx normal Eyes PERRL and EOMs intact bilaterally Neck no lymphadenopathy and supple Lymph Lymphatic: no lymphadenopathy noted and no lymphedema noted Resp Resp Narrative: lung sound very tight. Bilateral wheezing. On 2L of oxygen by nasal canula Cardio regular rate, regular rhythm, S1 normal heart sound, S2 normal heart sound and no murmurs GI normal to inspection, nondistended, normoactive bowel sounds, soft to palpation, non-tender and non-distended Extremity normal capillary refill, no clubbing, cyanosis or edema and no calf tenderness General Extremity: no tenderness to palpation of joints or extremities Skin General Skin Exam: no breakdown Neuro CN's II-XII intact bilaterally, no focal motor deficits, no sensory deficits noted and deep tendon reflexes 2+ bilaterally Motor Exam: strength 5/5 throughout and general weakness Psych thought process normal and cooperative Mood & Affect: anxious Assessment & Plan Assessment/Plan (1) COPD exacerbation: (2) Respiratory insufficiency: PLAN: Plan #Acute exacerbation of COPD on 2L of oxgen breathing treatment with bronchodilators on IV doxycycline due to her recurrent exacerbations titrate oxygen to maintain sats .90% #Acute sinusitis: on IV doxycycline. on tylenol prn #Chronic respiratory failure due to COPD on 2L of oxygen which is her baseline. breathing treatment with bronchodilators #Benign essential hypertension: on IV hydralazine prn. On metoprolol and losartan #Hyperlipidemia: on statin #CAD s/p stent: on aspirin and statin #Histoyr of GI bleed: on protonix DVT prophylaxis: heparin Charges/Coding Visit Charges Inpatient E&M: 34538 Subs Hosp L2
--- NOTE | 2024-01-19 15:10 | CASEMGMT ---
FOSTER LUGO chart review: Patient was admitted -01/05/24 for COPD and 12/09-12/12/23 for SOB. See FOSTER LUGO assessment from 12/10/23. Patient was discharged to home with follow-up plans in place and resumption of home oxygen through [employer] at 2lpm with exertion. Patient returned to [facility] ED on 01/18/24 for SOB and admitted for COPD exacerbation and Sinusitis. Patient states she was not able to go to PCP follow-up due to not feeling well. Patient states she did attend appt with Dr Arenas on 01/14/24. FOSTER LUGO educated patient on the importance of making follow up appts. FOSTER LUGO discussed Palliative care and would like referral. Will monitor for increase in home oxygen. Patient denied further needs at discharge. FOSTER LUGO updated hospitalist regarding Palliative Care, order received for consult. Screening tool completed and referral sent to [facility]iative.
[2024-01-19] MEDS: Atorvastatin Calcium 40 MG Tablet PO (22:58)
[2024-01-20] VITALS (11 sets, daily range): BP systolic 109–156; BP diastolic 51–74; PULSE 79–94; RESP 16–22; TEMP 36.4–37.1; O2SAT 92–96; BMI 21.0
[2024-01-20] MEDS: Ipratropium/Albuterol Sulfate 3 ML AMPUL.NEB INHALATION ×4 (02:10→20:07)
[2024-01-20] MEDS: Benzonatate 100 MG Capsule 200 MG PO ×3 (05:34→22:41)
[2024-01-20] MEDS: Ferrous Gluconate 324 MG Tablet PO ×2 (08:22→16:18)
[2024-01-20] MEDS: Ascorbic Acid 500 MG Tablet 1000 MG PO ×2 (08:22→16:18)
[2024-01-20] MEDS: Aspirin 81 MG TAB.CHEW PO (08:22)
[2024-01-20] MEDS: Acetaminophen 325 MG Tablet 650 MG PO ×2 (10:45→22:42)
[2024-01-20] MEDS: ALPRAZolam 0.5 MG Tablet 1 MG PO ×2 (10:45→22:40)
[2024-01-20] MEDS: Enoxaparin 40 MG/0.4 ML Syringe SC (10:45)
[2024-01-20] MEDS: Pantoprazole Sodium 40 MG Tablet PO ×2 (10:46→22:42)
[2024-01-20] MEDS: Losartan Potassium 50 MG Tablet PO (10:46)
[2024-01-20] MEDS: guaiFENesin 1,200 MG Tablet 1200 MG PO ×2 (10:46→22:41)
[2024-01-20] MEDS: Montelukast 10 MG Tablet PO (10:46)
[2024-01-20] MEDS: Metoprolol(XL)Succ 25 MG Tablet PO (10:47)
[2024-01-20] MEDS: Cholecalciferol (Vit D3) 125 MCG CAPSULE (5,000 UNITS) PO (10:47)
--- NOTE | 2024-01-20 11:15 | PN_ITS ---
Subjective Subjective Patient seen and examined. She did complain of shortness of breath after she exerted herself by going to the bathroom. Patient was noted to be very flushed on her face and upper chest. Reason is unclear but I suspect the patient is likely appropriate for as well as light exertion worsen his shortness of breath and led to this erythema. She remains on 2 L of oxygen. Objective Data Objective Data Vital Signs: Vital Signs Temp Pulse Resp BP Pulse Ox O2 Del Method O2 Flow Rate 97.6 F L 94 18 126/74 H 95 Nasal Cannula 2 01/20/24 08:20 01/20/24 10:47 01/20/24 08:20 01/20/24 08:20 01/20/24 08:20 01/20/24 08:28 01/20/24 08:28 Oxygen Flow Rate (L/min) 2 Oxygen Delivery Method Nasal Cannula Weight: 111 lb 5.335 oz Body Mass Index (BMI) 21.0 Intake & Output: Intake and Output for Last 24 Hours 01/18/24 01/19/24 01/20/24 23:59 23:59 23:59 Intake Total 0 / 0 1777.83 / 2027.83 1710 / 1710 Balance 0 / 0 1777.83 / 2026.83 1710 / 1710 Medical Nutrition Assessment Dietitian: Malnutrition Criteria Met Start: 01/19/24 14:36 Freq: Status: Active Protocol: Document 01/19/24 14:36 AG (Rec: 01/19/24 14:36 AG [id number]) Nutrition Malnutrition Evidence of Malnutrition Exists Yes Malnutrition (severe): Acute Illness/Injury Evidenced By Suboptimal Energy Intake ( Severe),Weight Loss (Severe) Clinical Problem Acute Disease or Injury Related Malnutrition Etiology severe acute malnutrition related to inadequate energy intake w/ increased energy needs d/t COPD Signs/Symptoms as evidenced by unintentional 8% wt loss x 1 month, estimated PO intake meeting < 75% of estimated energy needs > 1 month Status Active Problem Recommendation Dietitian Recommendations/Changes will adjust diet to regular, no added salt given evidence of malnutrition; ensure clear 240mL BID w/ breakfast and dinner per pt preference Lab / Micro Data 01/19/24 08:20 01/19/24 08:20 Physical Exam Const alert, oriented x3, no apparent distress and average body habitus Constitutional Narrative: Mildly labored respirations noted. General Appearance: cooperative HEENT normocephalic, head/scalp atraumatic, hearing grossly normal bilaterally, moist oral mucous membranes and oropharynx normal Eyes PERRL and EOMs intact bilaterally Neck no lymphadenopathy and supple Lymph Lymphatic: no lymphadenopathy noted and no lymphedema noted Resp Resp Narrative: lungs dont sound as tight today. Diminished breath sounds bibasally. Bilateral wheezing. On 2L of oxygen by nasal canula Auscultation: wheezes Cardio regular rate, regular rhythm, S1 normal heart sound, S2 normal heart sound and no murmurs GI normal to inspection, nondistended, normoactive bowel sounds, soft to palpation, non-tender and non-distended Extremity normal to inspection, full ROM, normal capillary refill, no clubbing, cyanosis or edema and no calf tenderness General Extremity: no tenderness to palpation of joints or extremities Skin Skin Narrative: But with erythema over his cheeks and anterior neck as well as upper chest General Skin Exam: no breakdown Neuro oriented x3, CN's II-XII intact bilaterally, moves all extremities, no focal mot or deficits, no sensory deficits noted and deep tendon reflexes 2+ bilaterally Sensorium / Orientation: awake, alert, oriented to person, oriented to place and oriented to time Speech: speech normal Motor Exam: strength 5/5 throughout and general weakness Psych thought process normal, cooperative and affect normal Activity / Motor Behavior: restless Assessment & Plan Assessment/Plan (1) COPD exacerbation: (2) Respiratory insufficiency: PLAN: Plan #Acute exacerbation of COPD * remains on 2L of oxygen * breathing treatment with bronchodilators * on IV solumedrol. Breathing treatment with bronchodilators * will need to establish close follow up with her pulmonologists due to her recurrent exacerbations. * titrate oxygen to maintain sats .90% * #Acute sinusitis: on IV doxycycline. on tylenol prn #Chronic respiratory failure due to COPD * on 2L of oxygen which is her baseline. * breathing treatment with bronchodilators * #Benign essential hypertension: on IV hydralazine prn. On metoprolol and losartan #Hyperlipidemia: on statin #CAD s/p stent: on aspirin and statin #Histoyr of GI bleed: on protonix DVT prophylaxis: heparin Charges/Coding Visit Charges Inpatient E&M: 47293 Subs Hosp L2
[2024-01-20] MEDS: MethylPREDNISolone 125 MG/2 ML Vial 60 MG IV ×2 (11:43→22:40)
[2024-01-20] MEDS: 0.9% Normal Saline (1000mL) 1,000 ML 70 ML IV (11:43)
[2024-01-20] MEDS: 0.9% Saline Lock 10 ML Syringe IV (11:44)
[2024-01-20] MEDS: Doxycycline 100 MG in Dextrose 5%-Water (250mL Bag) 250 ML 250 MG IV ×2 (11:44→22:45)
[2024-01-20] MEDS: Atorvastatin Calcium 40 MG Tablet PO (22:40)
[2024-01-21] VITALS (8 sets, daily range): BP systolic 131–157; BP diastolic 66–89; PULSE 70–94; RESP 18–26; TEMP 36.6–37; O2SAT 90–99; BMI 20.9
[2024-01-21] MEDS: 0.9% Normal Saline (1000mL) 1,000 ML 70 ML IV (04:38)
[2024-01-21] MEDS: Benzonatate 100 MG Capsule 200 MG PO (04:44)
[2024-01-21] MEDS: Ipratropium/Albuterol Sulfate 3 ML AMPUL.NEB INHALATION (04:58)
[2024-01-21] MEDS: Acetaminophen 325 MG Tablet 650 MG PO (07:14)
[2024-01-21 08:20] LABS: Absolute Lymphocyte Count 1.12 X10^3/uL (0.83-4.51); Absolute Neutrophil Count 6.8 X10^3/uL (2.0-7.7); Basophil# 0.01 X10^3/uL; Basophil% 0.1 % (0-1); Hematocrit 35.8 % (37-47); Hemoglobin 10.4 g/dL (12.0-15.0); Lymphocyte # 1.12 X10^3/ul (0.83-4.51); Lymphocyte % 13.5 % (19-41); Mean Corp Hgb Conc 29.1 g/dL (32-36); Mean Corpuscular Hgb 24.2 pg (27.0-32.0); Mean Corpuscular Volume 83.3 fL (81-99); Mean Platelet Vol. 10.4 fl (6.2-12.0); Monocyte# 0.37 X10^3/uL; Monocyte% 4.5 % (0-10); NRBC Flagged by Analyzer 0 % (0-5); Neutrophil # 6.76 X10^3/uL (2.7-7.7); Neutrophil % 81.4 % (47-70); POSITIVE MORPHOLOGY YES; Platelet Count 293 K/mm3 (150-450); RBC Distribution Width CV 26.6 % (11.6-14.6); RBC Distribution Width SD 78.5 fl (35.1-43.9); White Blood Count 8.3 K/mm3 (4.4-11.0)
[2024-01-21 08:29] LABS: Differential Indicated SCAN CRITERIA MET
[2024-01-21 08:54] LABS: Anion Gap 1 (5-15); BUN 7 mg/dL (7-18); BUN/Creat Ratio 15.4 RATIO (10-20); Calcium,Total 8.5 mg/dL (8.5-10.1); Chloride 116 mmol/L (98-107); Creatinine, Serum 0.45 mg/dL (0.55-1.02); EST Glomerular Filtration Rate 148 mL/min (>60); Est Glom Filt Rate - Afr Amer 179 mL/min (>60); Estimated Creatinine Clearance 96.56 ml/min; Glucose 127 mg/dL (74-106); Potassium 3.6 mmol/L (3.5-5.1); Sodium Level 144 mmol/L (136-145)
[2024-01-21] MEDS: Aspirin 81 MG TAB.CHEW PO (09:43)
[2024-01-21] MEDS: Ascorbic Acid 500 MG Tablet 1000 MG PO (09:43)
[2024-01-21] MEDS: Enoxaparin 40 MG/0.4 ML Syringe SC (09:43)
[2024-01-21] MEDS: Pantoprazole Sodium 40 MG Tablet PO (09:43)
[2024-01-21] MEDS: guaiFENesin 1,200 MG Tablet 1200 MG PO (09:43)
[2024-01-21] MEDS: Losartan Potassium 50 MG Tablet PO (09:43)
[2024-01-21] MEDS: Montelukast 10 MG Tablet PO (09:44)
[2024-01-21] MEDS: Metoprolol(XL)Succ 25 MG Tablet PO (09:44)
[2024-01-21] MEDS: Zinc Sulfate 50 mg zinc (220 mg) ORAL capsule PO (09:44)
[2024-01-21] MEDS: ALPRAZolam 0.5 MG Tablet 1 MG PO (09:47)
[2024-01-21] MEDS: Cholecalciferol (Vit D3) 125 MCG CAPSULE (5,000 UNITS) PO (09:49)
[2024-01-21] MEDS: Ferrous Gluconate 324 MG Tablet PO (09:50)
[2024-01-21 11:42] LABS: Anisocytosis 2+; Differential Comment SCANNED; Macrocytosis 1+; Microcytosis 1+
--- NOTE | 2024-01-21 12:07 | CASEMGMT ---
Pt does not require an increase in oxygen rx.
--- NOTE | 2024-01-21 12:47 | PCM.DC.SUM ---
Providers Date of Admission: 01/19/24 Date of Discharge: 01/21/24 Primary Care Physician: Dr. Magen Cavazos MD Reason For Visit: AE COPD, SINUSITIS & LOMAX Diagnosis Discharge Diagnosis (1) COPD exacerbation: Status: Chronic Code(s): J44.1 - Chronic obstructive pulmonary disease with (acute) exacerbation (2) Respiratory insufficiency: Status: Acute Code(s): R06.89 - Other abnormalities of breathing Plan #Acute exacerbation of COPD remains on 2L of oxygen breathing treatment with bronchodilators feels much better. on IV solumedrol. Breathing treatment with bronchodilators will need to establish close follow up with her pulmonologists due to her recurrent exacerbations. titrate oxygen to maintain sats >90% #Acute sinusitis: on IV doxycycline. on tylenol prn #Chronic respiratory failure due to COPD on 2L of oxygen which is her baseline. breathing treatment with bronchodilators #Benign essential hypertension: on IV hydralazine prn. On metoprolol and losartan #Hyperlipidemia: on statin #CAD s/p stent: on aspirin and statin #History of GI bleed: on protonix DVT prophylaxis: heparin Medications at Discharge Home Medications tiotropium bromide 18 mcg capsule with inhalation device (Spiriva with HandiHaler) 1 puff inhalation DAILY SHORTNESS OF BREATH 01/24/15 alprazolam 1 mg tablet (Xanax) 1 mg PO BID anxiety 01/24/18 albuterol sulfate 90 mcg/actuation aerosol inhaler (ProAir HFA) 2 puff inhalation Q4H PRN PRN Sob &/Or Wheezing 11/04/18 ibandronate 150 mg tablet 150 mg PO Q90D OSTEOPOROSIS 08/31/22 losartan 50 mg tablet 50 mg PO DAILY BLOOD PRESSURE 08/31/22 aspirin 81 mg chewable tablet 81 mg PO BREAKFAST #90 tabs 01/18/23 atorvastatin 40 mg tablet (Lipitor) 40 mg PO QHS #90 tabs 01/18/23 metoprolol succinate 25 mg tablet,extended release 24 hr 25 mg PO DAILY #90 tabs 01/18/23 benzonatate 100 mg capsule 200 mg (2 x 100 mg) PO TID PRN PRN Cough #40 caps 03/31/23 nitroglycerin 0.4 mg sublingual tablet (Nitrostat) 0.4 mg sublingual Q5-15M PRN chest pain #25 tabs 05/09/23 albuterol sulfate 2.5 mg/3 mL (0.083 %) solution for nebulization 2.5 mg (3 mL) inhalation Q2H PRN PRN Dyspnea,wheezing 30 days #180 mL 12/12/23 ferrous gluconate 324 mg (37.5 mg iron) tablet 324 mg PO BIDCM 30 days #60 tabs 12/12/23 guaifenesin 1,200 mg tablet, extended release 12 hr (Mucus Relief ER) 1,200 mg PO BID 14 days #28 tabs 12/12/23 ipratropium 0.5 mg-albuterol 3 mg (2.5 mg base)/3 mL nebulization soln 3 ml inhalation Q6H 14 days #180 mL 12/12/23 pantoprazole 40 mg tablet,delayed release 40 mg PO BID 30 days #60 tabs 12/12/23 fluticasone fur. 100 mcg-umeclid 62.5 mcg-vilant 25 mcg inhalat.powder (Trelegy Ellipta) 1 inh inhalation DAILY 01/03/24 montelukast 10 mg tablet 10 mg PO DAILY 01/03/24 simethicone 125 mg capsule (Gas Relief (simethicone)) 125 mg PO BID gas 01/19/24 prednisone 5 mg tablets in a dose pack See Taper PO UD #21 tabs 01/21/24 Hospital Course Operations None Procedures None Summary of Care Provided Minutes Spent on Discharge: 45 Hospital Course: Patient is a 64-year-old female with an extensive past medical history as outlined was admitted through the ED on 01/19/2024 with a complaint of shortness of breath and headache. Patient had recently been admitted in December for acute exacerbation of COPD. She had actually been admitted twice for COPD exacerbation in December. She said her wheezing had persisted. 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 She lives with her who still smokes though she does not smoke. She claims that her smokes outside. Chest CT done showed no acute cardiopulmonary pathology but showed acute sinusitis. She was admitted and managed for acute exacerbation of COPD. She was placed on breathing treatment with bronchodilators and IV Solu-Medrol. She was also placed on doxycycline for the sinusitis. Her shortness of breath improved and she felt much better. She went to be weaned down to her baseline 2 to 3 L of oxygen. She had walking pulse ox which showed that she still required the same amount of oxygen. She was discharged home on a tapering dose of prednisone on 01/21/2024. She is follow-up with her primary care doctor within 1 to 2 weeks. Patient seen and examined prior to discharge. She had no active complaints and had an uneventful night. Review of systems otherwise negative. Labs and vitals reviewed. Medication reviewed and reconciled. Physical Exam Const alert, oriented x3, no apparent distress and average body habitus General Appearance: cooperative HEENT normocephalic, head/scalp atraumatic, hearing grossly normal bilaterally, moist oral mucous membranes and oropharynx normal Eyes PERRL, EOMs intact bilaterally and conjunctivae normal Neck no lymphadenopathy, supple and no JVD Lymph Lymphatic: no lymphadenopathy noted and no lymphedema noted Resp Resp Narrative: lungs dont sound as tight today. Diminished breath sounds bibasally. Bilateral wheezing. On 2L of oxygen by nasal canula Auscultation: wheezes Cardio regular rate, regular rhythm, S1 normal heart sound, S2 normal heart sound and no murmurs GI normal to inspection, nondistended, normoactive bowel sounds, soft to palpation, non-tender and non-distended Extremity normal to inspection, full ROM, normal capillary refill, no clubbing, cyanosis or edema and no calf tenderness General Extremity: no tenderness to palpation of joints or extremities Skin no rashes or lesions noted and no wounds Skin Narrative: erythema and flushing she had on her face and upper chest have resolved. General Skin Exam: no breakdown Neuro oriented x3, CN's II-XII intact bilaterally, moves all extremities, no focal motor deficits, no sensory deficits noted and deep tendon reflexes 2+ bilaterally Sensorium / Orientation: awake, alert, oriented to person, oriented to place and oriented to time Speech: speech normal Motor Exam: strength 5/5 throughout and general weakness Psych thought process normal, cooperative and affect normal Medical Records Data Medical Nutrition Assessment Dietitian: Malnutrition Criteria Met Start: 01/19/24 14:36 Freq: Status: Active Protocol: Document 01/19/24 14:36 AG (Rec: 01/19/24 14:36 AG [id number]) Nutrition Malnutrition Evidence of Malnutrition Exists Yes Malnutrition (severe): Acute Illness/Injury Evidenced By Suboptimal Energy Intake ( Severe),Weight Loss (Severe) Clinical Problem Acute Disease or Injury Related Malnutrition Etiology severe acute malnutrition related to inadequate energy intake w/ increased energy needs d/t COPD Signs/Symptoms as evidenced by unintentional 8% wt loss x 1 month, estimated PO intake meeting < 75% of estimated energy needs > 1 month Status Active Problem Recommendation Dietitian Recommendations/Changes will adjust diet to regular, no added salt given evidence of malnutrition; ensure clear 240mL BID w/ breakfast and dinner per pt preference Weight / BMI Weight Weight: 110 lb 14.28 oz Body Mass Index (BMI) 20.9 ABG / Lab / Microbiology Data 01/21/24 07:58 01/21/24 07:58 Laboratory: Laboratory Results - last 24 hr 01/21/24 07:58: WBC 8.3, RBC 4.30, Hgb 10.4 L, Hct 35.8 L, MCV 83.3, MCH 24.2 L, MCHC 29.1 L, RDW Std Deviation 78.5 H, RDW Coeff of Mehul 26.6 H, Plt Count 293, MPV 10.4, Immature Gran % (Auto) 0.500, Neut % (Auto) 81.4 H, Lymph % (Auto) 13.5 L, [place] % (Auto) 4.5, Eos % (Auto) 0.0, Baso % (Auto) 0.1, Absolute Neuts (auto) 6.8, Absolute Lymphs (auto) 1.12, Nucleated RBC % 0, Differential Comment SCANNED, Anisocytosis 2+, Microcytosis 1+, Macrocytosis 1+, Sodium 144, Potassium 3.6, Chloride 116 H, Carbon Dioxide 27.0, Anion Gap 1 L, BUN 7, Creatinine 0.45 L, Estim Creat Clear Calc 96.56, Est GFR (MDRD) Af Amer 179, Est GFR (MDRD) Non-Af 148, BUN/Creatinine Ratio 15.4, Glucose 127 H, Calcium 8.5 D/C Instructions Discharge Diet: Low fat / Low cholesterol Weight Bearing Status: Weight bearing as tolerated Call your doctor if you observe: Fever of 101 or Higher, Shortness of breath, Swelling in the ankles and Chest pain Meaningful Use Info Meaningful Use Diagnoses (Choose all that apply): None applicable Discharge Plan Admission Admit Date/Time: 01/19/24 00:44 Primary Reason for Your Visit: acute COPD exacerbation Attending Provider: Nataliia Hernandez Primary Care Provider: Magen Cavazos Consulting Providers: Dileep Erickson Instructions Patient Instructions: What Is COPD, COPD Controlled Breathing Dc Discharge Orders/Prescriptions Prescriptions: New prednisone 5 mg tablets,dose pack See Taper PO UD Qty: 21 0RF Taper: Prednisone Taper 60 mg WITH BREAKFAST for 3 Days and 0 Hour 50 mg WITH BREAKFAST for 3 Days and 0 Hour 40 mg WITH BREAKFAST for 3 Days and 0 Hour 30 mg WITH BREAKFAST for 3 Days and 0 Hour 20 mg WITH BREAKFAST for 3 Days and 0 Hour 10 mg WITH BREAKFAST for 3 Days and 0 Hour Continued nitroglycerin [Nitrostat] 0.4 mg tablet, sublingual 0.4 mg sublingual Q5-15M PRN (Reason: chest pain) Qty: 25 3RF Rx Instructions: do not exceed 3 doses per episode tiotropium bromide [Spiriva with HandiHaler] 1 PUFF inhaler 1 puff inhalation DAILY Hold Instructions: Order Changed alprazolam [Xanax] 1 MG tablet 1 mg PO BID albuterol sulfate [ProAir HFA] 1 PUFF inhaler 2 puff inhalation Q4H PRN PRN (Reason: Sob &/Or Wheezing) losartan 50 mg tablet 50 mg PO DAILY ibandronate 150 mg tablet 150 mg PO Q90D benzonatate 100 mg Capsule 200 mg PO TID PRN PRN (Reason: Cough) Qty: 40 0RF pantoprazole 40 mg Tablet,Delayed Release (Dr/Ec) 40 mg PO BID 30 Days Qty: 60 0RF guaifenesin [Mucus Relief ER] 1,200 mg Tablet Extended Release 12hr 1,200 mg PO BID 14 Days Qty: 28 0RF ferrous gluconate 324 mg (37.5 mg iron) Tablet 324 mg PO BIDCM 30 Days Qty: 60 0RF albuterol sulfate 2.5 MG/3 ML solution for nebulization 2.5 mg inhalation Q2H PRN PRN (Reason: Dyspnea,wheezing) 30 Days Qty: 180 0RF ipratropium-albuterol 0.5 mg-3 mg(2.5 mg base)/3 mL Solution For Nebulization 3 ml inhalation Q6H 14 Days Qty: 180 0RF montelukast 10 mg tablet 10 mg PO DAILY Patient Comments: TAKE 1 TABLET BY MOUTH EVERYDAY AT BEDTIME Trelegy Ellipta 100-62.5-25 mcg blister with device 1 inh inhalation DAILY simethicone [Gas Relief (simethicone)] 125 mg capsule 125 mg PO BID Rx Instructions: administer after meals metoprolol succinate 25 mg tablet extended release 24 hr 25 mg PO DAILY Qty: 90 3RF atorvastatin [Lipitor] 40 mg tablet 40 mg PO QHS Qty: 90 3RF aspirin 81 mg tablet,chewable 81 mg PO BREAKFAST Qty: 90 3RF Referrals / Follow Up: Magen Cavazos MD [Primary Care Provider] - Within 1 Week Disposition Disposition (needs filled in before D/C Order can be placed): Home, Self Care Charges/Coding Visit Charges Inpatient E&M: 92341 Disch Hosp >30min
== END 2024-01-21 13:09 | disposition home or self-care (01) | DRG 190 ==
LOC: ED 01-19 00:20 → MS3 01-19 01:29
PROVIDERS: Admitting Provider Internal Medicine; Emergency Provider Emergency Medicine; PCP Family Medicine; Visit Provider Student in an Organized Health Care Education/Training Program
DX: J44.1 Chronic obstructive pulmonary disease with (acute) exacerbation (principal); E43 Unspecified severe protein-calorie malnutrition; J96.10 Chronic respiratory failure, unspecified whether with hypoxia or hypercapnia; F32.A Depression, unspecified; I10 Essential (primary) hypertension; I25.10 Atherosclerotic heart disease of native coronary artery without angina pectoris; E78.5 Hyperlipidemia, unspecified; M19.90 Unspecified osteoarthritis, unspecified site; J01.90 Acute sinusitis, unspecified; I25.2 Old myocardial infarction; Z79.82 Long term (current) use of aspirin; Z79.83 Long term (current) use of bisphosphonates; F41.0 Panic disorder [episodic paroxysmal anxiety]; Z95.5 Presence of coronary angioplasty implant and graft; Z79.51 Long term (current) use of inhaled steroids; M81.0 Age-related osteoporosis without current pathological fracture; Z87.891 Personal history of nicotine dependence; R51.9 Headache, unspecified; F43.10 Post-traumatic stress disorder, unspecified; Z68.21 Body mass index [BMI] 21.0-21.9, adult
CPT/HCPCS: 36415; 70450; 71045; 80048; 80053; 83735; 84100; 84443; 84484; 85025; 93005; 94640; 94668; 97802; 99252; 99285; 99406; J7030; J7050; A4216; G0463

== ENCOUNTER → 2024-05-30 | Outpatient (CLI) | payer OTHER, MEDICARE, SELFPAY ==
[2024-05-30 14:45] LABS: Absolute Lymphocyte Count 2.98 X10^3/uL (0.83-4.51); Absolute Neutrophil Count 8.9 X10^3/uL (2.0-7.7); Basophil# 0.05 X10^3/uL; Basophil% 0.4 % (0-1); Eosinophils% 0.8 % (0-5); Hematocrit 45.4 % (37-47); Hemoglobin 14.2 g/dL (12.0-15.0); Lymphocyte # 2.98 X10^3/ul (0.83-4.51); Lymphocyte % 22.9 % (19-41); Mean Corp Hgb Conc 31.3 g/dL (32-36); Mean Corpuscular Hgb 28.2 pg (27.0-32.0); Mean Corpuscular Volume 90.3 fL (81-99); Mean Platelet Vol. 10.5 fl (6.2-12.0); Monocyte# 0.91 X10^3/uL; NRBC Flagged by Analyzer 0 % (0-5); Neutrophil # 8.91 X10^3/uL (2.7-7.7); Neutrophil % 68.4 % (47-70); Platelet Count 312 K/mm3 (150-450); RBC Distribution Width CV 14.7 % (11.6-14.6); RBC Distribution Width SD 48.7 fl (35.1-43.9); Red Blood Count 5.03 M/mm3 (4.2-5.4)
[2024-05-30 15:06] LABS: BNP,B-Type NATRIURETIC PEPTIDE 5.3 pg/mL (0-100)
[2024-05-30 15:18] LABS: AST(SGOT) 16 U/L (15-37); Alanine Aminotransfer ALT/SGPT 17 U/L (13-56); Albumin, Serum 3.8 g/dL (3.2-5.0); Alkaline Phosphatase 124 U/L (45-117); Anion Gap 4 (5-15); BUN 9 mg/dL (7-18); BUN/Creat Ratio 15.5 RATIO (10-20); Bilirubin, Direct 0.16 mg/dL (0.00-0.30); Calcium,Total 9.7 mg/dL (8.5-10.1); Chloride 108 mmol/L (98-107); Cholesterol 183 mg/dL (200); Creatinine, Serum 0.58 mg/dL (0.55-1.02); EST Glomerular Filtration Rate 112 mL/min (>60); Est Glom Filt Rate - Afr Amer 135 mL/min (>60); Globulin 3.9 g/dL (2.2-4.2); Glucose 104 mg/dL (74-106); High Density Lipoprotein 89 mg/dL; Potassium 3.9 mmol/L (3.5-5.1); Protein, Total 7.7 g/dL (6.4-8.2); Sodium Level 139 mmol/L (136-145); Triglycerides 72 mg/dL; Very Low Density Lipoprotein 14 mg/dL (5-40)
== END | disposition home or self-care (01) ==
PROVIDERS: PCP Family Medicine; Referring Provider Nurse Practitioner Family; Visit Provider Nurse Practitioner Family
DX: E78.00 Pure hypercholesterolemia, unspecified (principal); I10 Essential (primary) hypertension; I25.10 Atherosclerotic heart disease of native coronary artery without angina pectoris; R06.09 Other forms of dyspnea; Z95.5 Presence of coronary angioplasty implant and graft
CPT/HCPCS: 36415; 80048; 80061; 80076; 83880; 85025

== ENCOUNTER → 2024-07-29 | Outpatient (CLI) | payer BC, MEDICARE, SELFPAY ==
--- NOTE | 2024-07-29 13:34 | NM_ITS ---
CLINICAL: 64-year-old female with history of abdominal bloating and nausea. SEMI-SOLID PHASE 99m Tc SULFUR COLLOID GASTRIC EMPTYING STUDY COMPARISON: None available FINDINGS: The patient was administered 1.0 mCi of 99m Tc sulfur colloid mixed with oatmeal and consumed per os. Image acquisitions in the anterior-posterior projections were obtained for 60 minutes. There is prompt visualization of the stomach. There is no gastroesophageal reflux identified. The T ? linear fit was calculated to be 44.27 minutes, (Normal: 12-56 minutes). NM/Gastric Emptying Study IMPRESSION: 1. NORMAL 99m Tc sulfur colloid semi-solid phase (oatmeal) gastric emptying imaging examination. A. There is normal and preserved semi-solid phase gastric emptying compared to normal controls. (Monique et al, J Nucl Med Tech 38: 186, 2010). Electronically Signed: Ken Gómez DO at 15:48 EDT ,
== END | disposition home or self-care (01) ==
PROVIDERS: PCP Family Medicine; Referring Provider Internal Medicine Gastroenterology; Visit Provider Internal Medicine Gastroenterology
DX: R14.0 Abdominal distension (gaseous) (principal)
CPT/HCPCS: 78264; A9541